=== PATIENT | male | born 1955 | race Caucasian/White ===

== ENCOUNTER 2020-04-15 06:59 | Outpatient (REF) | payer MEDICARE, SELFPAY ==
[2020-04-15 08:25] LABS: Estimated Average Glucose 177 mg/dL; Hemoglobin A1c % 7.8 %
== END 2020-04-15 07:00 | disposition home or self-care (01) ==
LOC: HO.LAB 06:59
PROVIDERS: Visit Provider Internal Medicine
DX: E11.9 Type 2 diabetes mellitus without complications (principal)
CPT/HCPCS: 83036

== ENCOUNTER 2020-05-07 17:18 | Emergency (ER) | payer MEDICARE, SELFPAY ==
[2020-05-07 19:43] VITALS: BP 165/61; PULSE 81; RESP 16; TEMP 36.6; O2SAT 98
[2020-05-07 19:51] VITALS: BP 150/60; PULSE 85; RESP 16; TEMP 37; O2SAT 99; BMI 30.9
--- NOTE | 2020-05-07 20:02 | ED_ITS ---
HPI - Back Pain/Injury General Chief Complaint: Back Pain/Injury Stated Complaint: back pain Time Seen by Provider: 05/07/20 20:02 Source: patient Mode of arrival: ambulatory Limitations: no limitations History of Present Illness HPI Narrative: Patient to start his back 5 days ago complaining of pain especially when he moves no direct trauma to the back no numbness or tingling in the legs no weakness no bladder or bowel incontinence MD elicited complaint: back pain Timing: intermittent Severity: moderate Similar Symptoms Previously: No Quality: sharp Location: lumbar spine Radiation: none Relieving factors: none Context: turning/twisting Associated symptoms: denies other symptoms Work related injury: No Related Data Home Medications Medication Instructions Recorded Confirmed aspirin 81 mg tablet,delayed 81 mg PO DAILY 02/02/20 05/06/20 release multivitamin 1 tab PO DAILY 02/02/20 05/06/20 omega 0-yfb-wvv-fish oil 500 mg 1 cap PO DAILY 02/02/20 05/06/20 (200mg-300mg)-1,000 mg capsule Previous Rx's Medication Instructions Recorded metformin 500 mg tablet 500 mg PO BID #180 tab 03/14/20 miscellaneous medical supply 1 ea MISCELLANEOUS DAILY #1 ea 03/21/20 chlorthalidone 25 mg tablet 25 mg PO DAILY #90 tab 04/07/20 rosuvastatin 20 mg tablet 20 mg PO DAILY #90 tab 04/09/20 cyclobenzaprine 10 mg PO Q8H #20 tab 05/07/20 oxycodone 5 mg PO Q6H PRN #20 tab 05/07/20 Allergies Allergy/AdvReac Type Severity Reaction Status Date / Time atorvastatin [Lipitor] Allergy Unknown Unknown Verified 05/07/20 19:51 No Known Drug Allergies Allergy Unknown NONE Verified 05/06/20 11:07 [NO KNOWN DRUG ALLERGIES] Review of Systems Review of Systems: Yes all other systems are reviewed and are negative [facility] Past Medical History Medical History Hypertension Surgical History History of prostate surgery History of pterygium excision Family History Family History Father No problems noted. Mother No problems noted. Social History Social History Alcohol intake: current Alcohol intake frequency: a few times a week Smoking Status: Never smoker Advance Directives: No Advance Directives Information Provided: Yes Physical Exam Vital Signs: Vital Signs: Last Vital Signs Temp 98.6 F 05/07/20 19:51 Pulse 85 05/07/20 19:51 Resp 16 05/07/20 19:51 BP 150/60 H 05/07/20 19:51 Pulse Ox 99 05/07/20 19:51 Body Mass Index 30.9 Appearance: Alert. Oriented X3. No acute distress. Eyes: Pupils equal, round and reactive to light. ENT: Pharynx normal. Neck: Normal inspection. Neck supple. CVS: Normal heart rate and rhythm. Pulses normal. Respiratory: No respiratory distress. Breath sounds normal. Abdomen: Soft and nontender. Bowel sounds are present, no mass palpable, no CVA tenderness Skin: Skin warm and dry. Normal skin color. Normal skin turgor. Extremities: No lower extremity edema. back: Diffuse tenderness L2-L3 area with no focal spinal tenderness no percussion sharp pain, paraspinal muscle tenderness++ no focal neurological deficit SLR negative bilateral Neuro: Oriented X 3. No motor deficit. No sensory deficit. Course Course Course Narrative: Patient with lumbar strain x-ray shows diffuse arthritis no findings of spinal cord involvement by clinical exam. Discharge patient home on oxycodone and Flexeril patient ambulatory in the ER MDM - Back Pain/Injury Differential Diagnosis Differential diagnosis: Likely lumbar radiculopathy and strain of lumbar region Medical Records Attestation: I reviewed the patient's medical records. Discharge Plan Discharge Clinical Impression: Strain of lumbar region Patient Disposition: Home, Self-Care Instructions: Low Back Strain (ED) Additional Instructions: Apply ice, take pain medication as prescribed. Follow with PCP if not better Prescriptions: New cyclobenzaprine 10 mg tablet 10 mg PO Q8H Qty: 20 RF: 0 oxycodone 5 mg tablet 5 mg PO Q6H PRN (Reason: Pain, Moderate) Qty: 20 RF: 0 No Action metformin 500 mg tablet 500 mg PO BID Qty: 180 RF: 8 miscellaneous medical supply Misc 1 ea miscellaneous DAILY Qty: 1 RF: 0 chlorthalidone 25 mg tablet 25 mg PO DAILY Qty: 90 RF: 8 rosuvastatin [Crestor] 20 mg tablet 20 mg PO DAILY Qty: 90 RF: 8 aspirin [Adult Low Dose Aspirin] 81 mg tablet,delayed release (DR/EC) 81 mg PO DAILY RF: 0 multivitamin Tablet 1 tab PO DAILY RF: 0 omega 2-fnq-oiu-fish oil 500-1,000 mg capsule 1 cap PO DAILY RF: 0 Print Language: Cuban
--- NOTE | 2020-05-07 20:10 | XR_ITS ---
EXAMINATION: XR LUMBOSACRAL SPINE CLINICAL INFORMATION: Atraumatic lower back pain COMPARISON: None TECHNIQUE: Three views of the lumbosacral spine. FINDINGS: Mild spondylitic changes are present in the spine with disc space narrowing at L5-S1. Endplate osteophytes are present most marked at the superior aspects of L2 and L3. A large right lateral osteophyte is present at the L3-L4 level. No bony destructive lesions are seen. XR/XR lumbar spine 2-3V IMPRESSION: Mild degenerative changes without acute finding.
[2020-05-07] MEDS: oxyCODONE HCl Immed Release 5 MG TABLET 10 MG PO (21:17)
[2020-05-07] MEDS: dexAMETHasone 2 MG TABLET 10 MG PO (21:18)
== END 2020-05-07 21:27 | disposition home or self-care (01) ==
PROVIDERS: Emergency Provider Internal Medicine
DX: S39.012A Strain of muscle, fascia and tendon of lower back, initial encounter (principal); X58.XXXA Exposure to other specified factors, initial encounter; Y93.9 Activity, unspecified; Y92.9 Unspecified place or not applicable; Y99.9 Unspecified external cause status; Z79.899 Other long term (current) drug therapy
CPT/HCPCS: 72100; 99283; 99284; J8540

== ENCOUNTER 2020-08-12 07:02 | Outpatient (REF) | payer MEDICARE, SELFPAY ==
[2020-08-12 08:05] LABS: MANUAL DIFF FLAG NO
[2020-08-12 08:13] LABS: Basophils Percent Auto 0.4 % (0-2); Eosinophils Absolute Auto 0.3 X10*3/uL (0.0-0.4); Eosinophils Percent Auto 3.6 % (0-4); Hemoglobin 14.5 g/dl (14.0-18.0); Imm Gran Abs Auto 0.01 X10*3/uL (0.00-0.03); Imm Gran Pct Auto 0.1 % (0.0-0.4); Lymphocytes Absolute Auto 2.8 X10*3/uL (1.2-4.9); Lymphocytes Percent Auto 36.8 % (20-40); Mean Corpuscular Volume 85.1 fL (80-98); Mean Platelet Volume 10.5 fL (9.4-12.4); Monocytes Absolute Auto 0.7 X10*3/uL (0.1-1.2); Monocytes Percent Auto 8.4 % (2-11); Neutrophils Absolute Auto 3.9 X10*3/uL (2.0-8.3); Neutrophils Percent Auto 50.7 % (45-73); Platelet Count 283 X10*3/uL (160-400); Red Blood Count 5.17 X10*6/uL (4.60-5.80); Red Cell Distribution Width 12.4 % (11.0-16.0); White Blood Count 7.7 X10*3/uL (4.8-10.8)
[2020-08-12 08:19] LABS: Estimated Average Glucose 183 mg/dL
[2020-08-12 08:26] LABS: Alanine Aminotransferase 29 U/L (0-40); Albumin Level 4.3 g/dL (3.5-5.0); Alkaline Phosphatase 76 U/L (39-117); Anion Gap 14 (12-20); Aspartate Amino Transferase 25 U/L (5-37); Bilirubin Total 0.6 mg/dL (0.0-1.0); Blood Urea Nitrogen 11 mg/dL (9-16); Calcium 9.3 mg/dL (8.4-10.2); Carbon Dioxide 32 mmol/L (22-29); Chloride 96 mmol/L (96-108); Cholesterol 143 mg/dL; Estimated Glomerular Filt Rate > 60; Glucose Fasting 165 mg/dL (60-99); HDL Cholesterol 35 mg/dL; LDL Cholesterol Calculated 80 mg/dl; Potassium 3.8 mmol/L (3.3-5.1); Sodium 138 mmol/L (135-145); Triglycerides 143 mg/dL
[2020-08-12 08:49] LABS: Thyroid Stimulating Hormone 1.42 uIU/mL (0.32-4.0)
[2020-08-12 08:56] LABS: Microalbum/Creatinine Ratio Ur 5.8 ug/mg cr
== END 2020-08-12 07:03 | disposition home or self-care (01) ==
LOC: HO.LAB 07:02
PROVIDERS: PCP Internal Medicine; Visit Provider Internal Medicine
DX: Z00.00 Encounter for general adult medical examination without abnormal findings (principal); E03.9 Hypothyroidism, unspecified; E11.9 Type 2 diabetes mellitus without complications
CPT/HCPCS: 36415; 80053; 80061; 82043; 83036; 84443; 85025

== ENCOUNTER 2020-11-11 07:49 | Outpatient (REF) | payer MEDICARE, SELFPAY ==
[2020-11-11 08:41] LABS: Estimated Average Glucose 157 mg/dL; Hemoglobin A1c % 7.1 %
== END 2020-11-11 07:50 | disposition home or self-care (01) ==
LOC: HO.LAB 07:49
PROVIDERS: PCP Internal Medicine; Visit Provider Internal Medicine
DX: E11.9 Type 2 diabetes mellitus without complications (principal)
CPT/HCPCS: 36415; 83036

== ENCOUNTER 2021-01-19 06:49 | Outpatient (REF) | payer MEDICARE, SELFPAY ==
[2021-01-19 07:45] LABS: Glucose Fasting 144 mg/dL (60-99)
[2021-01-19 07:54] LABS: Cholesterol 167 mg/dL; HDL Cholesterol 38 mg/dL; LDL Cholesterol Calculated 101 mg/dl; Triglycerides 144 mg/dL
[2021-01-19 08:22] LABS: Estimated Average Glucose 148 mg/dL; Hemoglobin A1c % 6.8 %
[2021-01-19 08:29] LABS: PSA,Total (Free>4and<10) 3.23 ng/mL (0.00-4.00)
== END 2021-01-19 06:50 | disposition home or self-care (01) ==
LOC: HO.LAB 06:49
PROVIDERS: Absent Provider Urology; PCP Internal Medicine; Visit Provider Internal Medicine
DX: Z12.5 Encounter for screening for malignant neoplasm of prostate (principal); R97.20 Elevated prostate specific antigen [PSA]; E11.65 Type 2 diabetes mellitus with hyperglycemia
CPT/HCPCS: 36415; 80061; 82947; 83036; 84153

== ENCOUNTER → 2021-03-24 15:10 | Outpatient (BNVA) | payer MEDICARE, SELFPAY | PROVIDERS: PCP Internal Medicine; Visit Provider Urology | CPT/HCPCS: Q3014 ==

== ENCOUNTER 2021-05-09 07:36 | Outpatient (REF) | payer MEDICARE, SELFPAY ==
[2021-05-09 08:31] LABS: Estimated Average Glucose 154 mg/dL
[2021-05-09 08:47] LABS: Cholesterol 209 mg/dL; Glucose Fasting 145 mg/dL (60-99); HDL Cholesterol 40 mg/dL; LDL Cholesterol Calculated 136 mg/dl; Triglycerides 165 mg/dL
== END 2021-05-09 07:37 | disposition home or self-care (01) ==
LOC: HO.LAB 07:36
PROVIDERS: Visit Provider Internal Medicine
DX: Z00.00 Encounter for general adult medical examination without abnormal findings (principal); E11.65 Type 2 diabetes mellitus with hyperglycemia
CPT/HCPCS: 36415; 80061; 82947; 83036

== ENCOUNTER → 2021-07-01 09:36 | Outpatient (REF) | payer MEDICARE, SELFPAY | LOC: HO.SL 09:36 | PROVIDERS: PCP Internal Medicine; Visit Provider Internal Medicine | DX: G47.33 Obstructive sleep apnea (adult) (pediatric) (principal) | CPT/HCPCS: 95806 ==

== ENCOUNTER 2021-08-10 07:17 | Outpatient (REF) | payer MEDICARE, SELFPAY ==
[2021-08-10 07:41] LABS: MANUAL DIFF FLAG NO
[2021-08-10 08:07] LABS: Basophils Percent Auto 0.3 % (0-2); Eosinophils Absolute Auto 0.2 X10*3/uL (0.0-0.4); Eosinophils Percent Auto 2.3 % (0-4); Hematocrit 45.6 % (42.0-52.0); Hemoglobin 15.2 g/dl (14.0-18.0); Imm Gran Abs Auto 0.02 X10*3/uL (0.00-0.03); Imm Gran Pct Auto 0.3 % (0.0-0.4); Lymphocytes Absolute Auto 3.1 X10*3/uL (1.2-4.9); Lymphocytes Percent Auto 39.3 % (20-40); Mean Corpuscular HGB Conc 33.3 g/dl (31.0-36.0); Mean Corpuscular Hemoglobin 28.2 pg (27.0-33.0); Mean Corpuscular Volume 84.6 fL (80.0-98.0); Mean Platelet Volume 10.3 fL (9.4-12.4); Monocytes Absolute Auto 0.7 X10*3/uL (0.1-1.2); Monocytes Percent Auto 8.7 % (2-11); Neutrophils Absolute Auto 3.9 x10*3/uL (2.0-8.3); Neutrophils Percent Auto 49.1 % (45-73); Platelet Count 248 X10*3/uL (160-400); Red Blood Count 5.39 X10*6/uL (4.60-5.80); Red Cell Distribution Width 12.6 % (11.0-16.0); White Blood Count 7.9 X10*3/uL (4.8-10.8)
[2021-08-10 08:15] LABS: Estimated Average Glucose 146 mg/dL; Hemoglobin A1c % 6.7 %
[2021-08-10 08:37] LABS: Alanine Aminotransferase 15 U/L (0-40); Albumin Level 4.3 g/dL (3.5-5.0); Alkaline Phosphatase 61 U/L (39-117); Anion Gap 13 (12-20); Aspartate Amino Transferase 18 U/L (5-37); Bilirubin Total 0.6 mg/dL (0.0-1.0); Blood Urea Nitrogen 15 mg/dL (9-16); Calcium 9.7 mg/dL (8.4-10.2); Carbon Dioxide 32 mmol/L (22-29); Chloride 99 mmol/L (96-108); Cholesterol 167 mg/dL; Estimated Glomerular Filt Rate > 60; Glucose Fasting 136 mg/dL (60-99); HDL Cholesterol 35 mg/dL; LDL Cholesterol Calculated 103 mg/dl; Potassium 3.8 mmol/L (3.3-5.1); Sodium 140 mmol/L (135-145); Triglycerides 146 mg/dL
[2021-08-10 09:00] LABS: Thyroid Stimulating Hormone 2.11 uIU/mL (0.32-4.0)
[2021-08-10 10:54] LABS: Microalbum/Creatinine Ratio Ur 3.8 ug/mg cr
== END 2021-08-10 07:18 | disposition home or self-care (01) ==
LOC: HO.LAB 07:17
PROVIDERS: PCP Internal Medicine; Visit Provider Internal Medicine
DX: Z00.00 Encounter for general adult medical examination without abnormal findings (principal); E11.9 Type 2 diabetes mellitus without complications; Z13.0 Encounter for screening for diseases of the blood and blood-forming organs and certain disorders involving the immune mechanism
CPT/HCPCS: 36415; 80053; 80061; 82043; 83036; 84443; 85025

== ENCOUNTER 2021-10-28 06:51 | Outpatient (REF) | payer MEDICARE, SELFPAY ==
[2021-10-28 08:33] LABS: Estimated Average Glucose 146 mg/dL; Hemoglobin A1c % 6.7 %
[2021-10-28 08:40] LABS: Glucose Fasting 122 mg/dL (60-99)
[2021-10-28 09:20] LABS: Cholesterol 148 mg/dL; HDL Cholesterol 37 mg/dL; LDL Cholesterol Calculated 87 mg/dl; Triglycerides 124 mg/dL
[2021-10-28 09:42] LABS: PSA,Total (Free>4and<10) 3.94 ng/mL (0.00-4.00)
== END 2021-10-28 06:52 | disposition home or self-care (01) ==
LOC: HO.LAB 06:51
PROVIDERS: Urology; PCP Internal Medicine; Visit Provider Internal Medicine
DX: Z12.5 Encounter for screening for malignant neoplasm of prostate (principal); N40.1 Benign prostatic hyperplasia with lower urinary tract symptoms; E11.65 Type 2 diabetes mellitus with hyperglycemia
CPT/HCPCS: 36415; 80061; 82947; 83036; 84153

== ENCOUNTER 2021-11-10 12:22 | Outpatient (REF) | payer MEDICARE, SELFPAY | END 2021-11-10 12:23 | disposition home or self-care (01) | LOC: HO.XRAY 12:22 | PROVIDERS: PCP Internal Medicine; Visit Provider Internal Medicine | DX: Z13.89 Encounter for screening for other disorder (principal) ==

== ENCOUNTER 2021-12-28 15:53 | Outpatient (REF) | payer MEDICARE, SELFPAY ==
--- NOTE | ~2021-12-28 | US_ITS ---
EXAMINATION: US RETROPERITONEAL LIMITED (RENAL ONLY) CLINICAL INFORMATION: Unspecified abdominal pain. COMPARISON: None TECHNIQUE: Real-time imaging of the kidneys. FINDINGS: RIGHT KIDNEY: 10.5 x 5.7 x 5.7 cm (SAG x AP x TRV). The kidney is normal in size, contour, and echogenicity. Renal cortical thickness is normal. There are several small 1 to 2 mm echogenic foci without twinkle artifact or shadowing to confirm a stone. No focal parenchymal lesions. No hydronephrosis. LEFT KIDNEY: 11.5 x 6.1 x 4.3 cm (SAG x AP x TRV). The kidney is normal in size, contour, and echogenicity. Renal cortical thickness is normal. There are several small 1 to 2 mm echogenic foci without twinkle artifact or shadowing to confirm a stone. No focal parenchymal lesions. No hydronephrosis. US/US renal BI IMPRESSION: Bilateral small 1 to 2 mm echogenic foci, question representing vascular reflectors versus small stones.
== END 2021-12-28 15:54 | disposition home or self-care (01) ==
LOC: HO.US 15:53
PROVIDERS: Visit Provider Internal Medicine
DX: R10.9 Unspecified abdominal pain (principal)
CPT/HCPCS: 76775

== ENCOUNTER 2022-01-15 07:49 | Outpatient (REF) | payer MEDICARE, SELFPAY ==
[2022-01-15 08:43] LABS: Cholesterol 169 mg/dL; HDL Cholesterol 36 mg/dL; LDL Cholesterol Calculated 112 mg/dl; Triglycerides 109 mg/dL
== END 2022-01-15 07:50 | disposition home or self-care (01) ==
LOC: HO.LAB 07:49
PROVIDERS: PCP Internal Medicine; Visit Provider Internal Medicine
DX: E78.5 Hyperlipidemia, unspecified (principal)
CPT/HCPCS: 36415; 80061

== ENCOUNTER 2022-03-09 08:36 | Outpatient (REF) | payer MEDICARE, SELFPAY ==
[2022-03-09 10:04] LABS: Estimated Average Glucose 143 mg/dL; Hemoglobin A1c % 6.6 %
[2022-03-09 10:18] LABS: Glucose Fasting 126 mg/dL (60-99)
[2022-03-09 10:28] LABS: Cholesterol 181 mg/dL; HDL Cholesterol 37 mg/dL; LDL Cholesterol Calculated 114 mg/dl; Triglycerides 152 mg/dL
[2022-03-09 10:43] LABS: PSA,Total (Free>4and<10) 3.58 ng/mL (0.00-4.00)
== END 2022-03-09 08:37 | disposition home or self-care (01) ==
LOC: HO.LAB 08:36
PROVIDERS: PCP Internal Medicine; Visit Provider Urology
DX: Z12.5 Encounter for screening for malignant neoplasm of prostate (principal); R97.20 Elevated prostate specific antigen [PSA]; E78.5 Hyperlipidemia, unspecified; E11.65 Type 2 diabetes mellitus with hyperglycemia
CPT/HCPCS: 36415; 80061; 82947; 83036; 84153

== ENCOUNTER → 2022-03-24 14:51 | Outpatient (BNVA) | payer MEDICARE, SELFPAY | PROVIDERS: PCP Internal Medicine; Visit Provider Urology | DX: E11.69 Type 2 diabetes mellitus with other specified complication (principal); N52.1 Erectile dysfunction due to diseases classified elsewhere; N40.0 Benign prostatic hyperplasia without lower urinary tract symptoms | CPT/HCPCS: 99212 ==

== ENCOUNTER → 2022-06-22 09:20 | Outpatient (BNVA) | payer MEDICARE, SELFPAY | PROVIDERS: PCP Internal Medicine; Visit Provider Nurse Practitioner Family | DX: N40.1 Benign prostatic hyperplasia with lower urinary tract symptoms (principal); E11.69 Type 2 diabetes mellitus with other specified complication; N52.1 Erectile dysfunction due to diseases classified elsewhere | CPT/HCPCS: 51798; 99212 ==

== ENCOUNTER 2022-07-22 06:51 | Outpatient (REF) | payer MEDICARE, SELFPAY ==
[2022-07-22 07:06] LABS: MANUAL DIFF FLAG NO
[2022-07-22 07:48] LABS: Basophils Percent Auto 0.6 % (0-2); Eosinophils Absolute Auto 0.2 X10*3/uL (0.0-0.4); Eosinophils Percent Auto 2.5 % (0-4); Hematocrit 43.4 % (42.0-52.0); Hemoglobin 14.4 g/dl (14.0-18.0); Imm Gran Abs Auto 0.01 X10*3/uL (0.00-0.03); Imm Gran Pct Auto 0.1 % (0.0-0.4); Lymphocytes Absolute Auto 2.8 X10*3/uL (1.2-4.9); Lymphocytes Percent Auto 38.6 % (20-40); Mean Corpuscular HGB Conc 33.2 g/dl (31.0-36.0); Mean Corpuscular Hemoglobin 27.8 pg (27.0-33.0); Mean Corpuscular Volume 83.8 fL (80.0-98.0); Mean Platelet Volume 10.1 fL (9.4-12.4); Monocytes Absolute Auto 0.6 X10*3/uL (0.1-1.2); Neutrophils Absolute Auto 3.6 x10*3/uL (2.0-8.3); Neutrophils Percent Auto 50.2 % (45-73); Platelet Count 275 X10*3/uL (160-400); Red Blood Count 5.18 X10*6/uL (4.60-5.80); Red Cell Distribution Width 12.6 % (11.0-16.0); White Blood Count 7.2 X10*3/uL (4.8-10.8)
[2022-07-22 07:57] LABS: Estimated Average Glucose 154 mg/dL
[2022-07-22 08:22] LABS: Alanine Aminotransferase 16 U/L (0-40); Albumin Level 4.1 g/dL (3.5-5.0); Alkaline Phosphatase 78 U/L (39-117); Anion Gap 12 (12-20); Aspartate Amino Transferase 17 U/L (5-37); Bilirubin Total 0.5 mg/dL (0.0-1.0); Blood Urea Nitrogen 13 mg/dL (9-16); Carbon Dioxide 31 mmol/L (22-29); Chloride 100 mmol/L (96-108); Cholesterol 145 mg/dL; Estimated Glomerular Filt Rate > 60; Glucose Fasting 139 mg/dL (60-99); HDL Cholesterol 38 mg/dL; LDL Cholesterol Calculated 90 mg/dl; Sodium 139 mmol/L (135-145); Total Protein 6.6 g/dL (6.5-8.0); Triglycerides 89 mg/dL
[2022-07-22 08:23] LABS: Creatinine Urine 96.51 mg/dL; Microalbumin Urine < 5.0 mg/L
== END 2022-07-22 06:52 | disposition home or self-care (01) ==
LOC: HO.LAB 06:51
PROVIDERS: PCP Internal Medicine; Visit Provider Internal Medicine
DX: N28.9 Disorder of kidney and ureter, unspecified (principal); D64.9 Anemia, unspecified; E11.69 Type 2 diabetes mellitus with other specified complication; E66.01 Morbid (severe) obesity due to excess calories; E78.5 Hyperlipidemia, unspecified; E11.65 Type 2 diabetes mellitus with hyperglycemia
CPT/HCPCS: 36415; 80053; 80061; 82043; 83036; 85025

== ENCOUNTER 2022-11-06 07:15 | Outpatient (REF) | payer MEDICARE, SELFPAY | END 2022-11-06 07:16 | disposition home or self-care (01) | LOC: HO.LAB 07:15 | PROVIDERS: Absent Provider Nurse Practitioner Family; PCP Internal Medicine; Visit Provider Internal Medicine | DX: R73.9 Hyperglycemia, unspecified (principal); N28.9 Disorder of kidney and ureter, unspecified; E78.5 Hyperlipidemia, unspecified; D64.9 Anemia, unspecified | CPT/HCPCS: 36415; 80053; 80061; 83036; 85025 ==

== ENCOUNTER 2022-11-16 10:23 | Outpatient (AMB) | payer MEDICARE, SELFPAY ==
--- NOTE | 2022-11-16 10:34 | MHC.PC.OV ---
Vital Signs 11/16/22 10:36 Height 5 ft 8 in Weight 198 lb 6 oz BMI 30.2 BP 128/60 Blood Pressure Location Lt brachial Position Sitting Pulse 95 Pulse Source Pulse Oximeter Pulse Oximetry (%) 97 Oxygen Delivery Method Room Air Intake Visit Reasons: 3 month f/u Intake Note: Patient is here to follow up on Hyperlipidemia, HTN, DM. Benefit Authorizer Required: No Button Decorating Machine Operator: Not Required per policy Accompanied by: Self / Same As Patient Allergies No Known Allergies Allergy (Verified 11/16/22 10:36) Medication List - Last Reconciled 11/16/22 by Enrique Stein MD aspirin (Adult Low Dose Aspirin) 81 mg PO DAILY chlorthalidone 25 mg PO DAILY cyanocobalamin (vitamin B-12) (Vitamin B-12) 500 mcg PO DAILY cyclobenzaprine 10 mg PO Q8H metformin 500 mg PO BID multivitamin 1 tab PO DAILY omega 4-iss-hcf-fish oil 500-1,000 mg 1 cap PO DAILY rosuvastatin (Crestor) 20 mg PO DAILY tadalafil 5 mg PO DAILY 90 days Tobacco use date assessed: 11/16/22 Fall risk assessment: No Falls in past year Last assessed Fall Risk: 11/16/22 Dental Screening Dental Screen Date: 11/16/22 Did you have a dental visit in the last 12 months?: Yes Did you have a dental problem in the last 6 months where you did not have access to dental care?: No Was dental information given to patient?: Patient has dentist HPI 3 month f/u HPI Details HTN DM and hyperlipidemia; stable on rx PFSH Medical History Benign prostatic hyperplasia with lower urinary tract symptoms Diabetes mellitus with coincident hypertension Elevated prostate specific antigen [PSA] Hyperlipidemia Hypertension Male erectile dysfunction, unspecified Surgical History History of cataract surgery History of prostate surgery History of pterygium excision Family History Father No problems noted. Mother No problems noted. Social History Housing: House Alcohol intake: current Alcohol intake frequency: a few times a week Patient Tobacco Use Status: Never used Tobacco e-Cigarette/Vaping Use: Never Used Second Hand Smoke Exposure: No service: No Current occupational status: retired Current occupational exposures/hazards: No Cognitive needs: No Hearing needs: No Vision needs: Yes Questionnaire PHQ-9 Over the last 2 weeks, how often have you been bothered by any of the following problems? Depression Screening Interpretation: Negative Source: Developed by Drs. Raf Nichole, Alexa Gonzalez, Hunter Villa and colleagues, with an educational april from [employer]. Thrive Questionnaire Date Thrive assessed: 05/05/22 Currently or been in a relationship where the following occur: no concerns reported WILFRED-7 AMB Questionnaire WILFRED-7 Date WILFRED - 7 assessed: 05/05/22 Source: Developed by Drs. Raf Nichole, Alexa Gonzalez, Hunter Villa and colleagues, with an educational april from [employer]. Review of Systems Const Denies chills, Denies headache(s) and Denies weight loss ENT Denies headache(s) Card Denies chest pain, Denies syncope, Denies irregular heart rhythm and Denies dyspnea Resp Denies chest congestion, Denies cough and Denies dyspnea GI Denies abdominal pain, Denies change in stool character, Denies nausea and Denies vomiting Musc Denies deformity and Denies joint swelling Neuro Denies syncope and Denies headache(s) Physical exam (Primary Care) Vital Signs: Last Vital Signs Pulse 95 11/16/22 10:36 BP 128/60 11/16/22 10:36 Pulse Ox 97 11/16/22 10:36 Oxygen Delivery Method Room Air 11/16/22 10:36 BMI result Body Mass Index 30.2 Tobacco/Smoking Status: Tobacco use Status Tobacco use date assessed 11/16/22 11/16/22 10:36 Patient Tobacco Use Status Never used Tobacco 11/16/22 10:36 e-Cigarette/Vaping Use Never Used 11/16/22 10:36 Depression Screening Interpretation: Negative Thrive Assessment: Date of Thrive Assessment Date Thrive assessed 05/05/22 11/16/22 10:36 Currently or been in a relationship where the following occur: no concerns reported Const General: cooperative, comfortable and no acute distress Resp Effort & Inspection: normal respiratory effort Auscultation: clear to auscultation bilaterally Percussion: percussion normal Cardio Jugular venous distension: no JVD Rate: regular rate Rhythm: regular rhythm GI Inspection: Yes normal to inspection Other: nl Assessment and Plan Assessment & Plan (1) Hyperlipidemia: Code(s): E78.5 - Hyperlipidemia, unspecified Plan: stable; same rx (2) Hypertension: Code(s): I10 - Essential (primary) hypertension Plan: stable; same rx (3) Diabetes mellitus with coincident hypertension: Code(s): E11.9 - Type 2 diabetes mellitus without complications; I10 - Essential (primary) hypertension Plan: same rx Orders: Orders Comprehensive [place]. Panel Fast Today N28.9 - Disorder of kidney and ureter, unspecified Hemoglobin A1c Today R73.9 - Hyperglycemia, unspecified Lipid Panel Today E78.5 - Hyperlipidemia, unspecified Prostate Specific Antigen Scr Today Z00.00 - Encounter for general adult medical examination without abnormal findings Thyroid Stimulating Hormone Today E03.9 - Hypothyroidism, unspecified Microalbumin, Random (w Creat) Today E11.69 - Type 2 diabetes mellitus with other specified complication, E66.01 - Morbid (severe) obesity due to excess calories Complete Blood Count Auto Diff Today D64.9 - Anemia, unspecified Referrals Podiatry Referral E11.9 - Type 2 diabetes mellitus without complications, I10 - Essential (primary) hypertension Coding Level of Care Code Est Pt Level 4 (33451) Diagnoses Hyperlipidemia E78.5 Hypertension I10 Diabetes mellitus with coincident hypertension E11.9; I10
[2022-11-16 10:36] VITALS: BP 128/60; PULSE 95; O2SAT 97; BMI 30.2
== END 2022-11-16 10:53 | disposition home or self-care (01) ==
PROVIDERS: PCP Internal Medicine; Visit Provider Internal Medicine
DX: E78.5 Hyperlipidemia, unspecified (principal); I10 Essential (primary) hypertension; E11.9 Type 2 diabetes mellitus without complications
CPT/HCPCS: 99214

== ENCOUNTER 2022-12-01 09:19 | Outpatient (REF) | payer MEDICARE, SELFPAY ==
--- NOTE | ~2022-12-01 | US_ITS ---
EXAMINATION: US RETROPERITONEAL LIMITED (RENAL ONLY) CLINICAL INFORMATION: Calculus of kidney. COMPARISON: Renal ultrasound 12/28/2021. TECHNIQUE: Real-time imaging of the kidneys. FINDINGS: RIGHT KIDNEY: 11.2 x 6.6 x 5.3 cm (SAG x AP x TRV). The kidney is normal in size, contour, and echogenicity. Renal cortical thickness is normal. No calculi or focal parenchymal lesions. No hydronephrosis. LEFT KIDNEY: 12.2 x 5.9 x 4.2 cm (SAG x AP x TRV). The kidney is normal in size, contour, and echogenicity. Renal cortical thickness is normal. No calculi or focal parenchymal lesions. No hydronephrosis. US/US renal BI IMPRESSION: No hydronephrosis or nephrolithiasis.
== END 2022-12-01 09:20 | disposition home or self-care (01) ==
LOC: HO.US 09:19
PROVIDERS: PCP Internal Medicine; Visit Provider Nurse Practitioner Family
DX: N20.0 Calculus of kidney (principal)
CPT/HCPCS: 76775

== ENCOUNTER 2022-12-17 06:23 | Outpatient (REF) | payer MEDICARE, SELFPAY ==
[2022-12-17 08:11] LABS: Prostate Specific Antigen 3.11 ng/mL (<0.05-4.0)
== END 2022-12-17 06:24 | disposition home or self-care (01) ==
LOC: HO.LAB 06:23
PROVIDERS: PCP Internal Medicine; Visit Provider Nurse Practitioner Family
DX: Z12.5 Encounter for screening for malignant neoplasm of prostate (principal); N40.1 Benign prostatic hyperplasia with lower urinary tract symptoms
CPT/HCPCS: 36415; 84153

== ENCOUNTER 2022-12-21 09:11 | Outpatient (AMB) | payer MEDICARE, SELFPAY ==
--- NOTE | 2022-12-21 09:13 | A.OFFVIS_ITS ---
Intake Intake Visit Reasons: 6m follow up/labs Intake Note: Patient is present for follow up BPH/history of renal stones/erectile dysfunction (imaging 12/01/22) (psa 3.11) Urology Medications: tadalafil Blood Thinner: aspirin PVR: 5ml's Hot Dog Vender Required: No Accompanied by: Self / Same As Patient Allergies No Known Allergies Allergy (Verified 12/21/22 09:42) Medication List - Last Reconciled 12/21/22 by PINKY Moss- aspirin (Adult Low Dose Aspirin) 81 mg PO DAILY chlorthalidone 25 mg PO DAILY cyanocobalamin (vitamin B-12) (Vitamin B-12) 500 mcg PO DAILY cyclobenzaprine 10 mg PO Q8H metformin 500 mg PO BID multivitamin 1 tab PO DAILY omega 2-ozg-for-fish oil 500-1,000 mg 1 cap PO DAILY rosuvastatin (Crestor) 20 mg PO DAILY tadalafil 5 mg PO DAILY 90 days HPI HPI Comments History of Present Illness Details Jorge is a very pleasant 67 year old male patient of Dr. Stein. he has a past medical history of BPH with lower urinary tract symptoms, diabetes mellitus, hypertension, hyperlipidemia, and erectile dysfunction. He presents to the office today for a follow-up of his lower urinary tract symptoms and erectile dysfunction. When asked patient reports to be doing and feeling well. He discusses to be compliant with 5 mg of Cialis daily and feels this to be working extremely well for his lower urinary tract symptoms as well as erectile dysfunction. Recent renal imaging results reviewed with the patient today. Bilateral kidneys with no calculi, lesions, and or hydronephrosis noted. PSAs are as follows 07/18--2.8 07/19--3.9 10/19--3.1 01/20--3.2 10/21--3.9 03/23--3.6 12/22--3.1 He otherwise denies any issues and or concerns. In office urinalysis results reviewed with the patient today. PVR 5 mL. When asked he denies urinary urgency, urinary frequency, incontinence, nocturia, hematuria, dysuria, foul smelling urine, changes to urinary stream, flank pain, fever, and or chills. He is happy with her current voiding parameters on 5 mg of Cialis daily. Lower urinary tract symptoms Prior history laser prostatectomy PSA historically range between 2.8 and 3.8 Erectile dysfunction Longstanding Currently on therapy HBA1c 03/23 - 6.6% Background diabetes ? [facility] Medical History Benign prostatic hyperplasia with lower urinary tract symptoms Diabetes mellitus with coincident hypertension Elevated prostate specific antigen [PSA] Hyperlipidemia Hypertension Male erectile dysfunction, unspecified Surgical History History of cataract surgery History of prostate surgery History of pterygium excision Family History Father No problems noted. Mother No problems noted. Social History Housing: House Alcohol intake: current Alcohol intake frequency: a few times a week Patient Tobacco Use Status: Never used Tobacco e-Cigarette/Vaping Use: Never Used Second Hand Smoke Exposure: No service: No Current occupational status: retired Current occupational exposures/hazards: No Cognitive needs: No Hearing needs: No Vision needs: Yes Review of Systems Const Reports no additional complaints Eyes Reports no additional complaints ENT Reports no additional complaints Card Reports no additional complaints Resp Reports no additional complaints GI Reports no additional complaints Reports as per HPI Musc Reports no additional complaints Psych Reports no additional complaints Endo Details: patient reports A1c and suagrs to be well controlled Solitario/Lymph Reports no additional complaints Aller/Immun Reports no additional complaints Physical Exam Const General: cooperative, healthy appearing, comfortable, no acute distress, well developed, alert and awake Orientation/consciousness: patient oriented x3 Limitations: no limitations HEENT Head: Yes normal to inspection, Yes normocephalic and Yes atraumatic Ears: hearing grossly normal bilaterally Eyes General: appearance normal, both eyes and all related structures Neck Neck: Yes normal visual inspection and Yes trachea midline Chest Chest palpation & inspection: normal inspection of the chest Resp Effort & Inspection: normal respiratory effort and able to speak in complete sentences Cardio Rate: regular rate General: Yes no CVA tenderness Back/Spine/Pelvis Back: no CVA tenderness Skin General skin exam: no rashes or lesions noted Neuro General: patient oriented x3 Extrem General: Yes normal to inspection Psych Appearance: grossly normal and well kempt Mental Status: mental status grossly normal Speech and movement: Normal speech and movement present and Clear speech present Affect: normal affect Attitude: cooperative Thought process: Normal thought process present Thought content: Normal thought content present Insight: Fair insight present (Psych) Judgement: Fair judgement present (Psych) Office Procedures Post Void Residual Post Residual Void Post Void Residual (PVR): 5 [id number]-[id number] Void Residual by ultrasound Results AMB Urinalysis, Automated UA Leukoctes 0 Arnoldo/uL Last Edit by RadiumOnesoledad Ayers on 12/21/22 09:33 UA Nitrite Last Edit by PeerApprafal Ayers on 12/21/22 09:33 UA Urobilinogen 0.2 mg/dL Last Edit by RadiumOnesoledad [employer] on 12/21/22 09:33 UA Protein 0 mg/dL Last Edit by RadiumOnesoledad [employer] on 12/21/22 09:33 UA pH 6.0 Last Edit by RadiumOnesoledad Ayers on 12/21/22 09:33 UA Blood 0 Cesario/uL Last Edit by [employer] on 12/21/22 09:33 UA Specific [place] 1.020 Last Edit by RadiumOnesoledad [employer] on 12/21/22 09:33 UA Ketone Negative Last Edit by [employer] on 12/21/22 09:33 UA Bilirubin 0 mg/dL Last Edit by [employer] on 12/21/22 09:33 UA Glucose 0 mg/dL Last Edit by RadiumOnesoledad [employer] on 12/21/22 09:33 Results Reviewed Results Reviewed: Laboratory Last Values Urine pH (Auto) 6.0 12/21/22 09:15 Specific [place] (Auto) 1.020 12/21/22 09:15 Urine Protein (Auto) 0 mg/dL 12/21/22 09:15 Glucose (UA)(Auto) 0 mg/dL 12/21/22 09:15 Urine Ketones (Auto) Negative 12/21/22 09:15 Urine Blood (Auto) 0 Cesario/uL 12/21/22 09:15 Urine Bilirubin (Auto) 0 mg/dL 12/21/22 09:15 Urine Urobilinogen (Auto) 0.2 mg/dL 12/21/22 09:15 Leukocyte Esterase (Auto) 0 Arnoldo/uL 12/21/22 09:15 Date of Service: 12/01/22 EXAMINATION: US RETROPERITONEAL LIMITED (RENAL ONLY) FINDINGS: RIGHT KIDNEY: 11.2 x 6.6 x 5.3 cm (SAG x AP x TRV). The kidney is normal in size, contour, and echogenicity. Renal cortical thickness is normal. No calculi or focal parenchymal lesions. No hydronephrosis. LEFT KIDNEY: 12.2 x 5.9 x 4.2 cm (SAG x AP x TRV). The kidney is normal in size, contour, and echogenicity. Renal cortical thickness is normal. No calculi or focal parenchymal lesions. No hydronephrosis. IMPRESSION: No hydronephrosis or nephrolithiasis. Assessment & Plan Assessment & Plan (1) Benign prostatic hyperplasia with lower urinary tract symptoms: Code(s): N40.1 - Benign prostatic hyperplasia with lower urinary tract symptoms (2) Erectile dysfunction associated with type 2 diabetes mellitus: Code(s): E11.69 - Type 2 diabetes mellitus with other specified complication; N52.1 - Erectile dysfunction due to diseases classified elsewhere (3) Elevated prostate specific antigen [PSA]: Code(s): R97.20 - Elevated prostate specific antigen [PSA] Plan In office urinalysis results reviewed with the patient today. PVR 5 mL. Recent renal ultrasound results reviewed with the patient today; as noted above. Recent PSA results reviewed with the patient today; as noted above. Patient reports significant improvement in erectile dysfunction as well as lower urinary tract symptoms on 5 mg of Cialis daily. Will continue 5 mg of Cialis; prescription refilled and provided. Discussed at length importance of managing diabetes for improvement in lower urinary tract symptoms, erectile dysfunction, and overall health and well-being. Continue to drink plenty of water daily. Continue adding 1 oz of lemon juice to water. Patient reports to be happy with current voiding parameters on low-dose 5 mg of Cialis daily. PSA in 1 year. Follow-up in 1 year with PSA to be completed prior; or sooner with any issues, concerns, and or questions. Orders: Orders Prostate Specific Antigen 364 Days N40.1 - Benign prostatic hyperplasia with lower urinary tract symptoms AMB Urinalysis Automated Today Z13.9 - Encounter for screening, unspecified AMB Post Void Residual by ultrasound Today N40.1 - Benign prostatic hyperplasia with lower urinary tract symptoms Medications: Refilled tadalafil [facility] DR33 [id number] 5 mg PO DAILY 90 days 90 tabs 3RF sexual activity N52.01 - Erectile dysfunction due to arterial insufficiency Patient Instructions: The patient had an opportunity to ask questions regarding the treatment plan. All questions were answered. Physical exam, labs, and imaging were discussed and reviewed in detail. As well as risks, benefits, and discussion of treatment choices. No major barriers to understanding were identified. The patient expressed understanding and agreement with the above treatment plan. The patient was made aware they should contact our office by phone for worsening of their current condition, the appearance of new symptoms, or with any questions or concerns. Compliance is encouraged with any medications and follow up testing that is ordered. It is a privilege to be allowed the opportunity to participate in? your urological care.? Again, if you have any questions or concerns If you have any questions or concerns please do not hesitate to contact me. The office is [phone]. This note is constructed using voice recognition software. While every effort has been made to ensure accuracy lieutenant/deputy errors may have been included. Yours sincerely, OKSANA Moss Coding Level of Care Code Est Pt Level 3 (34414) Diagnoses Benign prostatic hyperplasia with lower urinary tract symptoms N40.1 Erectile dysfunction associated with type 2 diabetes mellitus E11.69; N52.1 Elevated prostate specific antigen [PSA] R97.20 CPT Codes Post Residual Void - PVR CPT Code: 20173-Oyra Void Residual by ultrasound ([id number])
== END 2022-12-21 09:53 | disposition home or self-care (01) ==
PROVIDERS: PCP Internal Medicine; Visit Provider Nurse Practitioner Family
DX: N40.1 Benign prostatic hyperplasia with lower urinary tract symptoms (principal); E11.69 Type 2 diabetes mellitus with other specified complication; N52.1 Erectile dysfunction due to diseases classified elsewhere; R97.20 Elevated prostate specific antigen [PSA]
CPT/HCPCS: 99213

== ENCOUNTER → 2022-12-21 09:11 | Outpatient (BNVA) | payer MEDICARE, SELFPAY | PROVIDERS: Visit Provider Nurse Practitioner Family | DX: N40.1 Benign prostatic hyperplasia with lower urinary tract symptoms (principal); E11.69 Type 2 diabetes mellitus with other specified complication; N52.1 Erectile dysfunction due to diseases classified elsewhere; R97.20 Elevated prostate specific antigen [PSA] | CPT/HCPCS: 51798; 81003; 99212 ==

== ENCOUNTER 2023-02-14 06:30 | Outpatient (REF) | payer MEDICARE, SELFPAY ==
[2023-02-14 06:49] LABS: MANUAL DIFF FLAG NO
[2023-02-14 07:24] LABS: Basophils Percent Auto 0.4 % (0-2); Eosinophils Absolute Auto 0.2 X10*3/uL (0.0-0.4); Eosinophils Percent Auto 3.1 % (0-4); Hematocrit 47.8 % (42.0-52.0); Hemoglobin 15.4 g/dl (14.0-18.0); Imm Gran Abs Auto 0.01 X10*3/uL (0.00-0.03); Imm Gran Pct Auto 0.1 % (0.0-0.4); Lymphocytes Absolute Auto 2.6 X10*3/uL (1.2-4.9); Lymphocytes Percent Auto 36.5 % (20-40); Mean Corpuscular HGB Conc 32.2 g/dl (31.0-36.0); Mean Corpuscular Hemoglobin 27.4 pg (27.0-33.0); Mean Corpuscular Volume 84.9 fL (80.0-98.0); Mean Platelet Volume 10.3 fL (9.4-12.4); Monocytes Absolute Auto 0.5 X10*3/uL (0.1-1.2); Monocytes Percent Auto 7.5 % (2-11); Neutrophils Absolute Auto 3.7 x10*3/uL (2.0-8.3); Neutrophils Percent Auto 52.4 % (45-73); Platelet Count 261 X10*3/uL (160-400); Red Blood Count 5.63 X10*6/uL (4.60-5.80); Red Cell Distribution Width 12.7 % (11.0-16.0)
[2023-02-14 07:33] LABS: Estimated Average Glucose 128 mg/dL; Hemoglobin A1c % 6.1 % (<6.0)
[2023-02-14 08:07] LABS: Creatinine Urine 99.57 mg/dL; Microalbumin Urine < 5.0 mg/L
[2023-02-14 08:14] LABS: Alanine Aminotransferase 17 U/L (0-40); Albumin Level 4.4 g/dL (3.5-5.0); Alkaline Phosphatase 74 U/L (39-117); Anion Gap 16 (12-20); Aspartate Amino Transferase 18 U/L (5-37); Bilirubin Total 0.6 mg/dL (0.0-1.0); Blood Urea Nitrogen 14 mg/dL (9-16); Calcium 10.1 mg/dL (8.4-10.2); Carbon Dioxide 30 mmol/L (22-29); Chloride 98 mmol/L (96-108); Cholesterol 173 mg/dL (<200); Estimated Glomerular Filt Rate > 60; Glucose Fasting 136 mg/dL (60-99); HDL Cholesterol 39 mg/dL (>40); LDL Cholesterol Calculated 112 mg/dL (<100); Sodium 140 mmol/L (135-145); Thyroid Stimulating Hormone 1.95 uIU/mL (0.32-4.0); Total Protein 7.7 g/dL (6.5-8.0); Triglycerides 111 mg/dL (<150)
== END 2023-02-14 06:31 | disposition home or self-care (01) ==
LOC: HO.LAB 06:30
PROVIDERS: PCP Internal Medicine; Visit Provider Internal Medicine
DX: Z00.00 Encounter for general adult medical examination without abnormal findings (principal); Z12.5 Encounter for screening for malignant neoplasm of prostate; D64.9 Anemia, unspecified; E66.01 Morbid (severe) obesity due to excess calories; E03.9 Hypothyroidism, unspecified; E78.5 Hyperlipidemia, unspecified; N28.9 Disorder of kidney and ureter, unspecified; E11.65 Type 2 diabetes mellitus with hyperglycemia
CPT/HCPCS: 36415; 80053; 80061; 82043; 82570; 83036; 84153; 84443; 85025

== ENCOUNTER 2023-02-23 09:15 | Outpatient (AMB) | payer MEDICARE, SELFPAY ==
[2023-02-23 09:22] VITALS: BP 140/70; PULSE 75; O2SAT 99
--- NOTE | 2023-02-23 09:22 | MHC.PC.OV ---
Vital Signs 02/23/23 09:22 Height 5 ft 8 in Weight 197 lb BMI 30.0 BP 140/70 H Blood Pressure Location Lt brachial Position Sitting Pulse 75 Pulse Source Pulse Oximeter Pulse Oximetry (%) 99 Oxygen Delivery Method Room Air Intake Visit Reasons: 3 month f/u Allergies No Known Allergies Allergy (Verified 02/23/23 09:23) Medication List - Last Reconciled 02/23/23 by Enrique Stein MD aspirin (Adult Low Dose Aspirin) 81 mg PO DAILY chlorthalidone 25 mg PO DAILY cyanocobalamin (vitamin B-12) (Vitamin B-12) 500 mcg PO DAILY cyclobenzaprine 10 mg PO Q8H metformin 500 mg PO BID multivitamin 1 tab PO DAILY omega 6-daq-otk-fish oil 500-1,000 mg 1 cap PO DAILY rosuvastatin (Crestor) 20 mg PO DAILY tadalafil 5 mg PO DAILY 90 days Tobacco use date assessed: 11/16/22 Fall risk assessment: No Falls in past year Last assessed Fall Risk: 02/23/23 Dental Screening Dental Screen Date: 02/23/23 Did you have a dental visit in the last 12 months?: Yes Did you have a dental problem in the last 6 months where you did not have access to dental care?: No Was dental information given to patient?: Patient has dentist HPI 3 month f/u HPI Details HTN DM and hyperlip; doing well on rx; compliant PFSH Medical History Hyperlipidemia Elevated prostate specific antigen [PSA] Male erectile dysfunction, unspecified Benign prostatic hyperplasia with lower urinary tract symptoms Diabetes mellitus with coincident hypertension Hypertension Surgical History History of cataract surgery History of pterygium excision History of prostate surgery Family History Father No problems noted. Mother No problems noted. Social History Housing: House Alcohol intake: current Alcohol intake frequency: a few times a week Patient Tobacco Use Status: Never used Tobacco e-Cigarette/Vaping Use: Never Used Second Hand Smoke Exposure: No service: No Current occupational status: retired Current occupational exposures/hazards: No Cognitive needs: No Hearing needs: No Vision needs: Yes Questionnaire PHQ-9 Over the last 2 weeks, how often have you been bothered by any of the following problems? 1. Little interest or pleasure in doing things: not at all 2. Feeling down, depressed, or hopeless: not at all 3. Trouble falling or staying asleep, or sleeping too much: not at all 4. Feeling tired or having little energy: not at all 5. Poor appetite or overeating: not at all 6. Feeling bad about yourself - or that you are a failure or have let yourself or your family down: not at all 7. Trouble concentrating on things, such as reading the newspaper or watching television: not at all 8. Moving or speaking so slowly that other people could have noticed. Or the opposite - being so fidgety or restless that you have been moving around a lot more than usual: not at all 9. Thoughts that you would be better off or of hurting yourself in some way: not at all Total score: 0 Depression Screening Interpretation: Negative Depression Screening Done: Yes Source: Developed by Drs. Raf Nichole, Alexa Gonzalez, Hunter Villa and colleagues, with an educational april from [employer]. Thrive Questionnaire Date Thrive assessed: 05/05/22 AUDIT C Alcohol Use Questionnaire (AUDIT-C) 1. How often do you have a drink containing alcohol?: 2-4 times a month 2. How many drinks containing alcohol do you have on a typical day when you are drinking?: 3 or 4 3. How often do you have six or more drinks on one occasion?: Never Total Score: 3 Score Reviewed/Action Taken: Yes WILFRED-7 AMB Questionnaire WILFRED-7 Date WILFRED - 7 assessed: 05/05/22 Source: Developed by Drs. Raf Nichole, Alexa Gonzalez, Hunter Villa and colleagues, with an educational april from [employer]. Review of Systems Const Denies chills, Denies headache(s) and Denies weight loss ENT Denies headache(s) Card Denies chest pain, Denies syncope, Denies irregular heart rhythm and Denies dyspnea Resp Denies chest congestion, Denies cough and Denies dyspnea GI Denies abdominal pain, Denies change in stool character, Denies nausea and Denies vomiting Musc Denies deformity and Denies joint swelling Neuro Denies syncope and Denies headache(s) Physical exam (Primary Care) Vital Signs: Last Vital Signs Pulse 75 02/23/23 09:22 BP 140/70 H 02/23/23 09:22 Pulse Ox 99 02/23/23 09:22 Oxygen Delivery Method Room Air 02/23/23 09:22 BMI result Body Mass Index 30.0 Tobacco/Smoking Status: Tobacco use Status Tobacco use date assessed 11/16/22 02/23/23 09:25 Patient Tobacco Use Status Never used Tobacco 02/23/23 09:25 e-Cigarette/Vaping Use Never Used 02/23/23 09:25 PHQ-9: PHQ-9 Score PHQ-9: Total score 0 02/23/23 09:25 Depression Screening Interpretation: Negative Thrive Assessment: Date of Thrive Assessment Date Thrive assessed 05/05/22 02/23/23 09:25 Const General: cooperative, comfortable, no acute distress and alert Neck Neck: Yes no lymphadenopathy Thyroid: Thyroid normal Resp Effort & Inspection: normal respiratory effort Auscultation: clear to auscultation bilaterally Percussion: percussion normal Cardio Jugular venous distension: no JVD Palpation: normal PMI Rate: regular rate Rhythm: regular rhythm Heart sounds: S1 normal heart sound present and S2 normal heart sound present GI Inspection: Yes normal to inspection Palpation (GI): No hepatosplenomegaly present Skin General skin exam: no rashes or lesions noted Extrem General: Yes no clubbing, cyanosis or edema Assessment and Plan Assessment & Plan (1) Hyperlipidemia: Code(s): E78.5 - Hyperlipidemia, unspecified Plan: stable; same rx (2) Diabetes mellitus with coincident hypertension: Code(s): E11.9 - Type 2 diabetes mellitus without complications; I10 - Essential (primary) hypertension Plan: stable; same rx (3) Hypertension: Code(s): I10 - Essential (primary) hypertension Plan: stable; same rx Orders: Orders Lipid Panel Today E78.5 - Hyperlipidemia, unspecified Hemoglobin A1c Today R73.9 - Hyperglycemia, unspecified Glucose Fasting Today R73.9 - Hyperglycemia, unspecified Coding Level of Care Code Est Pt Level 4 (39130) Diagnoses Hyperlipidemia E78.5 Diabetes mellitus with coincident hypertension E11.9; I10 Hypertension I10
== END 2023-02-23 09:36 | disposition home or self-care (01) ==
PROVIDERS: PCP Internal Medicine; Visit Provider Internal Medicine
DX: E78.5 Hyperlipidemia, unspecified (principal); E11.65 Type 2 diabetes mellitus with hyperglycemia; I10 Essential (primary) hypertension
CPT/HCPCS: 99214

== ENCOUNTER 2023-05-19 14:15 | Emergency (ER) | payer MEDICARE, SELFPAY ==
--- NOTE | ~2023-05-19 | CT_ITS ---
EXAMINATION: CT HEAD WITHOUT CONTRAST CLINICAL INFORMATION: Dizziness. COMPARISON: None available. TECHNIQUE: Contiguous axial imaging was performed from the skull base to vertex without intravenous administration of contrast. This CT examination was performed using dose optimization techniques as appropriate, variously including the following: *Automated exposure control. *Adjustment of mA and/or kV according to patient size (this includes techniques or standardized protocols for targeted exams where dose is matched to indication/reason for exam; i.e. extremities or head). *Use of iterative reconstruction technique. DLP: 738 mGy-cm FINDINGS: There is no evidence of acute intracranial hemorrhage or edematous territorial infarction. Spence-white matter differentiation is preserved. Scattered and partially confluent hypoattenuation in the periventricular and deep white matter are consistent with moderate microangiopathy. Proportional prominence of the ventricles and sulcal spaces without evidence of obstructive hydrocephalus. No abnormal mass effect or midline shift. No extra-axial fluid collections. No acute soft tissue or osseous abnormalities. Mild mucosal thickening of the paranasal sinuses. The mastoid air cells and middle ear cavities are clear. Bilateral lens extractions. CT/CT head/brain wo IV con IMPRESSION: 1. No evidence of acute intracranial hemorrhage or edematous territorial infarction. 2. Moderate underlying microangiopathy and generalized cerebral volume loss.
[2023-05-19 14:19] VITALS: BP 145/71; PULSE 75; RESP 19; TEMP 36.6; O2SAT 97; BMI 29.2
--- NOTE | 2023-05-19 14:21 | ED_ITS ---
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 no tremors no focal weakness no headache no nausea no vomiting patient does have chronic tinnitus no chest pain or palpitation no syncope Related Data Home Medications Medication Instructions Recorded Confirmed aspirin 81 mg tablet,delayed 81 mg PO DAILY 02/02/20 02/23/23 release (Adult Low Dose Aspirin) multivitamin 1 tab PO DAILY 02/02/20 02/23/23 omega 9-zvd-zld-fish oil 500 mg 1 cap PO DAILY 02/02/20 02/23/23 (200mg-300mg)-1,000 mg capsule cyanocobalamin (vitamin B-12) 500 500 mcg PO DAILY 06/02/21 02/23/23 mcg tablet (Vitamin B-12) Previous Rx's Medication Instructions Recorded cyclobenzaprine 10 mg tablet 10 mg PO Q8H #20 tabs 08/25/20 metformin 500 mg tablet 500 mg PO BID #180 tabs 06/01/22 rosuvastatin 20 mg tablet (Crestor) 20 mg PO DAILY #90 tabs 06/01/22 chlorthalidone 25 mg tablet 25 mg PO DAILY #90 tabs 07/13/22 tadalafil 5 mg tablet 5 mg PO DAILY sexual activity 90 12/21/22 days #90 tabs meclizine 25 mg tablet 25 mg PO TID PRN dizziness #20 tabs 05/19/23 Allergies Allergy/AdvReac Type Severity Reaction Status Date / Time No Known Allergies Allergy Verified 05/19/23 14:17 Review of Systems 2 Review of Systems: Yes all other systems are reviewed and are negative PMFSH Past Medical History Onset Date is defined in the Problem List Problems that require an onset date and time if occurred within 24 hrs of arrival to the ED Aortic Dissection and Rupture; Neurologic impairment; Cardiopulmonary Arrest; Endotracheal Intubation; Insertion or Replacement of Mechanical Circulatory Assist Device Medical History Hyperlipidemia Elevated prostate specific antigen [PSA] Male erectile dysfunction, unspecified Benign prostatic hyperplasia with lower urinary tract symptoms Diabetes mellitus with coincident hypertension Hypertension Surgical History History of cataract surgery History of pterygium excision History of prostate surgery Family History Family History Father No problems noted. Mother No problems noted. Social History Social History Housing: House Alcohol intake: current Alcohol intake frequency: a few times a week Patient Tobacco Use Status: Never used Tobacco e-Cigarette/Vaping Use: Never Used Second Hand Smoke Exposure: No Advance Directives: No Advance Directives Information Provided: No service: No Current occupational status: retired Current occupational exposures/hazards: No Cognitive needs: No Hearing needs: No Vision needs: Yes Physical Exam ED Vital Signs: Vital Signs - 24 hr 05/19/23 14:19 05/19/23 18:45 05/19/23 21:40 Temperature 98 F 98.5 F 97.9 F Pulse Rate 75 66 67 Respiratory Rate 19 19 14 Blood Pressure 145/71 H 135/65 136/62 Pulse Oximetry 97 100 98 Oxygen Delivery Method Room Air Room Air Room Air 05/19/23 22:41 05/19/23 22:42 05/19/23 22:42 Temperature Pulse Rate 89 71 71 Respiratory Rate Blood Pressure 142/62 H 145/66 H 153/65 H Pulse Oximetry Oxygen Delivery Method BMI result Body Mass Index 29.2 Appearance: Alert. Oriented X3. No acute distress. Eyes: PERRLA, No Nystagmus vertiginous feeling on moving neck to the right side ENT: Pharynx normal. Oral Mucosa moist Neck: Normal inspection. Neck supple. CVS: Normal heart rate and rhythm. Pulses normal. Respiratory: No respiratory distress. Equal air entry bilateral, no wheezing/rales/rhonchi Abdomen: Soft and nontender. Bowel sounds are present, Skin: Skin warm and dry. Normal skin color. Normal skin turgor. Extremities: No lower extremity edema. No calf tenderness Neuro: Oriented X 3. No motor deficit. No sensory deficit.No cerebellar signs , cranial nerves II-XII intact Course Course Course Narrative: RME- 67-year-old male presents for evaluation of dizziness at times we worse in the morning. Also complains of headache and mild chest tightness. Plan for labs, EKG Medications Administered Discontinued Medications Generic Name Dose Route Start Last Admin Trade Name Tina PRN Reason Stop Dose Admin Meclizine HCl 25 mg 05/19/23 22:24 05/19/23 22:40 Meclizine Hcl 25 Mg Tablet PO 05/19/23 22:25 25 mg ONCE ONE Administration Medical Decision Making Medical Decision Making [facility] Narrative: Patient with sudden onset of dizziness clinically peripheral vertigo no signs of central nervous system involvement. CT scan of the head is negative for acute patient ambulatory feeling much better after taking meclizine discharge patient home on meclizine Differential Diagnosis Differential Diagnoses: The differential diagnosis associated with the presentation includes Benign positional vertigo/cerebellar stroke/nonspecific dizzy Lab Data [facility] Lab Attestation statement: I reviewed the patient's lab results. 05/19/23 14:36 05/19/23 14:36 Labs: Lab Results 05/19/23 05/19/23 Range/Units 14:36 21:42 WBC 7.5 (4.8-10.8) X10*3/uL RBC 5.46 (4.60-5.80) X10*6/uL Hgb 15.2 (14.0-18.0) g/dl Hct 45.7 (42.0-52.0) % MCV 83.7 (80.0-98.0) fL MCH 27.8 (27.0-33.0) pg MCHC 33.3 (31.0-36.0) g/dl RDW 13.0 (11.0-16.0) % Plt Count 247 (160-400) X10*3/uL MPV 9.6 (9.4-12.4) fL Immature Gran % (Auto) 0.3 (0.0-0.4) % Neut % (Auto) 69.5 (45-73) % Lymph % (Auto) 22.7 (20-40) % [place]ondera % (Auto) 6.1 (2-11) % Eos % (Auto) 1.1 (0-4) % Baso % (Auto) 0.3 (0-2) % Lymph # (Auto) 1.7 (1.2-4.9) X10*3/uL [place] # (Auto) 0.5 (0.1-1.2) X10*3/uL Eos # (Auto) 0.1 (0.0-0.4) X10*3/uL Baso # (Auto) 0.0 (0.0-0.2) X10*3/uL Abs Immat Gran (auto) 0.02 (0.00-0.03) X10*3/uL Absolute Neuts (auto) 5.2 (2.0-8.3) x10*3/uL Absolute Nucleated RBC 0.000 (0.0-0.012) X10*3/uL Nucleated RBC % (auto) 0.0 (0.0-0.2) /100WBC PT 11.1 (11.1-13.3) SEC INR 0.9 (0.9-1.1) APTT 32.1 (26.0-36.4) SEC Sodium 137 (135-145) mmol/L Potassium 3.4 (3.3-5.1) mmol/L Chloride 101 (96-108) mmol/L Carbon Dioxide 27 (22-29) mmol/L Anion Gap 12 (12-20) BUN 13 (9-16) mg/dL Creatinine 0.80 (0.5-1.4) mg/dL Estim Creat Clear Calc 93.5 Estimated GFR > 60 Random Glucose 152 H (60-115) mg/dL Calcium 9.4 D (8.4-10.2) mg/dL Total Bilirubin 0.4 (0.0-1.0) mg/dL AST 17 (5-37) U/L ALT 15 (0-40) U/L Alkaline Phosphatase 72 (39-117) U/L Troponin I High Sens < 2.7 (<3.5-35.0) ng/L Total Protein 7.3 (6.5-8.0) g/dL Albumin 4.1 (3.5-5.0) g/dL Lipase 20 (8-78) U/L Urine Color Yellow Urine Appearance Clear Urine pH 7.5 (5.0-9.0) Ur Specific Lithia 1.010 (1.005-1.025) Urine Protein Negative (Neg-Trace) mg/dL Urine Glucose (UA) Negative (Negative) mg/dL Urine Ketones Negative (Negative) mg/dL Urine Blood Negative (Negative) Urine Nitrite Negative (Negative) Ur Leukocyte Esterase Negative (Negative) Urine RBC 0-2 (0-2) /HPF Urine WBC 0-5 (0-5) /HPF Ur Squamous Epith Cells 0-2 (0-2) /HPF Urine Bacteria None Seen (None Seen) Hyaline Casts 0-2 (0-2) /LPF Independent Interpretation I performed an independent interpretation of an: EKG and CT Scan Interpretation: Junctional rhythm with heart rate 75 beats per minute no acute ST T wave changes no acute ischemia Radiology Impression Discussion of test interpretation with radiology: I have reviewed the radiologist's reading. Discharge Plan Discharge Clinical Impression: Benign paroxysmal positional vertigo Patient Disposition: Home, Self-Care Instructions: Benign Paroxysmal Positional Vertigo (ED) Additional Instructions: Care and cautions as advised Medication for dizziness as prescribed Follow with PCP if not better Prescriptions: New meclizine 25 mg tablet 25 mg PO TID PRN (Reason: dizziness) Qty: 20 0RF No Action rosuvastatin [Crestor] 20 mg tablet 20 mg PO DAILY Qty: 90 8RF metformin 500 mg tablet 500 mg PO BID Qty: 180 8RF chlorthalidone 25 mg tablet 25 mg PO DAILY Qty: 90 8RF aspirin [Adult Low Dose Aspirin] 81 mg tablet,delayed release (DR/EC) 81 mg PO DAILY multivitamin Tablet 1 tab PO DAILY omega 0-jeh-olc-fish oil 500-1,000 mg capsule 1 cap PO DAILY cyanocobalamin (vitamin B-12) [Vitamin B-12] 500 mcg tablet 500 mcg PO DAILY cyclobenzaprine 10 mg tablet 10 mg PO Q8H Qty: 20 0RF tadalafil 5 mg tablet 5 mg PO DAILY 90 Days Qty: 90 3RF Rx Instructions: [facility] [address] [id number]
--- NOTE | 2023-05-19 14:22 | ECG_ITS ---
Test Reason : dizziness Blood Pressure : / mmHG Vent. Rate : 075 BPM Atrial Rate : 000 BPM P-R Int : 000 ms QRS Dur : 084 ms QT Int : 368 ms P-R-T Axes : 000 -07 009 degrees QTc Int : 410 ms Artifact in tracing Normal sinus rhythm Normal ECG When compared with ECG of 01-APR-2016 11:49, No significant changes seen Referred By: Kris Newell Electronically Signed By:NAINA FAITH
[2023-05-19 14:45] LABS: MANUAL DIFF FLAG NO
[2023-05-19 14:47] LABS: Basophils Percent Auto 0.3 % (0-2); Eosinophils Absolute Auto 0.1 X10*3/uL (0.0-0.4); Eosinophils Percent Auto 1.1 % (0-4); Hematocrit 45.7 % (42.0-52.0); Hemoglobin 15.2 g/dl (14.0-18.0); Imm Gran Abs Auto 0.02 X10*3/uL (0.00-0.03); Imm Gran Pct Auto 0.3 % (0.0-0.4); Lymphocytes Absolute Auto 1.7 X10*3/uL (1.2-4.9); Lymphocytes Percent Auto 22.7 % (20-40); Mean Corpuscular HGB Conc 33.3 g/dl (31.0-36.0); Mean Corpuscular Hemoglobin 27.8 pg (27.0-33.0); Mean Corpuscular Volume 83.7 fL (80.0-98.0); Mean Platelet Volume 9.6 fL (9.4-12.4); Monocytes Absolute Auto 0.5 X10*3/uL (0.1-1.2); Monocytes Percent Auto 6.1 % (2-11); Neutrophils Absolute Auto 5.2 x10*3/uL (2.0-8.3); Neutrophils Percent Auto 69.5 % (45-73); Platelet Count 247 X10*3/uL (160-400); Red Blood Count 5.46 X10*6/uL (4.60-5.80); White Blood Count 7.5 X10*3/uL (4.8-10.8)
[2023-05-19 15:02] LABS: Alanine Aminotransferase 15 U/L (0-40); Albumin Level 4.1 g/dL (3.5-5.0); Alkaline Phosphatase 72 U/L (39-117); Anion Gap 12 (12-20); Aspartate Amino Transferase 17 U/L (5-37); Bilirubin Total 0.4 mg/dL (0.0-1.0); Blood Urea Nitrogen 13 mg/dL (9-16); Calcium 9.4 mg/dL (8.4-10.2); Carbon Dioxide 27 mmol/L (22-29); Chloride 101 mmol/L (96-108); Creatinine Clr Calc Pharmacy 93.5; Estimated Glomerular Filt Rate > 60; Glucose Random 152 mg/dL (60-115); Lipase 20 U/L (8-78); Potassium 3.4 mmol/L (3.3-5.1); Sodium 137 mmol/L (135-145); Total Protein 7.3 g/dL (6.5-8.0)
[2023-05-19 15:08] LABS: INTERNATIONAL NORM RATIO 0.9 (0.9-1.1); Prothrombin Time 11.1 SEC (11.1-13.3)
[2023-05-19 15:10] LABS: Partial Thromboplastin Time 32.1 SEC (26.0-36.4); Troponin-I High Sensitivity < 2.7 ng/L (<3.5-35.0)
[2023-05-19 18:45] VITALS: BP 135/65; PULSE 66; RESP 19; TEMP 36.9; O2SAT 100
[2023-05-19 21:40] VITALS: BP 136/62; PULSE 67; RESP 14; TEMP 36.6; O2SAT 98
[2023-05-19 21:53] LABS: Appearance Urine Clear; Color Urine Yellow; Glucose Urine UA Negative (Negative); Leukocyte Esterase Urine Negative (Negative); Nitrite Urine Negative (Negative); PH 7.5 (5.0-9.0); Urine Blood Negative (Negative); Urine Ketones Negative (Negative); Urine Protein Negative (Neg-Trace)
[2023-05-19 21:55] LABS: Bacteria Urine None Seen (None Seen); Hyaline Casts Urine 0-2 /LPF (0-2); RBC Urine 0-2 /HPF (0-2); Squamous Epithelial Cell Urine 0-2 /HPF (0-2); WBC Urine 0-5 /HPF (0-5)
[2023-05-19] MEDS: Meclizine HCl 25 MG TABLET PO (22:40)
[2023-05-19 22:41] VITALS: BP 142/62; PULSE 89
[2023-05-19 22:42] VITALS: BP 145/66; BP 153/65; PULSE 71
== END 2023-05-20 00:12 | disposition home or self-care (01) ==
PROVIDERS: Physician Assistant; Emergency Provider Internal Medicine; PCP Internal Medicine
DX: H81.10 Benign paroxysmal vertigo, unspecified ear (principal); R26.81 Unsteadiness on feet; I10 Essential (primary) hypertension; Z79.899 Other long term (current) drug therapy
CPT/HCPCS: 36415; 70450; 80053; 81001; 83690; 84484; 85025; 85610; 85730; 93005; 99284; 99285

== ENCOUNTER → 2023-05-19 14:22 | Outpatient (BNV) | payer MEDICARE, SELFPAY | PROVIDERS: Emergency Provider Internal Medicine; PCP Internal Medicine; Visit Provider Internal Medicine | DX: R42 Dizziness and giddiness (principal) | CPT/HCPCS: 93010 ==

== ENCOUNTER 2023-05-26 08:13 | Outpatient (REF) | payer MEDICARE, SELFPAY ==
[2023-05-26 08:52] LABS: Estimated Average Glucose 137 mg/dL; Hemoglobin A1c % 6.4 % (<6.0)
[2023-05-26 09:24] LABS: Cholesterol 202 mg/dL (<200); Glucose Fasting 130 mg/dL (60-99); HDL Cholesterol 38 mg/dL (>40); LDL Cholesterol Calculated 135 mg/dL (<100); Triglycerides 148 mg/dL (<150)
== END 2023-05-26 08:14 | disposition home or self-care (01) ==
LOC: HO.LAB 08:13
PROVIDERS: PCP Internal Medicine; Visit Provider Internal Medicine
DX: E78.5 Hyperlipidemia, unspecified (principal); R73.9 Hyperglycemia, unspecified
CPT/HCPCS: 36415; 80061; 82947; 83036

== ENCOUNTER 2023-06-06 10:39 | Outpatient (AMB) | payer MEDICARE, SELFPAY ==
[2023-06-06 10:43] VITALS: BP 144/80; PULSE 61; O2SAT 97; BMI 29.6
--- NOTE | 2023-06-06 10:43 | A.OFFPC_ITS ---
Vital Signs 06/06/23 10:43 Height 5 ft 8 in Weight 195 lb BMI 29.6 BP 144/80 H Blood Pressure Location Lt brachial Position Sitting Pulse 61 Pulse Source Pulse Oximeter Pulse Oximetry (%) 97 Oxygen Delivery Method Room Air Intake Visit Reasons: physical Intake Note: pt is here for a physical. went to [facility] [place] 0n 05/19/23 for dizziness/vertigo. states he would like referral to ENT. Career Development Coordinator/Teacher Required: No Scrap Drop Crane Operator: Not Required per policy Accompanied by: Self / Same As Patient Allergies No Known Allergies Allergy (Verified 06/06/23 10:43) Medication List - Last Reconciled 06/07/23 by Enrique Stein MD aspirin (Adult Low Dose Aspirin) 81 mg PO DAILY chlorthalidone 25 mg PO DAILY cyanocobalamin (vitamin B-12) (Vitamin B-12) 500 mcg PO DAILY cyclobenzaprine 10 mg PO Q8H meclizine 25 mg PO TID PRN metformin 500 mg PO BID multivitamin 1 tab PO DAILY omega 1-myx-fdo-fish oil 500-1,000 mg 1 cap PO DAILY rosuvastatin (Crestor) 20 mg PO DAILY tadalafil 5 mg PO DAILY 90 days Tobacco use date assessed: 06/06/23 Fall risk assessment: No Falls in past year Last assessed Fall Risk: 06/06/23 Dental Screening Dental Screen Date: 06/06/23 Did you have a dental visit in the last 12 months?: Yes Did you have a dental problem in the last 6 months where you did not have access to dental care?: No Was dental information given to patient?: Patient has dentist HPI physical HPI Details HTN DM and hyperlipidemia; doing well and compliant [facility] Medical History Hyperlipidemia Elevated prostate specific antigen [PSA] Male erectile dysfunction, unspecified Benign prostatic hyperplasia with lower urinary tract symptoms Diabetes mellitus with coincident hypertension Hypertension Surgical History History of cataract surgery History of pterygium excision History of prostate surgery Family History Father No problems noted. Mother No problems noted. Social History Housing: House Alcohol intake: current Alcohol intake frequency: a few times a week Patient Tobacco Use Status: Never used Tobacco e-Cigarette/Vaping Use: Never Used Second Hand Smoke Exposure: No service: No Current occupational status: retired Current occupational exposures/hazards: No Cognitive needs: No Hearing needs: No Vision needs: Yes Questionnaire PHQ-9 Over the last 2 weeks, how often have you been bothered by any of the following problems? 1. Little interest or pleasure in doing things: not at all 2. Feeling down, depressed, or hopeless: not at all 3. Trouble falling or staying asleep, or sleeping too much: not at all 4. Feeling tired or having little energy: not at all 5. Poor appetite or overeating: not at all 6. Feeling bad about yourself - or that you are a failure or have let yourself or your family down: not at all 7. Trouble concentrating on things, such as reading the newspaper or watching television: not at all 8. Moving or speaking so slowly that other people could have noticed. Or the opposite - being so fidgety or restless that you have been moving around a lot more than usual: not at all 9. Thoughts that you would be better off or of hurting yourself in some way: not at all Total score: 0 Depression Screening Interpretation: Negative Depression Screening Done: Yes 45893 - PHQ-9 Billing: Yes Source: Developed by Drs. Raf Nichole, Hunter Rg and colleagues, with an educational april from [email or web address]. Thrive Questionnaire Date Thrive assessed: 05/05/22 AUDIT C Alcohol Use Questionnaire (AUDIT-C) 1. How often do you have a drink containing alcohol?: 2-4 times a month 2. How many drinks containing alcohol do you have on a typical day when you are drinking?: 3 or 4 3. How often do you have six or more drinks on one occasion?: Never Total Score: 3 Score Reviewed/Action Taken: Yes WILFRED-7 AMB Questionnaire WILFRED-7 Date WILFRED - 7 assessed: 05/05/22 Source: Developed by Drs. Raf Nichole, Alexa Gonzalez, Hunter Villa and colleagues, with an educational april from [email or web address]. Review of Systems Const Denies chills, Denies fatigue, Denies headache(s) and Denies weight loss Eyes Denies change in vision, Denies diplopia and Denies eye pain ENT Denies vertigo, Denies dizziness, Denies headache(s) and Denies nasal discharge Card Denies chest pain, Denies rapid heart rate and Denies dyspnea on exertion Resp Denies chest congestion, Denies cough, Denies pain with cough and Denies dyspnea on exertion GI Denies abdominal pain, Denies hematochezia and Denies change in bowel habits Musc Denies myalgias, Denies arthralgias and Denies joint swelling Skin/Breast Denies lesions and Denies unusual bruising Neuro Denies vertigo, Denies dizziness, Denies headache(s) and Denies focal weakness Endo Denies fatigue Physical exam (Primary Care) Vital Signs: Last Vital Signs Pulse 61 06/06/23 10:43 BP 144/80 H 06/06/23 10:43 Pulse Ox 97 06/06/23 10:43 Oxygen Delivery Method Room Air 06/06/23 10:43 BMI result Body Mass Index 29.6 Tobacco/Smoking Status: Tobacco use Status Tobacco use date assessed 06/06/23 06/06/23 10:44 Patient Tobacco Use Status Never used Tobacco 06/06/23 10:44 e-Cigarette/Vaping Use Never Used 06/06/23 10:44 PHQ-9: PHQ-9 Score PHQ-9: Total score 0 06/06/23 10:48 Depression Screening Interpretation: Negative Thrive Assessment: Date of Thrive Assessment Date Thrive assessed 05/05/22 06/06/23 10:44 Const General: cooperative, healthy appearing and no acute distress Orientation/consciousness: oriented to person, oriented to place and oriented to time [facility] Head: Yes normal to inspection, Yes normocephalic and Yes atraumatic Mouth: Normal oral and palatal mucosa present and tongue normal Throat: Yes posterior oropharynx normal and Yes uvula midline Eyes General: appearance normal, both eyes and all related structures Neck Neck: Yes normal visual inspection, Yes full ROM and Yes no lymphadenopathy Thyroid: Thyroid normal Carotids: normal carotid upstroke Chest Chest palpation & inspection: normal inspection of the chest Resp Effort & Inspection: normal respiratory effort and able to speak in complete sentences Auscultation: clear to auscultation bilaterally Cardio Jugular venous distension: no JVD Palpation: normal PMI Rate: regular rate Rhythm: regular rhythm Heart sounds: S1 normal heart sound present and S2 normal heart sound present GI Inspection: Yes normal to inspection Palpation (GI): Soft to palpation and No hepatosplenomegaly present Auscultation: normal bowel sounds General: Yes no CVA tenderness Back/Spine/Pelvis Back: no CVA tenderness Skin General skin exam: no rashes or lesions noted Neuro General: oriented to person, oriented to place and oriented to time Extrem General: Yes normal to inspection and Yes full ROM Assessment and Plan Assessment & Plan (1) Physical exam: Code(s): Z00.00 - Encounter for general adult medical examination without abnormal findings Plan: stable; do labs (2) Hypertension: Code(s): I10 - Essential (primary) hypertension Plan: stable; same rx (3) Diabetes mellitus: Code(s): E11.9 - Type 2 diabetes mellitus without complications Plan: stable; same rx (4) Hyperlipidemia: Code(s): E78.5 - Hyperlipidemia, unspecified Plan: stable Orders: Orders Complete Blood Count Auto Diff Today D64.9 - Anemia, unspecified Microalbumin, Random (w Creat) Today E11.69 - Type 2 diabetes mellitus with other specified complication, E66.01 - Morbid (severe) obesity due to excess calories Hemoglobin A1c Today R73.9 - Hyperglycemia, unspecified Lipid Panel Today E78.5 - Hyperlipidemia, unspecified Comprehensive [place]. Panel Fast Today N28.9 - Disorder of kidney and ureter, unspecified Coding Level of Care Code Est Pt Prev Care >65y(07192) Diagnoses Physical exam Z00.00 Hypertension I10 Diabetes mellitus E11.9 Hyperlipidemia E78.5
== END 2023-06-06 11:02 | disposition home or self-care (01) ==
PROVIDERS: Visit Provider Internal Medicine
DX: Z00.00 Encounter for general adult medical examination without abnormal findings (principal); I10 Essential (primary) hypertension; E11.69 Type 2 diabetes mellitus with other specified complication; E78.5 Hyperlipidemia, unspecified
CPT/HCPCS: 99397

== ENCOUNTER 2023-08-25 07:10 | Outpatient (REF) | payer MEDICARE, SELFPAY ==
[2023-08-25 07:34] LABS: MANUAL DIFF FLAG NO
[2023-08-25 08:01] LABS: Basophils Percent Auto 0.5 % (0-2); Eosinophils Absolute Auto 0.2 X10*3/uL (0.0-0.4); Hematocrit 45.9 % (42.0-52.0); Imm Gran Abs Auto 0.02 X10*3/uL (0.00-0.03); Imm Gran Pct Auto 0.2 % (0.0-0.4); Lymphocytes Absolute Auto 2.9 X10*3/uL (1.2-4.9); Lymphocytes Percent Auto 35.7 % (20-40); Mean Corpuscular HGB Conc 32.7 g/dl (31.0-36.0); Mean Corpuscular Hemoglobin 28.2 pg (27.0-33.0); Mean Corpuscular Volume 86.3 fL (80.0-98.0); Mean Platelet Volume 10.1 fL (9.4-12.4); Monocytes Absolute Auto 0.6 X10*3/uL (0.1-1.2); Monocytes Percent Auto 7.3 % (2-11); Neutrophils Absolute Auto 4.3 x10*3/uL (2.0-8.3); Neutrophils Percent Auto 53.3 % (45-73); Platelet Count 259 X10*3/uL (160-400); Red Blood Count 5.32 X10*6/uL (4.60-5.80); Red Cell Distribution Width 12.9 % (11.0-16.0)
[2023-08-25 08:07] LABS: Estimated Average Glucose 143 mg/dL; Hemoglobin A1c % 6.6 % (<6.0)
[2023-08-25 08:41] LABS: Alanine Aminotransferase 16 U/L (0-40); Albumin Level 4.2 g/dL (3.5-5.0); Alkaline Phosphatase 65 U/L (39-117); Anion Gap 11 (12-20); Aspartate Amino Transferase 19 U/L (5-37); Bilirubin Total 0.4 mg/dL (0.0-1.0); Blood Urea Nitrogen 14 mg/dL (9-16); Calcium 9.6 mg/dL (8.4-10.2); Carbon Dioxide 34 mmol/L (22-29); Chloride 101 mmol/L (96-108); Cholesterol 131 mg/dL (<200); Estimated Glomerular Filt Rate > 60; Glucose Fasting 131 mg/dL (60-99); HDL Cholesterol 38 mg/dL (>40); LDL Cholesterol Calculated 76 mg/dL (<100); Potassium 3.5 mmol/L (3.3-5.1); Sodium 142 mmol/L (135-145); Total Protein 7.3 g/dL (6.5-8.0); Triglycerides 87 mg/dL (<150)
[2023-08-25 09:33] LABS: Creatinine Urine 106.99 mg/dL; Microalbumin Urine < 5.0 mg/L
== END 2023-08-25 07:11 | disposition home or self-care (01) ==
LOC: HO.LAB 07:10
PROVIDERS: PCP Internal Medicine; Visit Provider Internal Medicine
DX: E78.5 Hyperlipidemia, unspecified (principal); D64.9 Anemia, unspecified; E66.01 Morbid (severe) obesity due to excess calories; N28.9 Disorder of kidney and ureter, unspecified; E11.69 Type 2 diabetes mellitus with other specified complication
CPT/HCPCS: 36415; 80053; 80061; 82043; 82570; 83036; 85025

== ENCOUNTER 2023-09-05 08:28 | Outpatient (AMB) | payer MEDICARE, SELFPAY ==
[2023-09-05 08:35] VITALS: BP 120/64; PULSE 64; O2SAT 100; BMI 29.8
--- NOTE | 2023-09-05 08:35 | MHC.PC.OV ---
Vital Signs 09/05/23 08:35 Height 5 ft 8 in Weight 196 lb BMI 29.8 BP 120/64 Blood Pressure Location Lt brachial Position Sitting Pulse 64 Pulse Source Pulse Oximeter Pulse Oximetry (%) 100 Oxygen Delivery Method Room Air Intake Visit Reasons: 3mth f/u Intake Note: pt is here for s follow up, states he is due for a colonoscopy Field Attendant: Not Required per policy Accompanied by: Self / Same As Patient Allergies No Known Allergies Allergy (Verified 06/06/23 10:43) Medication List - Last Reconciled 09/05/23 by Enrique Stein MD aspirin (Adult Low Dose Aspirin) 81 mg PO DAILY chlorthalidone 25 mg PO DAILY cyanocobalamin (vitamin B-12) (Vitamin B-12) 500 mcg PO DAILY cyclobenzaprine 10 mg PO Q8H meclizine 25 mg PO TID PRN metformin 500 mg PO BID multivitamin 1 tab PO DAILY omega 9-fmp-vwl-fish oil 500-1,000 mg 1 cap PO DAILY rosuvastatin (Crestor) 20 mg PO DAILY tadalafil 5 mg PO DAILY 90 days Tobacco use date assessed: 06/06/23 Fall risk assessment: No Falls in past year Last assessed Fall Risk: 09/05/23 Dental Screening Dental Screen Date: 06/06/23 HPI 3mth f/u HPI Details DM HTN and hyperlipidemia on rx; doing well; labs good [facility] Medical History Hyperlipidemia Elevated prostate specific antigen [PSA] Male erectile dysfunction, unspecified Benign prostatic hyperplasia with lower urinary tract symptoms Diabetes mellitus with coincident hypertension Hypertension Surgical History History of cataract surgery History of pterygium excision History of prostate surgery Family History Father No problems noted. Mother No problems noted. Social History Housing: House Alcohol intake: current Alcohol intake frequency: a few times a week Patient Tobacco Use Status: Never used Tobacco e-Cigarette/Vaping Use: Never Used Second Hand Smoke Exposure: No service: No Current occupational status: retired Current occupational exposures/hazards: No Cognitive needs: No Hearing needs: No Vision needs: Yes Questionnaire Thrive Questionnaire Date Thrive assessed: 05/05/22 WILFRED-7 AMB Questionnaire WILFRED-7 Date WILFRED - 7 assessed: 05/05/22 Source: Developed by Drs. Raf Nichole, Alexa Gonzalez, Hunter Villa and colleagues, with an educational april from [employer]. Review of Systems Const Denies chills, Denies headache(s) and Denies weight loss ENT Denies headache(s) Card Denies chest pain, Denies syncope, Denies irregular heart rhythm and Denies dyspnea Resp Denies chest congestion, Denies cough and Denies dyspnea GI Denies abdominal pain, Denies change in stool character, Denies nausea and Denies vomiting Musc Denies deformity and Denies joint swelling Neuro Denies syncope and Denies headache(s) Physical exam (Primary Care) Vital Signs: Last Vital Signs Pulse 64 09/05/23 08:35 BP 120/64 09/05/23 08:35 Pulse Ox 100 09/05/23 08:35 Oxygen Delivery Method Room Air 09/05/23 08:35 BMI result Body Mass Index 29.8 Tobacco/Smoking Status: Tobacco use Status Tobacco use date assessed 06/06/23 09/05/23 08:36 Patient Tobacco Use Status Never used Tobacco 09/05/23 08:36 e-Cigarette/Vaping Use Never Used 09/05/23 08:36 Thrive Assessment: Date of Thrive Assessment Date Thrive assessed 05/05/22 09/05/23 08:36 Const General: cooperative, comfortable, no acute distress and alert Neck Neck: Yes no lymphadenopathy Thyroid: Thyroid normal Resp Effort & Inspection: normal respiratory effort Auscultation: clear to auscultation bilaterally Percussion: percussion normal Cardio Jugular venous distension: no JVD Palpation: normal PMI Rate: regular rate Rhythm: regular rhythm Heart sounds: S1 normal heart sound present and S2 normal heart sound present GI Inspection: Yes normal to inspection Palpation (GI): No hepatosplenomegaly present Skin General skin exam: no rashes or lesions noted Extrem General: Yes no clubbing, cyanosis or edema Assessment and Plan Assessment & Plan (1) Hyperlipidemia: Code(s): E78.5 - Hyperlipidemia, unspecified Plan: stable; same rx (2) Diabetes mellitus with coincident hypertension: Code(s): E11.9 - Type 2 diabetes mellitus without complications; I10 - Essential (primary) hypertension Plan: stable; same rx (3) Hypertension: Code(s): I10 - Essential (primary) hypertension Plan: stable; same rx Orders: Orders Glucose Fasting Today R73.9 - Hyperglycemia, unspecified Hemoglobin A1c Today R73.9 - Hyperglycemia, unspecified Referrals Gastroenterology Referral Z12.11 - Encounter for screening for malignant neoplasm of colon Coding Level of Care Code Est Pt Level 4 (95041) Diagnoses Hyperlipidemia E78.5 Diabetes mellitus with coincident hypertension E11.9; I10 Hypertension I10
== END 2023-09-05 08:54 | disposition home or self-care (01) ==
PROVIDERS: PCP Internal Medicine; Visit Provider Internal Medicine
DX: E78.5 Hyperlipidemia, unspecified (principal); E11.9 Type 2 diabetes mellitus without complications; I10 Essential (primary) hypertension
CPT/HCPCS: 99214

== ENCOUNTER 2023-11-25 06:43 | Outpatient (REF) | payer MEDICARE, SELFPAY ==
[2023-11-25 07:46] LABS: Estimated Average Glucose 134 mg/dL; Hemoglobin A1c % 6.3 % (<6.0)
[2023-11-25 07:54] LABS: Glucose Fasting 125 mg/dL (60-99)
[2023-11-25 08:15] LABS: Prostate Specific Antigen 4.53 ng/mL (<0.05-4.0)
== END 2023-11-25 06:44 | disposition home or self-care (01) ==
LOC: HO.LAB 06:43
PROVIDERS: Absent Provider Nurse Practitioner Family; PCP Internal Medicine; Visit Provider Internal Medicine
DX: R73.9 Hyperglycemia, unspecified (principal); N40.1 Benign prostatic hyperplasia with lower urinary tract symptoms; Z12.5 Encounter for screening for malignant neoplasm of prostate
CPT/HCPCS: 36415; 82947; 83036; 84153

== ENCOUNTER 2023-12-06 09:15 | Outpatient (AMB) | payer MEDICARE, SELFPAY ==
[2023-12-06 09:30] VITALS: BP 128/74; PULSE 84; O2SAT 96; BMI 29.4
--- NOTE | 2023-12-06 09:30 | A.OFFPC_ITS ---
Vital Signs 12/06/23 09:30 Height 5 ft 8 in Weight 193 lb 6 oz BMI 29.4 BP 128/74 Blood Pressure Location Lt brachial Position Sitting Pulse 84 Pulse Source Pulse Oximeter Pulse Oximetry (%) 96 Oxygen Delivery Method Room Air Intake Visit Reasons: 3mth f/u - redo Urine Microalbumin/creat ratio Extrusion Operator Required: No Accompanied by: Self / Same As Patient Allergies No Known Allergies Allergy (Verified 12/06/23 09:34) Medication List - Last Reconciled 12/06/23 by Enrique Stein MD aspirin (Adult Low Dose Aspirin) 81 mg PO DAILY chlorthalidone 25 mg PO DAILY cyanocobalamin (vitamin B-12) (Vitamin B-12) 500 mcg PO DAILY cyclobenzaprine 10 mg PO Q8H meclizine 25 mg PO TID PRN metformin 500 mg PO BID multivitamin 1 tab PO DAILY omega 3-uch-tal-fish oil 500-1,000 mg 1 cap PO DAILY rosuvastatin (Crestor) 20 mg PO DAILY tadalafil 5 mg PO DAILY 90 days Tobacco use date assessed: 06/06/23 Dental Screening Dental Screen Date: 06/06/23 HPI 3mth f/u - redo Urine Microalbumin/creat ratio HPI Details htn hyperlip and dm; due for labs; compliant [facility] Medical History Hyperlipidemia Elevated prostate specific antigen [PSA] Male erectile dysfunction, unspecified Benign prostatic hyperplasia with lower urinary tract symptoms Diabetes mellitus with coincident hypertension Hypertension Surgical History History of cataract surgery History of pterygium excision History of prostate surgery Family History Father No problems noted. Mother No problems noted. Social History Housing: House Alcohol intake: current Alcohol intake frequency: a few times a week Patient Tobacco Use Status: Never used Tobacco e-Cigarette/Vaping Use: Never Used Second Hand Smoke Exposure: No service: No Current occupational status: retired Current occupational exposures/hazards: No Cognitive needs: No Hearing needs: No Vision needs: Yes Questionnaire Thrive Questionnaire Date Thrive assessed: 12/06/23 I am a: Patient What is your living situation today?: I have a steady place to live Within the past 12 months, did the food you bought not last and you didn't have the money to get more?: Never true Within the past 12 months, did you worry whether your food would run out before you got money to buy more?: Never true Do you have trouble paying for medicines?: No Do you have trouble getting transportation to medical appointments?: No Do you have trouble paying your heating and electricity bill?: No Do you have trouble taking care of your child, family member or friend?: No Do you have trouble with day-to-day activities such as bathing, preparing meals, shopping, managing finances, etc.?: No Are you currently unemployed and looking for a job?: No Are you interested in more education?: No Please select the resources that you would like help with: None Currently or been in a relationship where the following occur: No concerns reported THRIVE Score: 0 AUDIT C Alcohol Use Questionnaire (AUDIT-C) 1. How often do you have a drink containing alcohol?: 2-4 times a month 2. How many drinks containing alcohol do you have on a typical day when you are drinking?: 3 or 4 3. How often do you have six or more drinks on one occasion?: Never Total Score: 3 Score Reviewed/Action Taken: Yes WILFRED-7 AMB Questionnaire WILFRED-7 Date WILFRED - 7 assessed: 12/06/23 Feeling nervous, anxious, or on edge: 0 = Not at all Not being able to stop or control worryin = Not at all Worrying too much about different things: 0 = Not at all Trouble relaxin = Not at all Being so restless that it is hard to sit still: 0 = Not at all Becoming easily annoyed or irritable: 0 = Not at all Feeling afraid as if something awful might happen: 0 = Not at all Total WILFRED-7 score (0-4 normal; 5-9 mild; 10-14 moderate; 15-21 severe): 0 Source: Developed by Drs. Raf Nichole, Alexa Gonzalez, Hunter Villa and colleagues, with an educational april from [employer]. WILFRED-7 Assessment Billing WILFRED-7 Assessment Tool: WILFRED-7 Assessment 71656 Review of Systems Const Denies chills, Denies headache(s) and Denies weight loss ENT Denies headache(s) Card Denies chest pain, Denies syncope, Denies irregular heart rhythm and Denies dyspnea Resp Denies chest congestion, Denies cough and Denies dyspnea GI Denies abdominal pain, Denies change in stool character, Denies nausea and Denies vomiting Musc Denies deformity and Denies joint swelling Neuro Denies syncope and Denies headache(s) Physical exam (Primary Care) Vital Signs: Last Vital Signs Pulse 84 12/06/23 09:30 BP 128/74 12/06/23 09:30 Pulse Ox 96 12/06/23 09:30 Oxygen Delivery Method Room Air 12/06/23 09:30 BMI result Body Mass Index 29.4 Tobacco/Smoking Status: Tobacco use Status Tobacco use date assessed 06/06/23 12/06/23 09:35 Patient Tobacco Use Status Never used Tobacco 12/06/23 09:35 e-Cigarette/Vaping Use Never Used 12/06/23 09:35 Thrive Assessment: Date of Thrive Assessment Date Thrive assessed 12/06/23 12/06/23 09:36 Currently or been in a relationship where the following occur: No concerns reported Const General: cooperative, comfortable, no acute distress and alert Neck Neck: Yes no lymphadenopathy Thyroid: Thyroid normal Resp Effort & Inspection: normal respiratory effort Auscultation: clear to auscultation bilaterally Percussion: percussion normal Cardio Jugular venous distension: no JVD Palpation: normal PMI Rate: regular rate Rhythm: regular rhythm Heart sounds: S1 normal heart sound present and S2 normal heart sound present GI Inspection: Yes normal to inspection Palpation (GI): No hepatosplenomegaly present Skin General skin exam: no rashes or lesions noted Extrem General: Yes no clubbing, cyanosis or edema Assessment and Plan Assessment & Plan (1) Hyperlipidemia: Code(s): E78.5 - Hyperlipidemia, unspecified Plan: stable; same rx (2) Hypertension: Code(s): I10 - Essential (primary) hypertension Plan: stable; same rx (3) Diabetes mellitus with coincident hypertension: Code(s): E11.9 - Type 2 diabetes mellitus without complications; I10 - Essential (primary) hypertension Plan: stable; same rx Orders: Orders Lipid Panel Today Z13.220 - Encounter for screening for lipoid disorders Hemoglobin A1c Today R73.9 - Hyperglycemia, unspecified Glucose Fasting Today R73.9 - Hyperglycemia, unspecified Microalbumin, Random (w Creat) Today E11.69 - Type 2 diabetes mellitus with other specified complication, E66.01 - Morbid (severe) obesity due to excess calories Coding Level of Care Code Est Pt Level 4 (27769) Diagnoses Hyperlipidemia E78.5 Hypertension I10 Diabetes mellitus with coincident hypertension E11.9; I10 Additional Codes WILFRED-7 Assessment Billing - WILFRED-7 Assessment Tool: WILFRED-7 Assessment [id number] ([id number])
== END 2023-12-06 09:48 | disposition home or self-care (01) ==
PROVIDERS: PCP Internal Medicine; Visit Provider Internal Medicine
DX: E78.5 Hyperlipidemia, unspecified (principal); I10 Essential (primary) hypertension; E11.69 Type 2 diabetes mellitus with other specified complication
CPT/HCPCS: 99214

== ENCOUNTER 2024-01-30 13:11 | Outpatient (AMB) | payer MEDICARE, SELFPAY ==
--- NOTE | 2024-01-30 13:48 | MHC.OFFVIS ---
Intake Visit Reasons: 3mth f/u PSA(set) Intake Note: Patient presents today for follow up on: PSA lab results PSA: 4.53 Urology Medications: tadalafil Blood Thinner: aspirin Director Of Sales Support Required: No Accompanied by: Self / Same As Patient Allergies No Known Allergies Allergy (Verified 01/30/24 14:00) Medication List - Last Reconciled 01/30/24 by PINKY Moss- aspirin (Adult Low Dose Aspirin) 81 mg PO DAILY chlorthalidone 25 mg PO DAILY cyanocobalamin (vitamin B-12) (Vitamin B-12) 500 mcg PO DAILY cyclobenzaprine 10 mg PO Q8H meclizine 25 mg PO TID PRN metformin 500 mg PO BID multivitamin 1 tab PO DAILY omega 2-gty-ywc-fish oil 500-1,000 mg 1 cap PO DAILY rosuvastatin (Crestor) 20 mg PO DAILY tadalafil 5 mg PO DAILY 90 days HPI Comments Details: Jorge is a very pleasant 68 year old male patient of Dr. Stein. He has a past medical history of BPH with lower urinary tract symptoms, diabetes mellitus, hypertension, hyperlipidemia, and erectile dysfunction. He presents to the office today for a follow-up of his lower urinary tract symptoms and erectile dysfunction. In discussion with the patient today reports to be doing and feeling well. He reports since his last office visit here approximately 1 year ago he has had no bothersome urinary issues or concerns. Recent PSA results reviewed with the patient today as noted and trended below. He reports compliance with 5 mg of Cialis daily and feels this is working well for his lower urinary tract symptoms as well as erectile dysfunction. PSAs are as follows 07/18 2.8, 07/19 3.9, 10/19 3.1, 01/20 3.2, 10/21 3.9, 03/23 3.6, 12/22 3.1, 02/21 4.9, 11/22 4.5 He otherwise denies any issues and or concerns. In office urinalysis results reviewed with the patient today. PVR 5 mL. When asked he denies urinary urgency, incontinence, nocturia, hematuria, dysuria, foul smelling urine, changes to urinary stream, flank pain, fever, and or chills. He does report noting episodes of urinary frequency however relates this to his increase in fluid consumption and does not find this bothersome. He is happy with her current voiding parameters on 5 mg of Cialis daily. Lower urinary tract symptoms Prior history laser prostatectomy PSA historically range between 2.8 and 3.8 Erectile dysfunction Longstanding Currently on therapy HBA1c 03/23 - 6.6% Background diabetes ? [facility] Medical History Hyperlipidemia Elevated prostate specific antigen [PSA] Male erectile dysfunction, unspecified Benign prostatic hyperplasia with lower urinary tract symptoms Diabetes mellitus with coincident hypertension Hypertension Surgical History History of cataract surgery History of pterygium excision History of prostate surgery Family History Father No problems noted. Mother No problems noted. Social History Housing: House Alcohol intake: current Alcohol intake frequency: a few times a week Patient Tobacco Use Status: Never used Tobacco e-Cigarette/Vaping Use: Never Used Second Hand Smoke Exposure: No service: No Current occupational status: retired Current occupational exposures/hazards: No Cognitive needs: No Hearing needs: No Vision needs: Yes Review of Systems Const Reports no additional complaints Eyes Reports no additional complaints ENT Reports no additional complaints Card Reports no additional complaints Resp Reports no additional complaints GI Reports no additional complaints Reports as per HPI Musc Reports no additional complaints Psych Reports no additional complaints Endo Details: patient reports A1c and suagrs to be well controlled Solitario/Lymph Reports no additional complaints Aller/Immun Reports no additional complaints Physical Exam Const General: cooperative, healthy appearing, comfortable, no acute distress, well developed, alert and awake Orientation/consciousness: patient oriented x3 Limitations: no limitations HEENT Head: Yes normal to inspection, Yes normocephalic and Yes atraumatic Ears: hearing grossly normal bilaterally Eyes General: appearance normal, both eyes and all related structures Neck Neck: Yes normal visual inspection and Yes trachea midline Chest Chest palpation & inspection: normal inspection of the chest Resp Effort & Inspection: normal respiratory effort and able to speak in complete sentences Cardio Rate: regular rate General: Yes no CVA tenderness Back/Spine/Pelvis Back: no CVA tenderness Skin General skin exam: no rashes or lesions noted Neuro General: patient oriented x3 Extrem General: Yes normal to inspection Psych Appearance: grossly normal and well kempt Mental Status: mental status grossly normal Speech and movement: Normal speech and movement present and Clear speech present Affect: normal affect Attitude: cooperative Thought process: Normal thought process present Thought content: Normal thought content present Insight: Fair insight present (Psych) Judgement: Fair judgement present (Psych) Results AMB Urinalysis, Automated UA Leukoctes 0 Arnoldo/uL Last Edit by [employer] on 01/30/24 14:07 UA Nitrite Last Edit by [employer] on 01/30/24 14:07 UA Urobilinogen 0.2 mg/dL Last Edit by [employer] on 01/30/24 14:07 UA Protein 0 mg/dL Last Edit by [employer] on 01/30/24 14:07 UA pH 7.0 Last Edit by [employer] on 01/30/24 14:07 UA Blood 0 Cesario/uL Last Edit by [employer] on 01/30/24 14:07 UA Specific Wendel 1.015 Last Edit by [employer] on 01/30/24 14:07 UA Ketone Last Edit by [employer] on 01/30/24 14:07 UA Bilirubin 0 mg/dL Last Edit by [employer] on 01/30/24 14:07 UA Glucose 0 mg/dL Last Edit by [employer] on 01/30/24 14:07 Results Reviewed Results Reviewed: Laboratory Last Values Urine pH (Auto) 7.0 01/30/24 14:05 Specific Wendel (Auto) 1.015 01/30/24 14:05 Urine Protein (Auto) 0 mg/dL 01/30/24 14:05 Glucose (UA)(Auto) 0 mg/dL 01/30/24 14:05 Urine Blood (Auto) 0 Cesario/uL 01/30/24 14:05 Urine Bilirubin (Auto) 0 mg/dL 01/30/24 14:05 Urine Urobilinogen (Auto) 0.2 mg/dL 01/30/24 14:05 Leukocyte Esterase (Auto) 0 Arnoldo/uL 01/30/24 14:05 Assessment & Plan Assessment & Plan (1) Erectile dysfunction associated with type 2 diabetes mellitus: Code(s): E11.69 - Type 2 diabetes mellitus with other specified complication; N52.1 - Erectile dysfunction due to diseases classified elsewhere Category: Medical (2) Elevated prostate specific antigen [PSA]: Code(s): R97.20 - Elevated prostate specific antigen [PSA] Category: Medical (3) Benign prostatic hyperplasia with lower urinary tract symptoms: Code(s): N40.1 - Benign prostatic hyperplasia with lower urinary tract symptoms Category: Medical Plan In office urinalysis results reviewed with the patient today; as noted above. PVR 5 mL. Continue Cialis 5 mg daily. Patient currently denies any bothersome urinary issues or concerns. He reports be happy with current voiding parameters. Recent PSA results reviewed with the patient today; as noted above. Discussed at length potential causes of slightly elevated PSA. Will obtain retroperitoneal ultrasound for further assessment evaluation. Follow-up in 1-3 months with imaging to be completed prior or sooner with any issues, concerns, and or questions. Orders: Orders US retroperitoneal comp Today N40.1 - Benign prostatic hyperplasia with lower urinary tract symptoms AMB Urinalysis Automated Today Z13.9 - Encounter for screening, unspecified Patient Instructions: The patient had an opportunity to ask questions regarding the treatment plan. All questions were answered. Physical exam, labs, and imaging were discussed and reviewed in detail. As well as risks, benefits, and discussion of treatment choices. No major barriers to understanding were identified. The patient expressed understanding and agreement with the above treatment plan. The patient was made aware they should contact our office by phone for worsening of their current condition, the appearance of new symptoms, or with any questions or concerns. Compliance is encouraged with any medications and follow up testing that is ordered. It is a privilege to be allowed the opportunity to participate in? your urological care.? Again, if you have any questions or concerns If you have any questions or concerns please do not hesitate to contact me. The office is [phone]. This note is constructed using voice recognition software. While every effort has been made to ensure accuracy immigration specialist errors may have been included. Yours sincerely, OKSANA Moss Coding Level of Care Code Est Pt Level 3 (13458) Diagnoses Erectile dysfunction associated with type 2 diabetes mellitus E11.69; N52.1 Elevated prostate specific antigen [PSA] R97.20 Benign prostatic hyperplasia with lower urinary tract symptoms N40.1
== END 2024-01-30 14:02 | disposition home or self-care (01) ==
PROVIDERS: PCP Internal Medicine; Visit Provider Nurse Practitioner Family
DX: E11.69 Type 2 diabetes mellitus with other specified complication (principal); N52.1 Erectile dysfunction due to diseases classified elsewhere; R97.20 Elevated prostate specific antigen [PSA]; N40.1 Benign prostatic hyperplasia with lower urinary tract symptoms; Z13.9 Encounter for screening, unspecified
CPT/HCPCS: 99213

== ENCOUNTER → 2024-01-30 13:11 | Outpatient (BNVA) | payer MEDICARE, SELFPAY | PROVIDERS: PCP Internal Medicine; Visit Provider Nurse Practitioner Family | DX: N40.1 Benign prostatic hyperplasia with lower urinary tract symptoms (principal); N13.8 Other obstructive and reflux uropathy; R97.20 Elevated prostate specific antigen [PSA]; E11.69 Type 2 diabetes mellitus with other specified complication; N52.1 Erectile dysfunction due to diseases classified elsewhere | CPT/HCPCS: 81003; 99212 ==

== ENCOUNTER 2024-02-21 09:35 | Outpatient (REF) | payer MEDICARE, SELFPAY | END 2024-02-21 09:36 | disposition home or self-care (01) | LOC: HO.US 09:35 | PROVIDERS: PCP Internal Medicine; Visit Provider Nurse Practitioner Family | DX: N40.1 Benign prostatic hyperplasia with lower urinary tract symptoms (principal) | CPT/HCPCS: 76775 ==

== ENCOUNTER 2024-02-22 14:19 | Outpatient (REF) | payer MEDICARE, SELFPAY | END 2024-02-22 14:20 | disposition home or self-care (01) | LOC: HO.US 14:19 | PROVIDERS: PCP Internal Medicine; Visit Provider Nurse Practitioner Family | DX: N40.1 Benign prostatic hyperplasia with lower urinary tract symptoms (principal) | CPT/HCPCS: 76857 ==

== ENCOUNTER 2024-02-27 06:34 | Outpatient (REF) | payer MEDICARE, SELFPAY ==
[2024-02-27 07:51] LABS: Estimated Average Glucose 146 mg/dL; Hemoglobin A1C 192.7662 umol/L; Hemoglobin A1c % 6.7 % (<6.0); Total Hemoglobin (HGBA1C) 3871.3018 umol/L
[2024-02-27 08:12] LABS: Cholesterol 170 mg/dL (<200); Glucose Fasting 128 mg/dL (60-99); HDL Cholesterol 45 mg/dL (>40); LDL Cholesterol Calculated 100 mg/dL (<100); Triglycerides 126 mg/dL (<150)
[2024-02-27 08:17] LABS: Creatinine Urine 119.93 mg/dL; Microalbumin Urine < 5.0 mg/L
== END 2024-02-27 06:35 | disposition home or self-care (01) ==
LOC: HO.LAB 06:34
PROVIDERS: PCP Internal Medicine; Visit Provider Internal Medicine
DX: E11.69 Type 2 diabetes mellitus with other specified complication (principal); Z13.220 Encounter for screening for lipoid disorders; E66.01 Morbid (severe) obesity due to excess calories
CPT/HCPCS: 36415; 80061; 82043; 82570; 82947; 83036

== ENCOUNTER 2024-03-07 09:26 | Outpatient (AMB) | payer MEDICARE, SELFPAY ==
--- NOTE | 2024-03-07 09:29 | MHC.PC.OV ---
Vital Signs 03/07/24 09:30 Height 5 ft 8 in Weight 191 lb BMI 29.0 BP 130/72 Blood Pressure Location Lt brachial Position Sitting Pulse 71 Pulse Source Pulse Oximeter Pulse Oximetry (%) 97 Oxygen Delivery Method Room Air Intake Visit Reasons: 3 month f/u Intake Note: Patient is here to follow up on DM, HTN, HLD. Chemical Engineering Technician Required: No Route Sales Driver: Not Required per policy Accompanied by: Self / Same As Patient Allergies No Known Allergies Allergy (Verified 03/07/24 09:29) Medication List - Last Reconciled 03/07/24 by Enrique Stein MD aspirin (Adult Low Dose Aspirin) 81 mg PO DAILY chlorthalidone 25 mg PO DAILY cyanocobalamin (vitamin B-12) (Vitamin B-12) 500 mcg PO DAILY cyclobenzaprine 10 mg PO Q8H meclizine 25 mg PO TID PRN metformin 500 mg PO BID multivitamin 1 tab PO DAILY omega 8-vzw-xdf-fish oil 500-1,000 mg 1 cap PO DAILY rosuvastatin (Crestor) 20 mg PO DAILY tadalafil 5 mg PO DAILY 90 days Tobacco use date assessed: 03/07/24 Fall risk assessment: No Falls in past year Last assessed Fall Risk: 03/07/24 Dental Screening Dental Screen Date: 06/06/23 HPI 3 month f/u HPI Details HTN on Rx; doing well; compliant with regimen [facility] Medical History Hyperlipidemia Elevated prostate specific antigen [PSA] Male erectile dysfunction, unspecified Benign prostatic hyperplasia with lower urinary tract symptoms Diabetes mellitus with coincident hypertension Hypertension Surgical History History of cataract surgery History of pterygium excision History of prostate surgery Family History Father No problems noted. Mother No problems noted. Social History Housing: House Alcohol intake: current Alcohol intake frequency: a few times a week Patient Tobacco Use Status: Never used Tobacco e-Cigarette/Vaping Use: Never Used Second Hand Smoke Exposure: No service: No Current occupational status: retired Current occupational exposures/hazards: No Cognitive needs: No Hearing needs: No Vision needs: Yes Questionnaire Thrive Questionnaire Date Thrive assessed: 12/06/23 AUDIT C Alcohol Use Questionnaire (AUDIT-C) 3. How often do you have six or more drinks on one occasion?: Monthly Total Score: 2 WILFRED-7 AMB Questionnaire WILFRED-7 Date WILFRED - 7 assessed: 12/06/23 Source: Developed by Drs. Raf Nichole, Alexa Gonzalez, Hunter Villa and colleagues, with an educational april from [employer]. Review of Systems Const Denies chills, Denies headache(s) and Denies weight loss ENT Denies headache(s) Card Denies chest pain, Denies syncope, Denies irregular heart rhythm and Denies dyspnea Resp Denies chest congestion, Denies cough and Denies dyspnea GI Denies abdominal pain, Denies change in stool character, Denies nausea and Denies vomiting Musc Denies deformity and Denies joint swelling Neuro Denies syncope and Denies headache(s) Physical exam (Primary Care) Vital Signs: Last Vital Signs Pulse 71 03/07/24 09:30 BP 130/72 03/07/24 09:30 Pulse Ox 97 03/07/24 09:30 Oxygen Delivery Method Room Air 03/07/24 09:30 BMI result Body Mass Index 29.0 Tobacco/Smoking Status: Tobacco use Status Tobacco use date assessed 03/07/24 03/07/24 09:33 Patient Tobacco Use Status Never used Tobacco 03/07/24 09:33 e-Cigarette/Vaping Use Never Used 03/07/24 09:33 Thrive Assessment: Date of Thrive Assessment Date Thrive assessed 12/06/23 03/07/24 09:33 Const General: cooperative, comfortable, no acute distress and alert Neck Neck: Yes no lymphadenopathy Thyroid: Thyroid normal Resp Effort & Inspection: normal respiratory effort Auscultation: clear to auscultation bilaterally Percussion: percussion normal Cardio Jugular venous distension: no JVD Palpation: normal PMI Rate: regular rate Rhythm: regular rhythm Heart sounds: S1 normal heart sound present and S2 normal heart sound present GI Inspection: Yes normal to inspection Palpation (GI): No hepatosplenomegaly present Skin General skin exam: no rashes or lesions noted Extrem General: Yes no clubbing, cyanosis or edema Coding Level of Care Code Est Pt Level 3 (76334) Diagnoses Hypertension I10 Assessment & Plan Assessment & Plan (1) Hypertension: Code(s): I10 - Essential (primary) hypertension Category: Medical Plan: stable; same rx Orders: Orders Complete Blood Count Auto Diff Today Z13.0 - Encounter for screening for diseases of the blood and blood-forming organs and certain disorders involving the immune mechanism Comprehensive [place]. Panel Fast Today Z13.9 - Encounter for screening, unspecified Lipid Panel Today Z13.220 - Encounter for screening for lipoid disorders Hemoglobin A1c Today R73.9 - Hyperglycemia, unspecified
[2024-03-07 09:30] VITALS: BP 130/72; PULSE 71; O2SAT 97; BMI 29.0
== END 2024-03-07 09:41 | disposition home or self-care (01) ==
LOC: HO.HMCH 09:26
PROVIDERS: PCP Internal Medicine; Visit Provider Internal Medicine
DX: I10 Essential (primary) hypertension (principal)

== ENCOUNTER → 2024-03-07 09:26 | Outpatient (BNVA) | payer MEDICARE, SELFPAY | PROVIDERS: PCP Internal Medicine; Visit Provider Internal Medicine | DX: I10 Essential (primary) hypertension (principal) | CPT/HCPCS: 99212 ==

== ENCOUNTER 2024-04-11 09:11 | Day surgery (SDC) | payer MEDICARE, SELFPAY ==
[2024-04-09 13:17] VITALS: BMI 28.4
--- NOTE | 2024-04-10 10:27 | HO.ANESPROP2 ---
Documented by User: Christine Hinton NP 04/10/24 10:27 HPI - Anesthesia Eval Consult details Narrative: 68yo M for Colonoscopy PMF Active Problems Active Problems: All Active Problems Erectile dysfunction associated with type 2 diabetes mellitus (Acute) Flank pain (Acute) Hyperlipidemia (Acute) Physical exam (Acute) Elevated prostate specific antigen [PSA] (Acute) Male erectile dysfunction, unspecified (Acute) Benign prostatic hyperplasia with lower urinary tract symptoms (Acute) Diabetes mellitus with coincident hypertension (Acute) Physical exam (Acute) Hypertension (Acute) Diabetes mellitus (Acute) Past Medical History Medical History Hyperlipidemia Elevated prostate specific antigen [PSA] Male erectile dysfunction, unspecified Benign prostatic hyperplasia with lower urinary tract symptoms Diabetes mellitus with coincident hypertension Hypertension Family History Family History Father No problems noted. Mother No problems noted. Surgical History Surgical History History of cataract surgery History of pterygium excision History of prostate surgery Social History Social History Housing: House Alcohol intake: current Alcohol intake frequency: a few times a week Patient Tobacco Use Status: Never used Tobacco e-Cigarette/Vaping Use: Never Used Second Hand Smoke Exposure: No Advance Directives: No Advance Directives Information Provided: Yes service: No Current occupational status: retired Current occupational exposures/hazards: No Cognitive needs: No Hearing needs: No Vision needs: Yes Meds Allergies Allergy/AdvReac Type Severity Reaction Status Date / Time No Known Allergies Allergy Verified 03/07/24 09:29 Home Medications ?Medication ?Instructions ?Recorded ?Confirmed ?Last Taken ?Type aspirin 81 mg tablet,delayed 81 mg PO DAILY 02/02/20 04/09/24 Unknown History release (Adult Low Dose Aspirin) multivitamin 1 tab PO DAILY 02/02/20 03/07/24 Unknown History omega 6-mgk-skg-fish oil 500 mg 1 cap PO DAILY 02/02/20 03/07/24 Unknown History (200mg-300mg)-1,000 mg capsule cyanocobalamin (vitamin B-12) 500 500 mcg PO DAILY 06/02/21 03/07/24 Unknown History mcg tablet (Vitamin B-12) chlorthalidone 25 mg tablet 25 mg PO DAILY 04/09/24 04/09/24 Unknown History rosuvastatin 20 mg tablet 20 mg PO DAILY 04/09/24 04/09/24 Unknown History tadalafil 5 mg tablet 5 mg PO DAILY 04/09/24 04/09/24 Unknown History Exam Height,Weight and Vital Signs: Height 5 ft 8 in Weight 84.822 kg Assessment and Plan Assessment Anesthesia Assessment: Chart Reviewed Documented by User: Matt Burgos MD 04/11/24 10:16 [facility] Past Medical History Medical History Hyperlipidemia Elevated prostate specific antigen [PSA] Male erectile dysfunction, unspecified Benign prostatic hyperplasia with lower urinary tract symptoms Diabetes mellitus with coincident hypertension Hypertension Family History Family History Father No problems noted. Mother No problems noted. Family history of problems with anesthesia: No Surgical History Surgical History History of cataract surgery History of pterygium excision History of prostate surgery History of Problems with Anesthesia: No Social History Social History Housing: House Alcohol intake: current Alcohol intake frequency: a few times a week Patient Tobacco Use Status: Never used Tobacco e-Cigarette/Vaping Use: Never Used Second Hand Smoke Exposure: No Advance Directives: No Advance Directives Information Provided: Yes service: No Current occupational status: retired Current occupational exposures/hazards: No Cognitive needs: No Hearing needs: No Vision needs: Yes Meds Allergies Allergy/AdvReac Type Severity Reaction Status Date / Time No Known Allergies Allergy Verified 03/07/24 09:29 Home Medications ?Medication ?Instructions ?Recorded ?Confirmed ?Last Taken ?Type aspirin 81 mg tablet,delayed 81 mg PO DAILY 02/02/20 04/09/24 Unknown History release (Adult Low Dose Aspirin) multivitamin 1 tab PO DAILY 02/02/20 03/07/24 Unknown History omega 5-iys-gjw-fish oil 500 mg 1 cap PO DAILY 02/02/20 03/07/24 Unknown History (200mg-300mg)-1,000 mg capsule cyanocobalamin (vitamin B-12) 500 500 mcg PO DAILY 06/02/21 03/07/24 Unknown History mcg tablet (Vitamin B-12) chlorthalidone 25 mg tablet 25 mg PO DAILY 04/09/24 04/09/24 Unknown History rosuvastatin 20 mg tablet 20 mg PO DAILY 04/09/24 04/09/24 Unknown History tadalafil 5 mg tablet 5 mg PO DAILY 04/09/24 04/09/24 Unknown History Exam Airway Mallampati Class: III TM Dist: >3cm Neck ROM: Full Assessment and Plan Assessment Anesthesia Assessment: Anesthesia Plan Discussed Final Anesthetic Review Family History of Problems with Anesthesia: No History of Problems with Anesthesia: No NPO: Yes ASA Class: III Final Preanesthetic Review: No Changes in Pt Med Stat, Meds/Allgs Chart Reviewed, Consent Obtained/Reviewed and Anes Risks/Benef Reviewed Patient Risk: Intermediate Procedure Risk: Low Anesthetic Plan Anesthetic Plan: TIVA Disposition: Standard PACU
[2024-04-11 10:23] VITALS: BMI 28.6
[2024-04-11 10:27] VITALS: BP 130/64; PULSE 80; RESP 16; TEMP 37.2; O2SAT 99
[2024-04-11] MEDS: Lactated Ringers 1,000 ML 100 ML IVCONT (10:41)
[2024-04-11 10:50] LABS: Glucose, Whole Blood 126 mg/dL (60-115)
--- NOTE | 2024-04-11 12:28 | P.BOP_ITS ---
Brief Operative Note Date of Service: 04/11/24 Pre-op diagnosis: Screening Post-op diagnosis: other (Polyp) Procedure: Colonoscopy to the cecum with cold snare polypectomy x 1 Surgeon: Raf Pickett MD Anesthesia: MAC Was an Finish Repairer used for this Procedure?: No Estimated blood loss (mL): 2.0 Pathology: other (A. Polyp at 50cm) Condition: stable Disposition: PACU
[2024-04-11 12:29] VITALS: BP 98/46; PULSE 67; RESP 16; TEMP 36.3; O2SAT 97
[2024-04-11 12:44] VITALS: BP 105/70; PULSE 68; RESP 16; TEMP 36.3; O2SAT 97
--- NOTE | 2024-04-11 12:54 | OP_ITS ---
DATE OF SERVICE: 04/11/2024 SURGEON: Raf Pickett MD INDICATIONS: The patient presents for evaluation of colorectal cancer screening. Full consent obtained from him for this, including risks of bleeding and perforation. PREOPERATIVE DIAGNOSIS: Colorectal cancer screening. POSTOPERATIVE DIAGNOSIS: Colorectal cancer screening, colon polyp, diverticulosis, and internal hemorrhoids. PROCEDURE PERFORMED: Colonoscopy to cecum with cold snare polypectomy x1. ESTIMATED BLOOD LOSS: COMPLICATIONS: ANESTHESIA: Monitored anesthesia care. ASSISTANTS: SPECIMENS: DESCRIPTION OF PROCEDURE: The patient was placed in the left lateral decubitus position. The digital rectal exam revealed no abnormalities. The Olympus video pediatric colonoscope was entered into the rectum, advanced easily to the cecum. Once in the cecum, I did identify normal-appearing cecal pouch with appendiceal orifice and a normal-appearing ileocecal valve. The entire cecum and ileocecal valve appeared normal. The scope was slowly withdrawn assessing all mucosal surfaces carefully. Preparation was excellent. At 50 cm was an approximately 5 mm polyp, which was removed by cold snare polypectomy and recovered by suction. The polypectomy site appeared clean, without any sign of residual polyp nor significant bleeding. I did not visualize any other polyps, colitis, nor angiodysplasia. There was a mild amount of sigmoid diverticulosis. In the rectum, scope was retroflexed visualizing internal hemorrhoids, but no other pathology. The rectal mucosa appeared normal. The scope was straightened and withdrawn from the patient. He tolerated the procedure well and was returned to recovery area in stable condition. IMPRESSION: 1. Colon polyp. 2. Diverticulosis. 3. Internal hemorrhoids. PLAN: The results of the pathology will be checked. If this is a tubular adenoma, I would recommend a followup coloscopy in 5 years. If it happens to be only hyperplastic, then I do not think we need any further screening colonoscopies given his age of 68 and no family history of colon cancer. He was advised not to use any aspirin nor NSAIDs for 1 week. MD LELA Reyes/JEREMY / [id number]
--- OUTSIDE RECORDS SUMMARY | 2024-04-11 23:36 | XMS_ITS ---
Author Organization [facility] Address [address] [place] [address] Care Team Providers Care President Of The [place] Name Role Phone Enrique Stein MD Primary Care Provider Unavaila Alicia Vang Unavailable [phone] Ayaan Urbano Unavailable [phone] Allergies No Known Allergies Medications Medication SIG (Take, Route, Frequency, Duration) Notes Start Date End Date Status Rosuvastatin Calcium 20 MG TAKE 1 TABLET BY MOUTH DAILY Oral for 90 Days Active metFORMIN HCl 500 MG TAKE 1 TABLET BY MOUTH TWICE DAILY Oral for 90 Days Active Tadalafil 5 MG TAKE 1 TABLET BY MOUTH DAILY FOR SEXUAL ACTIVITY Oral for 30 Days Active Chlorthalidone 25 MG TAKE 1 TABLET BY MOUTH DAILY Oral for 90 Days Active Aspirin 81 MG 1 tablet Orally Once a day Active Multivitamin - 1 tablet Orally Once a day Active Bryan 3 500-1,000 mg Active Cyclobenzaprine HCl 10 MG 1 tablet at be dtime as needed Orally Once a day Active Cyanocobalamin 500 MCG 1 tablet Orally O nce a day Active Social History Tobacco Use: Social History Observation Description Date Details (start date - stop date) Never Smoker NA - NA Tobacco Use/Smoking Question Answer Notes Are you a: nonsmoker Additional Findings: Tobacco Non-User Current no n-smoker Alcohol Screen Question Answer Notes Did you have a drink containing alcohol in the p ast year? No Points 0 Interpretation Negative Tobacco use other than smoking: Question Answer Notes Are you an other tobacco user? No Vital Signs Height 5 ft 8 in in 07/11/2023 Weight 198 lbs 07/11/2023 BMI 30.10 kg/m2 07/11/2023 Encounters Encounter Location Date Provider Diagnosis [facility] [place] [address] [place] [address] 07/11/2023 Ayaan Urbano Type 2 diabetes mellitus with diabetic polyneuropathy E11.42 and Tinea unguium B35.1 Assessments Encounter Date Diagnosis (ICD Code) Assessment Notes Treatment Notes Treatment Clinical Notes Section Notes 07/11/2023 Type 2 diabetes mellitus with diabetic polyneuropathy (ICD-10 - E11.42) Patient Educated with: DIABETIC FOOT CARE INSTRUCTIONS. pdf (DIABETIC FOOT CARE INSTRUCTIONS. pdf) 07/11/2023 Tinea unguium (ICD-10 - B35.1) Plan Of Treatment Treatment Notes Assessment Notes Type 2 diabetes mellitus wit h diabetic polyneuropathy Patient Educated with: DIABETIC FOOT CARE INSTRUCTIONS.pdf (DIABETIC FOOT CARE INSTRUCTIONS.pdf) Next Appt Details Follow Up: 6 Months, Reason: Provider Name:Alicia Damon jimy, 05/17/2024 09:00:00 AM, [address] [place] [address], [phone], Progress Notes * Francisco Javier COLLINSOB: [birth year] (68 yo M)Acc No.[id number]:07/11/2023 Progress Note Patient:?Mickey Collinsnando Provider:?Ayaan Urbano DPM :1955???Age:68 Y???Sex:Male Kenneth e:07/11/2023 Address:[address] [place] [address] Anthony Mayer [id number] Pcp:Enrique Stein MD Subjective: * Chief Complaints: * ??? * HPI: ???At Risk footcare:?Pt States Last PCP Visit:?Date?11/01/2022 ???Foot Pain:?Nature:?numbness.?Location?B/L.?Duration:?several years.?Onset/Cause:?dpn.?Course:?worse.?Aggrevated:?no aggrevating factors.? * ROS:?General/Constitutional:?Nausea?denies, denies.?Vomiting?denies, denies.?Hunger Thirst?denies, denies.?Loss appetite?denies, denies.?Chills?denies, denies.?Fatigue?denies, denies.?Fever?denies, denies.?Night Sweats denies, denies.?Unexplained weight loss?denies, denies.?Unexplained weight gain?denies.?Ophthalmologic:?Blurred vision?denies.?Red eye?denies.?HEENTM:?Dentures?denies, denies.?Dizziness?denies, denies.?Glasses/contacts?admits, denies.?Retinopathy?denies, denies.?Blurred/double vision?denies, denies.?TMJ?denies, denies.?Discharge/drainage?denies, denies.?Implants?denies, denies.?Sore throat?denies.?Dental implants?denies.?Hard of hearing ?denies, denies.?Difficulty chewing/swallowing/speaking?denies, denies.?Nose bleeds?denies, denies.?Sore mouth?denies, denies.?Swollen glands?denies.?Respiratory:?On Oxygen?denies, denies.?Pneumonia/pleurisy?denies, denies.?Bronchitis?denies, denies.?Emphysema?denies, denies.?Coughing?denies, denies.?Cough blood?denies, denies.?Shortness of breath?denies, denies.?Wheezing?denies, denies.?Cardiovascular:?Pacemaker?denies, denies.?MVP?denies, denies.?WPW?denies, denies.?CHF?denies, denies.?Heart attack?denies, denies.?Septal defect?denies, denies.?Rapid beat?denies, denies.?Chest pain ?denies, denies.?Atrial Fib.?denies, denies.?Murmur/Palpitations?denies, denies.?Gastrointestinal:?Hemorrhoids?denies, denies.?Stomach/Abdominal pain?denies, denies.?Dark blood stool?denies, denies.?Irritable bowel ?denies, denies.?Constipation?denies, denies.?Diarrhea?denies, denies.?Vomiting?denies.?Hematology:?Swelling?admits, denies.?Clots?denies.?Varicose Veins?denies.?Bruising?denies, denies.?Bleeding problem?denies, denies.?Genitourinary:?Blood urine?denies, denies.?Frequent/Painfu/urination/bladder control?denies, denies.?Kidney stones?denies, denies.?Infection (UTI)?denies, denies.?Nephropathy?denies, denies.?sex trans dis (STD)?denies.?Prostate?admits.?Musculoskeletal:?Hammertoes?denies, denies.?Bunions?denies, denies.?Scoliosis/kyphosis?denies.?Back Pain?denies.?Muscle Cramps/ Resting?denies.?Muscle cramps / walking?denies, denies.?Generalized aches and pains?denies, denies.?Weakness?denies, denies.?Integ.:?Andersen?denies, denies.?Scars?denies, denies.?Corns/calluses?denies, denies.?Ingrown nails?denies, denies.?Painful nails?denies, denies.?Open Sores?denies.?Rashes?denies, denies.?Neurologic:?Difficulty sleeping?denies, denies.?Bipolar?denies.?Brain disorder?denies, denies.?Numbness?denies.?Balance trouble?denies, denies.?Confusion?denies, denies.?Fainting/blackouts?denies, denies.?Headache?denies.?Tingling?denies.?Tremors?denies, denies.? * Medical History:? * Surgical History:?Lower 2016 cataract surgery prostate surgery pterygium excision * Hospitalization/Major Diagno stic Procedure:?Denies Past Hospitalization * Family History:?Mother: dece ased, foot problems, poor circulation, diagnosed with Diabetic - NIDDM, Unspecified essential hypertension, Family history of arthritis.?Father: , kidney/liver disease.?Siblings: foot problems.? * Social History:?Tobacco Use:?Tobacco Use/Smoking?Are you a:?nonsmoker ?Additional Findings: Tobacco Non-User?Current non-smoker ?Tobacco use other than smoking?Are you an other tobacco user??No ???Drugs/Alcohol:?Drugs?Have you used drugs other than those for medical reasons in the past 12 months??No ?Alcohol Screen?Did you have a drink containing alcohol in the past year??No ?Points?0 ?Interpretation?Negative ???Miscellaneous:?Caffeine: yes. ?no Children. ?Marital status: single, . ?Occupation: Retired. ?Occupational exposure: none. * Medications:?TakingOmega 3 , Notes: 500-1,000 mgMultivitamin - Tablet 1 tablet Orally Once a dayCyclobenzaprine HCl 10 MG Tablet 1 tablet at bedtime as needed Orally Once a dayCyanocobalamin 500 MCG Tablet 1 tablet Orally Once a dayAspirin 81 MG Tablet Chewable 1 tablet Orally Once a daymetFORMIN HCl 500 MG Tablet TAKE 1 TABLET BY MOUTH TWICE DAILY Oral Rosuvastatin Calcium 20 MG Tablet TAKE 1 TABLET BY MOUTH DAILY Oral Chlorthalidone 25 MG Tablet TAKE 1 TABLET BY MOUTH DAILY Oral Tadalafil 5 MG Tablet TAKE 1 TABLET BY MOUTH DAILY FOR SEXUAL ACTIVITY Oral Taking Bryan 3 , Notes: 500-1,000 mgTaking Multivitamin - Tablet 1 tablet Orally Once a dayTaking Cyclobenzaprine HCl 10 MG Tablet 1 tablet at bedtime as needed Orally Once a dayTaking Cyanocobalamin 500 MCG Tablet 1 tablet Orally Once a dayTaking Aspirin 81 MG Tablet Chewable 1 tablet Orally Once a dayTaking metFORMIN HCl 500 MG Tablet TAKE 1 TABLET BY MOUTH TWICE DAILY Oral Taking Rosuvastatin Calcium 20 MG Tablet TAKE 1 TABLET BY MOUTH DAILY Oral Taking Chlorthalidone 25 MG Tablet TAKE 1 TABLET BY MOUTH DAILY Oral Taking Tadalafil 5 MG Tablet TAKE 1 TABLET BY MOUTH DAILY FOR SEXUAL ACTIVITY Oral * Allergies:?N.K.D.A.yes[Aller gies Verified] Objective: * Vitals:?Ht: 5 ft 8 in, Wt:19 8, BMI:30.10, Shoe size:11, BS:not taken. * ???Past Orders: ???Lab:HEMOGLOBIN A1C (GLYCO HEMOGLOBIN) (Order Date - 01/10/2023) (Collection Date - 11/01/2022) ? Value Reference Range ?HEMOGLOBIN A1C (HH) 6.3 * Examination: ???Ophthalmology Referral: ?DIABETES EYE EXAM?Neurological: ?SENSORY:? Neurological exam demonstrates, reduced vibration sensation, 5.07 monofilament test performed at plantar aspects of 5 varied sites per foot shows sensation, reduced , at Forefoot, at Midfoot, B/L.?TINEL'S COMPRESSION:?Negative tarsal tunnel, uma pedis, and medial calcaneal nerves B/L.?BABINSKI REFLEX:?absent.?Vascular: ?DP PULSES:? 3/4, B/L.?PT PULSES:? 2/4, B/L.?CAPILLARY FILL TIME:?3 secs. per digit, B/L.?SKIN TEMPERTURE GRADIENT OF THE LOWER EXTERMITIES:?warm to cool, proximal to distal, B/L.?HAIR GROWTH/TEXTURE/ELASTICITY/TURGOR:?normal, B/L.?PIGMENTATION:?normal, B/L.?EDEMA:?no edema.?TELANGECTASIA:?absent.?VARICOSITIES:?absent.?Nails: ?NAILS are:? Elongated, overgrown, dystrophic, lytic, greater than 3mm thick, discolored and friable with crumbly malodorous subungual debris, with dull to no pain on palpation due to neuropathy, TA, T1, T5.?Dermatologic: ?SKIN FINDINGS:? Skin exam reveals Keratotic lesion(s) located at, SUB MTH (s), 1, B/L, Heel(s), B/L.?General Examination: ?GENERAL APPEARANCE:?pleasant, alert, well nourished, well developed, well hydrated, with good attention to hygene/body habitus, and in no acute distress.?ORIENTED:?person,place, and time.?FOOT EXAM:?Neuroma Pain: ?PALPATION:?No interspace pain noted on palpation.?Orthopedic: ?MUSCLE STRENGTH:?5/5 all groups in a symmetrical fashion , B/L.?GAIT ABNORMALITY:?pronated, abducted, B/L.? Assessment: * Assessment: 1.?Tinea unguium - B35.1?2.? Type 2 diabetes mellitus with diabetic polyneuropathy - E11.42 (Primary)? Plan: * Treatment: * Procedure Codes:? * Preventive Medicine:? ??Counseling:?Discussion:?-13: Office or other outpatient visit for the evaluation and management of an established patient, which required a medically appropriate history and/or examination and LOW level of DECISION MAKING for: 1 STABLE ACUTE UNCOMPLICATED PROBLEM, 2 OR MORE MINOR PROBLEMS, OR 1 STABLE CHRONIC PROBLEM, THAT POSE(S) A LOW RISK FOR MORBIDITY/MORTALITY. The visit on the day of the encounter encompassed interpreting the data and educating the patient as to the nature of their condition, treatment options available according to their individual PMH, meds, allergies, and overall health/living conditions, as well as any potential risks or complications that may occur from a failure to adhere to, and participate in, the recommended course of therapy. The discussion included a complete verbal, and/or written explanation of the examination results, any x-rays taken, the proposed diagnosis, and outline of the treatment plan. A schedule for future care needs was also explained. The patient verbalized an understanding of the instructions at this time and agreed to be an active participant in their treatment. If the patient should think of any questions or concerns after the visit, I have encouraged the patient to call the office.? * Follow Up:?6 Months * Images: * Sign off status: Completed true * Provider:?Ayaan Urbano DPM Date:? 024 Generated for Magen odom/Jacquie/Catrachitaitting on:?04/11/2024 11:36 PM EST History and Physical Notes * HPI (History of Present Illness) Category Sub-Category Detail Notes Category Not es At Risk footcare Pt States Last PCP Visit: Date: 11/01/2022 Foot Pain Aggrevated: no aggrevating factors Onset/Cause: dpn Course: worse Duration: several years Nature: numbness Location B/L Examination Category Sub-Category Detail Notes Category Not es Neuroma Pain PALPATION: No interspace pain noted on palpation Neurological SENSORY: Neurological exa m demonstrates, reduced vibration sensation, 5.07 monofilament test performed at plantar aspects of 5 varied sites per foot shows sensation, reduced , at Forefoot, at Midfoot, B/L BABINSKI REFLEX: absent TINEL'S COMPRESSION: Negative tarsal carol rafiq, uma pedis, and medial calcaneal nerves B/L Dermatologic SKIN FINDINGS: Skin exam reveal s Keratotic lesion(s) located at, SUB MTH (s), 1, B/L, Heel(s), B/L Orthopedic GAIT ABNORMALITY: pronated, abducted, B/L MUSCLE STRENGTH: 5/5 all groups in a symmetrical fashion , B/L General Examination GENERAL APPEARANCE: pleasant , alert, well nourished, well developed, well hydrated, with good attention to hygene/body habitus, and in no acute distress FOOT EXAM: Lower Extremity Neurological Exa m performed:: Yes Visual exam of foot performed:: Yes Date: 07/11/2023 Sensory testing performed:: sensations d iminished Pedal pulse taking performed:: 2+ ORIENTED: person,place, and ti id Ophthalmology Referral DIABETES EYE EXAM Diabetic Retinopa thy Screening:: No Findings of Diabetic Eye Exam:: no retin opathy Vascular DP PULSES(B): 3/4, B/L PT PULSES(B): 2/4, B/L CAPILLARY FILL TIME: 3 secs. per digit, B/L TEMPERTURE GRADIENT(C): warm to cool, pr oximal to distal, B/L TROPHIC CONDITION-TEXTURE/ELASTICITY/TURGOR/HAIR GROWTH(B): normal, B/L EDEMA(C): no edema TELANGECTASIA: absent VARICOSITIES: absent PIGMENTATION: normal, B/L Nails NAILS are: Elongated, overg rown, dystrophic, lytic, greater than 3mm thick, discolored and friable with crumbly malodorous subungual debris, with dull to no pain on palpation due to neuropathy, TA, T1, T5
--- OUTSIDE RECORDS SUMMARY | 2024-04-11 23:36 | XMS_ITS ---
Author Organization [facility] Address [address] [address] Care Team Providers Care Tin Can Feeder Name Role Phone Enrique Stein MD Primary Care Provider Unavaila Alicia Vang Unavailable [phone] Ayaan Urbano Unavailable [phone] Allergies No Known Allergies Medications Medication SIG (Take, Route, Frequency, Duration) Notes Start Date End Date Status Aspirin 81 MG 1 tablet Orally Once a day Active metFORMIN HCl 500 MG TAKE 1 TABLET BY MOUTH TWICE DAILY Oral for 90 Days Active Rosuvastatin Calcium 20 MG TAKE 1 TABLET BY MOUTH DAILY Oral for 90 Days Active Chlorthalidone 25 MG TAKE 1 TABLET BY MOUTH DAILY Oral for 90 Days Active Tadalafil 5 MG TAKE 1 TABLET BY MOUTH DAILY FOR SEXUAL ACTIVITY Oral for 30 Days Active Line [place] 3 500-1,000 mg Active Multivitamin - 1 tablet Orally Once a day Active Cyclobenzaprine HCl 10 MG 1 tablet [...] Signs Height 5 ft 8 in in 01/16/2024 Weight 198 lbs 01/16/2024 BMI 30.10 kg/m2 01/16/2024 Encounters Encounter Location Date Provider Diagnosis [facility] [place] [address] [place] [address] 01/16/2024 Ayaan Urbano Type 2 diabetes mellitus with diabetic polyneuropathy E11.42 and Tinea unguium B35.1 Assessments Encounter Date Diagnosis (ICD Code) Assessment Notes Treatment Notes Treatment Clinical Notes Section Notes 01/16/2024 Type 2 diabetes mellitus with diabetic polyneuropathy (ICD-10 - E11.42) Patient Educated with: DIABETIC FOOT CARE INSTRUCTIONS. pdf (DIABETIC FOOT CARE INSTRUCTIONS. pdf) 01/16/2024 Tinea unguium (ICD-10 - B35.1) Plan Of Treatment Treatment Notes Assessment Notes Type 2 diabetes mellitus wit h diabetic polyneuropathy Patient Educated with: DIABETIC FOOT CARE INSTRUCTIONS.pdf (DIABETIC FOOT CARE INSTRUCTIONS.pdf) Next Appt Details Follow Up: 4 Months, Reason: Provider Name:Alicia Damon jimy, 05/17/2024 09:00:00 AM, [address] [place] [address], [phone], Progress Notes * Francisco Javier COLLINSOB: [birth year] (68 yo M)Acc No.[id number]:01/16/2024 Progress Note Patient:?Mickey Collinsnando Provider:?Ayaan Urbano DPM :1955???Age:68 Y???Sex:Male Kenneth e:01/16/2024 Address:[address] [place] [address] Anthony Mayer [id number] Pcp:Enrique Stein MD Subjective: * Chief Complaints: * ??? * HPI: ???At Risk footcare:?Pt States Last PCP Visit:?Date?12/01/2023 ???Foot Pain:?Nature:?numbness.?Location?B/L.?Duration:?several years.?Onset/Cause:?dpn.?Course:?worse.?Aggrevated:?no aggrevating factors.? * ROS:?General/Constitutional:?Nausea?denies, [...] ased, foot problems, poor circulation, diagnosed with Family history of arthritis, Diabetic - NIDDM, Unspecified essential hypertension.?Father: , kidney/liver disease.?Siblings: foot problems.? * Social [...] BY MOUTH DAILY FOR SEXUAL ACTIVITY Oral Medication List reviewed and reconciled with the patientTaking Line [place] 3 , Notes: 500-1,000 mgTaking Multivitamin - [...] BY MOUTH DAILY FOR SEXUAL ACTIVITY Oral Medication List reviewed and reconciled with the patient * Allergies:?N.K.D.A.yes[Aller gies Verified] Objective: * Vitals:?Ht: 5 ft 8 in, Wt:19 8, BMI:30.10, Shoe size:11, BS:128. * ???Past Orders: ???Lab:HEMOGLOBIN A1C (GLYCO HEMOGLOBIN) [...] and medial calcaneal nerves B/L.?BABINSKI REFLEX:?absent.?Vascular: ?DP PULSES(B):? 3/4, B/L.?PT PULSES(B):? 2/4, B/L.?CAPILLARY FILL TIME:?3 secs. per digit, B/L.?TROPHIC CONDITION-TEXTURE/ELASTICITY/TURGOR/HAIR GROWTH(B):?normal, B/L.?TEMPERTURE GRADIENT(C):?warm to cool, proximal to distal, B/L.?PIGMENTATION:?normal, B/L.?EDEMA(C):?no edema.?TELANGECTASIA:?absent.?VARICOSITIES:?absent.?Nails: ?NAILS are:? Elongated, overgrown, dystrophic, lytic, [...] patient to call the office.? * Follow Up:?4 Months * Images: * Sign off status: Completed true * Provider:?Ayaan Urbano DPM Date:? 024 Generated for Magen odom/Jacquie/Girish on:?04/11/2024 11:36 PM EST History and Physical Notes * HPI (History of Present Illness) Category Sub-Category Detail Notes Category Not es At Risk footcare Pt States Last PCP Visit: Date: 12/01/2023 Foot Pain Aggrevated: no aggrevating factors Onset/Cause: [...] taking performed:: 2+ ORIENTED: person,place, and ti me Ophthalmology Referral DIABETES EYE EXAM Diabetic Retinopa [...]
--- OUTSIDE RECORDS SUMMARY | 2024-04-11 23:37 | XMS_ITS ---
Author Organization [facility] Address [address] [facility] [place] [address] Care Team Providers Care Sheet Metal Helper Name Role Phone Enrique Stein MD Primary Care Provider UnavailAlicia Rodriguez Unavailable [phone] Ayaan Urbano Unavailable [phone] Allergies No Known Allergies REASON FOR VISIT Last PCP Visit: 10/2022, At Risk Footcare, Foot pain Medications Medication SIG (Take, Route, Frequency, Duration) Notes Start Date End Date Status Chlorthalidone 25 MG TAKE 1 TABLET BY MOUTH DAILY Oral for 90 Days Active Tadalafil 5 MG TAKE 1 TABLET BY MOUTH DAILY FOR SEXUAL ACTIVITY Oral for 30 Days Active Aspirin 81 MG 1 tablet Orally Once a day Active Rosuvastatin Calcium 20 MG TAKE 1 TABLET BY MOUTH DAILY Oral for 90 Days Active metFORMIN HCl 500 MG TAKE 1 TABLET BY MOUTH TWICE DAILY Oral for 90 Days Active [place] 3 500-1,000 mg Active Cyclobenzaprine HCl 10 MG 1 tablet at be dtime as needed Orally Once a day Active Multivitamin - 1 tablet Orally Once a day Active Cyanocobalamin 500 [...] Are you an other tobacco user? No Problems Problem Type SNOMED Code ICD Code Onset Dates Problem Status W/U Status Risk Notes Problem Polyneuropathy due to type 2 diabetes mellitus (897490133) Type 2 diabetes mellitus with diabetic polyneuropathy (E11.42) Active confirmed Vital Signs Height 5 ft 8 in in 01/10/2023 Weight 198 lbs 01/10/2023 BMI 30.1 kg/m2 01/10/2023 Procedures Procedure Date Ordered Date Performed Result Body Sit e 85184-GFBV SKIN LESIONS, 2 TO 4 01/10/2023 N/A [id number] DYSTROPHIC NAILS ANY # 01/10/2023 N/A 14649-LZUGANAJ OF HEMATOMA/FLUID 01/10/2023 N/A Encounters Encounter Location Date Provider Diagnosis [facility] [address] [address] 01/10/2023 Ayaan Urbano Type 2 diabetes mellitus with diabetic polyneuropathy E11.42 ; Tinea unguium B35.1 and Subungual hematoma of toenail of left foot, initial encounter S90.222A Assessments Encounter Date Diagnosis (ICD Code) Assessment Notes Treatment Notes Treatment Clinical Notes Section Notes 01/10/2023 Type 2 diabetes mellitus with diabetic polyneuropathy (ICD-10 - E11.42) Patient Educated with: DIABETIC FOOT CARE INSTRUCTIONS. pdf (DIABETIC FOOT CARE INSTRUCTIONS. pdf) 01/10/2023 Tinea unguium (ICD-10 - B35.1) 01/10/2023 Subungual hematoma of toenail of left foot, initial encounter (ICD-10 - S90.222A) Plan Of Treatment Treatment Notes Assessment Notes Type 2 diabetes mellitus wit h diabetic polyneuropathy Patient Educated with: DIABETIC FOOT CARE INSTRUCTIONS.pdf (DIABETIC FOOT CARE INSTRUCTIONS.pdf) Pending Test Test Name Order Date 79298-UXNY SKIN LESIONS, 2 TO 4 01/11/20 23 [id number] DYSTROPHIC NAILS ANY # [id number] OF HEMATOMA/FLUID 023 Next Appt Details Follow Up: 6 Months, Reason: Provider Name:Alicia ahn, 05/17/2024 09:00:00 AM, [address] [place] [address], [phone], Procedure Notes * Category Sub-Category Detail Notes I&D subungual hematoma: Location TA Procedure: Performed incision a nd drainage of subungual hematoma with use of sterile power rachana and/or nail nipper. Approximately ( 0.1 ) cc of hemorrhagic fluid material was drained. No underlying bone was visualized. An application of sterile Bacitracin dressing was performed. Local wound care instructions were discussed and dispensed , Pt was advised of the possibilty for nail auto-avulsion (91967), DIABETES: Pt was advised as to the risk of delayed or nonhealing due to diabetes. Pt is to call the office with any questions, concerns, or complications Anesthesia was deferred - NEURO AVA: patient has medically documented neuropathic condition affecting sensation Keratoma Treatment Parring or Cutting o f Benign Hyperkeratotic Lesion(s) 47723 ( 2-4 Lesions ) - The Benign hyperkeratotic lesions, as described above were pared, and/or cut utilizing a sterile 15 blade, tissue nippers, and/or dremel Nail Reduction Nail Reduction Trimming of dyst rophic nails performed to reduce/remove overall nail length and girth, by manual and electrical means with use of a nail nipper and/or dremel, to more viable healthy nail plate or bed tissue 6-10 (G0127) Progress Notes * COLLINSWilliams MORENOAnnaOB: [birth year] (67 yo M)Acc No.[id number]:01/10/2023 Progress Notes Patient:?Mickey Collinsnando Provider:?Ayaan Urbano DPM :1955???Age:67 Y???Sex:Male Kenneth e:01/10/2023 [address] [place] Pcp:Enrique Stein MD Subjective: * Chief Complaints: * ??? Last PCP Visit: t Risk FootcareFoot pain * HPI: ???At Risk footcare:?Pt States Last [...] List reviewed and reconciled with the patientTaking [place] 3 , Notes: 500-1,000 mgTaking Multivitamin - [...] Vitals:?Ht: 5 ft 8 in, Wt:19 8, BMI:30.1, Shoe size: 11, BS:109, Ht-cm: 172.72 cm, Wt-k.81 kg. * ???Past Orders: ???Lab:HEMOGLOBIN A1C (GLYCO HEMOGLOBIN) [...] on palpation due to neuropathy, TA, T1, T5, There is evidence of pain on palpation, and an area of subungual hemorrhagic fluid with a pre-operative size measuring approximately ( 1-2 ) mm square, TA--distal-medial nail.?Dermatologic: ?SKIN FINDINGS:? Skin exam reveals Keratotic lesion(s) [...] diabetes mellitus with diabetic polyneuropathy - E11.42 (Primary)?3.?Subungual hematoma of toenail of left foot, initial encounter - S90.222A? Plan: * Treatment: 2.?Subungual hematoma of toe nail of left foot, initial encounter?Procedure: 87225-PTPZEYSX OF HEMATOMA/FLUID * Procedures:?I&D subungual hematoma::?Location?TA.?Anesthesia?was deferred - NEUROPATHY: patient has medically documented neuropathic condition affecting sensation.?Procedure:?Performed incision and drainage of subungual hematoma with use of sterile power rachana and/or nail nipper. Approximately ( 0.1 ) cc of hemorrhagic fluid material was drained. No underlying bone was visualized. An application of sterile Bacitracin dressing was performed. Local wound care instructions were discussed and dispensed , Pt was advised of the possibilty for nail auto-avulsion (28055), DIABETES: Pt was advised as to the risk of delayed or nonhealing due to diabetes. Pt is to call the office with any questions, concerns, or complications.?Keratoma Treatment:?Parring or Cutting of Benign Hyperkeratotic Lesion(s)?69147 ( 2-4 Lesions ) - The Benign hyperkeratotic lesions, as described above were pared, and/or cut utilizing a sterile 15 blade, tissue nippers, and/or dremel.?Nail Reduction:?Nail Reduction?Trimming of dystrophic nails performed to reduce/remove overall nail length and girth, by manual and electrical means with use of a nail nipper and/or dremel, to more viable healthy nail plate or bed tissue 6-10 (G0127).? * Procedure Codes:?39344 DRAIN AGE OF HEMATOMA/FLUID, [place]: [place] [address] TRIM SKIN LESIONS, 2 TO 4, Modifiers: XS G0127 TRIMMING DYSTROPHIC NAILS ANY #, Modifiers: XS * Preventive Medicine:? ??Counseling:?Discussion:?-03: Office or other outpatient visit for the evaluation and management of a new patient, which required a medically appropriate history [...] have encouraged the patient to call the office.?Diabetic Footcare:?The patient was advised against future self nail/callus care due to inherent risks for infection, loss of limb/life given diabetes, neuropathy.? * Follow Up:?6 Months * Images: * Sign off status: Completed true * Provider:?Ayaan Urbano DPM Date:? 023 Generated for Magen odom/Jacquie/Catrachitaitting on:?04/11/2024 11:36 PM [...] Visual exam of foot performed:: Yes Date: 01/10/2023 Sensory testing performed:: sensations d iminished Pedal [...] on palpation due to neuropathy, TA, T1, T5, There is evidence of pain on palpation, and an area of subungual hemorrhagic fluid with a pre-operative size measuring approximately ( 1-2 ) mm square, TA--distal-medial nail
--- OUTSIDE RECORDS SUMMARY | 2024-04-11 23:37 | XMS_ITS | Patient Health Record ---
Author Organization [facility] Address [address] [facility] [place] [address] Care Team Providers Care Student Name Role Phone Enrique Stein MD Primary Care Provider UnavailAlicia Rodriguez Unavailable [phone] Ayaan Urbano Unavailable [phone] Allergies No Known Allergies Reason For Referral No Information Medications Medication SIG (Take, Route, Frequency, Duration) Notes Start Date End Date Status Lima 3 500-1,000 mg Active Multivitamin - 1 tablet Orally Once a day Active Cyclobenzaprine HCl 10 MG 1 tablet at be dtime as needed Orally Once a day Active Cyanocobalamin 500 MCG 1 tablet Orally O nce a day Active Aspirin 81 MG 1 tablet Orally [...] SEXUAL ACTIVITY Oral for 30 Days Active Social History Tobacco Use: Social History [...] Polyneuropathy due to type 2 diabetes mellitus (272369214) Type 2 diabetes mellitus with diabetic polyneuropathy (E11.42) Active confirmed Vital Signs Height 5 ft 8 in in 01/16/2024 Weight 198 lbs 01/16/2024 BMI 30.10 kg/m2 01/16/2024 Encounters Encounter Location Date Provider Diagnosis [address] [address] 07/11/2023 Ayaan Urbano Type 2 diabetes mellitus with diabetic polyneuropathy E11.42 and Tinea unguium B35.[address] [facility] [address] 01/16/2024 Ayaan Urbano Type 2 diabetes mellitus with diabetic polyneuropathy E11.42 and Tinea unguium B35.1 Assessments Encounter Date Diagnosis (ICD Code) Assessment Notes Treatment Notes Treatment Clinical Notes Section Notes 07/11/2023 Tinea unguium (ICD-10 - B35.1) 07/11/2023 Type 2 diabetes mellitus with diabetic polyneuropathy (ICD-10 - E11.42) Patient Educated with: DIABETIC FOOT CARE INSTRUCTIONS. pdf (DIABETIC FOOT CARE INSTRUCTIONS. pdf) 01/16/2024 Tinea unguium (ICD-10 - B35.1) 01/16/2024 Type 2 diabetes mellitus with diabetic polyneuropathy (ICD-10 - E11.42) Patient Educated with: DIABETIC FOOT CARE INSTRUCTIONS. pdf (DIABETIC FOOT CARE INSTRUCTIONS. pdf) Plan Of Treatment Pending Test Test Name Order Date 47333-XCQS SKIN LESIONS, 2 TO 4 01/11/20 23 [id number] DYSTROPHIC NAILS ANY # [id number] OF HEMATOMA/FLUID 023 Next Appt Details Provider Name:Alicia Damon jimy, 05/17/2024 09:00:00 AM, [address] [place], [address], Insurance Providers Payer Name Payer Address Payer Phone Subscriber Number Group Number Insured Name Patient Relationship to Insured Coverage Start Date Coverage End Date [employer] Medicare [id number] [address] [address] [place] [address] [phone] [id number] Jorge Collins Self - patient is the insured Medical (General) History Medical History History ICD Code Arthritis CAD (Cholesterol) Cataracts Diabetic High blood pressure Chicken pox Measles Benign prostatic hyperplasia (BPH) Diabetes mellitus Hyperlipidemia Erectile dysfunction Surgical History Surgery Date(Month/Year) Lower 2015 cataract surgery prostate surgery pterygium excision
--- OUTSIDE RECORDS SUMMARY | 2024-04-11 23:37 | XMS_ITS ---
Author Organization [facility] Address [address] [place] [address] Care Team Providers Care Area Secretary Name Role Phone Emil BRADLEY, Enrique Primary Care Provider Raf Rai [phone] REASON FOR VISIT screening Encounters Encounter Location Date Provider Diagnosis [facility] [address] [place], [place] [id number] 04/11/2024 Raf Pickett PLAN OF TREATMENT No Information
--- OUTSIDE RECORDS SUMMARY | 2024-04-11 23:37 | XMS_ITS ---
Author Organization [facility] Address [address] [place] [address] Care Team Providers Care Zinc Skimmer Name Role Phone Enrique Stein MD Primary Care Provider Raf Rai Unavailable [phone] ALLERGIES No Known Allergies REASON FOR VISIT Patient presents today for a colon screening MEDICATIONS Medication SIG (Take, Route, Frequency, Duration) Notes Start Date End Date Status Aspirin 81 81 MG 1 tablet Orally Once a day for 30 day(s) Active Chlorthalidone 25 MG TAKE 1 TABLET BY MO UTH DAILY Oral for 90 Active Tadalafil 5 MG TAKE ONE TABLET BY M OUTH EVERY DAY FOR SEXUAL ACTIVITY Oral for 90 Active metFORMIN HCl 500 MG TAKE 1 TABLET BY MO UTH TWICE DAILY Oral for 90 Active Rosuvastatin Calcium 20 MG Oral for 90 Active SOCIAL HISTORY Tobacco Use: Social History Observation Description Date Details (start date - stop date) Never Smoker NA - NA Sex Assigned At : Social History Observation Description Sex Assigned At Unknown Tobacco Use/Smoking Question Answer Notes Patient is a nonsmoker Alcohol Screen Question Answer Notes Did you have a drink contain ing alcohol in the past year? Yes How many drinks did you have on a typical day when you were drinking in the past year? 1 or 2 drinks (0 point) How often did you have 6 or more drinks on one occasion in the past year? Never (0 point) Points 0 Interpretation Negative PROBLEMS Problem Type ICD Code Onset Dates Problem Status W/U Status Risk SNOMED Code Notes Problem Colon cancer screening (Z12.11) Active confirmed Colon cancer screening (595756683) Problem Encounter for other preprocedural examination (Z01.818) Active confirmed Pre-procedure evaluation check (155832882) VITAL SIGNS BMI 28.43 kg/m2 01/10/2024 Blood pressure systolic 00 mm Hg 01/10/20 24 Blood pressure diastolic 00 mm Hg 024 Height 5 ft 8 in in 01/10/2024 Weight 187 lbs 01/10/2024 Encounters Encounter Location Date Provider Diagnosis [facility] [address] [place] [address] 01/10/2024 Raf Pickett Colon cancer screeni ng Z12.11 and Encounter for other preprocedural examination Z01.818 ASSESSMENTS Encounter Date Diagnosis Assessment Notes Treatment Notes Treatment Clinical Notes 01/10/2024 Colon cancer screening (ICD-10 - Z12.11) Stop aspirin for 1 week before the colonoscopy Do not take the Metformin the night before nor on the morning of the colonoscopy Do not take the chlorthalidone the day before nor on the day of the colonoscopy 01/10/2024 Encounter for other preprocedural examination (ICD-10 - Z01.818) PLAN OF TREATMENT Treatment Notes Assessment Notes Colon cancer screening Stop aspirin for 1 week before the colonoscopy Do not take the Metformin the night before nor on the morning of the colonoscopy Do not take the chlorthalidone the day before nor on the day of the colonoscopy Future Test Test Name Order Date COLONOSCOPY 01/10/2024 Next Appt Details Follow Up: prn, Reason: Progress Notes * Examination Category Sub-Category Detail Notes General Examination GENERAL APPEARANCE: pleasant , well nourished, well developed, in no acute distress HEAD: EYES: sclera non-icteric EARS: NOSE: THROAT: NECK/THYROID: no cervical lymphade nopathy, neck supple HEART: S1, S2 normal CHEST: LUNGS: clear to auscultatio n bilaterally ABDOMEN: normal bowel sounds, no guarding or rigidity, no guarding or rigidity, no masses palpable, soft, nontender, nondistended NEUROLOGIC: alert and oriented SKIN: nonjaundiced, no spi reese angiomata EXTREMITIES: no edema PERIPHERAL PULSES: BACK: BREASTS: MUSCULOSKELETAL: MALE GENITOURINARY: LYMPH NODES: RECTAL EXAM: FEMALE GENITOURINARY: ORAL CAVITY: mucosa moist
--- OUTSIDE RECORDS SUMMARY | 2024-04-11 23:37 | XMS_ITS | Patient Health Record ---
Author Organization [facility] Address [address] [place] [address] Care Team Providers Care Replanting Machine Operator Name Role Phone Enrique Stein MD Primary Care Provider Raf Rai [phone] ALLERGIES No Known Allergies RESULTS Component Value Reference Range Notes Glucose, Whole Blood Reviewed date:04/11/2024 01:29:11 PM Interpretation: Performing Lab:[facility], [address] [place] [phone] Notes/Report: Glucose, Whole Blood 126 60-115 mg/dL METER # : [id number] REASON FOR REFERRAL No Information MEDICATIONS Medication SIG (Take, Route, Frequency, Duration) Notes Start Date End Date Status Aspirin 81 81 MG 1 tablet Orally Once a day for 30 day(s) Active Chlorthalidone 25 MG TAKE 1 TABLET BY MO UT DAILY Oral for 90 Active Tadalafil 5 MG TAKE ONE TABLET BY M OUTH EVERY DAY FOR SEXUAL ACTIVITY Oral for 90 Active metFORMIN HCl 500 MG TAKE 1 TABLET BY MO UT TWICE DAILY Oral for 90 Active Rosuvastatin [...] screening (Z12.11) Active confirmed Colon cancer screening (267187088) Problem Encounter for other preprocedural examination (Z01.818) Active confirmed Pre-procedure evaluation check (465662675) VITAL SIGNS Blood pressure diastolic 00 mm Hg 01/10/2024 Height 5 ft 8 in in 01/10/2024 Blood pressure systolic 00 mm Hg 01/10/2024 Weight 187 lbs 01/10/2024 BMI 28.43 kg/m2 01/10/2024 Encounters Encounter Location Date Provider Diagnosis [facility] [address] [place], [place] [id number] 04/11/2024 Raf Pickett [facility] [address] [place] [address] 01/10/2024 Raf Pickett Colon cancer screeni ng [...] examination (ICD-10 - Z01.818) PLAN OF TREATMENT Future Test Test Name Order Date COLONOSCOPY 01/10/2024 Insurance Providers Payer Name Payer Address Payer Phone Subscriber Number Group Number Insured Name Patient Relationship to Insured Coverage Start Date Coverage End Date [facility] Medicare Advantage Plan [address] [address] [place] [address] [id number] LEISA GONZALEZ Self - patient is the insured MEDICAL (GENERAL) HISTORY Medical History History ICD Code Hypertension Hypercholesterolemia NIDDM Negative colonoscopies at age 48 and 58 at [facility] Denies [place],CVA,Lung disease,renal disease Surgical History Surgery Date(Month/Year) Cataracts Laser prostate surgery
== END 2024-04-11 13:24 | disposition home or self-care (01) ==
PROVIDERS: PCP Internal Medicine; Visit Provider Internal Medicine
PROC: 0DJD8ZZ Inspection of Lower Intestinal Tract, Via Natural or Artificial Opening Endoscopic (ICD-10-PCS; CPT 45378; principal; 2024-04-11 11:20)
DX: Z12.11 Encounter for screening for malignant neoplasm of colon (principal); D12.5 Benign neoplasm of sigmoid colon; K57.30 Diverticulosis of large intestine without perforation or abscess without bleeding; K64.8 Other hemorrhoids; I10 Essential (primary) hypertension; E11.9 Type 2 diabetes mellitus without complications; E78.00 Pure hypercholesterolemia, unspecified; Z79.82 Long term (current) use of aspirin; Z79.84 Long term (current) use of oral hypoglycemic drugs; Z79.899 Other long term (current) drug therapy
CPT/HCPCS: 45385; 82947; 88305; J2003; J2250; J2704

== ENCOUNTER 2024-04-30 09:14 | Outpatient (AMB) | payer MEDICARE, SELFPAY ==
--- OUTSIDE RECORDS SUMMARY | 2024-04-30 09:17 | XMS_ITS ---
Author Organization [facility] Address [address] [place] [address] Care Team Providers Care Epic Willow Specialist Name Role Phone Enrique Stein MD Primary Care Provider Unavaila Alicia Vang Unavailable [phone] Ayaan Urbano Unavailable [phone] Allergies No Known Allergies Medications Medication SIG [...] SEXUAL ACTIVITY Oral for 30 Days Active Keiser 3 500-1,000 mg Active Multivitamin - 1 [...] 01/16/2024 Encounters Encounter Location Date Provider Diagnosis [facility] [place] [address] [place] [address] 01/16/2024 Ayaan Urbano Type 2 diabetes mellitus [...] Provider Name:Alicia Damon jimy, 05/17/2024 09:00:00 AM, [address] [place] [address], [address], Progress Notes * Francisco Javier COLLINSOB: [birth year] (68 yo M)Acc No.[id number]:01/16/2024 Progress Note Patient:?Mickey Collinsnando Provider:?Ayaan Urbano DPM :1955???Age:68 Y???Sex:Male Kenneth e:01/16/2024 Address:[address] [place] [address] [address] [id number] Pcp:Enrique Stein MD Subjective: * Chief Complaints: [...] List reviewed and reconciled with the patientTaking Keiser 3 , Notes: 500-1,000 mgTaking Multivitamin - [...] DPM Date:? 024 Generated for Magen odom/Jacquie/Girish on:?04/30/2024 09:17 AM EST History and Physical Notes * HPI [...] Eye Exam:: no retin opathy Vascular DP PULSES (B): 3/4, B/L PT PULSES (B): 2/4, B/L CAPILLARY FILL TIME: 3 secs. per digit, B/L TEMPERTURE GRADIENT (C): warm to cool, p roximal to distal, B/L TROPHIC CONDITION-TEXTURE/ELASTICITY/TURGOR/HAIR GROWTH (B): normal, B/L EDEMA (C): no edema TELANGECTASIA: absent VARICOSITIES: absent PIGMENTATION: normal, B/L Nails NAILS are: Elongated, overg rown, dystrophic, lytic, greater than 3mm thick, discolored and friable with crumbly malodorous subungual debris, with dull to no pain on palpation due to neuropathy, TA, T1, T5
--- OUTSIDE RECORDS SUMMARY | 2024-04-30 09:18 | XMS_ITS | Patient Health Record ---
Author Organization [facility] Address [address] [facility] [place] [address] Care Team Providers Care Dental Intern Name Role Phone Enrique Stein MD Primary Care Provider UnavailAlicia Rodriguez Unavailable [phone] Ayaan Urbano Unavailable [phone] Allergies No Known Allergies Reason For Referral No Information Medications Medication SIG (Take, Route, Frequency, Duration) Notes Start Date End Date Status [place] 3 500-1,000 mg Active Multivitamin - 1 [...] Polyneuropathy due to type 2 diabetes mellitus (684886683) Type 2 diabetes mellitus with diabetic polyneuropathy (E11.42) Active confirmed Vital Signs Height 5 ft 8 in in 01/16/2024 Weight 198 lbs 01/16/2024 BMI 30.10 kg/m2 01/16/2024 Encounters Encounter Location Date Provider Diagnosis [address] [address] 07/11/2023 Ayaan Urbano Type 2 diabetes mellitus with diabetic polyneuropathy E11.42 and Tinea unguium B35.[address] [facility] [address] 01/16/2024 Ayaan Urbano Type 2 diabetes mellitus [...] Treatment Pending Test Test Name Order Date 33301-APVJ SKIN LESIONS, 2 TO 4 01/11/20 23 [id number] DYSTROPHIC NAILS ANY # [id number] OF HEMATOMA/FLUID 023 Next Appt Details Provider Name:Alicia Damon jimy, 05/17/2024 09:00:00 AM, [address] [place], [address], Insurance Providers Payer Name Payer Address Payer Phone Subscriber Number Group Number Insured Name Patient Relationship to Insured Coverage Start Date Coverage End Date [employer] Medicare [id number] [address] [address] [place] [phone] [id number] Jorge Collins Self - patient is the insured Medical (General) History Medical History History ICD Code Arthritis CAD (Cholesterol) Cataracts Diabetic High blood pressure Chicken pox Measles Benign prostatic hyperplasia (BPH) Diabetes mellitus Hyperlipidemia Erectile dysfunction Surgical History Surgery Date(Month/Year) Lower 2015 cataract surgery prostate surgery pterygium excision
--- OUTSIDE RECORDS SUMMARY | 2024-04-30 09:18 | XMS_ITS ---
[facility] Address [address] [address] Care Team Providers Care Plywood Layup Line Core Feeder Name Role Phone Enrique Stein MD Primary Care Provider Unavaila Alicia Vang Unavailable [phone] Ayaan Urbano Unavailable [phone] Allergies No Known Allergies Medications Medication SIG (Take, Route, Frequency, Duration) Notes Start Date End Date Status Pasadena 3 500-1,000 mg Active Multivitamin - 1 tablet Orally Once a day Active Cyclobenzaprine HCl 10 MG 1 tablet at be dtime as needed Orally Once a day Active Cyanocobalamin 500 MCG 1 tablet Orally O nce a day Active Tadalafil 5 MG TAKE 1 TABLET [...] MOUTH DAILY Oral for 90 Days Active Social History Tobacco Use: Social [...] 07/11/2023 Encounters Encounter Location Date Provider Diagnosis [facility] [address] [place] [address] 07/11/2023 Ayaan Urbano Type 2 diabetes mellitus [...] Provider Name:Alicia Damon jimy, 05/17/2024 09:00:00 AM, [address] [place] [address], [phone], Progress Notes * Francisco Javier COLLINSOB: [birth year] (68 yo M)Acc No.[id number]:07/11/2023 Progress Note Patient:?Mickey COLLINSnando Provider:?Ayaan Urbano DPM :1955???Age:68 Y???Sex:Male Kenneth e:07/11/2023 Address:[address] [place] [address] Anthony Mayer [facility] Pcp:Enrique Stein MD Subjective: * Chief Complaints: [...] the past year??No ?Points?0 ?Interpretation?Negative ???Miscellaneous:?Caffeine: yes. ?Children: no. ?Marital status: single, . ?Occupation: Retired. ?Occupational exposure: none. * Medications:?Dereckga 3 , Notes to Pharmacist: 500-1,000 mgMultivitamin - Tablet 1 tablet Orally Once a day Cyclobenzaprine HCl 10 MG Tablet 1 tablet at bedtime as needed Orally Once a day Cyanocobalamin 500 MCG Tablet 1 tablet Orally Once a day Aspirin 81 MG Tablet Chewable 1 tablet Orally Once a day metFORMIN HCl 500 MG Tablet TAKE 1 TABLET BY MOUTH TWICE DAILY Oral Rosuvastatin Calcium 20 MG Tablet TAKE 1 TABLET BY MOUTH DAILY Oral Chlorthalidone 25 MG Tablet TAKE 1 TABLET BY MOUTH DAILY Oral Tadalafil 5 MG Tablet TAKE 1 TABLET BY MOUTH DAILY FOR SEXUAL ACTIVITY Oral Medication List reviewed and reconciled with the patientTaking Pasadena 3 , Notes to Pharmacist: 500-1,000 mgTaking Multivitamin - Tablet 1 tablet Orally Once a day Taking Cyclobenzaprine HCl 10 MG Tablet 1 tablet at bedtime as needed Orally Once a day Taking Cyanocobalamin 500 MCG Tablet 1 tablet Orally Once a day Taking Aspirin 81 MG Tablet Chewable 1 tablet Orally Once a day Taking metFORMIN HCl 500 MG Tablet TAKE 1 [...] HEMOGLOBIN) (Order Date - 01/10/2023) (Collection Date & Time - 11/01/2022) ? Value Reference Range ?HEMOGLOBIN A1C (HH) 6.3 * Examination: ???Ophthalmology Referral: ?DIABETES EYE EXAM?Neurological: ?SENSORY:? Neurological exam demonstrates, reduced vibration sensation, 5.07 monofilament test performed at plantar aspects of 5 varied sites per foot shows sensation, reduced , at Forefoot, at Midfoot, B/L.?TINEL'S COMPRESSION:?Negative tarsal tunnel, uma pedis, and medial calcaneal nerves B/L.?BABINSKI REFLEX:?absent.?Vascular: ?DP PULSES (B):? 3/4, B/L.?PT PULSES (B):? 2/4, B/L.?CAPILLARY FILL TIME:?3 secs. per digit, B/L.?TROPHIC CONDITION-TEXTURE/ELASTICITY/TURGOR/HAIR GROWTH (B):?normal, B/L.?TEMPERTURE GRADIENT (C):?warm to cool, proximal to distal, B/L.?PIGMENTATION:?normal, B/L.?EDEMA (C):?no edema.?TELANGECTASIA:?absent.?VARICOSITIES:?absent.?Nails: ?NAILS are:? Elongated, overgrown, dystrophic, lytic, [...] B/L.? Assessment: * Assessment: 1.?Tinea unguium - B35.1???2 .?Type 2 diabetes mellitus with diabetic polyneuropathy - E11.42 (Primary)??? Plan: * Treatment: * Procedure Codes:? * [...] DPM Date:? 024 Generated for Magen odom/Jacquie/Catrachitaitting on:?04/30/2024 09:17 AM EST History and Physical [...]
--- OUTSIDE RECORDS SUMMARY | 2024-04-30 09:18 | XMS_ITS ---
Author Organization [facility] Address [address] [place] [address] Care Team Providers Care Energy Derivatives Trader Name Role Phone Enrique Stein MD Primary Care Provider Raf Rai Unavailable [phone] REASON FOR VISIT screening PROBLEMS Problem Type ICD Code Onset Dates Problem Status W/U Status Risk SNOMED Code Notes Problem Diverticulosis of large intestine without perforation or abscess without bleeding (K57.30) Active confirmed Diverticul ar disease of colon (971998116) Encounters Encounter Location Date Provider Diagnosis [facility] [place] [address] [place] [phone] 04/11/2024 Raf Pickett Colon cancer scree kitty Z12.11 ; Colon polyps K63.5 ; Diverticulosis of large intestine without perforation or abscess without bleeding K57.30 and Other hemorrhoids K64.8 ASSESSMENTS Encounter Date Diagnosis Assessment Notes Treatment Notes Treatment Clinical Notes 04/11/2024 Colon cancer screening (ICD-10 - Z12.11) 04/11/2024 Colon polyps (ICD-10 - K63.5) 04/11/2024 Diverticulosis of large intestine without perforation or abscess without bleeding (ICD-10 - K57.30) 04/11/2024 Other hemorrhoids (ICD-10 - K64.8) PLAN OF TREATMENT No Information
--- OUTSIDE RECORDS SUMMARY | 2024-04-30 09:18 | XMS_ITS | Patient Health Record ---
Author Organization [facility] Address [address] [place] [address] Care Team Providers Care Long Chain Dyeing Machine Operator Name Role Phone Enrique Stein MD Primary Care Provider Raf Rai [phone] ALLERGIES No Known Allergies RESULTS Component Value Reference Range Notes Pathology (Not yet reviewed by provider) Interpretation: Performing Lab:[facility], [address] [place] [phone] Notes/Report: Glucose, Whole Blood Reviewed date:04/11/2024 01:29:11 PM Interpretation: Performing Lab:[facility], [address] [place] [id number] Notes/Report: Glucose, Whole Blood 126 60-115 mg/dL METER # : [id number] REASON FOR REFERRAL No Information MEDICATIONS Medication SIG (Take, Route, Frequency, Duration) Notes Start Date End Date Status Aspirin 81 81 MG 1 tablet Orally Once a day for 30 day(s) Active Chlorthalidone 25 MG TAKE 1 TABLET BY MO [facility] DAILY Oral for 90 Active Tadalafil 5 [...] Colon cancer screening (Z12.11) Active confirmed Colon can cer screening (917819913) Problem Encounter for other preprocedural examination (Z01.818) Active confirmed Pre-procedure evaluation check (475509315) Problem Diverticulosis of large intestine without perforation or abscess without bleeding (K57.30) Active confirmed Diverticul ar disease of colon (605869217) VITAL SIGNS Blood pressure diastolic 00 mm Hg 01/10/2024 Height 5 ft 8 in in 01/10/2024 Blood pressure systolic 00 mm Hg 01/10/2024 Weight 187 lbs 01/10/2024 BMI 28.43 kg/m2 01/10/2024 Encounters Encounter Location Date Provider [place] [facility] [place] [address] [place] [phone] 04/11/2024 Raf Pickett Colon cancer screeni ng Z12.11 ; Colon polyps K63.5 ; Diverticulosis of large intestine without perforation or abscess without bleeding K57.30 and Other hemorrhoids K64.8 [facility] [address] [place] [address] 01/10/2024 Raf Pickett Colon cancer screeni ng Z12.11 and Encounter for other preprocedural examination Z01.818 ASSESSMENTS Encounter Date Diagnosis Assessment Notes Treatment Notes Treatment Clinical Notes 04/11/2024 Colon cancer screening (ICD-10 - Z12.11) 04/11/2024 Colon polyps (ICD-10 - K63.5) 01/10/2024 Colon cancer screening (ICD-10 - Z12.11) Stop aspirin for 1 week before the colonoscopy Do not take the Metformin the night before nor on the morning of the colonoscopy Do not take the chlorthalidone the day before nor on the day of the colonoscopy 01/10/2024 Encounter for other preprocedural examination (ICD-10 - Z01.818) 04/11/2024 Diverticulosis of large intestine without perforation or abscess without bleeding (ICD-10 - K57.30) 04/11/2024 Other hemorrhoids (ICD-10 - K64.8) PLAN OF TREATMENT Pending Test Test Name Order Date Pathology 04/11/2024 Future Test Test Name Order Date COLONOSCOPY 01/10/2024 Insurance Providers Payer Name Payer Address Payer Phone Subscriber Number Group Number Insured Name Patient Relationship to Insured Coverage Start Date Coverage End Date [employer] Medicare Advantage Plan [address] [address] [place] [address] [phone] [id number] LEISA GONZALEZ Self - patient is the insured MEDICAL (GENERAL) HISTORY Medical History History ICD Code Hypertension Hypercholesterolemia NIDDM [place] age 48 and 58 [place] [facility] [place] AL,CVA,Lung disease,renal disease Surgical History Surgery Date(Month/Year) Cataracts Laser prostate surgery
--- OUTSIDE RECORDS SUMMARY | 2024-04-30 09:18 | XMS_ITS ---
Author Organization [facility] Address [address] [place] [address] Care Team Providers Care Design Sales Consultant Name Role Phone Enrique Stein MD Primary Care Provider Raf Rai [phone] ALLERGIES No Known Allergies REASON FOR VISIT [...] screening (Z12.11) Active confirmed Colon cancer screening (978181112) Problem Encounter for other preprocedural examination (Z01.818) Active confirmed Pre-procedure evaluation check (555826698) VITAL SIGNS BMI 28.43 kg/m2 01/10/2024 Blood pressure systolic 00 mm Hg 01/10/20 24 Blood pressure diastolic 00 mm Hg 024 Height 5 ft 8 in in 01/10/2024 Weight 187 lbs 01/10/2024 Encounters Encounter Location Date Provider Diagnosis [facility] [address] [place] [address] 01/10/2024 Raf Pickett Colon cancer screeni ng [...]
--- OUTSIDE RECORDS SUMMARY | 2024-04-30 09:18 | XMS_ITS ---
Author [facility] Address [address] [place] [address] Care Team Providers Care Electronic Tester Name Role Phone Enrique Stein MD Primary Care Provider UnavailAlicia Rodriguez Unavailable [phone] Ayaan Urbano Unavailable [phone] Allergies No Known Allergies REASON FOR VISIT [...] TWICE DAILY Oral for 90 Days Active Pasadena 3 500-1,000 mg Active Cyclobenzaprine HCl 10 [...] Polyneuropathy due to type 2 diabetes mellitus (798666791) Type 2 diabetes mellitus with diabetic polyneuropathy (E11.42) Active confirmed Vital Signs Height 5 ft 8 in in 01/10/2023 Weight 198 lbs 01/10/2023 BMI 30.1 kg/m2 01/10/2023 Procedures Procedure Date Ordered Date Performed Result Body Sit e 57722-IYVV SKIN LESIONS, 2 TO 4 01/10/2023 N/A X4857-GKVLCRQZ DYSTROPHIC NAILS ANY # 01/10/2023 N/A 65544-OEIPJHKH OF HEMATOMA/FLUID 01/10/2023 N/A Encounters Encounter Location Date Provider Diagnosis [facility] [address] [address] 01/10/2023 Ayaan Urbano Type 2 diabetes mellitus [...] INSTRUCTIONS.pdf) Pending Test Test Name Order Date 30721-KMMR SKIN LESIONS, 2 TO 4 01/11/20 23 G1116-FGWWDOQU DYSTROPHIC NAILS ANY # 55303-GAKDEEFZ OF HEMATOMA/FLUID 023 Next Appt Details Follow Up: 6 Months, Reason: Provider Name:Alicia ahn, 05/17/2024 09:00:00 AM, [address] [place] [address], [phone], Procedure Notes * Category Sub-Category Detail Notes [...] advised of the possibilty for nail auto-avulsion (16016), DIABETES: Pt was advised as to the risk of delayed or nonhealing due to diabetes. Pt is to call the office with any questions, concerns, or complications Anesthesia was deferred - NEURO AVA: patient has medically documented neuropathic condition affecting sensation Keratoma Treatment Parring or Cutting o f Benign Hyperkeratotic Lesion(s) 95885 ( 2-4 Lesions ) - The Benign [...] * COLLINSWilliams MORENOAnnaOB: [birth year] (67 yo M)Acc No.[id number]:01/10/2023 Progress Notes Patient:?Mickey Collinsnando Provider:?Ayaan Urbano DPM :1955???Age:67 Y???Sex:Male Kenneth e:01/10/2023 [address]: [address] [place] Pcp:Enrique Stein MD Subjective: * Chief Complaints: [...] reconciled with the patientTaking Pasadena 3 , Notes: 500-1,000 mgTaking Multivitamin - [...] toe nail of left foot, initial encounter?Procedure: 48313-JHXHMKVH OF HEMATOMA/FLUID * Procedures:?I&D subungual hematoma::?Location?[facility].?Anesthesia?was deferred [...] advised of the possibilty for nail auto-avulsion (49587), DIABETES: Pt was advised as to the risk of delayed or nonhealing due to diabetes. Pt is to call the office with any questions, concerns, or complications.?Keratoma Treatment:?Parring or Cutting of Benign Hyperkeratotic Lesion(s)?61664 ( 2-4 Lesions ) - The Benign [...] or bed tissue 6-10 (G0127).? * Procedure Codes:?43668 DRAIN AGE OF HEMATOMA/FLUID, [place]: [place] [address] TRIM SKIN LESIONS, 2 TO 4, Modifiers: [...] DPM Date:? 023 Generated for Magen odom/Jacquie/Catrachitaitting on:?04/30/2024 09:17 AM [...]
--- NOTE | 2024-04-30 09:47 | A.OFFVIS_ITS ---
Intake Visit Reasons: 3m/US(set) Intake Note: Patient presents today for follow up on: BPH, erectile dysfunction, elevated psa, and ultrasound results Imaging completed: 02/21/24 and 02/22/24 Urology Medications: tadalafil Blood Thinner: aspirin PVR: 29ml's Sole Ruffer Required: No Accompanied by: Self / Same As Patient Allergies No Known Allergies Allergy (Verified 04/30/24 10:26) Medication List - Last Reconciled 04/30/24 by PINKY Moss-CLARA aspirin (Adult Low Dose Aspirin) 81 mg PO DAILY chlorthalidone 25 mg PO DAILY cyanocobalamin (vitamin B-12) (Vitamin B-12) 500 mcg PO DAILY meclizine 25 mg PO TID PRN metformin 500 mg PO BID multivitamin 1 tab PO DAILY omega 7-dvt-wae-fish oil 500-1,000 mg 1 cap PO DAILY rosuvastatin 20 mg PO DAILY tadalafil 5 mg PO DAILY HPI Comments Details: Jorge is a very pleasant 68 year old male patient of Dr. Stein. He has a past medical history of BPH with lower urinary tract symptoms, diabetes mellitus, hypertension, hyperlipidemia, and erectile dysfunction. He presents to the office today for a follow-up of his lower urinary tract symptoms and erectile dysfunction. In discussion with the patient today reports to be doing and feeling well. Recent retroperitoneal ultrasound results reviewed with the patient today. Bilateral kidneys with no calculi, lesions, and or hydronephrosis. Normal appearing kidneys. The bladder is partially distended. Bladder jets are demonstrated. Pre void bladder volume is proximally 125 mL. Postvoid bladder volume is approximately 55mL. Prostate is enlarged measuring at least 55 mL. A marked enlarged median lobe protrudes into the bladder. He reports compliance with 5 mg of Cialis daily to assist with his symptoms of erectile dysfunction and feels this has been helpful. We discussed correlation of elevated PSA and retroperitoneal ultrasound findings. We discussed further workup to include prostate biopsy verses surveillance monitoring verses MRI of the prostate verses trial of finasteride. Risks and benefits of these interventions were discussed. PSAs are as follows 07/18 2.8, 07/19 3.9, 10/19 3.1, 01/20 3.2, 10/21 3.9, 03/23 3.6, 12/22 3.1, 02/21 4.9, 11/22 4.5 He otherwise denies any issues and or concerns. In office urinalysis results reviewed with the patient today. When asked he denies urinary urgency, incontinence, nocturia, hematuria, dysuria, foul smelling urine, changes to urinary stream, flank pain, fever, and or chills. He does report noting episodes of urinary frequency however relates this to his increase in fluid consumption and does not find this bothersome. Lower urinary tract symptoms Prior history laser prostatectomy PSA historically range between 2.8 and 3.8 Erectile dysfunction Longstanding Currently on therapy HBA1c 02/22 6.7% Background diabetes ? [facility] Medical History (Updated 04/30/24 @ 10:35 by Kenzie Santizo [facility]) Hyperlipidemia Elevated prostate specific antigen [PSA] Benign prostatic hyperplasia with lower urinary tract symptoms Diabetes mellitus with coincident hypertension Hypertension Surgical History History of cataract surgery History of pterygium excision History of prostate surgery Family History Father No problems noted. Mother No problems noted. Social History Housing: House Are you a primary clinical care manager to a significant other at home: No Do you presently have visiting nurse or other home services: No Alcohol intake: current Alcohol intake frequency: a few times a week Patient Tobacco Use Status: Never used Tobacco e-Cigarette/Vaping Use: Never Used Second Hand Smoke Exposure: No service: No Current occupational status: retired Current occupational exposures/hazards: No Cognitive needs: No Hearing needs: No Vision needs: Yes Review of Systems Const Reports no additional complaints Eyes Reports no additional complaints ENT Reports no additional complaints Card Reports no additional complaints Resp Reports no additional complaints GI Reports no additional complaints Reports as per HPI Musc Reports no additional complaints Psych Reports no additional complaints Endo Details: patient reports A1c and suagrs to be well controlled Solitario/Lymph Reports no additional complaints Aller/Immun Reports no additional complaints Physical Exam Const General: cooperative, healthy appearing, comfortable, no acute distress, well developed, alert and awake Orientation/consciousness: patient oriented x3 Limitations: no limitations HEENT Head: Yes normal to inspection, Yes normocephalic and Yes atraumatic Ears: hearing grossly normal bilaterally Eyes General: appearance normal, both eyes and all related structures Neck Neck: Yes normal visual inspection and Yes trachea midline Chest Chest palpation & inspection: normal inspection of the chest Resp Effort & Inspection: normal respiratory effort and able to speak in complete sentences Cardio Rate: regular rate General: Yes no CVA tenderness Back/Spine/Pelvis Back: no CVA tenderness Skin General skin exam: no rashes or lesions noted Neuro General: patient oriented x3 Extrem General: Yes normal to inspection Psych Appearance: grossly normal and well kempt Mental Status: mental status grossly normal Speech and movement: Normal speech and movement present and Clear speech present Affect: normal affect Attitude: cooperative Thought process: Normal thought process present Thought content: Normal thought content present Insight: Fair insight present (Psych) Judgement: Fair judgement present (Psych) Office Procedures Post Void Residual Post Residual Void Post Void Residual (PVR): 29 49274-Unvr Void Residual by ultrasound Results AMB Urinalysis, Automated UA Leukoctes 0 Arnoldo/uL Last Edit by Cloud [employer] on 04/30/24 10:58 UA Nitrite Last Edit by Cloud [employer] on 04/30/24 10:58 UA Urobilinogen 0.2 mg/dL Last Edit by Cloud [employer] on 04/30/24 10:58 UA Protein 0 mg/dL Last Edit by Cloud [employer] on 04/30/24 10:58 UA pH 8.0 Last Edit by Cloud Theory on 04/30/24 10:58 UA Blood 0 Cesario/uL Last Edit by Cloud Theory on 04/30/24 10:58 UA Specific [place] 1.015 Last Edit by Cloud Theory on 04/30/24 10:58 UA Ketone Last Edit by Cloud Theory on 04/30/24 10:58 UA Bilirubin 0 mg/dL Last Edit by Cloud Theory on 04/30/24 10:58 UA Glucose 0 mg/dL Last Edit by Cookie Ayers on 04/30/24 10:58 Results Reviewed Results Reviewed: Laboratory Last Values Urine pH (Auto) 8.0 04/30/24 10:57 Specific [place] (Auto) 1.015 04/30/24 10:57 Urine Protein (Auto) 0 mg/dL 04/30/24 10:57 Glucose (UA)(Auto) 0 mg/dL 04/30/24 10:57 Urine Blood (Auto) 0 Cesario/uL 04/30/24 10:57 Urine Bilirubin (Auto) 0 mg/dL 04/30/24 10:57 Urine Urobilinogen (Auto) 0.2 mg/dL 04/30/24 10:57 Leukocyte Esterase (Auto) 0 Arnoldo/uL 04/30/24 10:57 Date of Service: 02/21/24 EXAMINATION: US RETROPERITONEAL LIMITED (RENAL ONLY) FINDINGS: RIGHT KIDNEY: 10.4 x 6.7 x 6.4 cm (SAG x AP x TRV). The kidney is normal in size, contour, and echogenicity. Renal cortical thickness is normal. No calculi or focal parenchymal lesions. No hydronephrosis. LEFT KIDNEY: 12.1 x 6.4 x 4.6 cm (SAG x AP x TRV). The kidney is normal in size, contour, and echogenicity. Renal cortical thickness is normal. No calculi or focal parenchymal lesions. No hydronephrosis. ADDITIONAL FINDINGS: Incidental note made of an echogenic liver consistent with hepatic steatosis IMPRESSION: 1. Normal-appearing kidneys. 2. Incidentally noted hepatic steatosis. Date of Service: 02/22/24 EXAMINATION: US PELVIS LIMITED (BLADDER) CLINICAL INFORMATION: BPH. COMPARISON: None available. TECHNIQUE: Real-time imaging of the bladder. FINDINGS: BLADDER: Partially distended. Bilateral ureteral jets are demonstrated. Prevoid bladder volume is 125 mL. Postvoid bladder volume is 54 mL. PROSTATE: Prostate is enlarged measuring at least 55 mL. A markedly enlarged median lobe protrudes into the bladder. IMPRESSION: 54 mL postvoid residual. Assessment & Plan Assessment & Plan (1) Enlarged prostate: Code(s): N40.0 - Benign prostatic hyperplasia without lower urinary tract symptoms Category: Medical (2) Erectile dysfunction associated with type 2 diabetes mellitus: Code(s): E11.69 - Type 2 diabetes mellitus with other specified complication; N52.1 - Erectile dysfunction due to diseases classified elsewhere Category: Medical (3) Elevated prostate specific antigen [PSA]: Code(s): R97.20 - Elevated prostate specific antigen [PSA] Category: Medical Plan In office urinalysis results reviewed with the patient today; as noted above. Recent retroperitoneal ultrasound results reviewed with the patient today; as noted above. We discussed at length potential causes of elevated PSA as well as further interventions and risks and benefits of these interventions. All questions were answered. Patient currently denies any bothersome urinary issues or concerns. He reports be happy with current voiding parameters. Start finasteride 5 mg daily as discussed and prescribed. Will obtain PSA in 4 months. Follow-up in 4 months with lab and PVR; or sooner with any issues, concerns, and or questions. Orders: Orders PSA,Total (Free>4and<10) 4 Months N40.0 - Benign prostatic hyperplasia without lower urinary tract symptoms, R97.20 - Elevated prostate specific antigen [PSA] AMB Urinalysis Automated Today Z13.9 - Encounter for screening, unspecified AMB Post Void Residual by ultrasound Today N40.1 - Benign prostatic hyperplasia with lower urinary tract symptoms Medications: New finasteride 5 mg PO DAILY 90 tabs 1RF 90 days N32.0 - Bladder-neck obstruction Patient Instructions: The patient had an opportunity to ask questions regarding the treatment plan. All questions were answered. Physical exam, labs, and imaging were discussed and reviewed in detail. As well as risks, benefits, and discussion of treatment choices. No major barriers to understanding were identified. The patient expressed understanding and agreement with the above treatment plan. The patient was made aware they should contact our office by phone for worsening of their current condition, the appearance of new symptoms, or with any questions or concerns. Compliance is encouraged with any medications and follow up testing that is ordered. It is a privilege to be allowed the opportunity to participate in? your urological care.? Again, if you have any questions or concerns If you have any questions or concerns please do not hesitate to contact me. The office is [phone]. This note is constructed using voice recognition software. While every effort has been made to ensure accuracy whiskey proof reader errors may have been included. Yours sincerely, EMELINA Moss Coding Level of Care Code Est Pt Level 4 (67428) Diagnoses Enlarged prostate N40.0 Erectile dysfunction associated with type 2 diabetes mellitus E11.69; N52.1 Elevated prostate specific antigen [PSA] R97.20 CPT Codes Post Residual Void - PVR CPT Code: 29673-Wokl Void Residual by ultrasound ([id number])
== END 2024-04-30 10:24 | disposition home or self-care (01) ==
PROVIDERS: PCP Internal Medicine; Visit Provider Nurse Practitioner Family
DX: N40.0 Benign prostatic hyperplasia without lower urinary tract symptoms (principal); E11.69 Type 2 diabetes mellitus with other specified complication; N52.1 Erectile dysfunction due to diseases classified elsewhere; R97.20 Elevated prostate specific antigen [PSA]; Z13.9 Encounter for screening, unspecified
CPT/HCPCS: 99214

== ENCOUNTER → 2024-04-30 09:14 | Outpatient (BNVA) | payer MEDICARE, SELFPAY | PROVIDERS: PCP Internal Medicine; Visit Provider Nurse Practitioner Family | DX: N40.1 Benign prostatic hyperplasia with lower urinary tract symptoms (principal); N32.0 Bladder-neck obstruction; E11.69 Type 2 diabetes mellitus with other specified complication; N52.1 Erectile dysfunction due to diseases classified elsewhere; R97.20 Elevated prostate specific antigen [PSA] | CPT/HCPCS: 51798; 81003; 99212 ==

== ENCOUNTER 2024-05-31 07:44 | Outpatient (REF) | payer MEDICARE, SELFPAY ==
[2024-05-31 07:54] LABS: MANUAL DIFF FLAG NO
[2024-05-31 08:37] LABS: Basophils Percent Auto 0.4 % (0-2); Eosinophils Absolute Auto 0.2 X10*3/uL (0.0-0.4); Eosinophils Percent Auto 2.1 % (0-4); Hematocrit 44.7 % (42.0-52.0); Hemoglobin 14.8 g/dl (14.0-18.0); Imm Gran Abs Auto 0.02 X10*3/uL (0.00-0.03); Imm Gran Pct Auto 0.2 % (0.0-0.4); Lymphocytes Absolute Auto 3.2 X10*3/uL (1.2-4.9); Lymphocytes Percent Auto 38.8 % (20-40); Mean Corpuscular HGB Conc 33.1 g/dl (31.0-36.0); Mean Corpuscular Volume 84.5 fL (80.0-98.0); Mean Platelet Volume 10.1 fL (9.4-12.4); Monocytes Absolute Auto 0.7 X10*3/uL (0.1-1.2); Monocytes Percent Auto 8.7 % (2-11); Neutrophils Absolute Auto 4.1 x10*3/uL (2.0-8.3); Neutrophils Percent Auto 49.8 % (45-73); Platelet Count 268 X10*3/uL (160-400); Red Blood Count 5.29 X10*6/uL (4.60-5.80); Red Cell Distribution Width 13.2 % (11.0-16.0); White Blood Count 8.1 X10*3/uL (4.8-10.8)
[2024-05-31 09:10] LABS: Alanine Aminotransferase 21 U/L (0-40); Albumin Level 4.2 g/dL (3.5-5.0); Alkaline Phosphatase 70 U/L (39-117); Anion Gap 12 (12-20); Aspartate Amino Transferase 26 U/L (5-37); Bilirubin Total 0.4 mg/dL (0.0-1.0); Blood Urea Nitrogen 11 mg/dL (9-16); Calcium 8.9 mg/dL (8.4-10.2); Carbon Dioxide 31 mmol/L (22-29); Chloride 101 mmol/L (96-108); Cholesterol 154 mg/dL (<200); Estimated Glomerular Filt Rate > 60; Glucose Fasting 134 mg/dL (60-99); HDL Cholesterol 44 mg/dL (>40); LDL Cholesterol Calculated 88 mg/dL (<100); Potassium 3.6 mmol/L (3.3-5.1); Sodium 140 mmol/L (135-145); Total Protein 7.4 g/dL (6.5-8.0); Triglycerides 113 mg/dL (<150)
[2024-05-31 09:24] LABS: Estimated Average Glucose 148 mg/dL; Hemoglobin A1C 194.9448 umol/L; Hemoglobin A1c % 6.8 % (<6.0); Total Hemoglobin (HGBA1C) 3874.1869 umol/L
--- OUTSIDE RECORDS SUMMARY | 2024-05-31 10:41 | XMS_ITS ---
[facility] Address [address] [facility] [place] [address] Care Team Providers Care Web Marketing Strategist Name Role Phone Enrique Stein MD Primary Care Provider Unavaila Alicia Vang Unavailable [phone] Ayaan Urbano Unavailable [phone] Allergies No Known Allergies Medications Medication SIG [...] SEXUAL ACTIVITY Oral for 30 Days Active Elkmont 3 500-1,000 mg Active Multivitamin - 1 [...] 01/16/2024 Encounters Encounter Location Date Provider Diagnosis [facility] [place] [address] [place] [address] 01/16/2024 Ayaan Urbano Type 2 diabetes mellitus [...] 4 Months, Reason: Provider Name:Alicia Damon jimy, 09/19/2024 09:15:00 AM, [address] [place] [address], [phone], Progress Notes * Francisco Javier COLLINSOB: [birth year] (68 yo M)Acc No.[id number]:01/16/2024 Progress Note Patient:?Mickey Collinsnando Provider:?Ayaan Urbano DPM :1955???Age:68 Y???Sex:Male Kenneth e:01/16/2024 Address:[address] [place] [address] Anthony Mayer [id number] Pcp:Enrique Stein MD Subjective: * Chief Complaints: [...] List reviewed and reconciled with the patientTaking Elkmont 3 , Notes: 500-1,000 mgTaking Multivitamin - [...] DPM Date:? 024 Generated for Magen odom/Jacquie/Girish on:?05/31/2024 10:41 AM EST History and Physical Notes * [...]
--- OUTSIDE RECORDS SUMMARY | 2024-05-31 10:41 | XMS_ITS | Patient Health Record ---
Author [facility] Address [address] [facility] [place] [address] Care Team Providers Care Heavy Equipment Rental Manager Name Role Phone Enrique Stein MD Primary Care Provider UnavailAlicia Rodriguez Unavailable [phone] Ayaan Urbano Unavailable [phone] Allergies No Known Allergies Results Component Value Reference Range Notes HEMOGLOBIN A1C (GLYCOHEMOGLO BIN) Reviewed date:05/17/2024 09:05:29 AM Interpretation: Performing Lab: Notes/Report: HEMOGLOBIN A1C % (HH) 6.6 Reason For Referral No Information Medications Medication SIG (Take, Route, Frequency, Duration) Notes Start Date End Date Status Extra Depth Orthopedic Shoes (1 Pair) with Customized Heat Molded Multidensity Innersoles (3 Pair) as directed Dx: NIDDM/Polyneuropathy (E11.42), Hammertoe Foot Deformity (M20.41,M20.42), Preulcerative Skin Lesion(s) (L85.1 05/17/2024 Active Pomeroy 3 500-1,000 mg Active Multivitamin - 1 tablet Orally Once a day Active Aspirin 81 MG 1 tablet Orally Once a day Active metFORMIN HCl 500 MG TAKE 1 TABLET BY MOUTH TWICE DAILY Oral for 90 Days Active Cyclobenzaprine HCl 10 MG 1 tablet at bedtime as needed Orally Once a day Active Cyanocobalamin 500 MCG 1 tablet Orally O nce a day Active Tadalafil 5 MG TAKE 1 TABLET BY MOUTH DAILY FOR SEXUAL ACTIVITY Oral for 30 Days Active Rosuvastatin Calcium 20 MG TAKE 1 TABLET BY MOUTH DAILY Oral for 90 Days Active Chlorthalidone 25 MG TAKE 1 TABLET BY MOUTH DAILY Oral for 90 Days Active Social History Tobacco Use: Social History Observation Description Date Details (start date - stop date) Never Smoker NA - NA Tobacco use other than smoking: Question Answer Notes Are you an other tobacco user? No Tobacco Control (Standard) Question Answer Notes Tobacco use: Nonsmoker Additional Findings: Tobacco non-user Current no nsmoker AUDIT-C (Standard) Question Answer Notes Did you have a drink containing alcohol in the p ast year? No Points 0 Interpretation Negative Problems Problem Type SNOMED Code ICD Code Onset Dates Problem Status W/U Status Risk Notes Problem Acquired hammer toe of right foot (4760096101537280 ) Other hammer toe(s) (acquired), right foot (M20.41) Active confirmed Problem Acquired hammer toe of left foot (9133437074846080 ) Other hammer toe(s) (acquired), left foot (M20.42) Active confirmed Problem Polyneuropathy due to diabetes mellitus type I (831276957) Type 1 diabetes mellitus with diabetic polyneuropathy (E10.42) Active confirmed Problem Polyneuropathy due to type 2 diabetes mellitus (446985188) Type 2 diabetes mellitus with diabetic polyneuropathy (E11.42) Active confirmed Vital Signs Blood pressure diastolic 80 mm Hg 05/17/2024 Height 5 ft 8 in in 05/17/2024 Blood pressure systolic 120 mm Hg 05/17/2024 Weight 198 lbs 05/17/2024 BMI 30.1 kg/m2 05/17/2024 Procedures Procedure Date Ordered Date Performed Result Body Sit e 58721-LOJEAZO NAIL, 6 OR MORE 05/17/2024 N/A 95289-JYIJ SKIN LESIONS, OVER 4 05/17/2024 N/A Encounters Encounter [facility] Date [facility] [address] [facility]23 Ayaan Urbano Type 2 diabetes mellitus with diabetic polyneuropathy E11.42 and Tinea unguium B35.[address] [address] 01/16/2024 Ayaan Urbano Type 2 diabetes mellitus with diabetic polyneuropathy E11.42 and Tinea unguium B35.[address] [address] 05/17/2024 Alicia Prescott Other hammer toe(s) (acquired), right foot M20.41 ; Other hammer toe(s) (acquired), left foot M20.42 ; Type 2 diabetes mellitus with diabetic polyneuropathy [...] INSTRUCTIONS. pdf (DIABETIC FOOT CARE INSTRUCTIONS. pdf) 05/17/2024 Other hammer toe(s) (acquired), right foot (ICD-10 - M20.41) Patient Educated with: DIABETIC FOOT CARE INSTRUCTIONS. pdf (DIABETIC FOOT CARE INSTRUCTIONS. pdf) 05/17/2024 Other hammer toe(s) (acquired), left foot (ICD-10 - M20.42) 05/17/2024 Type 2 diabetes mellitus with diabetic polyneuropathy (ICD-10 - E11.42) 05/17/2024 Tinea unguium (ICD-10 - B35.1) Plan Of Treatment Pending Test Test Name Order Date 90722-WLLQSWP NAIL, 6 OR MORE 05/17/2024 60044-SYLV SKIN LESIONS, OVER 4 05/17/19 25 29550-OZWN SKIN LESIONS, 2 TO 4 01/11/20 23 E2107-BDPVFGUX DYSTROPHIC NAILS ANY # 36755-YQCPXKLC OF HEMATOMA/FLUID 023 Next Appt Details Provider Name:Alicia Damon jimy, 09/19/2024 09:15:00 AM, [address] [place], [address], Insurance Providers Payer Name Payer Address Payer Phone Subscriber Number Group Number Insured Name Patient Relationship to Insured Coverage Start Date Coverage End Date [employer] Medicare Adv-[id number] [address] [address] [place] [address] [id number] Jorge Collins Self - patient is the insured Medical (General) History Medical History History ICD Code Arthritis CAD (Cholesterol) Cataracts Diabetic High blood pressure Chicken pox Measles Benign prostatic hyperplasia (BPH) Diabetes mellitus Hyperlipidemia Erectile dysfunction Surgical History Surgery Date(Month/Year) Lower 2015 cataract surgery prostate surgery pterygium excision
--- OUTSIDE RECORDS SUMMARY | 2024-05-31 10:42 | XMS_ITS ---
Author [facility] Address [address] [facility] [place] [address] Care Team Providers Care Administrative Nursing Supervisor Name Role Phone Enrique Stein MD Primary Care Provider UnavailAlicia Rodriguez Unavailable [phone] Ayaan Urbano Unavailable [phone] Allergies No Known Allergies Medications Medication SIG (Take, Route, Frequency, Duration) Notes Start Date End Date Status Elrama 3 500-1,000 mg Active Multivitamin - 1 [...] 07/11/2023 Encounters Encounter Location Date Provider Diagnosis [facility] [place] [address] [place] [address] 07/11/2023 Ayaan Urbano Type 2 diabetes mellitus [...] Follow Up: 6 Months, Reason: Provider Name:Alicia Reganrobert ahn, 09/19/2024 09:15:00 AM, [address] [place] [address], [phone], Progress Notes * Francisco Javier COLLINSOB: [birth year] (68 yo M)Acc No.[id number]:07/11/2023 Progress Note Patient:?Mickey COLLINSnando Provider:?Ayaan Urbano DPM :1955???Age:68 Y???Sex:Male Kenneth e:07/11/2023 Address:[address] [place] [address] Anthony Mayer [id number] Pcp:Enrique Stein MD Subjective: * Chief Complaints: [...] List reviewed and reconciled with the patientTaking Elrama 3 , Notes to Pharmacist: 500-1,000 mgTaking [...] DPM Date:? 024 Generated for Magen odom/Jacquie/Catrachitaitting on:?05/31/2024 10:41 AM EST History and Physical [...]
--- OUTSIDE RECORDS SUMMARY | 2024-05-31 10:42 | XMS_ITS ---
Author Organization [facility] Address [address] [place] [address] Care Team Providers Care Diet Aid Name Role Phone Enrique Stein MD Primary Care Provider Alicia Pierre Unavailable [phone] Allergies No Known Allergies REASON FOR VISIT Toe Irritation, At Risk Footcare Medications Medication SIG (Take, Route, Frequency, Duration) Notes Start Date End Date Status Aspirin 81 MG 1 tablet Orally Once a day Active metFORMIN HCl 500 MG TAKE 1 TABLET BY MOUTH TWICE DAILY Oral for 90 Days Active Cyanocobalamin 500 MCG 1 tablet Orally O nce a day Active Rosuvastatin Calcium 20 MG TAKE 1 TABLET BY MOUTH DAILY Oral for 90 Days Active Chlorthalidone 25 MG TAKE 1 TABLET BY MOUTH DAILY Oral for 90 Days Active Extra Depth Orthopedic Shoes (1 Pair) with Customized Heat Molded Multidensity Innersoles (3 Pair) as directed Dx: NIDDM/Polyneuropathy (E11.42), Hammertoe Foot Deformity (M20.41,M20.42), Preulcerative Skin Lesion(s) (L85.1 05/17/2024 Active Hanna 3 500-1,000 mg Active Multivitamin - 1 tablet Orally Once a day Active Cyclobenzaprine HCl 10 MG 1 tablet at bedtime as needed Orally Once a day Active Tadalafil 5 MG TAKE [...] Problem Acquired hammer toe of right foot (4915223696794719 ) Other hammer toe(s) (acquired), right foot (M20.41) Active confirmed Problem Acquired hammer toe of left foot (5142239880947303 ) Other hammer toe(s) (acquired), left foot (M20.42) Active confirmed Problem Polyneuropathy due to diabetes mellitus type I (677890221) Type 1 diabetes mellitus with diabetic polyneuropathy (E10.42) Active confirmed Vital Signs Height 5 ft 8 in in 05/17/2024 Weight 198 lbs 05/17/2024 BMI 30.1 kg/m2 05/17/2024 Blood pressure systolic 120 mm Hg 05/17/19 25 Blood pressure diastolic 80 mm Hg 025 Procedures Procedure Date Ordered Date Performed Result Body Sit e 34827-LPUIJNW NAIL, 6 OR MORE 05/17/2024 N/A 42488-DTPW SKIN LESIONS, OVER 4 05/17/2024 N/A Encounters Encounter Location Date Provider Diagnosis [facility] [address] [address] 05/17/2024 Alicia Prescott Other hammer toe(s) (acquired), right foot M20.41 ; Other hammer toe(s) (acquired), left foot M20.42 ; Type 2 diabetes mellitus with diabetic polyneuropathy E11.42 and Tinea unguium B35.1 Assessments Encounter Date Diagnosis (ICD Code) Assessment Notes Treatment Notes Treatment Clinical Notes Section Notes 05/17/2024 Other hammer toe(s) (acquired), right foot (ICD-10 - M20.41) Patient Educated with: DIABETIC FOOT CARE INSTRUCTIONS. pdf (DIABETIC FOOT CARE INSTRUCTIONS. pdf) 05/17/2024 Other hammer toe(s) (acquired), left foot (ICD-10 - M20.42) 05/17/2024 Type 2 diabetes mellitus with diabetic polyneuropathy (ICD-10 - E11.42) 05/17/2024 Tinea unguium (ICD-10 - B35.1) Plan Of Treatment Medication Medication Name Sig Start Date Stop Date Notes Extra Depth Orthopedic Shoes (1 Pair) with Customized Heat Molded Multidensity Innersoles (3 Pair) as directed Dx: NIDDM/Polyneuropathy (E11.42), Hammertoe Foot Deformity (M20.41,M20.42), Preulcerative Skin Lesion(s) (L85.1 05/17/2024 Treatment Notes Assessment Notes Other hammer toe(s) (acquired), right fo ot Patient Educated with: DIABETIC FOOT CARE INSTRUCTIONS.pdf (DIABETIC FOOT CARE INSTRUCTIONS.pdf) Pending Test Test Name Order Date 22391-MEAKEHI NAIL, 6 OR MORE 05/17/2024 11475-BMYH SKIN LESIONS, OVER 4 05/17/19 25 Next Appt Details Follow Up: 4 Months, Reason: Provider Name:Alicia ahn, 09/19/2024 09:15:00 AM, [address] [place] [address], [phone], Procedure Notes * Category Sub-Category Detail Notes Debride Nail 6-10 Nail debridement Due to the cl inical pathology outlined in the exam findings, performance of this nail treatment is medically necessary as its management by an unskilled/untrained nonprofessional would put this patients foot and overall health at risk. Therefore, debridement to affected nail(s), as described in exam ( T1, T2, T3, T4, T5, T6, T7, T8, T9, ), was performed exclusively by the physician of record to reduce/remove overall nail length, girth, thickness, subungual debris, and necrotic tissue, by manual and/or electrical means through the use of a nail nipper and/or dremel-type air grinder, to a more viable healthy nail plate or bed tissue 6-10 nails in total. Silver nitrate was used for any petechial bleeding as necessary. Definitive antifungal treatment options, both pharmaceutical and surgical, have been reviewed and discussed with the patient. The patient solely prefers the use of intermittent/as needed professional debridement services for their nail condition and understands the need for additional periodic treatments to maintain effectiveness in symptomatic relief - 18214 Keratoma Treatment Parring or Cutting o f Benign Hyperkeratotic Lesion(s) (-57) More than 4 Lesions - Due to the at risk nature of the patients medical condition as documented in the exam findings, performance of this keratoderma treatment is medically necessary as its management by an unskilled/untrained nonprofessional would put this patients foot and overall health at risk. Therefore, the benign hyperkeratotic lesions, (5 ) in total, locations as stated and described in the exam ( sub 1st MTH b/l, plantar heels B/L, medial IPJ TA), were pared, and/or cut utilizing a sterile 15 blade, tissue nippers, and/or power dremel instrumentation by the physician of record - 75365 Progress Notes * Francisco Javier COLLINSOB: [birth year] (68 yo M)Acc No.[id number]:05/17/2024 Progress Note Patient:?Jorge COLLINS Provider:?Alicia Prescott DPM :1955???Age:68 Y???Sex:Male Kenenth e:05/17/2024 Address:[address] [place] [address] [facility] Pcp:Enrique Stein MD Subjective: * Chief Complaints: * ???Toe IrritationAt Risk Ngozi tcare * HPI: ???At Risk footcare:?Pt States Last PCP Visit:?Date?12/01/2023 ???Toe pain:?Location:?B/L feet.?Duration:?several years.?Course:?worse.?Aggravated by:?shoes, any pressure.?Treatments:?change in shoes.? * ROS:?General/Constitutional:?Nausea?denies, denies.?Vomiting?denies, denies.?Hunger Thirst?denies, denies.?Loss appetite?denies, [...] and pains?denies, denies.?Weakness?denies, denies.?Integ.:?Andersen?denies, denies.?Scars?denies, denies.?Corns/calluses?denies, denies.?Ingrown nails?admits.?Painful nails?admits.?Open Sores?denies.?Rashes?denies, denies.?Neurologic:?Difficulty sleeping?denies, denies.?Bipolar?denies.?Brain disorder?denies, denies.?Numbness?denies.?Balance trouble?denies, denies.?Confusion?denies, denies.?Fainting/blackouts?denies, denies.?Headache?denies.?Tingling?denies.?Tremors?denies, denies.? * Medical History:? * Surgical History:?Lower 2016 cataract surgery prostate surgery pterygium excision * Hospitalization/Major Diagno stic Procedure:?Denies Past Hospitalization * Family History:?Mother: dece ased, foot problems, poor circulation, diagnosed with Diabetic - NIDDM, Unspecified essential hypertension, Family history of arthritis.?Father: , kidney/liver disease.?Siblings: foot problems.? * Social History:?Tobacco Use:?Tobacco use other than smoking?Are you an other tobacco user??No ?Tobacco Control (Standard)?Tobacco use:?Nonsmoker ?Additional Findings: Tobacco non-user?Current nonsmoker ???Drugs/Alcohol:?Drugs?Have you used drugs other than those for medical reasons in the past 12 months??No ???Miscellaneous:?Caffeine: yes. ?Children: no. ?Exercise: no. ?Marital status: single, . ?Occupation: Retired. ?Occupational exposure: none. ???Drug/Alcohol:?AUDIT-C (Standard)?Did you have a drink containing alcohol in the past year??No ?Points?0 ?Interpretation?Negative * Medications:?TakingOmega 3 , Notes to Pharmacist: 500-1,000 mgMultivitamin [...] List reviewed and reconciled with the patientTaking Hanna 3 , Notes to Pharmacist: 500-1,000 mgTaking [...] patient * Allergies:?N.K.D.A.yes[Aller gies Verified] Objective: * Vitals:?Ht:5 ft 8 in, Wt:198 , BMI:30.1, Shoe size:11, BP:120/80mm Hg, BS:125, Ht-cm: 172.72 cm, Wt-k.81 kg. * ???Past Orders: ???Lab:HEMOGLOBIN A1C (GLYCO HEMOGLOBIN) (Order Date - 05/17/2024) (Collection Date & Time - 03/02/2024 09:04 AM) ? Value Reference Range ?HEMOGLOBIN A1C % (HH) 6.6 * Examination: ???Ophthalmology Referral: ?DIABETES EYE EXAM?Orthopedic: ?MUSCLE STRENGTH:?5/5 all groups in a symmetrical fashion, B/L.?DIGITAL DEFORMITIES:?Digital contracture, PIPJ, 2-5 B/L, incompl-reducible to push-up test, no over, nor underlapping,?there is?evidence of shoe producing skin irritation.?FOOTWEAR:?worn, non-supportive, shoe gear properties exacerbate patient's foot/toe deformity.?General Examination: ?GENERAL APPEARANCE:?Reveals a pleasant, alert, well nourished, well- developed, well hydrated individual, who demonstrates proper attention to hygiene/body habitus, and is in no acute distress, Pt serves as own historian for office visit today.?ORIENTED:?person, place, and time.?FOOT EXAM:?Footwear Evaluation?Neurological: ?SENSORY:? Neurological exam demonstrates, reduced light touch sensation, reduced sharp/dull pin prick discrimination , B/L, 5.07 monofilament test performed at plantar aspects of 5 varied sites per foot shows sensation, reduced , B/L.?Nails: ?NAILS are:?Elongated, overgrown, dystrophic, lytic, greater than 3mm thick, discolored and friable with crumbly malodorous subungual debris, T1, T2, T3, T4, T5, T6, T7, T8, T9.?Dermatologic: ?SKIN FINDINGS:?Skin exam reveals Keratotic lesion(s) located at sub 1st MTH b/l, plantar heels B/L, medial IPJ TA.?Vascular: ?DP PULSES (B):?2/4, B/L.?PT PULSES (B):? 2/4, B/L.?CAPILLARY FILL TIME:?3 secs. per digit, B/L.?TROPHIC CONDITION-TEXTURE/ELASTICITY/TURGOR/HAIR GROWTH (B):?normal, B/L.?TEMPERTURE GRADIENT (C):?warm to cool, proximal to distal, B/L.?PIGMENTATION:?normal, B/L.?EDEMA (C):?no edema.?TELANGECTASIA:?absent.?VARICOSITIES:?absent.? Assessment: * Assessment: 1.?Other hammer toe(s) (acqu ired), right foot - M20.41 (Primary)???Specify :Chronic problem, Worse (4),Rx Management (4)???2.?Other hammer toe(s) (acquired), left foot - M20.42???Specify :Chronic problem, Worse (4),Rx Management (4)???3.?Type 2 diabetes mellitus with diabetic polyneuropathy - E11.42???4.?Tinea unguium - B35.1??? Plan: * Treatment: 2.?Type 2 diabetes mellitus with diabetic polyneuropathy?Procedure: 53050-NFNEOAI NAIL, 6 OR MORE ?Procedure: 75298-EPDQ SKIN LESIONS, OVER 4 * Procedures:?Debride Nail 6-10:?Nail debridement?Due to the clinical pathology outlined in the exam findings, performance of this nail treatment is medically necessary as its management by an unskilled/untrained nonprofessional would put this patients foot and overall health at risk. Therefore, debridement to affected nail(s), as described in exam (?T1, T2, T3, T4, T5, T6, T7, T8, T9, ), was performed exclusively by the physician of record to reduce/remove overall nail length, girth, thickness, subungual debris, and necrotic tissue, by manual and/or electrical means through the use of a nail nipper and/or dremel-type air grinder, to a more viable healthy nail plate or bed tissue 6- 10 nails in total. Silver nitrate was used for any petechial bleeding as necessary. Definitive antifungal treatment options, both pharmaceutical and surgical, have been reviewed and discussed with the patient. The patient solely prefers the use of intermittent/as needed professional debridement services for their nail condition and understands the need for additional periodic treatments to maintain effectiveness in symptomatic relief - 37326.?Keratoma Treatment:?Parring or Cutting of Benign Hyperkeratotic Lesion(s)?(-57) More than 4 Lesions - Due to the at risk nature of the patients medical condition as documented in the exam findings, performance of this keratoderma treatment is medically necessary as its management by an unskilled/untrained nonprofessional would put this patients foot and overall health at risk. Therefore, the benign hyperkeratotic lesions, (5 ) in total, locations as stated and described in the exam (?sub 1st MTH b/l, plantar heels B/L, medial IPJ TA), were pared, and/or cut utilizing a sterile 15 blade, tissue nippers, and/or power dremel instrumentation by the physician of record - 15460.? * Procedure Codes:?81724 DEBRI DE NAIL, 6 OR MORE, Modifiers: XS 93747 TRIM SKIN LESIONS, OVER 4, Modifiers: XS * Preventive Medicine:? ??Counseling:?Discussion:?-14: Office or other outpatient visit for the evaluation and management of an established patient, which required a medically appropriate history and/or examination and MODERATE level of DECISION MAKING for: 1 OR MORE CHRONIC PROBLEM(S) THATS WORSENING, 2 STABLE CHRONIC PROBLEMS, A NEWLY DIAGNOSED PROBLEM WITH UNCERTAIN PROGNOSIS, AN ACUTE COMPLICATED INJURY WITH MULTIPLE TREATMENT OPTIONS, OR AN ACUTE PROBLEM WITH ACCOMPANYING SYSTEMIC SYMPTOMS, THAT POSE(S) A MODERATE RISK OF MORBIDITY. THIS CONDITION MAY ALSO INCLUDE RX DRUG MANAGEMENT, OR A DECISON FOR MINOR SURGERY. The visit on the day of the [...] have encouraged the patient to call the office.?Digital Surgery:?Digital surgery was discussed with the patient, We elected to try conservative treatment at the present time, due to the patients medical history and increased asssociated post-operative risks.?Digital Treatment:?HT- I explained to the patient the possible etiologies of Hammertoes, including genetics/foot type/shoegear/activity level/exercise routine and the risks/benefits of all the different treatment options for their pain including: No treatment at all, Rest, Ice, New/supportive/wider/deeper Shoegear, Digital Padding/Strapping/Taping/Bracing/Gel protective sleeves, Foot/Ankle AFO Bracing, Stretching exercises, Deep Tissue Massage, Arch support/shoe inserts with splay metatarsal padding, and Custom orthoses. I insisted that any digital devices be removed daily and not worn overnight for safety. The patient is to carefully examine the toes daily for any skin irritation while using any splinting or padding device. The advantages and disadvantages of each option were discussed and the patients questions re: shoegear, padding, custom vs prefabricated inserts, activity level, and consistency in home treatment regimens for optimal success were answered to their verbally confirmed satisfaction.?Shoe Gear Counseling:?SHOE Rx - The patient was counseled in great detail on their muscoloskeletal foot and toe deformities which coincided with the dermatological presentations visualized on exam. We discussed how their deformities put the integrity of their feet at risk for potential pedal complications which makes the accomidative diabetic shoes and cutomizable inserts medically necessary. We discussed the different shoe and insert treatment types and options, as well as the important advantages for adhering to regularly wearing these accomidative devices daily. The patient was made aware of the fact that a failure to abide by these recommedations may be deleterious to their foot health as they are able to prevent many pedal complications such as skin irritation, skin ulceration, infection, and even loss of toe/foot/leg/or life. Time was also spent with the patient dispensing and discussing proper diabetic footcare techniques including daily skin moisturization, daily foot inspection for any interruption in skin integrity including open lesions, or sign of infection such as redness/malodor/drainage/swelling. Also discussed and recommended were procedures regarding daily shoe inspection for the presence of internal foreign bodies as well as any visualized irregular shoe or insert wear. Patient questions re: shoes, inserts, and self foot inspections were answered to their satisfaction as the patient verbally confirmed a full understanding of the above information. A Rx for Extra Depth Orthopedic Shoes with 3 pair of custom heat-molded inserts was dispensed.? ??Screening/Special Tests:?Fall Risk?Screening:?No falls in the past year ?FALLS: Screening for Future Fall Risk?Have you had any falls with injury in the past year??No * Follow Up:?4 Months * Images: * Sign off status: Completed true * Provider:?Alicia Prescott DPM Date:?0 05/17/2024 Generated for Magen odom/Jacquie/Girish on:?05/31/2024 10:42 AM EST History and Physical Notes * HPI (History of Present Illness) Category Sub-Category Detail Notes Category Not es Toe pain Location: B/L feet Duration: several years Course: worse Aggravated by: shoes, any pressure Treatments: change in shoes At Risk footcare Pt States Last PCP Visit: Date: 4 Examination Category Sub-Category Detail Notes Category Not es Neurological SENSORY: Neurological exa m demonstrates, reduced light touch sensation, reduced sharp/dull pin prick discrimination , B/L, 5.07 monofilament test performed at plantar aspects of 5 varied sites per foot shows sensation, reduced , B/L Dermatologic SKIN FINDINGS: Skin exam reveal s Keratotic lesion(s) located at sub 1st MTH b/l, plantar heels B/L, medial IPJ TA Orthopedic FOOTWEAR: worn, non-suppor tive, shoe gear properties exacerbate patient's foot/toe deformity DIGITAL DEFORMITIES: Digital contracture , PIPJ, 2-5 B/L, incompl-reducible to push-up test, no over, nor underlapping, there is evidence of shoe producing skin irritation MUSCLE STRENGTH: 5/5 all groups in a symmetrical fashion, B/L General Examination GENERAL APPEARANCE: Reveals a pleasant, alert, well nourished, well-developed, well hydrated individual, who demonstrates proper attention to hygiene/body habitus, and is in no acute distress, Pt serves as own historian for office visit today FOOT EXAM: Lower Extremity Neurological Exa m performed:: Yes Date 05/17/24 Visual exam of foot performed:: Yes Date: 05/17/2024 Sensory testing performed:: sensations d iminished Sensory and motor testing performed:: [facility] normal Pedal pulse taking performed:: 2+ ORIENTED: person, place, and t manolo Footwear Evaluation Footwear Evaluation performe d:: Yes Ophthalmology Referral DIABETES EYE EXAM Procedure Perform ed:: No Findings of Diabetic Eye Exam:: no retin opathy Vascular DP PULSES (B): 2/4, B/L PT PULSES (B): 2/4, B/L CAPILLARY FILL TIME: 3 secs. per digit, B/L TEMPERTURE GRADIENT (C): warm to cool, p roximal to distal, B/L TROPHIC CONDITION-TEXTURE/ELASTICITY/TURGOR/HAIR GROWTH (B): normal, B/L EDEMA (C): no edema TELANGECTASIA: absent VARICOSITIES: absent PIGMENTATION: normal, B/L Nails NAILS are: Elongated, overg rown, dystrophic, lytic, greater than 3mm thick, discolored and friable with crumbly malodorous subungual debris, T1, T2, T3, T4, T5, T6, T7, T8, T9
--- OUTSIDE RECORDS SUMMARY | 2024-05-31 10:42 | XMS_ITS ---
Author Organization [facility] Address [address] [place] [address] Care Team Providers Care Retention Specialist Name Role Phone Enrique Stein MD Primary Care Provider Raf Rai Unavailable [phone] ALLERGIES No Known Allergies REASON FOR VISIT [...] screening (Z12.11) Active confirmed Colon cancer screening (672630967) Problem Encounter for other preprocedural examination (Z01.818) Active confirmed Pre-procedure evaluation check (160173389) VITAL SIGNS BMI 28.43 kg/m2 01/10/2024 Blood pressure systolic 00 mm Hg 01/10/20 24 Blood pressure diastolic 00 mm Hg 024 Height 5 ft 8 in in 01/10/2024 Weight 187 lbs 01/10/2024 Encounters Encounter Location Date Provider Diagnosis [facility] [address] [place] [address] 01/10/2024 Raf Pickett Colon cancer screeni ng [...]
--- OUTSIDE RECORDS SUMMARY | 2024-05-31 10:42 | XMS_ITS | Patient Health Record ---
Author Organization [facility] Address [address] [place] [address] Care Team Providers Care Admissions Coordinator Name Role Phone Enrique Stein MD Primary Care Provider Raf Rai [phone] ALLERGIES No Known Allergies RESULTS Component Value Reference Range Notes Pathology (Not yet reviewed by provider) Interpretation: Performing Lab:[facility], [address] [place] [phone] Notes/Report: Glucose, Whole Blood Reviewed date:04/11/2024 01:29:11 PM Interpretation: Performing Lab:[facility], [address] [place] [phone] Notes/Report: Glucose, Whole Blood 126 60-115 mg/dL METER # : [id number] REASON FOR REFERRAL No Information MEDICATIONS Medication SIG (Take, Route, Frequency, Duration) Notes Start Date End Date Status Aspirin 81 81 MG 1 tablet Orally Once a day for 30 day(s) Active Chlorthalidone 25 MG TAKE 1 TABLET BY [facility] DAILY Oral for 90 Active Tadalafil 5 [...] (Z12.11) Active confirmed Colon can cer screening (992236515) Problem Encounter for other preprocedural examination (Z01.818) Active confirmed Pre-procedure evaluation check (974465416) Problem Diverticulosis of large intestine without perforation or abscess without bleeding (K57.30) Active confirmed Diverticul ar disease of colon (006454534) VITAL SIGNS Blood pressure diastolic 00 mm Hg 01/10/2024 Height 5 ft 8 in in 01/10/2024 Blood pressure systolic 00 mm Hg 01/10/2024 Weight 187 lbs 01/10/2024 BMI 28.43 kg/m2 01/10/2024 Encounters Encounter Location Date Provider Diagnosis [facility] Outpatient [address] [place] [phone] 04/11/2024 Raf Pickett Colon cancer screeni ng Z12.11 ; Colon polyps K63.5 ; Diverticulosis of large intestine without perforation or abscess without bleeding K57.30 and Other hemorrhoids K64.8 [facility] [address] [place] [address] 01/10/2024 Raf Pickett Colon cancer screeni ng [...] Date [employer] Medicare Advantage Plan [address] [address] [place] [address] [id number] LEISA GONZALEZ Self - patient is the insured MEDICAL (GENERAL) HISTORY Medical History History ICD Code Hypertension Hypercholesterolemia NIDDM Negative colonoscopies at age 48 and 58 at [facility] Denies [place],CVA,Lung disease,renal disease Surgical History Surgery Date(Month/Year) Cataracts Laser prostate surgery
--- OUTSIDE RECORDS SUMMARY | 2024-05-31 10:42 | XMS_ITS ---
Author Organization [facility] Address [address] [place] [address] Care Team Providers Care Meter Setter Name Role Phone Enrique Stein MD Primary Care Provider Raf Rai Unavailable [phone] REASON FOR VISIT screening PROBLEMS Problem Type ICD Code Onset Dates Problem Status W/U Status Risk SNOMED Code Notes Problem Diverticulosis of large intestine without perforation or abscess without bleeding (K57.30) Active confirmed Diverticul ar disease of colon (276501241) Encounters Encounter Location Date Provider Diagnosis [facility] [address] [place] [phone] 04/11/2024 Raf Pickett Colon cancer scree kitty [...]
== END 2024-05-31 07:45 | disposition home or self-care (01) ==
LOC: HO.LAB 07:44
PROVIDERS: PCP Internal Medicine; Visit Provider Internal Medicine
DX: R73.9 Hyperglycemia, unspecified (principal); Z13.0 Encounter for screening for diseases of the blood and blood-forming organs and certain disorders involving the immune mechanism; Z13.220 Encounter for screening for lipoid disorders; Z13.9 Encounter for screening, unspecified
CPT/HCPCS: 36415; 80053; 80061; 83036; 85025

== ENCOUNTER → 2024-06-12 08:42 | Outpatient (BNVA) | payer MEDICARE, SELFPAY | PROVIDERS: PCP Internal Medicine; Visit Provider Internal Medicine | DX: Z00.00 Encounter for general adult medical examination without abnormal findings (principal); E78.5 Hyperlipidemia, unspecified; E11.9 Type 2 diabetes mellitus without complications; I10 Essential (primary) hypertension | CPT/HCPCS: 99397 ==

== ENCOUNTER → 2024-06-12 09:23 | Outpatient (AMB) | payer MEDICARE, SELFPAY ==
--- NOTE | 2024-06-12 08:47 | MHC.PC.OV ---
Vital Signs 06/12/24 08:49 Height 5 ft 8 in Weight 194 lb 8 oz BMI 29.6 BP 130/68 Blood Pressure Location Lt brachial Position Sitting Pulse 81 Pulse Source Pulse Oximeter Temp 97.3 F Temp Source Skin Pulse Oximetry (%) 97 Oxygen Delivery Method Room Air Intake Visit Reasons: Annual Exam Intake Note: Patient is here today for a physical. Requesting for Biogeographer referral Rigging Man Required: No Exploration Geologist: Present Accompanied by: Self / Same As Patient Allergies No Known Allergies Allergy (Verified 06/12/24 08:48) Medication List - Last Reconciled 06/12/24 by Enrique Stein MD aspirin (Adult Low Dose Aspirin) 81 mg PO DAILY chlorthalidone 25 mg PO DAILY cyanocobalamin (vitamin B-12) (Vitamin B-12) 500 mcg PO DAILY finasteride 5 mg PO DAILY 90 days meclizine 25 mg PO TID PRN metformin 500 mg PO BID multivitamin 1 tab PO DAILY omega 7-rxe-aml-fish oil 500-1,000 mg 1 cap PO DAILY rosuvastatin 20 mg PO DAILY tadalafil 5 mg PO DAILY Tobacco use date assessed: 06/12/24 Fall risk assessment: No Falls in past year Last assessed Fall Risk: 06/12/24 Dental Screening Dental Screen Date: 06/12/24 Did you have a dental visit in the last 12 months?: Yes Did you have a dental problem in the last 6 months where you did not have access to dental care?: No Was dental information given to patient?: Patient has dentist HPI Annual Exam HPI Details HTN DM and hyperlipidemia; compliant [facility] Medical History (Updated 04/30/24 @ 10:35 by Kenzie Santizo [facility]) Hyperlipidemia Elevated prostate specific antigen [PSA] Benign prostatic hyperplasia with lower urinary tract symptoms Diabetes mellitus with coincident hypertension Hypertension Surgical History History of cataract surgery History of pterygium excision History of prostate surgery Family History Father No problems noted. Mother No problems noted. Social History Housing: House Are you a primary inspector health care facilities to a significant other at home: No Do you presently have visiting nurse or other home services: No Alcohol intake: current Alcohol intake frequency: a few times a week Patient Tobacco Use Status: Never used Tobacco e-Cigarette/Vaping Use: Never Used Second Hand Smoke Exposure: No service: No Current occupational status: retired Current occupational exposures/hazards: No Cognitive needs: No Hearing needs: No Vision needs: Yes Questionnaire PHQ-9 Over the last 2 weeks, how often have you been bothered by any of the following problems? 1. Little interest or pleasure in doing things: not at all 2. Feeling down, depressed, or hopeless: not at all 3. Trouble falling or staying asleep, or sleeping too much: not at all 4. Feeling tired or having little energy: not at all 5. Poor appetite or overeating: not at all 6. Feeling bad about yourself - or that you are a failure or have let yourself or your family down: not at all 7. Trouble concentrating on things, such as reading the newspaper or watching television: not at all 8. Moving or speaking so slowly that other people could have noticed. Or the opposite - being so fidgety or restless that you have been moving around a lot more than usual: not at all 9. Thoughts that you would be better off or of hurting yourself in some way: not at all Total score: 0 Depression Screening Interpretation: Negative Depression Screening Done: Yes Source: Developed by Drs. Raf Nichole, Alexa Gonzalez, Hunter Villa and colleagues, with an educational april from [employer]. Thrive Questionnaire Date Thrive assessed: 06/10/24 I am a: Parent/Caregiver What is your living situation today?: I choose not to answer this question Within the past 12 months, did the food you bought not last and you didn't have the money to get more?: I choose not to answer this question Within the past 12 months, did you worry whether your food would run out before you got money to buy more?: I choose not to answer this question Do you have trouble paying for medicines?: I choose not to answer this question Do you have trouble getting transportation to medical appointments?: No Do you have trouble paying your heating and electricity bill?: No Do you have trouble taking care of your child, family member or friend?: I choose not to answer this question Do you have trouble with day-to-day activities such as bathing, preparing meals, shopping, managing finances, etc.?: No Are you currently unemployed and looking for a job?: No Are you interested in more education?: No Please select the resources that you would like help with: None Currently or been in a relationship where the following occur: I choose not to answer THRIVE Score: 0 AUDIT C Alcohol Use Questionnaire (AUDIT-C) 1. How often do you have a drink containing alcohol?: Monthly or less 2. How many drinks containing alcohol do you have on a typical day when you are drinking?: 1 or 2 3. How often do you have six or more drinks on one occasion?: Never Total Score: 1 WILFRED-7 AMB Questionnaire WILFRED-7 Date WILFRED - 7 assessed: 06/12/24 Feeling nervous, anxious, or on edge: 0 = Not at all Not being able to stop or control worryin = Not at all Worrying too much about different things: 0 = Not at all Trouble relaxin = Not at all Being so restless that it is hard to sit still: 0 = Not at all Becoming easily annoyed or irritable: 0 = Not at all Feeling afraid as if something awful might happen: 0 = Not at all Total WILFRED-7 score (0-4 normal; 5-9 mild; 10-14 moderate; 15-21 severe): 0 Source: Developed by Drs. Raf Nichole, Alexa Gonzalez, Hunter Villa and colleagues, with an educational april from [employer]. Review of Systems Const Denies chills, Denies fatigue, Denies headache(s) and Denies weight loss Eyes Denies change in vision, Denies diplopia and Denies eye pain ENT Denies vertigo, Denies dizziness, Denies headache(s) and Denies nasal discharge Card Denies chest pain, Denies rapid heart rate and Denies dyspnea on exertion Resp Denies chest congestion, Denies cough, Denies pain with cough and Denies dyspnea on exertion GI Denies abdominal pain, Denies hematochezia and Denies change in bowel habits Musc Denies myalgias, Denies arthralgias and Denies joint swelling Skin/Breast Denies lesions and Denies unusual bruising Neuro Denies vertigo, Denies dizziness, Denies headache(s) and Denies focal weakness Endo Denies fatigue Physical exam (Primary Care) Vital Signs: Last Vital Signs Temp 97.3 F 06/12/24 08:49 Pulse 81 06/12/24 08:49 BP 130/68 06/12/24 08:49 Pulse Ox 97 06/12/24 08:49 Oxygen Delivery Method Room Air 06/12/24 08:49 BMI result Body Mass Index 29.6 Tobacco/Smoking Status: Tobacco use Status Tobacco use date assessed 06/12/24 06/12/24 08:54 Patient Tobacco Use Status Never used Tobacco 06/12/24 08:54 e-Cigarette/Vaping Use Never Used 06/12/24 08:54 PHQ-9: PHQ-9 Score PHQ-9: Total score 0 06/12/24 08:54 Depression Screening Interpretation: Negative Thrive Assessment: Date of Thrive Assessment Date Thrive assessed 06/10/24 06/12/24 08:54 Currently or been in a relationship where the following occur: I choose not to answer Const General: cooperative, healthy appearing and no acute distress Orientation/consciousness: oriented to person, oriented to place and oriented to time HENMT Head: Yes normal to inspection, Yes normocephalic and Yes atraumatic Mouth: Normal oral and palatal mucosa present and tongue normal Throat: Yes posterior oropharynx normal and Yes uvula midline Eyes General: appearance normal, both eyes and all related structures Neck Neck: Yes normal visual inspection, Yes full ROM and Yes no lymphadenopathy Thyroid: Thyroid normal Carotids: normal carotid upstroke Chest Chest palpation & inspection: normal inspection of the chest Resp Effort & Inspection: normal respiratory effort and able to speak in complete sentences Auscultation: clear to auscultation bilaterally Cardio Jugular venous distension: no JVD Palpation: normal PMI Rate: regular rate Rhythm: regular rhythm Heart sounds: S1 normal heart sound present and S2 normal heart sound present GI Inspection: Yes normal to inspection Palpation (GI): Soft to palpation and No hepatosplenomegaly present Auscultation: normal bowel sounds General: Yes no CVA tenderness Back/Spine/Pelvis Back: no CVA tenderness Skin General skin exam: no rashes or lesions noted Neuro General: oriented to person, oriented to place and oriented to time Extrem General: Yes normal to inspection and Yes full ROM Coding Level of Care Code Est Pt Prev Care >65y(55782) Diagnoses Hyperlipidemia E78.5 Physical exam Z00.00 Diabetes mellitus with coincident hypertension E11.9; I10 Hypertension I10 Assessment & Plan Assessment & Plan (1) Hyperlipidemia: Code(s): E78.5 - Hyperlipidemia, unspecified Category: Medical Plan: stable; same rx (2) Physical exam: Code(s): Z00.00 - Encounter for general adult medical examination without abnormal findings Category: Medical Plan: stable; do labs (3) Diabetes mellitus with coincident hypertension: Code(s): E11.9 - Type 2 diabetes mellitus without complications; I10 - Essential (primary) hypertension Category: Medical Plan: same rx (4) Hypertension: Code(s): I10 - Essential (primary) hypertension Category: Medical Plan: stable; same rx
[2024-06-12 08:49] VITALS: BP 130/68; PULSE 81; TEMP 36.3; O2SAT 97; BMI 29.6
== END | disposition home or self-care (01) ==
PROVIDERS: PCP Internal Medicine; Visit Provider Internal Medicine
DX: E78.5 Hyperlipidemia, unspecified (principal); Z00.00 Encounter for general adult medical examination without abnormal findings; E11.9 Type 2 diabetes mellitus without complications; I10 Essential (primary) hypertension

== ENCOUNTER 2024-08-21 06:35 | Outpatient (REF) | payer MEDICARE, SELFPAY ==
--- OUTSIDE RECORDS SUMMARY | 2024-08-21 06:39 | XMS_ITS ---
Author Organization [facility] Address [address] [place] [id number] Care Team Providers Care Apple Turner Name Role Phone Enrique Stein MD Primary Care Provider Raf Rai Unavailable [phone] Allergies No Known Allergies REASON FOR VISIT Patient presents today for a colon screening Medications Medication SIG (Take, Route, Frequency, Duration) [...] Calcium 20 MG Oral for 90 Active Social History Tobacco Use: Social History Observation Description Date Details (start date - stop date) Never Smoker NA - NA Tobacco Use/Smoking Question Answer Notes Patient is [...] Never (0 point) Points 0 Interpretation Negative Section Notes: Nonsmoker; no sig alcohol Problems Problem Type SNOMED Code ICD Code Onset Dates Problem Status W/U Status Risk Notes Problem Colon cancer screening (735154838) Colon cancer screening (Z12.11) Active confirmed Problem Pre-procedure evaluation check (865444189) Encounter for other preprocedural examination (Z01.818) Active confirmed Vital Signs Blood pressure systolic 00 mm Hg 01/10/20 24 Blood pressure diastolic 00 mm Hg 024 Height 5 ft 8 in in 01/10/2024 Weight 187 lbs 01/10/2024 BMI 28.43 kg/m2 01/10/2024 Encounters Encounter Location Date Provider Diagnosis [facility] [address] [place] [address] 01/10/2024 Raf Pickett Colon cancer screeni ng Z12.11 and Encounter for other preprocedural examination Z01.818 Assessments Encounter Date Diagnosis (ICD Code) Assessment Notes Treatment Notes Treatment Clinical Notes Section Notes 01/10/2024 Colon cancer screening (ICD-10 - Z12.11) Stop aspirin for 1 week before the colonoscopy Do not take the Metformin the night before nor on the morning of the colonoscopy Do not take the chlorthalidone the day before nor on the day of the colonoscopy Overall, Leisa appears quite well. Given his age, good clinical appearance, and last colonoscopy being 10 years ago, I did recommend a followup colonoscopy for further screening purposes. We did review the rationale for that in regard to colon cancer prevention. Full consent was obtained for this, including risks of bleeding and perforation. The procedure will be done with monitored anesthesia care. He was given the below instructions regarding adjustment of his medications for the procedure. Leisa is comfortable with this plan. Thank you again for allowing me to participate in Leisa's care. I shall continue to keep you advised of his progress. 01/10/2024 Encounter for other preprocedural examination (ICD-10 - Z01.818) Overall, Leisa appears quite well. Given his age, good clinical appearance, and last colonoscopy being 10 years ago, I did recommend a followup colonoscopy for further screening purposes. We did review the rationale for that in regard to colon cancer prevention. Full consent was obtained for this, including risks of bleeding and perforation. The procedure will be done with monitored anesthesia care. He was given the below instructions regarding adjustment of his medications for the procedure. Leisa is comfortable with this plan. Thank you again for allowing me to participate in Arielas care. I shall continue to keep you advised of his progress. Plan Of Treatment Treatment Notes Assessment Notes Colon cancer screening Stop aspirin for 1 week before the colonoscopy Do not take the Metformin the night before nor on the morning of the colonoscopy Do not take the chlorthalidone the day before nor on the day of the colonoscopy Future Test Test Name Order Date COLONOSCOPY 01/10/2024 Next Appt Details Follow Up: prn, Reason: Progress Notes * CORNELL GONZALEZOB: [birth year] (68 yo M)Acc No.[id number]:01/10/2024 Progress Notes Patient:?LEISA GONZALEZ Provider:?Raf Pickett MD :1955???Age:68 Y???Sex:Male Kenneth e:01/10/2024 Address:[address] [place] [address] Pcp:Enrique Stein MD Subjective: * Chief Complaints: * ???Patient presents today fo r a colon screening * HPI: ???incontinence:? I saw Leisa in the office today for evaluation of colorectal cancer screening. ?As you know, Leisa is a 68-year-old male describes having undergone negative screening colonoscopies at age 48 and 58. His most recent colonoscopy was done with Dr. Flowers. He enjoys a good appetite, without any significant heartburn or dysphagia. His bowel movements have been regular and without any signs of bleeding. He denies any known family history of colorectal cancer. He denies abdominal pain, jaundice, no unintentional weight loss. ?In July he had a normal CBC, chemistries, and LFTs. * ROS:?General/Constitutional:?Change in appetite?denies.?Chills?denies.?Fatigue?denies.?Ophthalmologic:?Comments?all negative.?ENT:?Comments?all negative.?Respiratory:?hemoptysis?denies.?Cough?denies.?Cardiovascular:?Chest pain?denies.?Orthopnea?denies.?Gastrointestinal:?Comments?See HPI for details.?Genitourinary:?Hematuria?denies.?Dysuria?denies.?Musculoskeletal:?Painful joints?denies.?Weakness?denies.?Skin:?Itching?denies.?Rash?denies.?Neurologic:?Headache?denies.?Seizures?denies.?Psychiatric:?Comments?all negative.? * Medical History:? * Surgical History:?Cataracts Laser prostate surgery * Hospitalization/Major Diagno stic Procedure:?No Hospitalization History. * Family History:?Father: dece ased.?Mother: , diagnosed with Diabetes.? No known hx of colon cancer. * Social History:?Tobacco Use:?Tobacco Use/Smoking?Patient is a?nonsmoker.?Drugs/Alcohol:?Alcohol Screen?Did you have a drink containing alcohol in the past year??Yes,?How many drinks did you have on a typical day when you were drinking in the past year??1 or 2 drinks (0 point),?How often did you have 6 or more drinks on one occasion in the past year??Never (0 point),?Points?0,?Interpretation?Negative.?Miscellaneous:?Marital status: . 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 ???Nonsmoker; no sig alcohol. * Medications:?TakingAspirin 8 1 81 MG Tablet Delayed Release 1 tablet Orally Once a dayChlorthalidone 25 MG Tablet TAKE 1 TABLET BY MOUTH DAILY Oral Tadalafil 5 MG Tablet TAKE ONE TABLET BY MOUTH EVERY DAY FOR SEXUAL ACTIVITY Oral metFORMIN HCl 500 MG Tablet TAKE 1 TABLET BY MOUTH TWICE DAILY Oral Rosuvastatin Calcium 20 MG Tablet Oral Medication List reviewed and reconciled with the patientTaking Aspirin 81 81 MG Tablet Delayed Release 1 tablet Orally Once a dayTaking Chlorthalidone 25 MG Tablet TAKE 1 TABLET BY MOUTH DAILY Oral Taking Tadalafil 5 MG Tablet TAKE ONE TABLET BY MOUTH EVERY DAY FOR SEXUAL ACTIVITY Oral Taking metFORMIN HCl 500 MG Tablet TAKE 1 TABLET BY MOUTH TWICE DAILY Oral Taking Rosuvastatin Calcium 20 MG Tablet Oral Medication List reviewed and reconciled with the patient * Allergies:?N.K.D.A.yes[Aller gies Verified] Objective: * Vitals:?Wt: 187 lbs, Ht: 5 f t 8 in, BMI:28.43 Index, BP: 00/00 mm Hg. * Examination: ???General Examination: ?GENERAL APPEARANCE:?pleasant, well nourished, well developed, in no acute distress.?EYES:?sclera non-icteric.?ORAL CAVITY:?mucosa moist.?NECK/THYROID:?no cervical lymphadenopathy, neck supple.?SKIN:?nonjaundiced, no spider angiomata.?HEART:?S1, S2 normal.?LUNGS:?clear to auscultation bilaterally.?ABDOMEN:?normal bowel sounds, no guarding or rigidity, no guarding or rigidity, no masses palpable, soft, nontender, nondistended.?EXTREMITIES:?no edema.?NEUROLOGIC:?alert and oriented.? Assessment: * Assessment: 1.?Encounter for other prepr ocedural examination - Z01.818 (Primary)?2.?Colon cancer screening - Z12.11? Overall, Leisa appears qu ite well. Given his age, good clinical appearance, and last colonoscopy being 10 years ago, I did recommend a followup colonoscopy for further screening purposes. We did review the rationale for that in regard to colon cancer prevention. Full consent was obtained for this, including risks of bleeding and perforation. The procedure will be done with monitored anesthesia care. He was given the below instructions regarding adjustment of his medications for the procedure. Leisa is comfortable with this plan. Thank you again for allowing me to participate in Leisa's care. I shall continue to keep you advised of his progress. Plan: * Treatment: Notes: Stop aspirin for 1 week before the colonoscopy Do not take the Metformin the night before nor on the morning of the colonoscopy Do not take the chlorthalidone the day before nor on the day of the colonoscopy?? * Procedure Codes:?3017F COLOR ECTAL CA SCREEN DOC [id number] TOBACCO [id number] BP SCR NOT PRFRM REC REASON NOS * Preventive Medicine:? ??Counseling:?Care goal follow-up plan:?Above Normal BMI Follow-up?Giving encouragement to exercise,?BMI management provided?Yes.? ??Screenings:?Fall Risk Screening?Fall Risk Assessment:?No falls in the past year,?Assessment:?Not performed, no reason specified.? * Follow Up:?prn * * Sign off status: Completed true * Provider:?Raf Pickett MD Date:? 024 Generated for Comforti lei/Jacquie/Girish on:?08/21/2024 06:39 AM EDT History and Physical Notes * HPI (History of Present Illness) Category Sub-Category Detail Notes Category Not es incontinence I saw Leisa in the office today for evaluation of colorectal cancer screening. As you know, Leisa is a 68-year-old male describes having undergone negative screening colonoscopies at age 48 and 58. His most recent colonoscopy was done with Dr. Flowers. He enjoys a good appetite, without any significant heartburn or dysphagia. His bowel movements have been regular and without any signs of bleeding. He denies any known family history of colorectal cancer. He denies abdominal pain, jaundice, no unintentional weight loss. In July he had a normal CBC, chemistries, and LFTs. Examination Category Sub-Category Detail Notes Category Not es General Examination GENERAL APPEARANCE: pleasant , well [...]
--- OUTSIDE RECORDS SUMMARY | 2024-08-21 06:39 | XMS_ITS | Patient Health Record ---
Author Organization [facility] Address [address] [place] [address] Care Team Providers Care Drier Belt Conveyor Name Role Phone Enrique Stein MD Primary Care Provider Raf Rai [phone] Allergies No Known Allergies Results Component Value Reference Range Notes Glucose, Whole Blood Reviewed date:04/11/2024 01:29:11 PM Interpretation: Performing Lab:[facility], [address] [place] [id number] Notes/Report: Glucose, Whole Blood 126 60-115 mg/dL METER # : [id number] Pathology (Not yet reviewed by provider) Interpretation: Performing Lab:[facility], [address] [place] [phone] Notes/Report: ---- Name: Pablo Collins do Age/Sex: 68/M : 1955 Unit#: [id number] Attend Dr: Raf Pickett MD Re04/11/24 Status : [facility] Location: [facility] Disch: ---- SPEC : [id number] RECD : 04/11/24 STATUS: ELVA ARECHIGA NUM: [id number] VALDEMAR: 04/11/24-1213 [facility] DR: Raf Pickett MD ENTERED: 04/11/24- SP TYPE: Surgical OTHR DR: Enrique Stein MD ORDERED: HE Stain/3, Gross Micro L4 Diagnosis Colon, 50 cm, polypectomy: Tubular adenoma; negative for high-grade dysplasia or carcinoma. Clinical History Pre-Op Dx: Screening Post-Op Dx: Polyp, diverticulosis, hemorrhoids Microscopic Description Microscopic sections reviewed. Material Received Polyp at 50 Gross Description Received in formalin labeled ?polyp at 50? is a 0.35 cm hyperemic and congested, carbajal-red papular tissue fragm ent, submitted in toto in a cassette labeled A. CEDS Copies To: Enrique Stein MD [facility] Primary Care,[place] [address] [place] [address] Raf Pickett MD [facility] [address] [place] [address] ---- Signed (signature on file) Aman Mishra MD 04/13/24 1328 ---- END OF REPORT Reason For Referral No Information Medications Medication [...] Status Risk Notes Problem Colon cancer screening (545070041) Colon cancer screening (Z12.11) Active confirmed Problem Pre-procedure evaluation check (616760131) Encounter for other preprocedural examination (Z01.818) Active confirmed Problem Diverticular disease of colon (891655686) Diverticulosis of large intestine without perforation or abscess without bleeding (K57.30) Active confirmed Vital Signs Blood pressure diastolic 00 mm Hg 01/10/2024 Height 5 ft 8 in in 01/10/2024 Blood pressure systolic 00 mm Hg 01/10/2024 Weight 187 lbs 01/10/2024 BMI 28.43 kg/m2 01/10/2024 Encounters Encounter Location Date Provider Diagnosis [facility] [address] [place], [place] [id number] 04/11/2024 Raf Pickett Colon cancer screeni ng Z12.11 ; Colon polyps K63.5 ; Diverticulosis of large intestine without perforation or abscess without bleeding K57.30 and Other hemorrhoids K64.8 [facility] [address] [place] [address] 01/10/2024 Raf Pickett Colon cancer screeni ng [...] to keep you advised of his progress. 04/11/2024 Diverticulosis of large intestine without perforation or abscess without bleeding (ICD-10 - K57.30) 04/11/2024 Other hemorrhoids (ICD-10 - K64.8) Plan Of Treatment Pending Test Test Name Order Date Pathology 04/11/2024 Future Test Test Name Order Date COLONOSCOPY 01/10/2024 Insurance Providers Payer Name Payer Address Payer Phone Subscriber Number Group Number Insured Name Patient Relationship to Insured Coverage Start Date Coverage End Date [employer] Medicare Advantage Plan [address] [address] [place] [address] [phone] [id number] LEISA COLLINS Self - patient is the insured Medical (General) History Medical History History ICD Code Hypertension Hypercholesterolemia NIDDM Negative colonoscopies at age 48 and 58 at [facility] Denies CA,CVA,Lung disease,renal disease Surgical History Surgery Date(Month/Year) Cataracts Laser prostate surgery
--- OUTSIDE RECORDS SUMMARY | 2024-08-21 06:39 | XMS_ITS | Patient Health Record ---
Author Organization [facility] Address [address] [place] [address] Care Team Providers Care Burr Filer Name Role Phone Enrique Stein MD Primary Care Provider UnavailAlicia Rodriguez Unavailable [phone] Ayaan Urbano Unavailable [phone] Allergies No Known Allergies Results Component Value [...] (M20.41,M20.42), Preulcerative Skin Lesion(s) (L85.1 05/17/2024 Active [place] 3 500-1,000 mg Active Multivitamin - 1 [...] Problem Acquired hammer toe of right foot (9391242926131230 ) Other hammer toe(s) (acquired), right foot (M20.41) Active confirmed Problem Acquired hammer toe of left foot (6530564122820112 ) Other hammer toe(s) (acquired), left foot (M20.42) Active confirmed Problem Polyneuropathy due to diabetes mellitus type I (030376327) Type 1 diabetes mellitus with diabetic polyneuropathy (E10.42) Active confirmed Problem Polyneuropathy due to type 2 diabetes mellitus (891396983) Type 2 diabetes mellitus with diabetic polyneuropathy (E11.42) Active confirmed Vital Signs Blood pressure diastolic 80 mm Hg 05/17/2024 Height 5 ft 8 in in 05/17/2024 Blood pressure systolic 120 mm Hg 05/17/2024 Weight 198 lbs 05/17/2024 BMI 30.1 kg/m2 05/17/2024 Procedures Procedure Date Ordered Date Performed Result Body Sit e 75747-ZPQZAHE NAIL, 6 OR MORE 05/17/2024 N/A 70136-EEXX SKIN LESIONS, OVER 4 05/17/2024 N/A Encounters Encounter Location Date Provider Diagnosis [facility] [address] [address] 01/16/2024 Ayaan Urbano Type 2 diabetes mellitus with diabetic polyneuropathy E11.42 and Tinea unguium B35.1 [facility] [address] [address] 05/17/2024 Alicia Prescott Other hammer toe(s) (acquired), right foot M20.41 ; Other hammer toe(s) (acquired), left foot M20.42 ; Type 2 diabetes mellitus with diabetic polyneuropathy E11.42 and Tinea unguium B35.1 Assessments Encounter Date Diagnosis (ICD Code) Assessment Notes Treatment Notes Treatment Clinical Notes Section Notes 01/16/2024 Tinea unguium (ICD-10 - B35.1) 01/16/2024 [...] Treatment Pending Test Test Name Order Date 70237-AHXHGLV NAIL, 6 OR MORE 05/17/2024 08392-ZDNE SKIN LESIONS, OVER 4 05/17/19 25 19919-XEKS SKIN LESIONS, 2 TO 4 01/11/20 23 P4713-YVLQFMMW DYSTROPHIC NAILS ANY # 72363-OUFEXQBT OF HEMATOMA/FLUID 023 Next Appt Details Provider Name:Alicia Damon jimy, 09/19/2024 09:15:00 AM, [address] [facility], [place], [address], Insurance Providers Payer Name Payer Address Payer Phone Subscriber Number Group Number Insured Name Patient Relationship to Insured Coverage Start Date Coverage End Date [employer] Medicare Adv-[id number] [address] [address] [place] [address] [id number] Jorge Collins Self - patient is the insured Medical (General) History Medical History History ICD Code Arthritis CAD (Cholesterol) Cataracts Diabetic High blood pressure Chicken pox Measles Benign prostatic hyperplasia (BPH) Diabetes mellitus Hyperlipidemia Erectile dysfunction Surgical History Surgery Date(Month/Year) Lower 2015 cataract surgery prostate surgery pterygium excision
--- OUTSIDE RECORDS SUMMARY | 2024-08-21 06:39 | XMS_ITS ---
Author Organization [facility] Address [address] [place] [address] Care Team Providers Care Metal Checker Name Role Phone Enrique Stein MD Primary Care Provider Raf Rai [phone] REASON FOR VISIT screening Problems Problem Type SNOMED Code ICD Code Onset Dates Problem Status W/U Status Risk Notes Problem Diverticular disease of colon (229520767) Diverticulosis of large intestine without perforation or abscess without bleeding (K57.30) Active confirmed Encounters Encounter Location Date Provider Diagnosis [facility] Outpatient [address] [place] [phone] 04/11/2024 Raf Pickett Colon cancer scree kitty [...] * CORNELL GONZALEZOB: [birth year] (69 yo M)Acc No.[id number]:04/11/2024 COLON WITH MAC Patient:?LEISA GONZALEZ Provider:?Raf Pickett MD :1955???Age:68 Y???Sex:Male Kenneth e:04/11/2024 Address:[address] [place], [place] [id number] Pcp:Enrique Stein MD Subjective: * Chief Complaints: * ???1. Screening. * Medical History:? Objective: * Vitals:? Assessment: * Assessment: 1.?Colon cancer screening - Z12.11 (Primary)???2.?Colon polyps - K63.5???3.?Diverticulosis of large intestine without perforation or abscess without bleeding - K57.30???4.?Other hemorrhoids - K64.8??? Plan: * Treatment: * Procedure Codes:?66856 LESIO N REMOVAL COLONOSCOPY, Modifiers: PT , 0529F INTRVL 3+YRS PTS CLNSCP DOCD, 0528F RCMND FLW-UP 10 YRS DOCD, Modifiers: 1P * * The named appointment provid er may or may not be the originator of this progress note, and it is not deemed complete until electronically signed by the appointment provider. Sign off status: Pending * Provider:?Raf Pickett MD Date:? 024 Generated for Magen odom/Jacquie/eTransmitting on:?08/21/2024 06:39 AM EDT
--- OUTSIDE RECORDS SUMMARY | 2024-08-21 06:39 | XMS_ITS ---
Author Organization [facility] Address [address] [place] [address] Care Team Providers Care Metalizer Field Operation Name Role Phone Enrique Stein MD Primary Care Provider Alicia Pierre Unavailable [phone] Allergies No Known Allergies REASON FOR VISIT [...] (M20.41,M20.42), Preulcerative Skin Lesion(s) (L85.1 05/17/2024 Active [place] 3 500-1,000 mg Active Multivitamin - 1 [...] Problem Acquired hammer toe of right foot (1590319380749296 ) Other hammer toe(s) (acquired), right foot (M20.41) Active confirmed Problem Acquired hammer toe of left foot (9095738068315796 ) Other hammer toe(s) (acquired), left foot (M20.42) Active confirmed Problem Polyneuropathy due to diabetes mellitus type I (732663615) Type 1 diabetes mellitus with diabetic polyneuropathy (E10.42) Active confirmed Vital Signs Height 5 ft 8 in in 05/17/2024 Weight 198 lbs 05/17/2024 BMI 30.1 kg/m2 05/17/2024 Blood pressure systolic 120 mm Hg 05/17/19 25 Blood pressure diastolic 80 mm Hg 025 Procedures Procedure Date Ordered Date Performed Result Body Sit e 30592-TZOEEPF NAIL, 6 OR MORE 05/17/2024 N/A 13193-BZOS SKIN LESIONS, OVER 4 05/17/2024 N/A Encounters Encounter Location Date Provider Diagnosis [facility] [address] [address] 05/17/2024 Alicia Prescott Other hammer toe(s) (acquired), [...] INSTRUCTIONS.pdf) Pending Test Test Name Order Date 71401-NAZCNUK NAIL, 6 OR MORE 05/17/2024 64418-JEAS SKIN LESIONS, OVER 4 05/17/19 25 Next Appt Details Follow Up: 4 Months, Reason: Provider Name:Alicia ahn, 09/19/2024 09:15:00 AM, [address] [place] [address], [address], Procedure Notes * Category Sub-Category Detail [...] use of a nail nipper and/or dremel-type flute grinder, to a more viable healthy nail [...] to maintain effectiveness in symptomatic relief - 92926 Keratoma Treatment Parring or Cutting o f [...] instrumentation by the physician of record - 71632 Progress Notes * Francisco Javier COLLINSOB: [birth year] (68 yo M)Acc No.[id number]:05/17/2024 Progress Note Patient:?Jorge COLLINS Provider:?Alicia Prescott DPM :1955???Age:68 Y???Sex:Male Kenneth e:05/17/2024 Address:[address] [place] [address] [facility] Pcp:Enrique Stein MD Subjective: * Chief Complaints: [...] List reviewed and reconciled with the patientTaking [place] 3 , Notes to Pharmacist: 500-1,000 mgTaking [...] 6.6 * Examination: ???Ophthalmology Referral: ?DIABETES EYE EXAM?Procedure Performed:?No ?Findings of Diabetic Eye Exam:?no retinopathy?Orthopedic: ?MUSCLE STRENGTH:?5/5 all groups in a symmetrical [...] for office visit today.?ORIENTED:?person, place, and time.?FOOT EXAM:?Lower Extremity Neurological Exam performed:?Yes Date 05/17/24 ?Visual exam of foot performed:?Yes ?Date?05/17/2024 ?Sensory testing performed:?sensations diminished ?Sensory and motor testing performed:?strength normal ?Pedal pulse taking performed:?2+ ?Footwear Evaluation?Footwear Evaluation performed:?Yes?Neurological: ?SENSORY:? Neurological exam demonstrates, reduced light touch [...] 2.?Type 2 diabetes mellitus with diabetic polyneuropathy?Procedure: 02979-BPVNZIS NAIL, 6 OR MORE ?Procedure: 33321-TXET SKIN LESIONS, OVER 4 * Procedures:?Debride Nail [...] use of a nail nipper and/or dremel-type flute grinder, to a more viable healthy nail [...] to maintain effectiveness in symptomatic relief - 44005.?Keratoma Treatment:?Parring or Cutting of Benign Hyperkeratotic Lesion(s)?(-57) [...] instrumentation by the physician of record - 61974.? * Procedure Codes:?14895 DEBRI DE NAIL, 6 OR MORE, Modifiers: XS 54220 TRIM SKIN LESIONS, OVER 4, Modifiers: XS [...] Prescott DPM Date:?0 05/17/2024 Generated for Magen odom/Jacquie/eTransmitting on:?08/21/2024 06:39 AM EDT History and Physical [...] plantar heels B/L, medial IPJ TA Orthopedic FOOTWEAR EVALUATION: worn, non-s upportive, shoe gear properties exacerbate patient's foot/toe deformity [...] d iminished Sensory and motor testing performed:: [facility] normal Pedal pulse taking performed:: 2+ ORIENTED: [...]
--- OUTSIDE RECORDS SUMMARY | 2024-08-21 06:39 | XMS_ITS ---
Author Organization [facility] Address [address] [facility] [place] [address] Care Team Providers Care Milk Powder Grinder Name Role Phone Enrique Stein MD Primary Care Provider Unavaila Alicia Vang Unavailable [phone] Ayaan Urbano Unavailable [phone] Allergies No Known Allergies Medications Medication SIG [...] SEXUAL ACTIVITY Oral for 30 Days Active [place] 3 500-1,000 mg Active Multivitamin - 1 [...] 01/16/2024 Encounters Encounter Location Date Provider Diagnosis [facility] [place] [address] [place] [address] 01/16/2024 Ayaan Urbano Type 2 diabetes mellitus [...] Provider Name:Alicia Damon jimy, 09/19/2024 09:15:00 AM, [address] [place] [address], [address], Progress Notes * Francisco Javier COLLINSOB: [birth year] (68 yo M)Acc No.[id number]:01/16/2024 Progress Note Patient:?Mickey Collinsnando Provider:?Ayaan Urbano DPM :1955???Age:68 Y???Sex:Male Kenneth e:01/16/2024 Address:[address] [place] [address] [address] Mayer [facility] Pcp:Enrique Stein MD Subjective: * Chief Complaints: [...] List reviewed and reconciled with the patientTaking [place] 3 , Notes: 500-1,000 mgTaking Multivitamin - [...] 6.3 * Examination: ???Ophthalmology Referral: ?DIABETES EYE EXAM?Diabetic Retinopathy Screening:?No ?Findings of Diabetic Eye Exam:?no retinopathy?Neurological: ?SENSORY:? Neurological exam demonstrates, reduced vibration sensation, [...] and in no acute distress.?ORIENTED:?person,place, and time.?FOOT EXAM:?Lower Extremity Neurological Exam performed:?Yes ?Visual exam of foot performed:?Yes ?Date?07/11/2023 ?Sensory testing performed:?sensations diminished ?Pedal pulse taking performed:?2+?Neuroma Pain: ?PALPATION:?No interspace pain noted on palpation.?Orthopedic: [...] DPM Date:? 024 Generated for Magen odom/Jacquie/Girish on:?08/21/2024 06:38 AM EDT History and Physical Notes * [...]
--- OUTSIDE RECORDS SUMMARY | 2024-08-21 06:39 | XMS_ITS ---
Author Organization [facility] Address [address] [place] [address] Care Team Providers Care Headrig Sawyer Name Role Phone Enrique Stein MD Primary Care Provider Unavaila Alicia Vang Unavailable [phone] Ayaan Urbano Unavailable [phone] Allergies No Known Allergies Medications Medication SIG (Take, Route, Frequency, Duration) Notes Start Date End Date Status [place] 3 500-1,000 mg Active Multivitamin - 1 [...] 07/11/2023 Encounters Encounter Location Date Provider Diagnosis [facility] [place] [address] [place] [address] 07/11/2023 Ayaan Urbano Type 2 diabetes mellitus [...] Provider Name:Alicia Reganrobert ahn, 09/19/2024 09:15:00 AM, [address] [place] [address], [address], Progress Notes * Francisco Javier COLLINSOB: [birth year] (68 yo M)Acc No.[id number]:07/11/2023 Progress Note Patient:?Mickey COLLINSnando Provider:?Ayaan Urbano DPM :1955???Age:68 Y???Sex:Male Kenneth e:07/11/2023 Address:[address] [place] [address] [facility] Pcp:Enrique Stein MD Subjective: * Chief Complaints: [...] List reviewed and reconciled with the patientTaking [place] 3 , Notes to Pharmacist: 500-1,000 mgTaking [...] Date:? 024 Generated for Magen odom/Jacquie/Girish on:?08/21/2024 06:39 AM EDT History and Physical [...]
[2024-08-21 08:40] LABS: PSA,Total (Free>4and<10) 2.59 ng/mL (0.00-4.00)
== END 2024-08-21 06:36 | disposition home or self-care (01) ==
LOC: HO.LAB 06:35
PROVIDERS: Visit Provider Nurse Practitioner Family
DX: N40.0 Benign prostatic hyperplasia without lower urinary tract symptoms (principal); R97.20 Elevated prostate specific antigen [PSA]; Z12.5 Encounter for screening for malignant neoplasm of prostate
CPT/HCPCS: 36415; 84153

== ENCOUNTER 2024-08-27 09:15 | Outpatient (AMB) | payer MEDICARE, SELFPAY ==
--- NOTE | 2024-08-27 09:26 | A.OFFVIS_ITS ---
Intake Visit Reasons: 4m/PSA/PVR Intake Note: Patient presents today for follow up on: BPH, erectile dysfunction, elevated psa PSA: 2.59 Urology Medications: tadalafil, finasteride Blood Thinner: aspirin PVR: 13ml's Shrimp Header Required: No Accompanied by: Self / Same As Patient Allergies No Known Allergies Allergy (Verified 08/27/24 10:00) Medication List - Last Reconciled 08/27/24 by OKSANA Moss aspirin (Adult Low Dose Aspirin) 81 mg PO DAILY cyanocobalamin (vitamin B-12) (Vitamin B-12) 500 mcg PO DAILY finasteride 5 mg PO DAILY 90 days metformin 500 mg PO BID multivitamin 1 tab PO DAILY omega 8-wxn-rib-fish oil 500-1,000 mg 1 cap PO DAILY rosuvastatin 20 mg PO DAILY tadalafil 5 mg PO DAILY HPI Comments Details: Jorge is a very pleasant 69 year old male patient of Dr. Stein. He has a past medical history of BPH with lower urinary tract symptoms, diabetes mellitus, hypertension, hyperlipidemia, and erectile dysfunction. He presents to the office today for a follow-up of his lower urinary tract symptoms , elevated PSA, and erectile dysfunction. In discussion with the patient today reports to be doing and feeling well. He denies having had any bothersome urinary issues or concerns since his last office visit here. He reports compliance with daily dosing of tadalafil as well as finasteride daily. He discusses at length how well he is feeling and doing. Previous workup has included a retroperitoneal ultrasound 02/22 noting bilateral kidneys with no calculi, lesions, and or hydronephrosis. Normal appearing kidneys. The bladder is partially distended. Bladder jets are demonstrated. Pre void bladder volume is approximately 125 mL. Postvoid bladder volume is approximately 55mL. Prostate is enlarged measuring at least 55 mL. A marked enlarged median lobe protrudes into the bladder. Recent PSA results reviewed with the patient today as noted and trended below: 07/18 2.8, 07/19 3.9, 10/19 3.1, 01/20 3.2, 10/21 3.9, 03/23 3.6, 12/22 3.1, 02/21 4.9, 11/22 4.5, 08/24 2.6 He otherwise denies any issues and or concerns. In office urinalysis results reviewed with the patient today. PVR 13 mL/ When asked he denies urinary urgency, incontinence, nocturia, hematuria, dysuria, foul smelling urine, changes to urinary stream, flank pain, fever, and or chills. He otherwise offers no other issues or concerns at this time. Lower urinary tract symptoms Prior history laser prostatectomy PSA historically range between 2.8 and 3.8 Erectile dysfunction Longstanding Currently on therapy HBA1c 05/26 6.8% Background diabetes Plan Continuing finasteride is crucial for managing BPH, as evidenced by improved PSA levels. Cialis will be continued for erectile dysfunction, considering the patient reports positive outcomes. His current method of medication management and lifestyle, including exercise and multivitamin intake, are satisfactory. No further tests are required at this time. Patient was informed and verbally consented to the use of an ambient scribe for clinic note documentation during this visit. Discussion Notes I discussed with the patient the progress noted in the management of his BPH, evidenced by the significant reduction in PSA levels, affirming the effectiveness of the finasteride. We reviewed continuing Cialis for erectile dysfunction, which the patient reported positively on. We covered the benefits and ongoing management strategy. Follow-up in six months was suggested to reassess PSA levels and overall condition management. [facility] Medical History Hyperlipidemia Elevated prostate specific antigen [PSA] Benign prostatic hyperplasia with lower urinary tract symptoms Diabetes mellitus with coincident hypertension Hypertension Surgical History History of cataract surgery History of pterygium excision History of prostate surgery Family History Father No problems noted. Mother No problems noted. Social History Housing: House Are you a primary childcare center administrator to a significant other at home: No Do you presently have visiting nurse or other home services: No Alcohol intake: current Alcohol intake frequency: a few times a week Patient Tobacco Use Status: Never used Tobacco e-Cigarette/Vaping Use: Never Used Second Hand Smoke Exposure: No service: No Current occupational status: retired Current occupational exposures/hazards: No Cognitive needs: No Hearing needs: No Vision needs: Yes Review of Systems Const Reports no additional complaints Eyes Reports no additional complaints ENT Reports no additional complaints Card Reports no additional complaints Resp Reports no additional complaints GI Reports no additional complaints Reports as per HPI Musc Reports no additional complaints Psych Reports no additional complaints Endo Details: patient reports A1c and suagrs to be well controlled Solitario/Lymph Reports no additional complaints Aller/Immun Reports no additional complaints Physical Exam Const General: cooperative, healthy appearing, comfortable, no acute distress, well developed, alert and awake Orientation/consciousness: patient oriented x3 Limitations: no limitations HEENT Head: Yes normal to inspection, Yes normocephalic and Yes atraumatic Ears: hearing grossly normal bilaterally Eyes General: appearance normal, both eyes and all related structures Neck Neck: Yes normal visual inspection and Yes trachea midline Chest Chest palpation & inspection: normal inspection of the chest Resp Effort & Inspection: normal respiratory effort and able to speak in complete sentences Cardio Rate: regular rate General: Yes no CVA tenderness Back/Spine/Pelvis Back: no CVA tenderness Skin General skin exam: no rashes or lesions noted Neuro General: patient oriented x3 Extrem General: Yes normal to inspection Psych Appearance: grossly normal and well kempt Mental Status: mental status grossly normal Speech and movement: Normal speech and movement present and Clear speech present Affect: normal affect Attitude: cooperative Thought process: Normal thought process present Thought content: Normal thought content present Insight: Fair insight present (Psych) Judgement: Fair judgement present (Psych) Office Procedures Post Void Residual Post Residual Void Post Void Residual (PVR): 13 53838-Flnh Void Residual by ultrasound Results AMB Urinalysis, Automated UA Leukoctes 0 Arnoldo/uL Last Edit by Cookie Ayers on 08/27/24 09:47 UA Nitrite Last Edit by Cookie Ayers on 08/27/24 09:47 UA Urobilinogen 0.2 mg/dL Last Edit by Cookie Ayers on 08/27/24 09:47 UA Protein 15 mg/dL Last Edit by Cookie Ayers on 08/27/24 09:47 UA pH 7.5 Last Edit by Cookie Ayers on 08/27/24 09:47 UA Blood 0 Cesario/uL Last Edit by Cookie Ayers on 08/27/24 09:47 UA Specific [place] 1.010 Last Edit by Cookie Ayers on 08/27/24 09:47 UA Ketone Last Edit by Cookie Ayers on 08/27/24 09:47 UA Bilirubin 0 mg/dL Last Edit by Cookie Ayers on 08/27/24 09:47 UA Glucose 0 mg/dL Last Edit by Cookie Ayers on 08/27/24 09:47 Results Reviewed Results Reviewed: Laboratory Last Values Urine pH (Auto) 7.5 08/27/24 09:45 Specific [place] (Auto) 1.010 08/27/24 09:45 Urine Protein (Auto) 15 mg/dL 08/27/24 09:45 Glucose (UA)(Auto) 0 mg/dL 08/27/24 09:45 Urine Blood (Auto) 0 Cesario/uL 08/27/24 09:45 Urine Bilirubin (Auto) 0 mg/dL 08/27/24 09:45 Urine Urobilinogen (Auto) 0.2 mg/dL 08/27/24 09:45 Leukocyte Esterase (Auto) 0 Arnoldo/uL 08/27/24 09:45 Assessment & Plan Assessment & Plan (1) Enlarged prostate: Code(s): N40.0 - Benign prostatic hyperplasia without lower urinary tract symptoms Category: Medical (2) Erectile dysfunction associated with type 2 diabetes mellitus: Code(s): E11.69 - Type 2 diabetes mellitus with other specified complication; N52.1 - Erectile dysfunction due to diseases classified elsewhere Category: Medical (3) Elevated prostate specific antigen [PSA]: Code(s): R97.20 - Elevated prostate specific antigen [PSA] Category: Medical (4) Benign prostatic hyperplasia with lower urinary tract symptoms: Code(s): N40.1 - Benign prostatic hyperplasia with lower urinary tract symptoms Category: Medical Plan In office urinalysis results reviewed with the patient today; as noted above. PVR 13 mL. Recent PSA results reviewed with the patient today; as noted above. Continue finasteride and Cialis as prescribed. Patient currently denies any bothersome urinary issues or concerns. He reports be happy with current voiding parameters. Will continue with surveillance monitoring. Will obtain PSA in 6 months. Follow-up in 6 months with PSA and PVR; or sooner with any issues, concerns, and or questions. Orders: Orders AMB Urinalysis Automated Today Z13.9 - Encounter for screening, unspecified Prostate Specific Antigen 6 Months N40.1 - Benign prostatic hyperplasia with lower urinary tract symptoms AMB Post Void Residual by ultrasound Today N40.0 - Benign prostatic hyperplasia without lower urinary tract symptoms Patient Instructions: The patient had an opportunity to ask questions regarding the treatment plan. All questions were answered. Physical exam, labs, and imaging were discussed and reviewed in detail. As well as risks, benefits, and discussion of treatment choices. No major barriers to understanding were identified. The patient expressed understanding and agreement with the above treatment plan. The patient was made aware they should contact our office by phone for worsening of their current condition, the appearance of new symptoms, or with any questions or concerns. Compliance is encouraged with any medications and follow up testing that is ordered. It is a privilege to be allowed the opportunity to participate in? your urological care.? Again, if you have any questions or concerns If you have any questions or concerns please do not hesitate to contact me. The office is [phone]. This note is constructed using voice recognition software. While every effort has been made to ensure accuracy director of cardiology errors may have been included. Yours sincerely, OKSANA Moss Coding Level of Care Code Est Pt Level 3 (86622) Complex EM visit Add On G2211 Diagnoses Enlarged prostate N40.0 Erectile dysfunction associated with type 2 diabetes mellitus E11.69; N52.1 Elevated prostate specific antigen [PSA] R97.20 Benign prostatic hyperplasia with lower urinary tract symptoms N40.1 CPT Codes Post Residual Void - PVR CPT Code: 77611-Ehmn Void Residual by ultrasound ([id number])
--- OUTSIDE RECORDS SUMMARY | 2024-08-27 10:08 | XMS_ITS | Patient Health Record ---
Author Organization [facility] Address [address] [place] [address] Care Team Providers Care Wind Energy Project Manager Name Role Phone Enrique Stein MD Primary Care Provider UnavailAlicia Rodriguez Unavailable [phone] Ayaan Urbano Unavailable [phone] Allergies No Known Allergies Results Component Value [...] (M20.41,M20.42), Preulcerative Skin Lesion(s) (L85.1 05/17/2024 Active [place] 3 500-1,000 mg Active Multivitamin - 1 [...] Problem Acquired hammer toe of right foot (0977707055487396 ) Other hammer toe(s) (acquired), right foot (M20.41) Active confirmed Problem Acquired hammer toe of left foot (5511912970653528 ) Other hammer toe(s) (acquired), left foot (M20.42) Active confirmed Problem Polyneuropathy due to diabetes mellitus type I (684024661) Type 1 diabetes mellitus with diabetic polyneuropathy (E10.42) Active confirmed Problem Polyneuropathy due to type 2 diabetes mellitus (907907926) Type 2 diabetes mellitus with diabetic polyneuropathy (E11.42) Active confirmed Vital Signs Blood pressure diastolic 80 mm Hg 05/17/2024 Height 5 ft 8 in in 05/17/2024 Blood pressure systolic 120 mm Hg 05/17/2024 Weight 198 lbs 05/17/2024 BMI 30.1 kg/m2 05/17/2024 Procedures Procedure Date Ordered Date Performed Result Body Sit e 61568-YLQAFVN NAIL, 6 OR MORE 05/17/2024 N/A 05367-TOAC SKIN LESIONS, OVER 4 05/17/2024 N/A Encounters Encounter Location Date Provider Diagnosis [facility] [address] [address] 01/16/2024 Ayaan Urbano Type 2 diabetes mellitus with diabetic polyneuropathy E11.42 and Tinea unguium B35.[address] [facility] [address] [address] 05/17/2024 Alicia Prescott Other hammer toe(s) (acquired), [...] Treatment Pending Test Test Name Order Date 22587-SKEEDHU NAIL, 6 OR MORE 05/17/2024 70349-AGFK SKIN LESIONS, OVER 4 05/17/19 25 40794-SCHO SKIN LESIONS, 2 TO 4 01/11/20 23 Z0433-NWZGVNST DYSTROPHIC NAILS ANY # 26045-CCDBPKJK OF HEMATOMA/FLUID 023 Next Appt Details Provider Name:Alicia Damon jimy, 09/19/2024 09:15:00 AM, [address] [facility], [place], [address], Insurance Providers Payer Name Payer Address Payer Phone Subscriber Number Group Number Insured Name Patient Relationship to Insured Coverage Start Date Coverage End Date [employer] Medicare Adv-[id number] [address] [address] [place] [phone] [id number] Jorge Collins Self - patient is the insured Medical (General) History Medical History History ICD Code Arthritis CAD (Cholesterol) Cataracts Diabetic High blood pressure Chicken pox Measles Benign prostatic hyperplasia (BPH) Diabetes mellitus Hyperlipidemia Erectile dysfunction Surgical History Surgery Date(Month/Year) Lower 2015 cataract surgery prostate surgery pterygium excision
--- OUTSIDE RECORDS SUMMARY | 2024-08-27 10:09 | XMS_ITS ---
Author Organization [facility] Address [address] [facility] [place] [address] Care Team Providers Care Music Worker Name Role Phone Enrique Stein MD Primary Care Provider Unavaila Alicia Vang Unavailable [phone] Ayaan Urbano Unavailable [phone] Allergies No Known Allergies Medications Medication SIG (Take, Route, Frequency, Duration) Notes Start Date End Date Status [place] 3 500-1,000 mg Active Multivitamin - 1 [...] 07/11/2023 Encounters Encounter Location Date Provider Diagnosis [facility] [place] [address] [place] [address] 07/11/2023 Ayaan Urbano Type 2 diabetes mellitus [...] Provider Name:Alicia Reganrobert ahn, 09/19/2024 09:15:00 AM, [address] [place] [address], [address], Progress Notes * Francisco Javier COLLINSOB: [birth year] (68 yo M)Acc No.[id number]:07/11/2023 Progress Note Patient:?Mickey COLLINSnando Provider:?Ayaan Urbano DPM :1955???Age:68 Y???Sex:Male Kenneth e:07/11/2023 Address:[address] [place] [address] Anthony Mayer [facility] Pcp:Enrique Stein MD Subjective: * Chief Complaints: [...] List reviewed and reconciled with the patientTaking [place] 3 , Notes to Pharmacist: 500-1,000 mgTaking [...] DPM Date:? 024 Generated for Magen odom/Jacquie/Girish on:?08/27/2024 10:08 AM EDT History and Physical Notes * [...]
--- OUTSIDE RECORDS SUMMARY | 2024-08-27 10:09 | XMS_ITS ---
Author Organization [facility] Address [address] [facility] [address] Care Team Providers Care Castings Trimmer Name Role Phone Enrique Stein MD Primary Care Provider Alicia Pierre Unavailable [phone] Allergies No Known Allergies REASON FOR VISIT [...] (M20.41,M20.42), Preulcerative Skin Lesion(s) (L85.1 05/17/2024 Active [place] 3 500-1,000 mg Active Multivitamin - 1 [...] Problem Acquired hammer toe of right foot (8582387050636240 ) Other hammer toe(s) (acquired), right foot (M20.41) Active confirmed Problem Acquired hammer toe of left foot (4641881699471851 ) Other hammer toe(s) (acquired), left foot (M20.42) Active confirmed Problem Polyneuropathy due to diabetes mellitus type I (175673545) Type 1 diabetes mellitus with diabetic polyneuropathy (E10.42) Active confirmed Vital Signs Height 5 ft 8 in in 05/17/2024 Weight 198 lbs 05/17/2024 BMI 30.1 kg/m2 05/17/2024 Blood pressure systolic 120 mm Hg 05/17/19 25 Blood pressure diastolic 80 mm Hg 025 Procedures Procedure Date Ordered Date Performed Result Body Sit e 44213-FTGPFZH NAIL, 6 OR MORE 05/17/2024 N/A 69722-BVDW SKIN LESIONS, OVER 4 05/17/2024 N/A Encounters Encounter Location Date Provider Diagnosis [facility] [address] [address] 05/17/2024 Alicia Prescott Other hammer toe(s) (acquired), [...] INSTRUCTIONS.pdf) Pending Test Test Name Order Date 57197-SMBFXQL NAIL, 6 OR MORE 05/17/2024 54670-DLSC SKIN LESIONS, OVER 4 05/17/19 25 Next Appt Details Follow Up: 4 Months, Reason: Provider Name:Alicia ahn, 09/19/2024 09:15:00 AM, [address] [place] [address], [address], Procedure Notes * Category Sub-Category Detail [...] use of a nail nipper and/or dremel-type meal grinder tender, to a more viable healthy nail plate [...] to maintain effectiveness in symptomatic relief - 55677 Keratoma Treatment Parring or Cutting o f [...] instrumentation by the physician of record - 69136 Progress Notes * Francisco Javier COLLINSOB: [birth year] (68 yo M)Acc No.[id number]:05/17/2024 Progress Note Patient:?Jorge COLLINS Provider:?Alicia Prescott DPM :1955???Age:68 Y???Sex:Male Kenneth e:05/17/2024 Address:[address] [place] [address] [facility] Pcp:Enrique Stein MD Subjective: * Chief Complaints: [...] List reviewed and reconciled with the patientTaking [place] 3 , Notes to Pharmacist: 500-1,000 mgTaking [...] 2.?Type 2 diabetes mellitus with diabetic polyneuropathy?Procedure: 64151-TJFVMJK NAIL, 6 OR MORE ?Procedure: 80269-HBBR SKIN LESIONS, OVER 4 * Procedures:?Debride Nail [...] use of a nail nipper and/or dremel-type meal grinder tender, to a more viable healthy nail plate [...] to maintain effectiveness in symptomatic relief - 59136.?Keratoma Treatment:?Parring or Cutting of Benign Hyperkeratotic Lesion(s)?(-57) [...] instrumentation by the physician of record - 06218.? * Procedure Codes:?45731 DEBRI DE NAIL, 6 OR MORE, Modifiers: XS 04591 TRIM SKIN LESIONS, OVER 4, Modifiers: XS [...] DPM Date:?0 05/17/2024 Generated for Magen odom/Jacquie/eTransmitting on:?08/27/2024 10:08 AM EDT History and Physical [...] d iminished Sensory and motor testing performed:: [facility] normal Pedal pulse taking performed:: 2+ [...]
--- OUTSIDE RECORDS SUMMARY | 2024-08-27 10:09 | XMS_ITS ---
Author Organization [facility] Address [address] [place] [address] Care Team Providers Care Out Patient Therapist Name Role Phone Enrique Stein MD Primary Care Provider Unavaila Alicia Vang Unavailable [phone] Ayaan Urbano Unavailable [phone] Allergies No Known Allergies Medications Medication SIG [...] SEXUAL ACTIVITY Oral for 30 Days Active [place] 3 500-1,000 mg Active Multivitamin - 1 [...] 01/16/2024 Encounters Encounter Location Date Provider Diagnosis [facility] [place] [address] [place] [address] 01/16/2024 Ayaan Urbano Type 2 diabetes mellitus [...] Provider Name:Alicia Damon jimy, 09/19/2024 09:15:00 AM, [address] [place] [address], [address], Progress Notes * Francisco Javier COLLINSOB: [birth year] (68 yo M)Acc No.[id number]:01/16/2024 Progress Note Patient:?Mickey Collinsnando Provider:?Ayaan Urbano DPM :1955???Age:68 Y???Sex:Male Kenneth e:01/16/2024 Address:[address] [place] [address] Anthony Mayer [facility] Pcp:Enrique Stein MD Subjective: * Chief Complaints: [...] List reviewed and reconciled with the patientTaking [place] 3 , Notes: 500-1,000 mgTaking Multivitamin - [...]
== END 2024-08-27 10:01 | disposition home or self-care (01) ==
LOC: HO.HUSH 09:16
PROVIDERS: PCP Internal Medicine; Visit Provider Nurse Practitioner Family
DX: N40.0 Benign prostatic hyperplasia without lower urinary tract symptoms (principal); E11.69 Type 2 diabetes mellitus with other specified complication; N52.1 Erectile dysfunction due to diseases classified elsewhere; R97.20 Elevated prostate specific antigen [PSA]; N40.1 Benign prostatic hyperplasia with lower urinary tract symptoms; Z13.9 Encounter for screening, unspecified
CPT/HCPCS: 99213; G2211

== ENCOUNTER → 2024-08-27 09:15 | Outpatient (BNVA) | payer MEDICARE, SELFPAY | PROVIDERS: PCP Internal Medicine; Visit Provider Nurse Practitioner Family | DX: N40.1 Benign prostatic hyperplasia with lower urinary tract symptoms (principal); N52.9 Male erectile dysfunction, unspecified; E11.69 Type 2 diabetes mellitus with other specified complication; N52.1 Erectile dysfunction due to diseases classified elsewhere; R97.20 Elevated prostate specific antigen [PSA] | CPT/HCPCS: 51798; 81003; 99212 ==

== ENCOUNTER 2024-09-17 07:01 | Outpatient (REF) | payer MEDICARE, SELFPAY ==
--- OUTSIDE RECORDS SUMMARY | 2024-09-17 07:03 | XMS_ITS ---
Author Organization [facility] Address [address] [facility] [place] [address] Care Team Providers Care Inlayer Name Role Phone Enrique Stein MD Primary Care Provider Unavaila Alicia Vang Unavailable [phone] Ayaan Urbano Unavailable [phone] Allergies No Known Allergies Medications Medication SIG [...] SEXUAL ACTIVITY Oral for 30 Days Active [place] 3 500-1,000 mg Active Multivitamin - 1 [...] 01/16/2024 Encounters Encounter Location Date Provider Diagnosis [facility] [place] [address] [place] [address] 01/16/2024 Ayaan Urbano Type 2 diabetes mellitus [...] Up: 4 Months, Reason: Provider Name:Alicia Damon ijmy, 09/19/2024 09:15:00 AM, [address] [place] [address], [address], Progress Notes * Francisco Javier COLLINSOB: [birth year] (68 yo M)Acc No.[id number]:01/16/2024 Progress Note Patient:?Mickey Collinsnando Provider:?Ayaan Urbano DPM :1955???Age:68 Y???Sex:Male Kenneth e:01/16/2024 Address:[address] [place] [address] Anthony Mayer [facility] Pcp:Enrique Stein MD Subjective: * Chief Complaints: [...] List reviewed and reconciled with the patientTaking [place] 3 , Notes: 500-1,000 mgTaking Multivitamin - [...] DPM Date:? 024 Generated for Magen odom/Jacquie/Girish on:?09/17/2024 07:03 AM EDT History and Physical Notes * [...]
--- OUTSIDE RECORDS SUMMARY | 2024-09-17 07:03 | XMS_ITS | Patient Health Record ---
Author Organization [facility] Address [address] [place] [address] Care Team Providers Care Transportation Attendant Name Role Phone Enrique Stein MD Primary Care Provider UnavailAlicia Rodriguez Unavailable [phone] Ayaan Urbano Unavailable [phone] Allergies No Known Allergies Results Component Value [...] (M20.41,M20.42), Preulcerative Skin Lesion(s) (L85.1 05/17/2024 Active [place] 3 500-1,000 mg Active Multivitamin - 1 [...] Problem Acquired hammer toe of right foot (4638412368524103 ) Other hammer toe(s) (acquired), right foot (M20.41) Active confirmed Problem Acquired hammer toe of left foot (6820030204629125 ) Other hammer toe(s) (acquired), left foot (M20.42) Active confirmed Problem Polyneuropathy due to diabetes mellitus type I (282476322) Type 1 diabetes mellitus with diabetic polyneuropathy (E10.42) Active confirmed Problem Polyneuropathy due to type 2 diabetes mellitus (746636660) Type 2 diabetes mellitus with diabetic polyneuropathy (E11.42) Active confirmed Vital Signs Blood pressure diastolic 80 mm Hg 05/17/2024 Height 5 ft 8 in in 05/17/2024 Blood pressure systolic 120 mm Hg 05/17/2024 Weight 198 lbs 05/17/2024 BMI 30.1 kg/m2 05/17/2024 Procedures Procedure Date Ordered Date Performed Result Body Sit e 97324-ICHCISJ NAIL, 6 OR MORE 05/17/2024 N/A 30974-KPCD SKIN LESIONS, OVER 4 05/17/2024 N/A Encounters Encounter Location Date Provider Diagnosis [facility] [address] [address] 01/16/2024 Ayaan Urbano Type 2 diabetes mellitus with diabetic polyneuropathy E11.42 and Tinea unguium B35.[address] [facility] [address] [address] 05/17/2024 Alicia Prescott Other hammer toe(s) (acquired), [...] Treatment Pending Test Test Name Order Date 56276-KRGGSMF NAIL, 6 OR MORE 05/17/2024 62281-UYJA SKIN LESIONS, OVER 4 05/17/19 25 11709-BEKF SKIN LESIONS, 2 TO 4 01/11/20 23 K1425-DGHQHRJH DYSTROPHIC NAILS ANY # 13156-KVNTWKON OF HEMATOMA/FLUID 023 Next Appt Details Provider Name:Alicia Damon jimy, 09/19/2024 09:15:00 AM, [address] [facility], [place], [address], Insurance Providers Payer Name Payer Address Payer Phone Subscriber Number Group Number Insured Name Patient Relationship to Insured Coverage Start Date Coverage End Date [employer] Medicare Adv-[id number] [address] [address] [place] [address] [phone] [id number] Jorge Collins Self - patient is the insured Medical (General) History Medical History History ICD Code Arthritis CAD (Cholesterol) Cataracts Diabetic High blood pressure Chicken pox Measles Benign prostatic hyperplasia (BPH) Diabetes mellitus Hyperlipidemia Erectile dysfunction Surgical History Surgery Date(Month/Year) Lower 2015 cataract surgery prostate surgery pterygium excision
--- OUTSIDE RECORDS SUMMARY | 2024-09-17 07:04 | XMS_ITS ---
Author Organization [facility] Address [address] [place] [address] Care Team Providers Care Stucco Laborer Name Role Phone Enrique Stein MD Primary Care Provider Raf Rai [phone] REASON FOR VISIT screening Problems Problem Type SNOMED Code ICD Code Onset Dates Problem Status W/U Status Risk Notes Problem Diverticulosis o f large intestine without perforation or abscess without bleeding (K57.30) Active confirmed Encounters Encounter Location Date Provider Diagnosis [facility] Outpatient [address] [place] [id number] 04/11/2024 Raf Pickett Colon cancer scree kitty [...] Of Treatment No Information Progress Notes * LISA MARTINEZCONSTANCEOB: [birth year] (69 yo M)Acc No.[id number]:04/11/2024 COLON WITH MAC Patient:?MARTINEZ GONZALEZNANDO Provider:?Raf Pickett MD :1955???Age:68 Y???Sex:Male Kenneth e:04/11/2024 Address:[address] [place], [place] [id number] Pcp:Enrique Stein MD Subjective: * Chief Complaints: * ???1. Screening. * Medical History:? Objective: * Vitals:? Assessment: * Assessment: 1.?Colon cancer screening - Z12.11 (Primary)???2.?Colon polyps - K63.5???3.?Diverticulosis of large intestine without perforation or abscess without bleeding - K57.30???4.?Other hemorrhoids - K64.8??? Plan: * Treatment: * Procedure Codes:?81252 LESIO N REMOVAL COLONOSCOPY, Modifiers: PT , [...] MD Date:? 024 Generated for Magen odom/Jacquie/eTransmitting on:?09/17/2024 07:04 AM EDT
--- OUTSIDE RECORDS SUMMARY | 2024-09-17 07:04 | XMS_ITS ---
Author Organization [facility] Address [address] [place] [address] Care Team Providers Care Director Search Marketing Strategies Name Role Phone Enrique Stein MD Primary Care Provider Raf Rai Unavailable [phone] Allergies No Known Allergies REASON FOR VISIT [...] Status Risk Notes Problem Colon cancer screening (Z12.11) Active confirmed Problem Pre-procedure evaluation check (199625038) Encounter for other preprocedural examination (Z01.818) Active confirmed Vital Signs Blood pressure systolic 00 mm Hg 01/10/20 24 Blood pressure diastolic 00 mm Hg 024 Height 5 ft 8 in in 01/10/2024 Weight 187 lbs 01/10/2024 BMI 28.43 kg/m2 01/10/2024 Encounters Encounter Location Date Provider Diagnosis [facility] [address] [place] [address] 01/10/2024 Raf Pickett Colon cancer screeni ng [...] * CORNELL GONZALEZOB: [birth year] (68 yo M)Acc No.[id number]:01/10/2024 Progress Notes Patient:?LEISA GONZALEZ Provider:?Raf Pickett MD :1955???Age:68 Y???Sex:Male Kenneth e:01/10/2024 Address:[address] [place] [address] Pcp:Enrique Stein MD Subjective: * Chief Complaints: [...] point),?Points?0,?Interpretation?Negative.?Miscellaneous:?Marital status: . 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 ???Nonsmoker; no sig alcohol. * [...] Procedure Codes:?3017F COLOR ECTAL CA SCREEN DOC DMP9364K TOBACCO NON-DJGPZ5843 BP SCR NOT PRFRM REC REASON NOS * Preventive Medicine:? ??Counseling:?Care goal follow-up plan:?Above Normal BMI Follow-up?Giving encouragement to exercise,?BMI management provided?Yes.? ??Screenings:?Fall Risk Screening?Fall Risk Assessment:?No falls in the past year,?Assessment:?Not performed, no reason specified.? * Follow Up:?prn * * Sign off status: Completed true * Provider:?Raf Pickett MD Date:? 024 Generated for Comforti lei/Jacquie/eTransmitting on:?09/17/2024 07:04 AM EDT History and Physical Notes * [...]
--- OUTSIDE RECORDS SUMMARY | 2024-09-17 07:04 | XMS_ITS ---
Author Organization [facility] Address [address] [facility] [place] [address] Care Team Providers Care Clinical Informatics Strategist Name Role Phone Enrique Stein MD Primary Care Provider Unavaila Alicia Vang Unavailable [phone] Ayaan Urbano Unavailable [phone] Allergies No Known Allergies Medications Medication SIG (Take, Route, Frequency, Duration) Notes Start Date End Date Status [place] 3 500-1,000 mg Active Multivitamin - 1 [...] 07/11/2023 Encounters Encounter Location Date Provider Diagnosis [facility] [place] [address] [place] [address] 07/11/2023 Ayaan Urbano Type 2 diabetes mellitus [...] Provider Name:Alicia Reganrobert ahn, 09/19/2024 09:15:00 AM, [address] [place] [address], [address], Progress Notes * Francisco Javier COLLINSOB: [birth year] (68 yo M)Acc No.[id number]:07/11/2023 Progress Note Patient:?Mickey COLLINSnando Provider:?Ayaan Urbano DPM :1955???Age:68 Y???Sex:Male Kenneth e:07/11/2023 Address:[address] [place] [address] Anthony Mayer [facility] Pcp:Enrique Stein MD Subjective: * Chief Complaints: [...] List reviewed and reconciled with the patientTaking [place] 3 , Notes to Pharmacist: 500-1,000 mgTaking [...]
--- OUTSIDE RECORDS SUMMARY | 2024-09-17 07:04 | XMS_ITS | Patient Health Record ---
Author Organization [facility] Address [address] [place] [address] Care Team Providers Care Canary Breeder Name Role Phone Enrique Stein MD Primary Care Provider Raf Rai [phone] Allergies No Known Allergies Results Component Value Reference Range Notes Glucose, Whole Blood Reviewed date:04/11/2024 01:29:11 PM Interpretation: Performing Lab:[facility], [address] [place] [address] Notes/Report: Glucose, Whole Blood 126 60-115 mg/dL METER # : [id number] Pathology (Not yet reviewed by provider) Interpretation: Performing Lab:[facility], [address] [place] [phone] Notes/Report: ---- Name: Pablo Collins do Age/Sex: 68/M : 1955 Unit#: [id number] Attend Dr: Raf Pickett MD Re04/11/24 Status : [facility] Location: [email or web address] Disch: ---- SPEC : [id number] RECD : 04/11/24 STATUS: ELVA ARECHIGA NUM: [id number] VALDEMAR: 04/11/24-12[address] [facility] DR: Raf Pickett MD ENTERED: 04/11/24- SP [...] A. CEDS Copies To: Enrique Stein MD [facility] Primary Care,[place] [address] [place] [address] Raf Pickett MD [facility] [address] [place] [address] ---- Signed (signature on file) Aman Mishra [...] Status Risk Notes Problem Colon cancer screening (271968328) Colon cancer screening (Z12.11) Active confirmed Problem Pre-procedure evaluation check (421945444) Encounter for other preprocedural examination (Z01.818) Active confirmed Problem Diverticular disease of colon (622885840) Diverticulosis of large intestine without perforation or abscess without bleeding (K57.30) Active confirmed Vital Signs Blood pressure diastolic 00 mm Hg 01/10/2024 Height 5 ft 8 in in 01/10/2024 Blood pressure systolic 00 mm Hg 01/10/2024 Weight 187 lbs 01/10/2024 BMI 28.43 kg/m2 01/10/2024 Encounters Encounter Location Date Provider Diagnosis [facility] [address] [place], [place] [id number] 04/11/2024 Raf Pickett Colon cancer screeni ng Z12.11 ; Colon polyps K63.5 ; Diverticulosis of large intestine without perforation or abscess without bleeding K57.30 and Other hemorrhoids K64.8 [facility] [address] [place] [address] 01/10/2024 Raf Pickett Colon cancer screeni ng [...] Date [employer] Medicare Advantage Plan [address] [address] [place] [address] [phone] [id number] LEISA COLLINS Self - patient is the insured Medical (General) History Medical History History ICD Code Hypertension Hypercholesterolemia NIDDM Negative colonoscopies at age 48 and 58 at [facility] Denies DE,CVA,Lung disease,renal disease Surgical History Surgery Date(Month/Year) Cataracts Laser prostate surgery
--- OUTSIDE RECORDS SUMMARY | 2024-09-17 07:04 | XMS_ITS ---
[facility] Address [address] [facility] [place] [address] Care Team Providers Care Slag Mixer Name Role Phone Enrique Stein MD Primary Care Provider Alicia Pierre Unavailable [phone] Allergies No Known Allergies REASON FOR VISIT [...] (M20.41,M20.42), Preulcerative Skin Lesion(s) (L85.1 05/17/2024 Active Sawyer 3 500-1,000 mg Active Multivitamin - 1 [...] Problem Acquired hammer toe of right foot (9820123416774890 ) Other hammer toe(s) (acquired), right foot (M20.41) Active confirmed Problem Acquired hammer toe of left foot (1920168974482787 ) Other hammer toe(s) (acquired), left foot (M20.42) Active confirmed Problem Polyneuropathy due to diabetes mellitus type I (435231974) Type 1 diabetes mellitus with diabetic polyneuropathy (E10.42) Active confirmed Vital Signs Height 5 ft 8 in in 05/17/2024 Weight 198 lbs 05/17/2024 BMI 30.1 kg/m2 05/17/2024 Blood pressure systolic 120 mm Hg 05/17/19 25 Blood pressure diastolic 80 mm Hg 025 Procedures Procedure Date Ordered Date Performed Result Body Sit e 16948-ZIQSFTT NAIL, 6 OR MORE 05/17/2024 N/A 70739-AOAP SKIN LESIONS, OVER 4 05/17/2024 N/A Encounters Encounter Location Date Provider Diagnosis [facility] [address] [address] 05/17/2024 Alicia Prescott Other hammer toe(s) (acquired), [...] INSTRUCTIONS.pdf) Pending Test Test Name Order Date 13821-JCWNCLY NAIL, 6 OR MORE 05/17/2024 97355-NWFC SKIN LESIONS, OVER 4 05/17/19 25 Next Appt Details Follow Up: 4 Months, Reason: Provider Name:Alicia ahn, 09/19/2024 09:15:00 AM, [address] [place] [address], [id number], Procedure Notes * Category Sub-Category Detail [...] use of a nail nipper and/or dremel-type centerless grinder, to a more viable healthy nail [...] to maintain effectiveness in symptomatic relief - 44135 Keratoma Treatment Parring or Cutting o f [...] instrumentation by the physician of record - 73590 Progress Notes * Francisco Javier COLLINSOB: [birth year] (68 yo M)Acc No.[id number]:05/17/2024 Progress Note Patient:?Jorge COLLINS Provider:?Alicia Prescott DPM :1955???Age:68 Y???Sex:Male Kenneth e:05/17/2024 Address:[address] [place] [address] [facility] Pcp:Enrique Stein MD Subjective: * Chief Complaints: [...] List reviewed and reconciled with the patientTaking Sawyer 3 , Notes to Pharmacist: 500-1,000 mgTaking [...] 2.?Type 2 diabetes mellitus with diabetic polyneuropathy?Procedure: 55511-RUHZKZN NAIL, 6 OR MORE ?Procedure: 53720-UBXY SKIN LESIONS, OVER 4 * Procedures:?Debride Nail [...] use of a nail nipper and/or dremel-type centerless grinder, to a more viable healthy nail [...] to maintain effectiveness in symptomatic relief - 89206.?Keratoma Treatment:?Parring or Cutting of Benign Hyperkeratotic Lesion(s)?(-57) [...] instrumentation by the physician of record - 26932.? * Procedure Codes:?50393 DEBRI DE NAIL, 6 OR MORE, Modifiers: XS 35584 TRIM SKIN LESIONS, OVER 4, Modifiers: XS [...] Prescott DPM Date:?0 05/17/2024 Generated for Magen odom/Jacquie/Johnysmitting on:?09/17/2024 07:04 AM EDT History and Physical [...] d iminished Sensory and motor testing performed:: [facility] normal Pedal pulse taking performed:: 2+ [...]
[2024-09-17 07:16] LABS: MANUAL DIFF FLAG NO
[2024-09-17 08:02] LABS: Basophils Percent Auto 0.6 % (0-2); Eosinophils Absolute Auto 0.2 X10*3/uL (0.0-0.4); Eosinophils Percent Auto 3.6 % (0-4); Hemoglobin 14.1 g/dl (14.0-18.0); Imm Gran Abs Auto 0.01 X10*3/uL (0.00-0.03); Imm Gran Pct Auto 0.2 % (0.0-0.4); Lymphocytes Absolute Auto 2.6 X10*3/uL (1.2-4.9); Lymphocytes Percent Auto 41.4 % (20-40); Mean Corpuscular HGB Conc 32.8 g/dl (31.0-36.0); Mean Corpuscular Hemoglobin 27.9 pg (27.0-33.0); Mean Platelet Volume 10.3 fL (9.4-12.4); Monocytes Absolute Auto 0.5 X10*3/uL (0.1-1.2); Monocytes Percent Auto 8.2 % (2-11); Neutrophils Absolute Auto 2.9 x10*3/uL (2.0-8.3); Platelet Count 263 X10*3/uL (160-400); Red Blood Count 5.06 X10*6/uL (4.60-5.80); Red Cell Distribution Width 12.9 % (11.0-16.0); White Blood Count 6.4 X10*3/uL (4.8-10.8)
[2024-09-17 08:08] LABS: Estimated Average Glucose 148 mg/dL; Hemoglobin A1C 188.0258 umol/L; Hemoglobin A1c % 6.8 % (<6.0); Total Hemoglobin (HGBA1C) 3719.7331 umol/L
[2024-09-17 08:51] LABS: Appearance Urine Clear; Color Urine Yellow; Glucose Urine UA Negative (Negative); Leukocyte Esterase Urine Negative (Negative); Nitrite Urine Negative (Negative); Urine Blood Negative (Negative); Urine Ketones Negative (Negative); Urine Protein Negative (Neg-Trace)
[2024-09-17 08:54] LABS: Alanine Aminotransferase 16 U/L (0-40); Albumin Level 4.2 g/dL (3.5-5.0); Alkaline Phosphatase 68 U/L (39-117); Anion Gap 13 (12-20); Aspartate Amino Transferase 22 U/L (5-37); Bilirubin Total 0.4 mg/dL (0.0-1.0); Blood Urea Nitrogen 13 mg/dL (9-16); Calcium 9.8 mg/dL (8.4-10.2); Carbon Dioxide 31 mmol/L (22-29); Chloride 99 mmol/L (96-108); Cholesterol 188 mg/dL (<200); Estimated Glomerular Filt Rate > 60; Glucose Fasting 128 mg/dL (60-99); HDL Cholesterol 39 mg/dL (>40); LDL Cholesterol Calculated 130 mg/dL (<100); Potassium 3.6 mmol/L (3.3-5.1); Sodium 139 mmol/L (135-145); Total Protein 7.3 g/dL (6.5-8.0); Triglycerides 99 mg/dL (<150)
[2024-09-17 09:14] LABS: TSH reflex Free T4 2.55 uIU/mL (0.32-4.0); Vitamin D 25-OH Total 49.6 ng/mL (>30)
== END 2024-09-17 07:02 | disposition home or self-care (01) ==
LOC: HO.LAB 07:01
DX: E78.5 Hyperlipidemia, unspecified (principal); R97.20 Elevated prostate specific antigen [PSA]; N40.1 Benign prostatic hyperplasia with lower urinary tract symptoms; E11.9 Type 2 diabetes mellitus without complications; I10 Essential (primary) hypertension
CPT/HCPCS: 36415; 80053; 80061; 81003; 82306; 83036; 84443; 85025

== ENCOUNTER 2024-09-25 08:12 | Outpatient (AMB) | payer MEDICARE, SELFPAY ==
--- NOTE | 2024-09-25 08:17 | A.OFFPC_ITS ---
Vital Signs 09/25/24 08:18 Height 5 ft 8 in Weight 193 lb 8 oz BMI 29.4 BP 130/70 Blood Pressure Location Lt brachial Position Sitting Pulse 78 Pulse Source Pulse Oximeter Temp 97.1 F Temp Source Temporal Artery Scan Pulse Oximetry (%) 98 Oxygen Delivery Method Room Air Intake Visit Reasons: [facility]EL from [facility]/3 mo follow up Intake Note: Patient is here today for ISAEL and DM F/U Welder Tech Required: No Division Service Manager: Not Required per policy Accompanied by: Self / Same As Patient Allergies No Known Allergies Allergy (Verified 09/25/24 08:34) Medication List - Last Reconciled 09/25/24 by ALLISON Sheikh aspirin (Adult Low Dose Aspirin) 81 mg PO DAILY cyanocobalamin (vitamin B-12) (Vitamin B-12) 500 mcg PO DAILY finasteride 5 mg PO DAILY 90 days metformin 500 mg PO BID multivitamin 1 tab PO DAILY omega 5-eyi-cbc-fish oil 500-1,000 mg 1 cap PO DAILY rosuvastatin 20 mg PO DAILY tadalafil 5 mg PO DAILY Tobacco use date assessed: 09/25/24 Fall risk assessment: No Falls in past year Last assessed Fall Risk: 09/25/24 Dental Screening Dental Screen Date: 06/12/[address] [facility]/3 mo follow up HPI Details The patient is a 69-year-old male presenting for transition of care from Dr. Stein, who retired. He is here to for 3 month follow up ongoing management of Type 2 Diabetes Mellitus and hyperlipidemia. The patient's Diabetes Mellitus shows that it is controlled with an A1c of 6.8% following dietary adjustments and regular exercise. However, the patient experienced an increase in choleste rol levels from 88 mg/dL to 130 mg/dL, primarily due to inconsistent rosuvastatin intake. Reports that he is taking the rosuvastatin every other day because he thought that because he increased his fiber intake that will help lower his cholesterol. The LDL target, considering the patient?s diabetic condition, is below 70 mg/dL. Skin tags were observed on the patient?s right upper back and right buttocks, with the patient expressing a desire for removal. Denies chest pain, SOB, heart palpitation, dizziness. No constipation or change in bowel habits. Reports urinary symptoms are controlled on current treatment. [facility] Medical History Hyperlipidemia Elevated prostate specific antigen [PSA] Benign prostatic hyperplasia with lower urinary tract symptoms Diabetes mellitus with coincident hypertension Hypertension Surgical History History of cataract surgery History of pterygium excision History of prostate surgery Family History Father No problems noted. Mother No problems noted. Social History Housing: House Are you a primary hearing care professional to a significant other at home: No Do you presently have visiting nurse or other home services: No Alcohol intake: current Alcohol intake frequency: a few times a week Patient Tobacco Use Status: Never used Tobacco e-Cigarette/Vaping Use: Never Used Second Hand Smoke Exposure: No service: No Current occupational status: retired Current occupational exposures/hazards: No Cognitive needs: No Hearing needs: No Vision needs: Yes Questionnaire PHQ-9 Over the last 2 weeks, how often have you been bothered by any of the following problems? 3. Trouble falling or staying asleep, or sleeping too much: not at all 4. Feeling tired or having little energy: not at all Source: Developed by Drs. Raf Nichole, Alexa Gonzalez, Hunter Villa and colleagues, with an educational april from [employer]. Thrive Questionnaire Date Thrive assessed: 06/10/24 I am a: Parent/Caregiver What is your living situation today?: I choose not to answer this question Within the past 12 months, did the food you bought not last and you didn't have the money to get more?: I choose not to answer this question Within the past 12 months, did you worry whether your food would run out before you got money to buy more?: I choose not to answer this question Do you have trouble paying for medicines?: I choose not to answer this question Do you have trouble getting transportation to medical appointments?: No Do you have trouble paying your heating and electricity bill?: No Do you have trouble taking care of your child, family member or friend?: I choose not to answer this question Do you have trouble with day-to-day activities such as bathing, preparing meals, shopping, managing finances, etc.?: No Are you currently unemployed and looking for a job?: No Are you interested in more education?: No Please select the resources that you would like help with: None Currently or been in a relationship where the following occur: I choose not to answer THRIVE Score: 0 WILFRED-7 AMB Questionnaire WILFRED-7 Date WILFRED - 7 assessed: 06/12/24 Source: Developed by Drs. Raf Nichole, Alexa Gonzalez, Hunter Villa and colleagues, with an educational april from [employer]. Review of Systems Const Denies headache(s) Eyes Denies loss of vision ENT Denies vertigo, Denies dizziness, Denies headache(s) and Denies sore throat Card Denies chest pain, Denies leg edema and Denies lightheadedness Resp Denies cough, Denies hemoptysis and Denies wheezing GI Denies abdominal pain, Denies melena, Denies constipation, Denies diarrhea and Denies vomiting Denies dysuria, Denies urinary frequency and Denies urinary urgency Musc Denies arthralgias, Denies joint swelling, Denies numbness and Denies tingling Skin/Breast Reports lesions (Skin tags: right buttocks and right upper back) Neuro Denies Abnormal speech present, Denies behavioral changes, Denies vertigo, Denies dizziness, Denies headache(s), Denies loss of vision, Denies memory loss, Denies numbness and Denies tingling Psych Denies anxiety, Denies behavioral changes, Denies depression, Denies memory loss and Denies panic attacks Solitario/Lymph Denies easy bleeding and Denies easy bruising Aller/Immun Denies wheezing Physical exam (Primary Care) Vital Signs: Last Vital Signs Temp 97.1 F 09/25/24 08:18 Pulse 78 09/25/24 08:18 BP 130/70 09/25/24 08:18 Pulse Ox 98 09/25/24 08:18 Oxygen Delivery Method Room Air 09/25/24 08:18 BMI result Body Mass Index 29.4 Tobacco/Smoking Status: Tobacco use Status Tobacco use date assessed 09/25/24 09/25/24 08:23 Patient Tobacco Use Status Never used Tobacco 09/25/24 08:23 e-Cigarette/Vaping Use Never Used 09/25/24 08:23 Thrive Assessment: Date of Thrive Assessment Date Thrive assessed 06/10/24 09/25/24 08:23 Currently or been in a relationship where the following occur: I choose not to answer Const General: healthy appearing, no acute distress, alert and awake Nutritional Appearance: well nourished Orientation/consciousness: oriented to person, oriented to place and oriented to time HENMT Ears: TM's normal bilaterally General nose exam: Normal nasal mucous membranes and turbinates present Eyes Conjunctivae: conjunctivae normal Sclerae: sclerae normal Pupils: Equal, round and reactive pupils present Neck Neck: Yes no lymphadenopathy and Yes no JVD Thyroid: Thyroid normal Carotids: no bruits Resp Effort & Inspection: normal respiratory effort and not tachypneic Auscultation: no crackles, no rales, no rhonchi and no wheezes Cardio Rate: regular rate Rhythm: regular rhythm Heart sounds: no murmurs and normal S1 and S2 GI Palpation (GI): Soft to palpation, nontender, no hepatomegaly and no splenomegaly Auscultation: normal bowel sounds Skin General skin exam: dry skin Lesions: lesion noted (Right buttocks large brown colored skin tag, small flesh- colored right back) Neuro General: oriented to person, oriented to place and oriented to time Cranial nerves: Yes Equal, round and reactive pupils present Speech: No Abnormal speech present Gait exam (Neuro): Normal gait present Motor exam (neuro): no tremor noted Extrem Right upper extremity: full ROM Left upper extremity: full ROM Right lower extremity: full ROM; no edema Left lower extremity: full ROM; no edema Psych Mental Status: mental status grossly normal Speech and movement: Normal speech and movement present Affect: normal affect Attitude: cooperative Thought process: Normal thought process present Results Reviewed Results Reviewed: Laboratory Tests 08/21/24 09/17/24 09/17/24 06:42 07:16 07:20 WBC 6.4 RBC 5.06 Hgb 14.1 Hct 43.0 MCV 85.0 MCH 27.9 MCHC 32.8 RDW 12.9 Plt Count 263 Sodium 139 Potassium 3.6 Chloride 99 Carbon Dioxide 31 H Anion Gap 13 BUN 13 Creatinine 0.78 Estimated GFR > 60 Fasting Glucose 128 H Estimat Average Glucose 148 Hemoglobin A1c % 6.8 H Calcium 9.8 D Total Bilirubin 0.4 AST 22 ALT 16 Alkaline Phosphatase 68 Total Protein 7.3 Albumin 4.2 Triglycerides 99 Cholesterol 188 LDL Cholesterol, Calc 130 H HDL Cholesterol 39 L Total PSA 2.59 25-OH Vitamin D Total 49.6 TSH 2.55 Urine Color Yellow Urine Appearance Clear Urine pH 7.0 Ur Specific Joseph 1.010 Urine Protein Negative Urine Glucose (UA) Negative Urine Ketones Negative Urine Blood Negative Urine Nitrite Negative Ur Leukocyte Esterase Negative Coding Level of Care Code Est Pt Level 4 (34170) Diagnoses Diabetes mellitus with coincident hypertension E11.9; I10 Hypertension, unspecified type I10 Hypertension type: unspecified Benign prostatic hyperplasia with lower urinary tract symptoms, symptom details unspecified N40.1 Lower urinary tract symptom detail: unspecified Pure hypercholesterolemia E78.00 Hyperlipidemia type: pure hypercholesterolemia Erectile dysfunction associated with type 2 diabetes mellitus E11.69; N52.1 Time Spent (min) 33 Assessment & Plan Assessment & Plan (1) Diabetes mellitus with coincident hypertension: Code(s): E11.9 - Type 2 diabetes mellitus without complications; I10 - Essential (primary) hypertension Category: Medical (2) Hypertension: Code(s): I10 - Essential (primary) hypertension Category: Medical Qualifiers: Hypertension type: unspecified Qualified Code(s): I10 - Essential (primary) hypertension (3) Benign prostatic hyperplasia with lower urinary tract symptoms: Code(s): N40.1 - Benign prostatic hyperplasia with lower urinary tract symptoms Category: Medical Qualifiers: Lower urinary tract symptom detail: unspecified Qualified Code(s): N40.1 - Benign prostatic hyperplasia with lower urinary tract symptoms (4) Hyperlipidemia: Code(s): E78.5 - Hyperlipidemia, unspecified Category: Medical Qualifiers: Hyperlipidemia type: pure hypercholesterolemia Qualified Code(s): E78.00 - Pure hypercholesterolemia, unspecified (5) Erectile dysfunction associated with type 2 diabetes mellitus: Code(s): E11.69 - Type 2 diabetes mellitus with other specified complication; N52.1 - Erectile dysfunction due to diseases classified elsewhere Category: Medical Plan I discussed with the patient the necessity of adhering to a daily rosuvastatin regimen to maintain cholesterol levels, recommending evening administration. Dietary modifications to further reduce cholesterol intake were advised, emphasizing the consumption of fewer egg yolks. The patient was encouraged to keep up with current lifestyle changes, notably daily exercise and dietary adjustments, to manage both diabetes and hyperlipidemia effectively. Regarding dermatological concerns, the possibility of consulting dermatology for the removal of skin tags was mentioned. Blood pressure within normal, reinforced low-salt diet. A1c 6.8% she was controlled diabetes continue metformin 500 mg b.i.d.. Urinary symptoms are stable, continue finasteride 5 mg daily. Continue omega-3 to increase healthy cholesterol. Follow-up in three months will allow us to evaluate the management plan's effectiveness. Patient was informed and verbally consented to the use of an ambient scribe for clinic note documentation during this visit. Orders: Orders Complete Blood Count Auto Diff 3 Months E11.69 - Type 2 diabetes mellitus with other specified complication, E11.9 - Type 2 diabetes mellitus without complications, E78.5 - Hyperlipidemia, unspecified, I10 - Essential (primary) hypertension, N40.1 - Benign prostatic hyperplasia with lower urinary tract symptoms, N52.1 - Erectile dysfunction due to diseases classified elsewhere UA CC w/rflx Micro + Cult 3 Months E11.69 - Type 2 diabetes mellitus with other specified complication, E11.9 - Type 2 diabetes mellitus without complications, E78.5 - Hyperlipidemia, unspecified, I10 - Essential (primary) hypertension, N4 0.1 - Benign prostatic hyperplasia with lower urinary tract symptoms, N52.1 - Erectile dysfunction due to diseases classified elsewhere Vitamin D 25-OH Total 3 Months E11.69 - Type 2 diabetes mellitus with other specified complication, E11.9 - Type 2 diabetes mellitus without complications, E78.5 - Hyperlipidemia, unspecified, I10 - Essential (primary) hypertension, N40.1 - Benign prostatic hyperplasia with lower urinary tract symptoms, N52.1 - Erectile dysfunction due to diseases classified elsewhere Comprehensive [place]. Panel Fast 3 Months E11.69 - Type 2 diabetes mellitus with other specified complication, E11.9 - Type 2 diabetes mellitus without complications, E78.5 - Hyperlipidemia, unspecified, I10 - Essential (primary) hypertension, N40.1 - Benign prostatic hyperplasia with lower urinary tract symptoms, N52.1 - Erectile dysfunction due to diseases classified elsewhere Lipid Panel 3 Months E11.69 - Type 2 diabetes mellitus with other specified complication, E11.9 - Type 2 diabetes mellitus without complications, E78.5 - Hyperlipidemia, unspecified, I10 - Essential (primary) hypertension, N40.1 - B enign prostatic hyperplasia with lower urinary tract symptoms, N52.1 - Erectile dysfunction due to diseases classified elsewhere TSH reflex Free T4 3 Months E11.69 - Type 2 diabetes mellitus with other specified complication, E11.9 - Type 2 diabetes mellitus without complications, E78.5 - Hyperlipidemia, unspecified, I10 - Essential (primary) hypertension, N40.1 - Benign prostatic hyperplasia with lower urinary tract symptoms, N52.1 - Erectile dysfunction due to diseases classified elsewhere Hemoglobin A1c 3 Months E11.69 - Type 2 diabetes mellitus with other specified complication, E11.9 - Type 2 diabetes mellitus without complications, E78.5 - Hyperlipidemia, unspecified, I10 - Essential (primary) hypertension, N40.1 - Benign prostatic hyperplasia with lower urinary tract symptoms, N52.1 - Erectile dysfunction due to diseases classified elsewhere Referrals Dermatology Referral L91.8 - Other hypertrophic disorders of the skin Patient Instructions: - Take rosuvastatin every night to control cholesterol. - Reduce intake of egg yolks; eat fewer whole eggs. - Continue daily 30 minute walks to manage overall health. - Follow a diet low in saturated fats and high in fiber to control both diabetes and cholesterol. - Consider dermatology consultation for skin tag removal. - Return for follow-up in three months to check cholesterol levels and overall progress.
[2024-09-25 08:18] VITALS: BP 130/70; PULSE 78; TEMP 36.2; O2SAT 98; BMI 29.4
--- OUTSIDE RECORDS SUMMARY | 2024-09-25 08:18 | XMS_ITS | Patient Health Record ---
[facility] Address [address] [facility] [place] [address] Care Team Providers Care Pulp Beater Name Role Phone Zoran Alba Primary Care Provider Alicia Lawler Unavailable [phone] Ayaan Urbano Unavailable [phone] Allergies No Known Allergies Results Component Value [...] (M20.41,M20.42), Preulcerative Skin Lesion(s) (L85.1 05/17/2024 Active Tadalafil 5 MG TAKE 1 TABLET BY MOUTH DAILY FOR SEXUAL ACTIVITY Oral for 30 Days Active Cyclobenzaprine HCl 10 MG 1 tablet at bedtime as needed Orally Once a day Active Multivitamin - 1 tablet Orally Once a day Active [place] 3 500-1,000 mg Active Rosuvastatin Calcium 20 MG TAKE 1 TABLET BY MOUTH DAILY Oral for 90 Days Active metFORMIN HCl 500 MG TAKE 1 TABLET BY MOUTH TWICE DAILY Oral for 90 Days Active Aspirin 81 MG 1 tablet Orally Once a day Active Cyanocobalamin 500 MCG 1 tablet Orally O nce a day Active Chlorthalidone 25 MG TAKE 1 TABLET [...] Polyneuropathy due to type 2 diabetes mellitus (819613945) Type 2 diabetes mellitus with diabetic polyneuropathy (E11.42) Active confirmed Vital Signs Blood pressure diastolic 65 mm Hg 09/19/2024 Height 5 ft 8 in in 09/19/2024 Blood pressure systolic 128 mm Hg 09/19/2024 Weight 198 lbs 09/19/2024 BMI 30.1 kg/m2 09/19/2024 Procedures Procedure Date Ordered Date Performed Result Body Sit e 92222-GZGCBNO NAIL, 6 OR MORE 09/19/2024 N/A 16916-CFCF SKIN LESIONS, OVER 4 05/17/2024 N/A 88195-GUJSIYQ NAIL, 6 OR MORE 05/17/2024 N/A Encounters Encounter Location Date [facility] [address] 01/16/[facility]24 Ayaan Urbano Type 2 diabetes mellitus with diabetic polyneuropathy E11.42 and Tinea unguium B35.[address] [address] 05/17/2024 Alicia Prescott Other hammer toe(s) (acquired), right foot M20.41 ; Other hammer toe(s) (acquired), left foot M20.42 ; Type 2 diabetes mellitus with diabetic polyneuropathy E11.42 and Tinea unguium B35.[address] [address] 09/19/2024 Alicia Prescott Type 2 diabetes mellitus with diabetic polyneuropathy E11.42 and Tinea unguium B35.1 Assessments Encounter Date Diagnosis (ICD Code) Assessment Notes Treatment Notes Treatment Clinical Notes Section Notes 05/17/2024 Other hammer toe(s) (acquired), right foot (ICD-10 - M20.41) Patient Educated with: DIABETIC FOOT CARE INSTRUCTIONS. pdf (DIABETIC FOOT CARE INSTRUCTIONS. pdf) 05/17/2024 Other hammer toe(s) (acquired), left foot (ICD-10 - M20.42) 09/19/2024 Type 2 diabetes mellitus with diabetic polyneuropathy (ICD-10 - E11.42) 09/19/2024 Tinea unguium (ICD-10 - B35.1) 01/16/2024 Tinea unguium (ICD-10 - B35.1) 01/16/2024 Type 2 diabetes mellitus with diabetic polyneuropathy (ICD-10 - E11.42) Patient Educated with: DIABETIC FOOT CARE INSTRUCTIONS. pdf (DIABETIC FOOT CARE INSTRUCTIONS. pdf) 05/17/2024 Type 2 diabetes mellitus with diabetic polyneuropathy (ICD-10 - E11.42) 05/17/2024 Tinea unguium (ICD-10 - B35.1) Plan Of Treatment Pending Test Test Name Order Date 43483-URINFSG NAIL, 6 OR MORE 05/17/2024 43987-BUOPMWF NAIL, 6 OR MORE 09/19/2024 81124-LPVQ SKIN LESIONS, OVER 4 05/17/19 25 22133-QIDH SKIN LESIONS, 2 TO 4 01/11/20 23 S3509-OKQBLHQL DYSTROPHIC NAILS ANY # [id number]-YPPGCQMS OF HEMATOMA/FLUID 023 Next Appt Details Provider Name:Alicia ahn, 01/21/2025 09:15:00 AM, [address] [place], [address], Insurance Providers Payer Name Payer Address Payer Phone Subscriber Number Group Number Insured Name Patient Relationship to Insured Coverage Start Date Coverage End Date [employer] Medicare Adv-[id number] [address] [address] [place] [phone] [id number] Jorge Collins Self - patient is the insured Medical (General) History Medical History History ICD Code Arthritis CAD (Cholesterol) Cataracts Diabetic High blood pressure Chicken pox Measles Benign prostatic hyperplasia (BPH) Diabetes mellitus Hyperlipidemia Erectile dysfunction Surgical History Surgery Date(Month/Year) Lower 2015 cataract surgery prostate surgery pterygium excision
== END 2024-09-25 08:56 | disposition home or self-care (01) ==
LOC: HO.HMCH 08:13
DX: E11.9 Type 2 diabetes mellitus without complications (principal); E11.69 Type 2 diabetes mellitus with other specified complication; I10 Essential (primary) hypertension; N40.1 Benign prostatic hyperplasia with lower urinary tract symptoms; E78.00 Pure hypercholesterolemia, unspecified; N52.1 Erectile dysfunction due to diseases classified elsewhere

== ENCOUNTER → 2024-09-25 08:12 | Outpatient (BNVA) | payer MEDICARE, SELFPAY | PROVIDERS: PCP Internal Medicine | DX: E11.69 Type 2 diabetes mellitus with other specified complication (principal); N52.1 Erectile dysfunction due to diseases classified elsewhere; I10 Essential (primary) hypertension; E78.00 Pure hypercholesterolemia, unspecified; N40.1 Benign prostatic hyperplasia with lower urinary tract symptoms | CPT/HCPCS: 99212 ==

== ENCOUNTER 2025-01-01 06:10 | Outpatient (REF) | payer MEDICARE, SELFPAY ==
--- OUTSIDE RECORDS SUMMARY | 2024-04-11 07:20 | XMS_ITS ---
Author Organization [facility] Address [address] [place] [address] Care Team Providers Care Hide Sorter Name Role Phone Enrique Stein MD Primary Care Provider Raf Rai [phone] REASON FOR VISIT screening Problems Problem Type SNOMED Code ICD Code Onset Dates Problem Status W/U Status Risk Notes Problem Diverticulosis o f large intestine without perforation or abscess without bleeding (K57.30) Active confirmed Encounters Encounter Location Date Provider Diagnosis [facility] Outpatient [address] [place] [phone] 04/11/2024 Raf Pickett Colon cancer scree kitty [...] Of Treatment No Information Progress Notes * GONZALEZMARTINEZ MORENOCONSTANCEOB: [birth year] (69 yo M)Acc No.[id number]:04/11/2024 COLON WITH MAC Patient: LEISA GOMEZ Provider: Polly Pickett MD :1955 A ge:68 Y S ex:Male Date:04/11/2024 Address:[address] [place] [address] Pcp:Enrique Stein MD Subjective: * Chief Complaints: [...] 1 06/12/2023 Generated for Magen odom/Jacquie/Johnysmitting on: 0 01/01/2025 06:12 AM EDT
--- OUTSIDE RECORDS SUMMARY | 2025-01-01 06:12 | XMS_ITS | Patient Health Record ---
[facility] Organization [facility] Address [address] [facility] [place] [address] Care Team Providers Care Communications Equipment Operator Name Role Phone Zoran Alba Primary Care Provider Alicia Lawler Unavailable [phone] Ayaan Urbano Unavailable [phone] Allergies No Known Allergies Results Component Value [...] TABLET BY MOUTH DAILY FOR SEXUAL ACTIVITY Oral; Duration: 30 Days Active Cyclobenzaprine HCl 10 MG 1 tablet at bedtime as needed Orally Once a day Active Multivitamin - 1 tablet Orally Once a day Active Catarina 3 500-1,000 mg Active Rosuvastatin Calcium 20 MG TAKE 1 TABLET BY MOUTH DAILY Oral; Duration: 90 Days Active metFORMIN HCl 500 MG TAKE 1 TABLET BY MOUTH TWICE DAILY Oral; Duration: 90 Days Active Aspirin 81 MG 1 tablet Orally Once a day Active Cyanocobalamin 500 MCG 1 tablet Orally O nce a day Active Chlorthalidone 25 MG TAKE 1 TABLET BY MOUTH DAILY Oral; Duration: 90 Days Active Social History Tobacco Use: [...] Polyneuropathy due to type 2 diabetes mellitus (397682036) Type 2 diabetes mellitus with diabetic polyneuropathy (E11.42) Active confirmed Vital Signs Blood pressure diastolic 65 mm Hg 09/19/2024 Height 5 ft 8 in in 09/19/2024 Blood pressure systolic 128 mm Hg 09/19/2024 Weight 198 lbs 09/19/2024 BMI 30.1 kg/m2 09/19/2024 Procedures Procedure Date Ordered Date Performed Result Body Sit e 65561-SSIKLKL NAIL, 6 OR MORE 05/17/2024 N/A 01984-EABE SKIN LESIONS, OVER 4 05/17/2024 N/A 84673-FNZEHYV NAIL, 6 OR MORE 09/19/2024 N/A Encounters Encounter Location Date [facility] [address] 01/16/2024 Ayaan Urbano Type 2 diabetes mellitus with diabetic polyneuropathy E11.42 and Tinea unguium B35.[address] [address] 05/17/2024 Alicia Prescott Other hammer toe(s) (acquired), right foot M20.41 ; Other hammer toe(s) (acquired), left foot M20.42 ; Type 2 diabetes mellitus with diabetic polyneuropathy E11.42 and Tinea unguium B35.[address] [address] 09/19/2024 Alicia Prescott Type 2 diabetes mellitus [...] E11.42) 09/19/2024 Tinea unguium (ICD-10 - B35.1) 05/17/2024 Type 2 diabetes mellitus with diabetic polyneuropathy (ICD-10 - E11.42) 05/17/2024 Tinea unguium (ICD-10 - B35.1) Plan Of Treatment Pending Test Test Name Order Date 57050-RESMRHC NAIL, 6 OR MORE 05/17/2024 20337-TSVDFSC NAIL, 6 OR MORE 09/19/2024 59381-ASAS SKIN LESIONS, OVER 4 05/17/19 25 60694-XJOY SKIN LESIONS, 2 TO 4 01/11/20 23 T4830-MQYWIQDP DYSTROPHIC NAILS ANY # [id number] OF HEMATOMA/FLUID 023 Next Appt Details Provider Name:Alicia Marisol ahn, 01/21/2025 09:15:00 AM, [address] [place], [address], Insurance Providers Payer Name Payer Address Payer Phone Subscriber Number Group Number Insured Name Patient Relationship to Insured Coverage Start Date Coverage End Date [employer] Medicare [id number] [address] [address] [place] [phone] [id number] Jorge Collins Self - patient is the insured Medical (General) History Medical History History ICD Code Arthritis CAD (Cholesterol) Cataracts Diabetic High blood pressure Chicken pox Measles Benign prostatic hyperplasia (BPH) Diabetes mellitus Hyperlipidemia Erectile dysfunction Surgical History Surgery Date(Month/Year) Lower 2016 cataract surgery prostate surgery pterygium excision
--- OUTSIDE RECORDS SUMMARY | 2025-01-01 06:13 | XMS_ITS | Patient Health Record ---
Author Organization [facility] Address [address] [place] [address] Care Team Providers Care Associate Genetics Professor Name Role Phone Enrique Stein MD Primary Care Provider Raf Rai [phone] Allergies No Known Allergies Results Component Value Reference Range Notes Glucose, Whole Blood Reviewed date:04/11/2024 01:29:11 PM Interpretation: Performing Lab:[address] [address] Notes/Report: Glucose, Whole Blood 126 60-115 mg/dL METER # : [id number] Pathology (Not yet reviewed by provider) Interpretation: Performing Lab:[address] [address] Notes/Report: Reason For Referral No Information Medications Medication SIG (Take, Route, Frequency, Duration) Notes Start Date End Date Status Aspirin 81 81 MG 1 tablet Orally Once a day for 30 day(s) Active Chlorthalidone 25 MG TAKE 1 TABLET BY [facility] DAILY Oral for 90 Active Tadalafil 5 [...] Status Risk Notes Problem Colon cancer screening (553050184) Colon cancer screening (Z12.11) Active confirmed Problem Pre-procedure evaluation check (891554036) Encounter for other preprocedural examination (Z01.818) Active confirmed Problem Diverticular disease of colon (679028704) Diverticulosis of large intestine without perforation or abscess without bleeding (K57.30) Active confirmed Vital Signs Blood pressure diastolic 00 mm Hg 01/10/2024 Height 5 ft 8 in in 01/10/2024 Blood pressure systolic 00 mm Hg 01/10/2024 Weight 187 lbs 01/10/2024 BMI 28.43 kg/m2 01/10/2024 Encounters Encounter Location Date Provider Diagnosis [facility] [address] [place] [id number] 04/11/2024 Raf Pickett Colon cancer screeni ng Z12.11 ; Colon polyps K63.5 ; Diverticulosis of large intestine without perforation or abscess without bleeding K57.30 and Other hemorrhoids K64.8 [facility] [address] [place] [address] 01/10/2024 Raf Pickett Colon cancer screeni ng [...] Insured Coverage Start Date Coverage End Date [facility] Medicare Advantage Plan [address] [address] [place] [address] [phone] [id number] LEISA GONZALEZ Self - patient is the insured Medical (General) History Medical History History ICD Code Hypertension Hypercholesterolemia NIDDM Negative colonoscopies at age 48 and 58 at [facility] Denies [place],CVA,Lung disease,renal disease Surgical History Surgery Date(Month/Year) Cataracts Laser prostate surgery
[2025-01-01 06:35] LABS: MANUAL DIFF FLAG NO
[2025-01-01 07:38] LABS: Hematocrit 42.2 % (42.0-52.0); Hemoglobin 13.8 g/dl (14.0-18.0); Imm Gran Abs Auto 0.02 X10*3/uL (0.00-0.03); Imm Gran Pct Auto 0.3 % (0.0-0.4); Lymphocytes Absolute Auto 2.6 X10*3/uL (1.2-4.9); Mean Corpuscular HGB Conc 32.7 g/dl (31.0-36.0); Mean Corpuscular Hemoglobin 27.9 pg (27.0-33.0); Mean Corpuscular Volume 85.4 fL (80.0-98.0); NRBC Abs Auto 0.000 X10*3/uL (0.0-0.012); NRBC Pct Auto 0.0 /100WBC (0.0-0.2); Platelet Count 233 X10*3/uL (160-400); Red Blood Count 4.94 X10*6/uL (4.60-5.80); White Blood Count 7.2 X10*3/uL (4.8-10.8)
[2025-01-01 08:00] LABS: Appearance Urine Clear; Glucose Urine UA Negative (Negative); PH 7.5 (5.0-9.0); Specific Gravity - Urine 1.020 (1.005-1.025); UMIC TRIGGER UACC YES
[2025-01-01 08:02] LABS: Hemoglobin A1C 167.4082 umol/L; Total Hemoglobin (HGBA1C) 3604.3981 umol/L
[2025-01-01 08:15] LABS: Alanine Aminotransferase 12 U/L (0-40); Albumin Level 4.3 g/dL (3.5-5.0); Alkaline Phosphatase 69 U/L (39-117); Anion Gap 13 (12-20); Aspartate Amino Transferase 30 U/L (5-37); Blood Urea Nitrogen 16 mg/dL (9-16); Calcium 9.2 mg/dL (8.4-10.2); Carbon Dioxide 28 mmol/L (22-29); Chloride 104 mmol/L (96-108); Cholesterol 159 mg/dL (<200); Estimated Glomerular Filt Rate > 60; HDL Cholesterol 36 mg/dL (>40); Potassium 4.3 mmol/L (3.3-5.1); Sodium 141 mmol/L (135-145); Total Protein 6.8 g/dL (6.5-8.0); Triglycerides 130 mg/dL (<150)
== END 2025-01-01 06:11 | disposition home or self-care (01) ==
LOC: HO.LAB 06:10
DX: N40.1 Benign prostatic hyperplasia with lower urinary tract symptoms (principal); E11.69 Type 2 diabetes mellitus with other specified complication; N52.1 Erectile dysfunction due to diseases classified elsewhere; E78.5 Hyperlipidemia, unspecified; E11.9 Type 2 diabetes mellitus without complications; I10 Essential (primary) hypertension; Z13.21 Encounter for screening for nutritional disorder
CPT/HCPCS: 36415; 80053; 80061; 81001; 81003; 82306; 83036; 84443; 85025

== ENCOUNTER 2025-01-08 08:41 | Outpatient (AMB) | payer MEDICARE, SELFPAY ==
--- NOTE | 2025-01-08 08:44 | A.OFFPC_ITS ---
Vital Signs 01/08/25 08:48 01/08/25 09:05 Height 5 ft 8 in Weight 193 lb 8 oz BMI 29.4 BP 130/68 134/68 Blood Pressure Location Lt brachial Rt brachial Position Sitting Sitting Pulse 72 Pulse Source Pulse Oximeter Temp 97.1 F Temp Source Temporal Artery Scan Pulse Oximetry (%) 97 Oxygen Delivery Method Room Air Intake Visit Reasons: HLD/HTN/DM - see comments Intake Note: Patient is here to follow up on HLD, HTN, DM. 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: Not Required per policy Accompanied by: Self / Same As Patient Allergies No Known Allergies Allergy (Verified 01/08/25 08:56) Medication List - Last Reconciled 01/08/25 by ALLISON Sheikh aspirin (Adult Low Dose Aspirin) 81 mg PO DAILY cyanocobalamin (vitamin B-12) (Vitamin B-12) 500 mcg PO DAILY finasteride 5 mg PO DAILY 90 days metformin 500 mg PO BID multivitamin 1 tab PO DAILY omega 6-uim-ltr-fish oil 500-1,000 mg 1 cap PO DAILY rosuvastatin 20 mg PO DAILY tadalafil 5 mg PO DAILY Tobacco use date assessed: 01/08/25 Fall risk assessment: No Falls in past year Last assessed Fall Risk: 01/08/25 Dental Screening Dental Screen Date: 06/12/24 HPI HLD/HTN/DM - see comments HPI Details The patient is a 69-year-old male presenting with the management of chronic conditions, including diabetes, hyperlipidemia, and hypertension. The patient's Type 2 Diabetes Mellitus is currently managed with lifestyle modifications, and recent lab results show an A1c of 6.4, indicating good control. The patient has been incorporating dietary changes such as consuming oatmeal and engaging in regular physical activity, including walking two and a half miles daily. Hyperlipidemia is being managed with rosuvastatin which have contributed to a reduction in LDL cholesterol from 130 mg/dL to 97 mg/dL. The patient is advised to continue omega-3 supplementation to improve HDL cholesterol levels. Hypertension is well-controlled, with recent measurements indicating normal blood pressure levels. The patient is advised to maintain a low-sodium diet to prevent fluid retention and elevated blood pressure. [facility] Medical History Hyperlipidemia Elevated prostate specific antigen [PSA] Benign prostatic hyperplasia with lower urinary tract symptoms Diabetes mellitus with coincident hypertension Hypertension Surgical History History of cataract surgery History of pterygium excision History of prostate surgery Family History Father No problems noted. Mother No problems noted. Social History Housing: House Are you a primary child care assistant to a significant other at home: No Do you presently have visiting nurse or other home services: No Alcohol intake: current Alcohol intake frequency: a few times a week Patient Tobacco Use Status: Never used Tobacco e-Cigarette/Vaping Use: Never Used Second Hand Smoke Exposure: No service: No Current occupational status: retired Current occupational exposures/hazards: No Cognitive needs: No Hearing needs: No Vision needs: Yes Questionnaire PHQ-9 Over the last 2 weeks, how often have you been bothered by any of the following problems? 5. Poor appetite or overeating: not at all 6. Feeling bad about yourself - or that you are a failure or have let yourself or your family down: not at all 7. Trouble concentrating on things, such as reading the newspaper or watching television: not at all 8. Moving or speaking so slowly that other people could have noticed. Or the opposite - being so fidgety or restless that you have been moving around a lot more than usual: not at all 9. Thoughts that you would be better off or of hurting yourself in some way: not at all Depression Screening Interpretation: Negative Depression Screening Done: Yes Source: Developed by Drs. Raf Nichole, Alexa Gonzalez, Hunter Villa and colleagues, with an educational april from [employer]. Thrive Questionnaire Date Thrive assessed: 06/10/24 I am a: Parent/Caregiver What is your living situation today?: I choose not to answer this question Within the past 12 months, did the food you bought not last and you didn't have the money to get more?: I choose not to answer this question Within the past 12 months, did you worry whether your food would run out before you got money to buy more?: I choose not to answer this question Do you have trouble paying for medicines?: I choose not to answer this question Do you have trouble getting transportation to medical appointments?: No Do you have trouble paying your heating and electricity bill?: No Do you have trouble taking care of your child, family member or friend?: I choose not to answer this question Do you have trouble with day-to-day activities such as bathing, preparing meals, shopping, managing finances, etc.?: No Are you currently unemployed and looking for a job?: No Are you interested in more education?: No Please select the resources that you would like help with: None Currently or been in a relationship where the following occur: I choose not to answer THRIVE Score: 0 WILFRED-7 AMB Questionnaire WILFRED-7 Date WILFRED - 7 assessed: 06/12/24 Source: Developed by Drs. Raf Nichole, Alexa Gonzalez, Hunter Villa and colleagues, with an educational april from [employer]. Review of Systems Const Denies body aches, Denies chills, Denies fever(s), Denies headache(s) and Denies poor appetite Eyes Reports no additional complaints ENT Denies dysphagia, Denies dizziness, Denies headache(s) and Denies odynophagia Card Denies chest pain, Denies syncope, Denies edema, Denies irregular heart rhythm, Denies lightheadedness and Denies dyspnea Resp Denies cough and Denies dyspnea GI Denies abdominal pain, Denies constipation, Denies dysphagia, Denies diarrhea, Denies nausea, Denies odynophagia and Denies vomiting Reports no additional complaints Musc Reports no additional complaints and Denies abnormal gait Skin/Breast Reports system reviewed and no additional complaints, except as documented Neuro Denies abnormal gait, Denies dizziness, Denies syncope and Denies headache(s) Psych Reports no additional complaints Physical exam (Primary Care) Vital Signs: Last Vital Signs Temp 97.1 F 01/08/25 08:48 Pulse 72 01/08/25 08:48 BP 130/68 01/08/25 08:48 Pulse Ox 97 01/08/25 08:48 Oxygen Delivery Method Room Air 01/08/25 08:48 BMI result Body Mass Index 29.4 Tobacco/Smoking Status: Tobacco use Status Tobacco use date assessed 01/08/25 01/08/25 08:51 Patient Tobacco Use Status Never used Tobacco 01/08/25 08:47 e-Cigarette/Vaping Use Never Used 01/08/25 08:47 Depression Screening Interpretation: Negative Thrive Assessment: Date of Thrive Assessment Date Thrive assessed 06/10/24 01/08/25 08:47 Currently or been in a relationship where the following occur: I choose not to answer Const General: cooperative, healthy appearing, comfortable and no acute distress Orientation/consciousness: patient oriented x3 HENMT Head: Yes normocephalic Ears: hearing grossly normal bilaterally General nose exam: Normal external nose present Eyes General: appearance normal, both eyes and all related structures Conjunctivae: conjunctivae normal Neck Neck: Yes full ROM and Yes no lymphadenopathy Resp Effort & Inspection: normal respiratory effort Auscultation: clear to auscultation bilaterally, no crackles, no rales, no rhonchi and no wheezes Cardio Rate: regular rate Rhythm: regular rhythm Skin General skin exam: no rashes or lesions noted Neuro General: patient oriented x3 Gait exam (Neuro): Normal gait present Extrem General: Yes normal to inspection, Yes full ROM and No edema Psych Affect: normal affect Attitude: cooperative Insight: Good insight present (Psych) Judgement: Good judgement present (Psych) Results Reviewed Results Reviewed: Laboratory Tests 01/01/25 01/01/25 06:28 06:34 WBC 7.2 RBC 4.94 Hgb 13.8 L Hct 42.2 MCV 85.4 MCH 27.9 MCHC 32.7 RDW 13.5 Plt Count 233 MPV 10.4 Immature Gran % (Auto) 0.3 Neut % (Auto) 52.6 Lymph % (Auto) 35.8 [place] % (Auto) 8.5 Sodium 141 Potassium 4.3 Chloride 104 Carbon Dioxide 28 Anion Gap 13 BUN 16 Creatinine 0.82 Estimated GFR > 60 Fasting Glucose 108 H Estimat Average Glucose 137 Hemoglobin A1c % 6.4 H Calcium 9.2 D Total Bilirubin 0.6 AST 30 ALT 12 Alkaline Phosphatase 69 Total Protein 6.8 Albumin 4.3 Triglycerides 130 Cholesterol 159 LDL Cholesterol, Calc 97 HDL Cholesterol 36 L 25-OH Vitamin D Total 73.5 TSH 1.77 Urine Color Yellow Urine Appearance Clear Urine pH 7.5 Ur Specific [place] 1.020 Urine Protein Negative Urine Glucose (UA) Negative Urine Ketones Negative Urine Blood Negative Urine Nitrite Negative Ur Leukocyte Esterase Trace H Urine RBC 0-2 Urine WBC 0-5 Ur Squamous Epith Cells 0-2 Urine Bacteria None Seen Hyaline Casts 0-2 Coding Level of Care Code Est Pt Level 4 (56125) Diagnoses Diabetes mellitus with coincident hypertension E11.9; I10 Hypertension, unspecified type I10 Hypertension type: unspecified Benign prostatic hyperplasia with lower urinary tract symptoms, symptom details unspecified N40.1 Lower urinary tract symptom detail: unspecified Pure hypercholesterolemia E78.00 Hyperlipidemia type: pure hypercholesterolemia Erectile dysfunction associated with type 2 diabetes mellitus E11.69; N52.1 Time Spent (min) 36 Assessment & Plan Assessment & Plan (1) Diabetes mellitus with coincident hypertension: Code(s): E11.9 - Type 2 diabetes mellitus without complications; I10 - Essential (primary) hypertension Category: Medical Plan: The patient's Type 2 Diabetes Mellitus is currently well-managed with lifestyle modifications, including dietary changes and regular physical activity. The A1c level has decreased to 6.4, indicating good glycemic control. Continue metformin 500 mg b.i.d.. We will recheck fasting glucose and A1c in 3 months (2) Hypertension: Code(s): I10 - Essential (primary) hypertension Category: Medical Qualifiers: Hypertension type: unspecified Qualified Code(s): I10 - Essential (primary) hypertension Plan: Hypertension is well-controlled with current lifestyle measures, including a low-sodium diet. The patient is advised to maintain these dietary habits to prevent fluid retention and elevated blood pressure. (3) Benign prostatic hyperplasia with lower urinary tract symptoms: Code(s): N40.1 - Benign prostatic hyperplasia with lower urinary tract symptoms Category: Medical Qualifiers: Lower urinary tract symptom detail: unspecified Qualified Code(s): N40.1 - Benign prostatic hyperplasia with lower urinary tract symptoms Plan: Continue finasteride 5 mg daily Follow up with Urology as scheduled (4) Hyperlipidemia: Code(s): E78.5 - Hyperlipidemia, unspecified Category: Medical Qualifiers: Hyperlipidemia type: pure hypercholesterolemia Qualified Code(s): E78.00 - Pure hypercholesterolemia, unspecified Plan: Hyperlipidemia is being managed with rosuvastatin 20 mg daily, resulting in a reduction of LDL cholesterol from 130 mg/dL to 97 mg/dL. The patient is advised to continue omega-3 supplementation to further improve HDL cholesterol levels. We will recheck lipid panel in 3 months (5) Erectile dysfunction associated with type 2 diabetes mellitus: Code(s): E11.69 - Type 2 diabetes mellitus with other specified complication; N52.1 - Erectile dysfunction due to diseases classified elsewhere Category: Medical Plan: Continue tadalafil 5 mg Orders: Orders UA CC w/rflx Micro + Cult 3 Months E11.9 - Type 2 diabetes mellitus without complications, E78.00 - Pure hypercholesterolemia, unspecified, I10 - Essential (primary) hypertension TSH reflex Free T4 3 Months E11.9 - Type 2 diabetes mellitus without complications, E78.00 - Pure hypercholesterolemia, unspecified, I10 - Essential (primary) hypertension Hemoglobin A1c 3 Months E11.9 - Type 2 diabetes mellitus without complications, E78.00 - Pure hypercholesterolemia, unspecified, I10 - Essential (primary) hypertension Complete Blood Count Auto Diff 3 Months E11.9 - Type 2 diabetes mellitus without complications, E78.00 - Pure hypercholesterolemia, unspecified, I10 - Essential (primary) hypertension Comprehensive Pickett. Panel Fast 3 Months E11.9 - Type 2 diabetes mellitus without complications, E78.00 - Pure hypercholesterolemia, unspecified, I10 - Essential (primary) hypertension Lipid Panel 3 Months E11.9 - Type 2 diabetes mellitus without complications, E78.00 - Pure hypercholesterolemia, unspecified, I10 - Essential (primary) hypertension Vitamin D 25-OH Total 3 Months E11.9 - Type 2 diabetes mellitus without complications, E78.00 - Pure hypercholesterolemia, unspecified, I10 - Essential (primary) hypertension
[2025-01-08 08:48] VITALS: BP 130/68; PULSE 72; TEMP 36.2; O2SAT 97; BMI 29.4
[2025-01-08 09:05] VITALS: BP 134/68
== END 2025-01-08 09:15 | disposition home or self-care (01) ==
LOC: HO.HMCH 08:42
PROVIDERS: PCP Internal Medicine
DX: E11.9 Type 2 diabetes mellitus without complications (principal); E11.69 Type 2 diabetes mellitus with other specified complication; I10 Essential (primary) hypertension; N40.1 Benign prostatic hyperplasia with lower urinary tract symptoms; E78.00 Pure hypercholesterolemia, unspecified; N52.1 Erectile dysfunction due to diseases classified elsewhere

== ENCOUNTER → 2025-01-08 08:41 | Outpatient (BNVA) | payer MEDICARE, SELFPAY | PROVIDERS: PCP Internal Medicine | DX: E11.9 Type 2 diabetes mellitus without complications (principal); E78.5 Hyperlipidemia, unspecified; I10 Essential (primary) hypertension; N40.1 Benign prostatic hyperplasia with lower urinary tract symptoms; E78.00 Pure hypercholesterolemia, unspecified; E11.69 Type 2 diabetes mellitus with other specified complication; N52.1 Erectile dysfunction due to diseases classified elsewhere | CPT/HCPCS: 96127; 99212 ==

== ENCOUNTER 2025-02-18 06:22 | Outpatient (REF) | payer MEDICARE, SELFPAY ==
--- OUTSIDE RECORDS SUMMARY | 2024-04-11 07:20 | XMS_ITS ---
Author Organization [facility] Address [address] [place] [phone] Care Team Providers Care Regional Facilities Specialist Name Role Phone Enrique Stein MD Primary Care Provider Raf Rai [phone] REASON FOR VISIT screening Problems Problem Type SNOMED Code ICD Code Onset Dates Problem Status W/U Status Risk Notes Problem Diverticular disease of colon (252278469) Diverticulosis of large intestine without perforation or abscess without bleeding (K57.30) Active confirmed Encounters Encounter Location Date Provider Diagnosis [facility] Outpatient [address] [place] [phone] 04/11/2024 Raf Pickett Colon cancer scree kitty [...] * CORNELL GONZALEZOB: [birth year] (69 yo M)Acc No.[id number]:04/11/2024 COLON WITH MAC Patient: TONY GOMEZO Provider: Polly Pickett MD :1955 A ge:68 Y S ex:Male Date:04/11/2024 Address:[address] [place] [address] Pcp:Enrique Stein MD Subjective: * Chief Complaints: [...] 06/12/2023 Generated for Magen odom/Jacquie/Johnysmitting on: 1 06:26 AM EDT
--- OUTSIDE RECORDS SUMMARY | 2025-02-18 06:26 | XMS_ITS | Patient Health Record ---
[facility] Address [address] [address] Care Team Providers Care Carbon Cutter Name Role Phone Zoran Alba Primary Care Provider Alicia Lawler Unavailable [phone] Allergies No Known Allergies Results Component Value Reference Range Notes HEMOGLOBIN A1C (GLYCOHEMOGLO BIN) Reviewed date:01/21/2025 07:51:16 AM Interpretation: Performing Lab: Notes/Report: HEMOGLOBIN A1C % (HH) 6.6 HEMOGLOBIN A1C (GLYCOHEMOGLO BIN) Reviewed date:05/17/2024 09:05:29 AM Interpretation: Performing Lab: Notes/Report: HEMOGLOBIN A1C % (HH) 6.6 Reason For Referral No Information Medications Medication SIG (Take, Route, Frequency, Duration) Notes Start Date End Date Status Tadalafil 5 MG TAKE 1 TABLET BY MOUTH DAILY FOR SEXUAL ACTIVITY Oral; Duration: 30 Days Active Extra Depth Orthopedic Shoes (1 Pair) with Customized Heat Molded Multidensity Innersoles (3 Pair) as directed Dx: NIDDM/Polyneuropathy (E11.42), Hammertoe Foot Deformity (M20.41,M20.42), Preulcerative Skin Lesion(s) (L85.1 05/17/2024 Active Rosuvastatin Calcium 20 MG TAKE 1 TABLET BY MOUTH DAILY Oral; Duration: 90 Days Active Chlorthalidone 25 MG TAKE 1 TABLET BY MOUTH DAILY Oral; Duration: 90 Days Active [place] 3 500-1,000 mg Active Multivitamin - 1 tablet Orally Once a day Active Aspirin 81 MG 1 tablet Orally Once a day Active metFORMIN HCl 500 MG TAKE 1 TABLET BY MOUTH TWICE DAILY Oral; Duration: 90 Days Active Cyclobenzaprine HCl 10 MG 1 tablet at bedtime as needed Orally Once a day Active Cyanocobalamin 500 MCG 1 tablet Orally O nce a day Active Immunizations Vaccine Route Administration Date Status Comme nts Influenza Unknown 02/01/2024 Administered Social History Tobacco Use: Social History Observation [...] Polyneuropathy due to type 2 diabetes mellitus (111264523) Type 2 diabetes mellitus with diabetic polyneuropathy (E11.42) Active confirmed Vital Signs Blood pressure diastolic 65 mm Hg 01/21/2025 Height 5 ft 8 in in 01/21/2025 Blood pressure systolic 130 mm Hg 01/21/2025 Weight 198 lbs 01/21/2025 BMI 30.1 kg/m2 01/21/2025 Procedures Procedure Date Ordered Date Performed Result Body Sit e 80554-NOCUKUO NAIL, 6 OR MORE 05/17/2024 N/A 45448-RDYX SKIN LESIONS, OVER 4 05/17/2024 N/A 40107-NUYXXDQ NAIL, 6 OR MORE 09/19/2024 N/A 87704-HZWULDC NAIL, 6 OR MORE 01/21/2025 N/A Encounters [facility]counter [facility] Date [facility] [address] [facility]/17/2024 Alicia Prescott Other hammer toe(s) (acquired), right foot M20.41 ; Other hammer toe(s) (acquired), left foot M20.42 ; Type 2 diabetes mellitus with diabetic polyneuropathy E11.42 and Tinea unguium B35.[address] [address] 09/19/2024 Alicia Prescott Type 2 diabetes mellitus with diabetic polyneuropathy E11.42 and Tinea unguium B35.1 [facility] [place] [address] [place] [address] 01/21/2025 Alicia Prescott Type 2 diabetes mellitus with [...] E11.42) 09/19/2024 Tinea unguium (ICD-10 - B35.1) 01/21/2025 Type 2 diabetes mellitus with diabetic polyneuropathy (ICD-10 - E11.42) 01/21/2025 Tinea unguium (ICD-10 - B35.1) 05/17/2024 Type 2 diabetes mellitus with diabetic polyneuropathy (ICD-10 - E11.42) 05/17/2024 Tinea unguium (ICD-10 - B35.1) Plan Of Treatment Pending Test Test Name Order Date 17694-TZKDIGC NAIL, 6 OR MORE 05/17/2024 04417-IHRQLGK NAIL, 6 OR MORE 09/19/2024 77978-NTDOPOT NAIL, 6 OR MORE 01/21/2025 47462-DBOJ SKIN LESIONS, OVER 4 05/17/19 25 43477-BORR SKIN LESIONS, 2 TO 4 01/11/20 23 R9616-ILZMTDST DYSTROPHIC NAILS ANY # [id number] OF HEMATOMA/FLUID 023 Next Appt Details Provider Name:Alicia ahn, 04/29/2025 09:00:00 AM, [address] [place], [address], Insurance Providers Payer Name Payer Address Payer Phone Subscriber Number Group Number Insured Name Patient Relationship to Insured Coverage Start Date Coverage End Date [employer] Medicare [id number] [address] [address] [place] [address] [id number] Jorge Collins Self - patient is the insured Medical (General) History Medical History History ICD Code Arthritis CAD (Cholesterol) Cataracts Diabetic High blood pressure Chicken pox Measles Benign prostatic hyperplasia (BPH) Diabetes mellitus Hyperlipidemia Erectile dysfunction Surgical History Surgery Date(Month/Year) Lower 2015 cataract surgery prostate surgery pterygium excision
--- OUTSIDE RECORDS SUMMARY | 2025-02-18 06:26 | XMS_ITS | Patient Health Record ---
Author Organization [facility] Address [address] [place] [address] Care Team Providers Care Loan Reviewer Name Role Phone Enrique Stein MD Primary Care Provider Raf Rai [phone] Allergies No Known Allergies Results Component Value Reference Range Notes Glucose, Whole Blood Reviewed date:04/11/2024 01:29:11 PM Interpretation: Performing Lab:[address] [address] Notes/Report: Glucose, Whole Blood 126 60-115 mg/dL METER # : [id number] Pathology (Not yet reviewed by provider) Interpretation: Performing Lab:[address] [address] Notes/Report: Reason For Referral No Information Medications Medication SIG (Take, Route, Frequency, Duration) Notes Start Date End Date Status Aspirin 81 81 MG 1 tablet Orally Once a day; Duration: 30 day(s) Active Chlorthalidone 25 MG TAKE 1 TABLET BY MO [place] DAILY Oral; Duration: 90 Active Tadalafil 5 MG TAKE ONE TABLET BY M OUT EVERY DAY FOR SEXUAL ACTIVITY Oral; Duration: 90 Active metFORMIN HCl 500 MG TAKE 1 TABLET BY MO UT TWICE DAILY Oral; Duration: 90 Active Rosuvastatin Calcium 20 MG Oral; Duration: 90 Active Social History Tobacco Use: Social [...] Status Risk Notes Problem Colon cancer screening (085975933) Colon cancer screening (Z12.11) Active confirmed Problem Pre-procedure evaluation check (970332887) Encounter for other preprocedural examination (Z01.818) Active confirmed Problem Diverticular disease of colon (005857778) Diverticulosis of large intestine without perforation or abscess without bleeding (K57.30) Active confirmed Encounters Encounter Location Date Provider Diagnosis [facility] Outpatient [address] [place] [phone] 04/11/2024 Raf Pickett Colon cancer scree kitty [...] Insured Coverage Start Date Coverage End Date [facility] Medicare Advantage Plan [address] [address] [place] [address] [id number] LEISA GONZALEZ Self - patient is the insured Medical (General) History Medical History History ICD Code Hypertension Hypercholesterolemia NIDDM Negative colonoscopies at age 48 and 58 at [facility] Denies [place],CVA,Lung disease,renal disease Surgical History Surgery Date(Month/Year) Cataracts Laser prostate surgery
[2025-02-18 08:13] LABS: Prostate Specific Antigen 1.68 ng/mL (<0.05-4.0)
== END 2025-02-18 06:23 | disposition home or self-care (01) ==
LOC: HO.LAB 06:22
PROVIDERS: Visit Provider Nurse Practitioner Family
DX: N40.1 Benign prostatic hyperplasia with lower urinary tract symptoms (principal); Z12.5 Encounter for screening for malignant neoplasm of prostate
CPT/HCPCS: 36415; 84153

== ENCOUNTER 2025-02-26 09:11 | Outpatient (AMB) | payer MEDICARE, SELFPAY ==
--- OUTSIDE RECORDS SUMMARY | 2024-04-11 07:20 | XMS_ITS ---
Author Organization [facility] Address [address] [place] [id number] Care Team Providers Care Research Engineer Name Role Phone Enrique Stein MD Primary Care Provider Raf Rai [phone] REASON FOR VISIT screening Problems Problem Type SNOMED Code ICD Code Onset Dates Problem Status W/U Status Risk Notes Problem Diverticular disease of colon (053563335) Diverticulosis of large intestine without perforation or abscess without bleeding (K57.30) Active confirmed Encounters Encounter Location Date Provider Diagnosis [facility] [place] Out[facility] [address] [place] [phone] 04/11/2024 Raf Pickett Colon cancer scree kitty [...] * CORNELL GONZALEZOB: [birth year] (69 yo M)Acc No.[id number]:04/11/2024 COLON WITH MAC Patient: TONY GOMEZO Provider: Polly Pickett MD :1955 A ge:68 Y S ex:Male Date:04/11/2024 Address:[address] [place] [address] Pcp:Enrique Stein MD Subjective: * Chief Complaints: * 1 . Screening. * Medical History: Objective: * Vitals: Assessment: * Assessment: 1. C olon cancer screening - Z12.11 (Primary) 2 . C olon polyps - K63.5? 3. D iverticulosis of large intestine without perforation or abscess without bleeding - K57.30 4 . O ther hemorrhoids - K64.8 Plan: * Treatment: * Procedure Codes: 4 5385 LESION REMOVAL COLONOSCOPY, Modifiers: PT , 0529F INTRVL 3+YRS PTS CLNSCP DOCD, 0528F RCMND FLW-UP 10 YRS DOCD, Modifiers: 1P * * The named appointment provid er may or may not be the originator of this progress note, and it is not deemed complete until electronically signed by the appointment provider. Sign off status: Pending * Provider: Polly Pickett MD Date: 1 06/12/2023 Generated for Magen odom/Jacquie/Johnysmitting on: 1 10:20 AM EDT
--- NOTE | 2025-02-26 09:11 | A.OFFVIS_ITS ---
Intake Visit Reasons: 6m/PSA/PVR Intake Note: Patient presents today for: 6mo/PSA/PVR Urology Medications: tadalafil, finasteride, vitb12 Blood Thinner: aspirin labs done 02/18/25: PSA 1.68 today's PVR: 0mls Skilled Nursing Facilities Professional Required: No Accompanied by: Self / Same As Patient Allergies No Known Allergies Allergy (Verified 02/26/25 09:55) Medication List - Last Reconciled 02/26/25 by PINKY Moss-CLARA aspirin (Adult Low Dose Aspirin) 81 mg PO DAILY cyanocobalamin (vitamin B-12) (Vitamin B-12) 500 mcg PO DAILY finasteride 5 mg PO DAILY 90 days metformin 500 mg PO BID multivitamin 1 tab PO DAILY omega 8-vvo-xde-fish oil 500-1,000 mg 1 cap PO DAILY rosuvastatin 20 mg PO DAILY tadalafil 5 mg PO DAILY HPI Comments Details: Jorge is a very pleasant 69 year old male patient of Dr. Stein. He has a past medical history of BPH with lower urinary tract symptoms, diabetes mellitus, hypertension, hyperlipidemia, and erectile dysfunction. He presents to the office today for a follow-up of his lower urinary tract symptoms, elevated PSA, and erectile dysfunction. In discussion with the patient today reports to be doing and feeling well. He denies having had any bothersome urinary issues or concerns since his last office visit here. He reports compliance with daily dosing of tadalafil as well as finasteride daily. He discusses at length how well he is feeling and doing. Previous workup has included a retroperitoneal ultrasound 02/22 noting bilateral kidneys with no calculi, lesions, and or hydronephrosis. Normal appearing kidneys. The bladder is partially distended. Bladder jets are demonstrated. Pre void bladder volume is approximately 125 mL. Postvoid bladder volume is approximately 55mL. Prostate is enlarged measuring at least 55 mL. A marked enlarged median lobe protrudes into the bladder. Recent PSA results reviewed with the patient today as noted and trended below: 07/18 2.8, 07/19 3.9, 10/19 3.1, 01/20 3.2, 10/21 3.9, 03/23 3.6, 12/22 3.1, 02/21 4.9, 11/22 4.5, 08/24 2.6, 02/23 1.7 He otherwise denies any issues and or concerns. In office urinalysis results reviewed with the patient today. PVR 0 ml. When asked he denies urinary urgency, incontinence, nocturia, hematuria, dysuria, foul smelling urine, changes to urinary stream, flank pain, fever, and or chills. He otherwise offers no other issues or concerns at this time. Lower urinary tract symptoms Prior history laser prostatectomy PSA historically range between 2.8 and 3.8 Erectile dysfunction Longstanding Currently on therapy HBA1c 05/26 6.8% Background diabetes [facility] Medical History Hyperlipidemia Elevated prostate specific antigen [PSA] Benign prostatic hyperplasia with lower urinary tract symptoms Diabetes mellitus with coincident hypertension Hypertension Surgical History History of cataract surgery History of pterygium excision History of prostate surgery Family History Father No problems noted. Mother No problems noted. Social History Housing: House Are you a primary direct care staffer to a significant other at home: No Do you presently have visiting nurse or other home services: No Alcohol intake: current Alcohol intake frequency: a few times a week Patient Tobacco Use Status: Never used Tobacco e-Cigarette/Vaping Use: Never Used Second Hand Smoke Exposure: No service: No Current occupational status: retired Current occupational exposures/hazards: No Cognitive needs: No Hearing needs: No Vision needs: Yes Review of Systems Const Reports no additional complaints Eyes Reports no additional complaints ENT Reports no additional complaints Card Reports no additional complaints Resp Reports no additional complaints GI Reports no additional complaints Reports as per HPI Musc Reports no additional complaints Psych Reports no additional complaints Endo Details: patient reports A1c and suagrs to be well controlled Solitario/Lymph Reports no additional complaints Aller/Immun Reports no additional complaints Physical Exam Const General: cooperative, healthy appearing, comfortable, no acute distress, well developed, alert and awake Orientation/consciousness: patient oriented x3 Limitations: no limitations HEENT Head: Yes normal to inspection, Yes normocephalic and Yes atraumatic Ears: hearing grossly normal bilaterally Eyes General: appearance normal, both eyes and all related structures Neck Neck: Yes normal visual inspection and Yes trachea midline Chest Chest palpation & inspection: normal inspection of the chest Resp Effort & Inspection: normal respiratory effort and able to speak in complete sentences Cardio Rate: regular rate General: Yes no CVA tenderness Back/Spine/Pelvis Back: no CVA tenderness Skin General skin exam: no rashes or lesions noted Neuro General: patient oriented x3 Extrem General: Yes normal to inspection Psych Appearance: grossly normal and well kempt Mental Status: mental status grossly normal Speech and movement: Normal speech and movement present and Clear speech present Affect: normal affect Attitude: cooperative Thought process: Normal thought process present Thought content: Normal thought content present Insight: Fair insight present (Psych) Judgement: Fair judgement present (Psych) Office Procedures Post Void Residual Post Residual Void Post Void Residual (PVR): 0 35260-Cvjs Void Residual by ultrasound Results AMB Urinalysis, Automated UA Leukoctes 0 Arnoldo/uL Last Edit by MARLENI Cannon on 02/26/25 09:25 UA Nitrite Last Edit by MARLENI Cannon on 02/26/25 09:25 UA Urobilinogen 0.2 mg/dL Last Edit by MARLENI Cannon on 02/26/25 09:2 5 UA Protein 0 mg/dL Last Edit by MARLENI Cannon on 02/26/25 09:25 UA pH 5.5 Last Edit by MARLENI Cannon on 02/26/25 09:25 UA Blood 0 Cesario/uL Last Edit by MARLENI Cannon on 02/26/25 09:25 UA Specific [place] 1.010 Last Edit by MARLENI Cannon on 02/26/25 09: 25 UA Ketone Last Edit by MARLENI Cannon on 02/26/25 09:25 UA Bilirubin 0 mg/dL Last Edit by MARLENI Cannon on 02/26/25 09:25 UA Glucose 0 mg/dL Last Edit by MARLENI Cannon on 02/26/25 09:25 Results Reviewed Results Reviewed: Laboratory Last Values Urine pH (Auto) 5.5 02/26/25 09:24 Specific [place] (Auto) 1.010 02/26/25 09:24 Urine Protein (Auto) 0 mg/dL 02/26/25 09:24 Glucose (UA)(Auto) 0 mg/dL 02/26/25 09:24 Urine Blood (Auto) 0 Cesario/uL 02/26/25 09:24 Urine Bilirubin (Auto) 0 mg/dL 02/26/25 09:24 Urine Urobilinogen (Auto) 0.2 mg/dL 02/26/25 09:24 Leukocyte Esterase (Auto) 0 Arnoldo/uL 02/26/25 09:24 Assessment & Plan Assessment & Plan (1) Enlarged prostate: Code(s): N40.0 - Benign prostatic hyperplasia without lower urinary tract symptoms Category: Medical (2) Elevated prostate specific antigen [PSA]: Code(s): R97.20 - Elevated prostate specific antigen [PSA] Category: Medical (3) Benign prostatic hyperplasia with lower urinary tract symptoms: Code(s): N40.1 - Benign prostatic hyperplasia with lower urinary tract symptoms Category: Medical Qualifiers: Lower urinary tract symptom detail: unspecified Qualified Code(s): N40.1 - Benign prostatic hyperplasia with lower urinary tract symptoms (4) Erectile dysfunction associated with type 2 diabetes mellitus: Code(s): E11.69 - Type 2 diabetes mellitus with other specified complication; N52.1 - Erectile dysfunction due to diseases classified elsewhere Category: Medical Plan In office urinalysis results reviewed with the patient today; as noted above. PVR 0 mL Recent PSA results reviewed with the patient today; as noted above. Continue finasteride and Cialis as prescribed. Patient currently denies any bothersome urinary issues or concerns. He reports be happy with current voiding parameters. We discussed the importance of management and diabetes for improvement overall health and well-being. All questions were answered Will continue with surveillance monitoring. Will obtain PSA in 6 months. Follow-up in 6 months with PSA and PVR; or sooner with any issues, concerns, and or questions. Orders: Orders AMB Post Void Residual by ultrasound Today N40.1 - Benign prostatic hyperplasia with lower urinary tract symptoms AMB Urinalysis Automated Today Z13.9 - Encounter for screening, unspecified Prostate Specific Antigen 6 Months E11.69 - Type 2 diabetes mellitus with other specified complication, N40.0 - Benign prostatic hyperplasia without lower urinary tract symptoms, N40.1 - Benign prostatic hyperplasia with lower urinary tract symptoms, N52.1 - Erectile dysfunction due to diseases classified elsewhere, R97.20 - Elevated prostate specific antigen [PSA] Patient Instructions: The patient had an opportunity to ask questions regarding the treatment plan. All questions were answered. Physical exam, labs, and imaging were discussed and reviewed in detail. As well as risks, benefits, and discussion of treatment choices. No major barriers to understanding were identified. The patient expressed understanding and agreement with the above treatment plan. The patient was made aware they should contact our office by phone for worsening of their current condition, the appearance of new symptoms, or with any questions or concerns. Compliance is encouraged with any medications and follow up testing that is ordered. It is a privilege to be allowed the opportunity to participate in? your urological care.? Again, if you have any questions or concerns If you have any questions or concerns please do not hesitate to contact me. The office is [phone]. This note is constructed using voice recognition software. While every effort has been made to ensure accuracy brass cleaner errors may have been included. Yours sincerely, OKSANA Moss Coding Level of Care Code Est Pt Level 3 (05981) Complex EM visit Add On G2211 Diagnoses Enlarged prostate N40.0 Elevated prostate specific antigen [PSA] R97.20 Benign prostatic hyperplasia with lower urinary tract symptoms, symptom details unspecified N40.1 Lower urinary tract symptom detail: unspecified Erectile dysfunction associated with type 2 diabetes mellitus E11.69; N52.1 CPT Codes Post Residual Void - PVR CPT Code: 38225-Ujhj Void Residual by ultrasound ( [id number])
--- OUTSIDE RECORDS SUMMARY | 2025-02-26 10:20 | XMS_ITS | Patient Health Record ---
Author Organization [facility] Address [address] [place] [address] Care Team Providers Care Auditor/Quality Name Role Phone Zoran Alba Primary Care Provider Alicia Lawler Unavailable [phone] Allergies No Known Allergies Results Component Value [...] MOUTH DAILY Oral; Duration: 90 Days Active [place] 3 500-1,000 mg Active Multivitamin - 1 [...] Polyneuropathy due to type 2 diabetes mellitus (481481557) Type 2 diabetes mellitus with diabetic polyneuropathy (E11.42) Active confirmed Vital Signs Blood pressure diastolic 65 mm Hg 01/21/2025 Height 5 ft 8 in in 01/21/2025 Blood pressure systolic 130 mm Hg 01/21/2025 Weight 198 lbs 01/21/2025 BMI 30.1 kg/m2 01/21/2025 Procedures Procedure Date Ordered Date Performed Result Body Sit e 89240-RZSTAQW NAIL, 6 OR MORE 05/17/2024 N/A 99561-VFAM SKIN LESIONS, OVER 4 05/17/2024 N/A 86203-IJGFJJO NAIL, 6 OR MORE 09/19/2024 N/A 25136-JAULQHQ NAIL, 6 OR MORE 01/21/2025 N/A Encounters Encounter [facility] Date [facility] [address] [facility]/17/2024 Alicia Prescott Other hammer toe(s) (acquired), right foot M20.41 ; Other hammer toe(s) (acquired), left foot M20.42 ; Type 2 diabetes mellitus with diabetic polyneuropathy E11.42 and Tinea unguium B35.[address] [address] 09/19/2024 Alicia Prescott Type 2 diabetes mellitus with diabetic polyneuropathy E11.42 and Tinea unguium B35.1 [facility] [address] [place] [address] 01/21/2025 Alicia Prescott Type 2 diabetes mellitus [...] Treatment Pending Test Test Name Order Date 52538-CDKBCVA NAIL, 6 OR MORE 05/17/2024 77741-ARUXGGY NAIL, 6 OR MORE 09/19/2024 08988-ERCDGTA NAIL, 6 OR MORE 01/21/2025 76770-ZQMI SKIN LESIONS, OVER 4 05/17/19 25 97763-ENVB SKIN LESIONS, 2 TO 4 01/11/20 23 H2669-ADQFWHQE DYSTROPHIC NAILS ANY # [id number] OF HEMATOMA/FLUID 023 Next Appt Details Provider Name:Alicia ahn, 04/29/2025 09:00:00 AM, [address] [place], [address], Insurance Providers Payer Name Payer Address Payer Phone Subscriber Number Group Number Insured Name Patient Relationship to Insured Coverage Start Date Coverage End Date [employer] Medicare [id number] [address] [address] [place] [address] [id number] Jorge Collins Self - patient is the insured Medical (General) History Medical History History ICD Code Arthritis CAD (Cholesterol) Cataracts Diabetic High blood pressure Chicken pox Measles Benign prostatic hyperplasia (BPH) Diabetes mellitus Hyperlipidemia Erectile dysfunction Surgical History Surgery Date(Month/Year) Lower 2015 cataract surgery prostate surgery pterygium excision
--- OUTSIDE RECORDS SUMMARY | 2025-02-26 10:20 | XMS_ITS | Patient Health Record ---
Author Organization [facility] Address [address] [place] [address] Care Team Providers Care Rope Silica Machine Operator Name Role Phone Enrique Stein MD Primary Care Provider Raf Rai [phone] Allergies No Known Allergies Results Component Value Reference Range Notes Glucose, Whole Blood Reviewed date:04/11/2024 01:29:11 PM Interpretation: Performing Lab:[address] [address] Notes/Report: Glucose, Whole Blood 126 60-115 mg/dL METER # : [id number] Pathology (Not yet reviewed by provider) Interpretation: Performing Lab:[address] [address] Notes/Report: Reason For Referral No Information Medications Medication SIG (Take, Route, Frequency, Duration) Notes Start Date End Date Status Aspirin 81 81 MG 1 tablet Orally Once a day; Duration: 30 day(s) Active Chlorthalidone 25 MG TAKE 1 TABLET BY MO [facility] DAILY Oral; Duration: 90 Active Tadalafil 5 [...] Status Risk Notes Problem Colon cancer screening (970152424) Colon cancer screening (Z12.11) Active confirmed Problem Pre-procedure evaluation check (812816464) Encounter for other preprocedural examination (Z01.818) Active confirmed Problem Diverticular disease of colon (120337411) Diverticulosis of large intestine without perforation or abscess without bleeding (K57.30) Active confirmed Encounters Encounter Location Date Provider Diagnosis [facility] Outpatient [address] [place] [phone] 04/11/2024 Raf Pickett Colon cancer scree kitty [...] Insured Coverage Start Date Coverage End Date [facility] Medicare Advantage Plan [address] [address] [place] [address] [id number] LEISA GONZALEZ Self - patient is the insured Medical (General) History Medical History History ICD Code Hypertension Hypercholesterolemia NIDDM Negative colonoscopies at age 48 and 58 at [facility] Denies [place],CVA,Lung disease,renal disease Surgical History Surgery Date(Month/Year) Cataracts Laser prostate surgery
== END 2025-02-26 09:51 | disposition home or self-care (01) ==
LOC: HO.HUSH 09:12
PROVIDERS: PCP Internal Medicine; Visit Provider Nurse Practitioner Family
DX: N40.0 Benign prostatic hyperplasia without lower urinary tract symptoms (principal); R97.20 Elevated prostate specific antigen [PSA]; N40.1 Benign prostatic hyperplasia with lower urinary tract symptoms; E11.69 Type 2 diabetes mellitus with other specified complication; N52.1 Erectile dysfunction due to diseases classified elsewhere; Z13.9 Encounter for screening, unspecified
CPT/HCPCS: 99213; G2211

== ENCOUNTER → 2025-02-26 09:11 | Outpatient (BNVA) | payer MEDICARE, SELFPAY | PROVIDERS: PCP Internal Medicine; Visit Provider Nurse Practitioner Family | DX: E11.69 Type 2 diabetes mellitus with other specified complication (principal); N52.1 Erectile dysfunction due to diseases classified elsewhere; N40.1 Benign prostatic hyperplasia with lower urinary tract symptoms; R97.20 Elevated prostate specific antigen [PSA]; Z13.9 Encounter for screening, unspecified; Z90.79 Acquired absence of other genital organ(s) | CPT/HCPCS: 51798; 81003; 99212 ==

== ENCOUNTER 2025-04-01 06:16 | Outpatient (REF) | payer MEDICARE, SELFPAY ==
--- OUTSIDE RECORDS SUMMARY | 2024-04-11 06:20 | XMS_ITS ---
Author Organization [facility] Address [address] [place] [id number] Care Team Providers Care Business Analytics Manager Name Role Phone Enrique Stein MD Primary Care Provider Raf Rai [phone] REASON FOR VISIT screening Problems Problem Type SNOMED Code ICD Code Onset Dates Problem Status W/U Status Risk Notes Problem Diverticular disease of colon (292504797) Diverticulosis of large intestine without perforation or abscess without bleeding (K57.30) Active confirmed Encounters Encounter Location Date Provider Diagnosis [facility] [address] [place] [id number] 04/11/2024 Raf Pickett Colon cancer scree kitty Z12.11 ; Colon polyps K63.5 ; Diverticulosis of large intestine without perforation or abscess without bleeding K57.30 and Other hemorrhoids K64.8 Assessments Encounter Date Diagnosis (ICD Code) Assessment Notes Treatment Notes Treatment Clinical Notes Section Notes 04/11/2024 Colon cancer screening (ICD-10 - Z12.11) 04/11/2024 Colon polyps (ICD-10 - K63.5) 04/11/2024 Diverticulosis of large intestine without perforation or abscess without bleeding (ICD-10 - K57.30) 04/11/2024 Other hemorrhoids (ICD-10 - K64.8) Plan Of Treatment No Information Progress Notes * CORNELL GONZALEZOB: [birth year] (69 yo M)Acc No.[id number]:04/11/2024 COLON WITH MAC Patient: TONY GOMEZO Provider: Polly Pickett MD :1955 A ge:68 Y S ex:Male Date:04/11/2024 Address:[address] [place] [address] Pcp:Enrique Stein MD Subjective: * Chief Complaints: * S creening Assessment: * Assessment: 1. C olon cancer screening - Z12.11 (Primary) 2 . C olon polyps - K63.5? 3. D iverticulosis of large intestine without perforation or abscess without bleeding - K57.30 4 . O ther hemorrhoids - K64.8 Plan: * Procedure Codes: 4 5385 LESION REMOVAL COLONOSCOPY, Modifiers: PT 0529F INTRVL 3+YRS PTS CLNSCP [id number] RCMND FLW-UP 10 YRS DOCD, Modifiers: 1P Billing Information: * Procedure Codes: 98358 LESION REMOVAL COLONOSCOPY. Modifiers: PT 0529F INTRVL 3+YRS PTS CLNSCP DOCD. 0528F RCMND FLW-UP 10 YRS DOCD. Modifiers: 1P * The named appointment provid er may or may not be the originator of this progress note, and it is not deemed complete until electronically signed by the appointment provider. Sign off status: Pending * Provider: Polly Pickett MD Date: 06/12/2023 Generated for Magen odom/Jacquie/Catrachitaitting on: 06/02/2024 06:19 AM EST
--- OUTSIDE RECORDS SUMMARY | 2025-04-01 06:19 | XMS_ITS | Patient Health Record ---
Author Organization [facility] Address [address] [place] [address] Care Team Providers Care Water Proofer Name Role Phone Enrique Stein MD Primary Care Provider Raf Rai [phone] Allergies No Known Allergies Results Component Value Reference Range Flag Notes Pathology (Not yet reviewed by provider) Interpretation: Performing Lab:[facility], [address] [place] [phone] Notes/Report: Glucose, Whole Blood Reviewed date:04/11/2024 01:29:11 PM Interpretation: Performing Lab:[facility], [address] [place] [phone] Notes/Report: Glucose, Whole Blood 126 60-115 mg/dL [facility] #: [id number] Reason For Referral No Information Medications Medication SIG (Take, Route, Frequency, Duration) Notes Start Date End Date Status Aspirin 81 81 MG Tablet Delayed Release 1 tablet Orally Once a day; Duration: 30 day(s) Active Chlorthalidone 25 MG Tablet TAKE 1 TABLE T BY MOUTH DAILY Oral; Duration: 90 Active Tadalafil 5 MG Tablet TAKE ONE TABLET BY MOUTH EVERY DAY FOR SEXUAL ACTIVITY Oral; Duration: 90 Active metFORMIN HCl 500 MG Tablet TAKE 1 TABLE T BY MOUTH TWICE DAILY Oral; Duration: 90 Active Rosuvastatin Calcium 20 MG Tablet Oral; Duration: 90 Active Social History Tobacco Use: Social History Observation Description Date Details (start date - stop date) Never Smoker NA - NA Social History Drugs/Alcohol: Social Info Question Answer Notes Alcohol Screen Did you have a drink containing alcohol in the past year? Yes How many drinks did you have on a typical day when you were drinking in the past year? 1 or 2 drinks (0 point) How often did you have 6 or more drinks on one occasion in the past year? 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 Section Notes: Nonsmoker; no sig alcohol Problems Problem Type SNOMED Code ICD Code Onset Dates Problem Status W/U Status Risk Notes Problem Colon cancer screening (575597004) Colon cancer screening (Z12.11) Active confirmed Problem Pre-procedure evaluation check (926770687) Encounter for other preprocedural examination (Z01.818) Active confirmed Problem Diverticular disease of colon (431246339) Diverticulosis of large intestine without perforation or abscess without bleeding (K57.30) Active confirmed Encounters Encounter Location Date Provider Diagnosis [facility] Out[place] [address] [place] [id number] 04/11/2024 Raf Pickett Colon cancer scree kitty [...] Insured Coverage Start Date Coverage End Date [facility] Medicare Advantage Plan [address] [address] [place] [address] [id number] LISA LEISA Self - patient is the insured Medical (General) History Medical History History ICD Code Hypertension Hypercholesterolemia NIDDM Negative colonoscopies at age 48 and 58 at [facility] Denies [place],CVA,Lung disease,renal disease Surgical History Surgery Date(Month/Year) Cataracts Laser prostate surgery
--- OUTSIDE RECORDS SUMMARY | 2025-04-01 06:19 | XMS_ITS | Patient Health Record ---
Author Organization [facility] Address [address] [facility] [address] Care Team Providers Care Transportation Assistant Name Role Phone Zoran Alab Primary Care Provider Alicia Lawler Unavailable [phone] Allergies No Known Allergies Results Component Value [...] MOUTH DAILY Oral; Duration: 90 Days Active [place] 3 500-1,000 mg Active Multivitamin - 1 [...] Polyneuropathy due to type 2 diabetes mellitus (489488356) Type 2 diabetes mellitus with diabetic polyneuropathy (E11.42) Active confirmed Vital Signs Blood pressure diastolic 65 mm Hg 01/21/2025 Height 5 ft 8 in in 01/21/2025 Blood pressure systolic 130 mm Hg 01/21/2025 Weight 198 lbs 01/21/2025 BMI 30.1 kg/m2 01/21/2025 Procedures Procedure Date Ordered Date Performed Result Body Sit e 56432-VEUEBQA NAIL, 6 OR MORE 05/17/2024 N/A 39475-RROJ SKIN LESIONS, OVER 4 05/17/2024 N/A 38391-SRIOPHF NAIL, 6 OR MORE 09/19/2024 N/A 59254-YNFUQOT NAIL, 6 OR MORE 01/21/2025 N/A Encounters Encounter [facility] Date [facility] [address] 05/17/2024 Alicia Prescott Other hammer toe(s) (acquired), right foot M20.41 ; Other hammer toe(s) (acquired), left foot M20.42 ; Type 2 diabetes mellitus with diabetic polyneuropathy E11.42 and Tinea unguium B35.[address] [address] 09/19/2024 Alicia Prescott Type 2 diabetes mellitus with diabetic polyneuropathy E11.42 and Tinea unguium B35.1 [facility] [address] [place] [address] 01/21/2025 Alicia Prescott Type 2 diabetes mellitus [...] Treatment Pending Test Test Name Order Date 42345-PDJOSOI NAIL, 6 OR MORE 05/17/2024 38241-TEANYVX NAIL, 6 OR MORE 09/19/2024 64936-WAWWBZU NAIL, 6 OR MORE 01/21/2025 20818-BSZM SKIN LESIONS, OVER 4 05/17/19 25 28877-XEHG SKIN LESIONS, 2 TO 4 01/11/20 23 I3969-QMNIDXUQ DYSTROPHIC NAILS ANY # [id number] OF HEMATOMA/FLUID 023 Next Appt Details Provider Name:Alicia ahn, 05/09/2025 10:30:00 AM, [address] [place], [address], Insurance Providers Payer Name Payer Address Payer Phone Subscriber Number Group Number Insured Name Patient Relationship to Insured Coverage Start Date Coverage End Date [employer] Medicare [id number] [address] [address] [place] [address] [id number] Jorge Collins Self - patient is the insured Medical (General) History Medical History History ICD Code Arthritis CAD (Cholesterol) Cataracts Diabetic High blood pressure Chicken pox Measles Benign prostatic hyperplasia (BPH) Diabetes mellitus Hyperlipidemia Erectile dysfunction Surgical History Surgery Date(Month/Year) Lower 2015 cataract surgery prostate surgery pterygium excision
[2025-04-01 06:43] LABS: MANUAL DIFF FLAG NO
[2025-04-01 07:18] LABS: Hematocrit 46.7 % (42.0-52.0); Hemoglobin 15.5 g/dl (14.0-18.0); Imm Gran Abs Auto 0.01 X10*3/uL (0.00-0.03); Imm Gran Pct Auto 0.1 % (0.0-0.4); Lymphocytes Absolute Auto 3.1 X10*3/uL (1.2-4.9); Mean Corpuscular HGB Conc 33.2 g/dl (31.0-36.0); Mean Corpuscular Hemoglobin 27.6 pg (27.0-33.0); Mean Corpuscular Volume 83.1 fL (80.0-98.0); NRBC Abs Auto 0.000 X10*3/uL (0.0-0.012); NRBC Pct Auto 0.0 /100WBC (0.0-0.2); Platelet Count 247 X10*3/uL (160-400); Red Blood Count 5.62 X10*6/uL (4.60-5.80); White Blood Count 7.4 X10*3/uL (4.8-10.8)
[2025-04-01 07:42] LABS: Appearance Urine Clear; Glucose Urine UA Negative (Negative); PH 8.0 (5.0-9.0); Specific Gravity - Urine 1.015 (1.005-1.025)
[2025-04-01 07:58] LABS: Alanine Aminotransferase 24 U/L (0-40); Albumin Level 4.6 g/dL (3.5-5.0); Alkaline Phosphatase 77 U/L (39-117); Anion Gap 14 (12-20); Aspartate Amino Transferase 29 U/L (5-37); Blood Urea Nitrogen 15 mg/dL (9-16); Calcium 9.6 mg/dL (8.4-10.2); Carbon Dioxide 31 mmol/L (22-29); Chloride 98 mmol/L (96-108); Cholesterol 190 mg/dL (<200); Estimated Glomerular Filt Rate > 60; HDL Cholesterol 46 mg/dL (>40); Potassium 3.8 mmol/L (3.3-5.1); Sodium 139 mmol/L (135-145); Total Protein 7.5 g/dL (6.5-8.0); Triglycerides 149 mg/dL (<150)
== END 2025-04-01 06:17 | disposition home or self-care (01) ==
LOC: HO.LAB 06:16
DX: I10 Essential (primary) hypertension (principal); E11.69 Type 2 diabetes mellitus with other specified complication; N40.1 Benign prostatic hyperplasia with lower urinary tract symptoms; N52.1 Erectile dysfunction due to diseases classified elsewhere; E78.00 Pure hypercholesterolemia, unspecified; Z13.21 Encounter for screening for nutritional disorder
CPT/HCPCS: 36415; 80053; 80061; 81003; 82043; 82306; 82570; 83036; 84443; 85025

== ENCOUNTER 2025-04-10 10:11 | Outpatient (AMB) | payer MEDICARE, SELFPAY ==
[2025-04-10 10:28] VITALS: BP 150/70; PULSE 72; RESP 18; O2SAT 98; BMI 30.3
--- NOTE | 2025-04-10 10:28 | A.OFFPC_ITS ---
Vital Signs 04/10/25 10:28 Height 5 ft 8 in Weight 199 lb 2 oz BMI 30.3 BP 150/70 H Blood Pressure Location Lt brachial Position Sitting Respiration 18 Pulse 72 Pulse Source Pulse Oximeter Temp Source Temporal Artery Scan Pulse Oximetry (%) 98 Oxygen Delivery Method Room Air Intake Visit Reasons: htn/hld/DM Associate Media Planner Required: No Accompanied by: Self / Same As Patient Allergies No Known Allergies Allergy (Verified 04/10/25 10:42) Medication List - Last Reconciled 04/10/25 by ALLISON Sheikh aspirin (Adult Low Dose Aspirin) 81 mg PO DAILY cyanocobalamin (vitamin B-12) (Vitamin B-12) 500 mcg PO DAILY finasteride 5 mg PO DAILY 90 days metformin 500 mg PO BID multivitamin 1 tab PO DAILY omega 5-nas-hdm-fish oil 500-1,000 mg 1 cap PO DAILY rosuvastatin 20 mg PO DAILY tadalafil 5 mg PO DAILY Tobacco use date assessed: 04/10/25 Fall risk assessment: No Falls in past year Last assessed Fall Risk: 04/10/25 Dental Screening Dental Screen Date: 04/10/25 Did you have a dental visit in the last 12 months?: Yes Did you have a dental problem in the last 6 months where you did not have access to dental care?: No Was dental information given to patient?: Patient has dentist HPI htn/hld/DM HPI Details The patient is a 69 year old male presenting for follow-up and management of chronic conditions, including hypertension, hypercholesterolemia, and arthritis. He reports intermittent pain in his arm and back, particularly after activities like shoveling snow, which he attributes to inflammation and arthritis. He states the pain is worse in the winter due to the cold and repetitive motion. Regarding hypertension, the patient's blood pressure was noted to be elevated during the visit. He had previously stopped his blood pressure medication due to complaints of frequent urination and his blood pressure has been within normal limits for a while. Since then his blood pressure has been increasing and is quite elevated in office today at 150/70 mm Hg. The patient is aware that the medication makes him urinate frequently. Explained to the patient that the chlorthalidone works well for him because of his high salt intake. His cholesterol recently increased from 97 to 115, which he believes may be related to his diet during , including eating ham. He notes a history of very high cholesterol, up to 250, for which he was started on medication. He occasionally forgets to take his cholesterol medication. He inquired about taking Tylenol for his pain and its interaction with his cholesterol medication and was reassured it is safe. He is also taking aspirin. [facility] Medical History Hyperlipidemia Elevated prostate specific antigen [PSA] Benign prostatic hyperplasia with lower urinary tract symptoms Diabetes mellitus with coincident hypertension Hypertension Surgical History History of cataract surgery History of pterygium excision History of prostate surgery Family History Father No problems noted. Mother No problems noted. Social History Housing: House Are you a primary care specialist to a significant other at home: No Do you presently have visiting nurse or other home services: No Alcohol intake: current Alcohol intake frequency: a few times a week Patient Tobacco Use Status: Never used Tobacco e-Cigarette/Vaping Use: Never Used Second Hand Smoke Exposure: No service: No Current occupational status: retired Current occupational exposures/hazards: No Cognitive needs: No Hearing needs: No Vision needs: Yes Questionnaire PHQ-9 Over the last 2 weeks, how often have you been bothered by any of the following problems? Depression Screening Interpretation: Negative Depression Screening Done: Yes Source: Developed by Drs. Raf Nichole, Alexa Gonzalez, Hunter Villa and colleagues, with an educational april from [employer]. Thrive Questionnaire Date Thrive assessed: 04/10/25 I am a: Parent/Caregiver What is your living situation today?: I choose not to answer this question Within the past 12 months, did the food you bought not last and you didn't have the money to get more?: I choose not to answer this question Within the past 12 months, did you worry whether your food would run out before you got money to buy more?: I choose not to answer this question Do you have trouble paying for medicines?: I choose not to answer this question Do you have trouble getting transportation to medical appointments?: No Do you have trouble paying your heating and electricity bill?: No Do you have trouble taking care of your child, family member or friend?: I choose not to answer this question Do you have trouble with day-to-day activities such as bathing, preparing meals, shopping, managing finances, etc.?: No Are you currently unemployed and looking for a job?: No Are you interested in more education?: No Please select the resources that you would like help with: None Currently or been in a relationship where the following occur: I choose not to answer THRIVE Score: 0 WILFRED-7 AMB Questionnaire WILFRED-7 Date WILFRED - 7 assessed: 06/12/24 Source: Developed by Drs. Raf Nichole, Alexa Gonzalez, Hunter Villa and colleagues, with an educational april from [employer]. Review of Systems Const Denies body aches, Denies chills, Denies fever(s), Denies headache(s) and Denies poor appetite Eyes Reports no additional complaints ENT Denies dysphagia, Denies dizziness, Denies headache(s) and Denies odynophagia Card Denies chest pain, Denies syncope, Denies edema, Denies irregular heart rhythm, Denies lightheadedness and Denies dyspnea Resp Denies cough and Denies dyspnea GI Denies abdominal pain, Denies constipation, Denies dysphagia, Denies diarrhea, Denies nausea, Denies odynophagia and Denies vomiting Reports no additional complaints Musc Reports no additional complaints and Denies abnormal gait Skin/Breast Reports system reviewed and no additional complaints, except as documented Neuro Denies abnormal gait, Denies dizziness, Denies syncope and Denies headache(s) Psych Reports no additional complaints Physical exam (Primary Care) Vital Signs: Last Vital Signs Pulse 72 04/10/25 10:28 Resp 18 04/10/25 10:28 BP 150/70 H 04/10/25 10:28 Pulse Ox 98 04/10/25 10:28 Oxygen Delivery Method Room Air 04/10/25 10:28 BMI result Body Mass Index 30.3 Tobacco/Smoking Status: Tobacco use Status Tobacco use date assessed 04/10/25 04/10/25 10:34 Patient Tobacco Use Status Never used Tobacco 04/10/25 10:34 e-Cigarette/Vaping Use Never Used 04/10/25 10:34 Depression Screening Interpretation: Negative Thrive Assessment: Date of Thrive Assessment Date Thrive assessed 04/10/25 04/10/25 10:34 Currently or been in a relationship where the following occur: I choose not to answer Const General: cooperative, healthy appearing, comfortable and no acute distress Orientation/consciousness: patient oriented x3 [facility] Head: Yes normocephalic Ears: hearing grossly normal bilaterally General nose exam: Normal external nose present Eyes General: appearance normal, both eyes and all related structures Conjunctivae: conjunctivae normal Neck Neck: Yes full ROM and Yes no lymphadenopathy Resp Effort & Inspection: normal respiratory effort Auscultation: clear to auscultation bilaterally, no crackles, no rales, no rhonchi and no wheezes Cardio Rate: regular rate Rhythm: regular rhythm Skin General skin exam: no rashes or lesions noted Neuro General: patient oriented x3 Gait exam (Neuro): Normal gait present Extrem General: Yes normal to inspection, Yes full ROM and No edema Psych Affect: normal affect Attitude: cooperative Insight: Good insight present (Psych) Judgement: Good judgement present (Psych) Results Reviewed Results Reviewed: Laboratory Tests 04/01/25 04/01/25 06:37 06:42 WBC 7.4 RBC 5.62 Hgb 15.5 Hct 46.7 MCV 83.1 MCH 27.6 MCHC 33.2 RDW 12.7 Plt Count 247 Sodium 139 Potassium 3.8 Chloride 98 Carbon Dioxide 31 H Anion Gap 14 BUN 15 Creatinine 0.86 Estimated GFR > 60 Fasting Glucose 137 H Estimat Average Glucose 146 Hemoglobin A1c % 6.7 H Calcium 9.6 Total Bilirubin 0.6 AST 29 ALT 24 Alkaline Phosphatase 77 Total Protein 7.5 Albumin 4.6 Triglycerides 149 Cholesterol 190 LDL Cholesterol, Calc 115 H HDL Cholesterol 46 25-OH Vitamin D Total 71.9 TSH 2.15 Urine Color Yellow Urine Appearance Clear Urine pH 8.0 Ur Specific [place] 1.015 Urine Protein Negative Urine Glucose (UA) Negative Urine Ketones Negative Urine Blood Negative Urine Nitrite Negative Ur Leukocyte Esterase Negative Urine Creatinine 93.14 Urine Microalbumin < 5.0 Coding Level of Care Code Est Pt Level 4 (51608) Diagnoses Diabetes mellitus with coincident hypertension E11.9; I10 Hypertension, unspecified type I10 Hypertension type: unspecified Benign prostatic hyperplasia with lower urinary tract symptoms, symptom details unspecified N40.1 Lower urinary tract symptom detail: unspecified Pure hypercholesterolemia E78.00 Hyperlipidemia type: pure hypercholesterolemia Erectile dysfunction associated with type 2 diabetes mellitus E11.69; N52.1 Time Spent (min) 38 Assessment & Plan Assessment & Plan (1) Diabetes mellitus with coincident hypertension: Code(s): E11.9 - Type 2 diabetes mellitus without complications; I10 - Essential (primary) hypertension Category: Medical Plan: The A1c level is 6.7%, increased slightly from 6.4 %, we will continues to be within goal. Reinforced low sugar/carbohydrate diet. Continue metformin 500 mg b.i.d.. We will recheck fasting glucose and A1c in 3 months (2) Hypertension: Code(s): I10 - Essential (primary) hypertension Category: Medical Qualifiers: Hypertension type: unspecified Qualified Code(s): I10 - Essential (primary) hypertension Plan: The patient's blood pressure was elevated at 154/92 mmHg in the office. Given this elevation, the decision was made to restart his previous blood pressure medication, which had been effective. Chlorthalidone on a 5 mg daily. The risks of uncontrolled long-term hypertension, including cardiomegaly and kidney damage, were discussed. Although the medication causes polyuria, its benefit in removing excess salt was noted, which is helpful given his diet. The patient was advised to take the medication in the morning to minimize nocturia. The prescription will be sent to the [facility] in [place]. (3) Benign prostatic hyperplasia with lower urinary tract symptoms: Code(s): N40.1 - Benign prostatic hyperplasia with lower urinary tract symptoms Category: Medical Qualifiers: Lower urinary tract symptom detail: unspecified Qualified Code(s): N40.1 - Benign prostatic hyperplasia with lower urinary tract symptoms Plan: Continue finasteride 5 mg daily Follow up with Urology as scheduled (4) Hyperlipidemia: Code(s): E78.5 - Hyperlipidemia, unspecified Category: Medical Qualifiers: Hyperlipidemia type: pure hypercholesterolemia Qualified Code(s): E78.00 - Pure hypercholesterolemia, unspecified Plan: The patient's cholesterol increased from 97 to 115. This is thought to be related to his recent holiday diet. No changes will be made to his cholesterol medication at this time. A follow-up lab check will be conducted in three months to re-evaluate his cholesterol levels. Emphasized the importance of not skipping his medication. Continue rosuvastatin 20 mg daily (5) Erectile dysfunction associated with type 2 diabetes mellitus: Code(s): E11.69 - Type 2 diabetes mellitus with other specified complication; N52.1 - Erectile dysfunction due to diseases classified elsewhere Category: Medical Plan: Continue tadalafil 5 mg daily Orders: Orders Hemoglobin A1c 3 Months E11.9 - Type 2 diabetes mellitus without complications, E78.00 - Pure hypercholesterolemia, unspecified, I10 - Essential (primary) hypertension, N40.1 - Benign prostatic hyperplasia with lower urinary tract symptoms Complete Blood Count Auto Diff 3 Months E11.9 - Type 2 diabetes mellitus without complications, E78.00 - Pure hypercholesterolemia, unspecified, I10 - Essential (primary) hypertension, N40.1 - Benign prostatic hyperplasia with lower urinary tract symptoms TSH reflex Free T4 3 Months E11.9 - Type 2 diabetes mellitus without complications, E78.00 - Pure hypercholesterolemia, unspecified, I10 - Essential (primary) hypertension, N40.1 - Benign prostatic hyperplasia with lower urinary tract symptoms UA CC w/rflx Micro + Cult 3 Months E11.9 - Type 2 diabetes mellitus without complications, E78.00 - Pure hypercholesterolemia, unspecified, I10 - Essential (primary) hypertension, N40.1 - Benign prostatic hyperplasia with lower urinary tract symptoms Comprehensive [place]. Panel Fast 3 Months E11.9 - Type 2 diabetes mellitus without complications, E78.00 - Pure hypercholesterolemia, unspecified, I10 - Essential (primary) hypertension, N40.1 - Benign prostatic hyperplasia with lower urinary tract symptoms Lipid Panel 3 Months E11.9 - Type 2 diabetes mellitus without complications, E78.00 - Pure hypercholesterolemia, unspecified, I10 - Essential (primary) hypertension, N40.1 - Benign prostatic hyperplasia with lower urinary tract symptoms Vitamin D 25-OH Total 3 Months E11.9 - Type 2 diabetes mellitus without complications, E78.00 - Pure hypercholesterolemia, unspecified, I10 - Essential (primary) hypertension, N40.1 - Benign prostatic hyperplasia with lower urinary tract symptoms Medications: New chlorthalidone 25 mg PO DAILY 90 tabs 3RF
== END 2025-04-10 11:02 | disposition home or self-care (01) ==
LOC: HO.HMCH 10:12
PROVIDERS: PCP Internal Medicine
DX: E11.9 Type 2 diabetes mellitus without complications (principal); E11.69 Type 2 diabetes mellitus with other specified complication; I10 Essential (primary) hypertension; N40.1 Benign prostatic hyperplasia with lower urinary tract symptoms; E78.00 Pure hypercholesterolemia, unspecified; N52.1 Erectile dysfunction due to diseases classified elsewhere

== ENCOUNTER → 2025-04-10 10:11 | Outpatient (BNVA) | payer MEDICARE, SELFPAY | PROVIDERS: PCP Internal Medicine | DX: I10 Essential (primary) hypertension (principal); N40.1 Benign prostatic hyperplasia with lower urinary tract symptoms; E78.00 Pure hypercholesterolemia, unspecified; E11.69 Type 2 diabetes mellitus with other specified complication; N52.1 Erectile dysfunction due to diseases classified elsewhere; M13.80 Other specified arthritis, unspecified site | CPT/HCPCS: 99212 ==